=== PATIENT | female | born 1960 | race Hispanic/Latino ===

== ENCOUNTER 2017-05-06 14:12 | Emergency (ER) | payer MEDICARE ==
[2017-05-06 14:13] VITALS: BMI 27.4
[2017-05-06 14:39] VITALS: TEMP 98.1
--- NOTE | 2017-05-06 14:42 | ED PDOC ---
Arrival/HPI - General Historian: Patient, EMS - General Chief Complaint: Alcohol Ingestion Time Seen by Provider: 05/06/17 14:13 - History of Present Illness Narrative History of Present Illness (Text): 05/06/17 14:38 Patient is a 56 yo female presents to the Emergency Department found "wandering on the [address] Patient states that she is not sure why she was brought to the Emergency Department. She states she was "sitting at home", however EMS states that someone called stating that she was outside and appeared confused. Patient denies headache. She denies chest pain or shortness of breath. She denies depression or suicidal ideation. She denies drinking alcohol. She denies overdosing on any medication. (Lico Samaniego) Past Medical History - Infectious Disease Hx of Infectious Diseases: None - Cardiac Hx Hypertension: Yes - Pulmonary Hx Respiratory Disorders: No - Neurological Hx Neurological Disorder: No - HEENT Hx HEENT Disorder: No - Renal Hx Renal Disorder: No - Endocrine/Metabolic Hx Endocrine Disorders: No - Hematological/Oncological Hx Blood Transfusions: No Hx Blood Transfusion Reaction: No - Integumentary Hx Dermatological Disorder: Yes Other/Comment: ITCHING AND SCABBING BLE, BUE, FACE - Musculoskeletal/Rheumatological Hx Musculoskeletal Disorders: No Hx Falls: No Other/Comment: COMPLAINTS THIS ADMISSION OF LEFT RIB PAIN SINCE 09/28/15 - Gastrointestinal Hx Gastrointestinal Disorders: No - Genitourinary/Gynecological Hx Genitourinary Disorders: No - Psychiatric Hx Psychophysiologic Disorder: No Hx Anxiety: Yes Hx Substance Use: No (TAKES PERCOCET FOR PAIN REGULARLY PRESCRIBED) - Surgical History Hx Musculoskeletal Surgery: Yes (DISCECTOMY, BACK SURGERY 2010) - Anesthesia Hx Anesthesia Reactions: No Hx Malignant Hyperthermia: No - Suicidal Assessment Feels Threatened In Home Enviroment: No Family/Social History Smoking Status: Former Smoker Hx Alcohol Use: No Hx Substance Use: No (TAKES PERCOCET FOR PAIN REGULARLY PRESCRIBED) Substance used: percocet Hx Substance Use Treatment: No Allergies/Home Meds Allergies/Adverse Reactions: Allergies No Known Allergies Allergy (Verified 09/29/15 11:18) Home Medications: Home Meds Medication Instructions Recorded Confirmed Fluoxetine HCl [Prozac] 40 mg PO DAILY 02/02/15 05/06/17 Losartan/Hydrochlorothiazide 1 tab PO DAILY 02/02/15 05/06/17 [Hyzaar 100-25 Tablet] Review of Systems - Review of Systems Systems not reviewed;Unavailable: Altered Mental Status Constitutional: absent: Fevers Eyes: absent: Vision Changes Respiratory: absent: SOB Cardiovascular: absent: Chest Pain, Palpitations, CEJA, Syncope Gastrointestinal: absent: Abdominal Pain, Nausea, Vomiting Genitourinary Female: absent: Dysuria, Frequency Musculoskeletal: absent: Back Pain Skin: absent: Rash Neurological: absent: Headache, Dizziness, Focal Weakness Hemo/Lymphatic: absent: Easy Bleeding Psychiatric: absent: Depression Physical Exam - Physical Exam Physical Exam Limitations: Altered Mental Status Vital Signs Reviewed: Yes Temperature: Afebrile Appearance: Positive for: Unkept Mental Status: Positive for: Confused. No: Agitated - Systems Exam Head: Present: Atraumatic, Normocephalic Pupils: Present: PERRL Extroacular Muscles: Present: EOMI Mouth: Present: Moist Mucous Membranes Pharnyx: No: ERYTHEMA Neck: Present: Normal Range of Motion. No: Meningeal Signs Respiratory/Chest: Present: Clear to Auscultation. No: Respiratory Distress Cardiovascular: Present: Regular Rate and Rhythm, Murmurs Abdomen: Present: Normal Bowel Sounds. No: Tenderness, Distention, Peritoneal Signs Back: No: CVA Tenderness, Midline Tenderness Upper Extremity: No: Cyanosis, Edema Lower Extremity: Present: Neurovascularly Intact. No: Edema, CALF TENDERNESS Neurological: Present: Motor Func Grossly Intact, Normal Sensory Function, Normal Cerebellar Funct, Normal 2Pt Descrimination. No: Speech Normal (slurred speech), Memory Normal Skin: Present: Warm Psychiatric: Present: Alert. No: Oriented x 3, Normal Insight, Normal Concentration, Depressed Mood Vital Signs Temp Pulse Resp BP Pulse Ox 05/06/17 18:00 78 18 120/79 98 05/06/17 16:12 90 136/70 99 05/06/17 14:39 98.1 F 83 16 118/83 98 Medical Decision Making - EKG Interpretation Interpreted by ED Physician: Yes Type: 12 lead EKG ED Course and Treatment: 05/06/17 14:48 Patient on initial evaluation appears confused, although no fever, no obvious trauma. There is no focal weakness noted. Past available visits reviewed. She denies drinking alcohol or drug abuse. Given confusion, head ct ordered and drug screen and labs ordered for evaluation of AMS. Currently cardiovascularly stable with no respiratory distress. 05/06/17 15:51 ETOH level extremely elevated despite patient stating that she has not been drinking. I feel this is most likely etiology of AMS. As no signs of trauma noted or reported, head ct cancelled and will continue serial exams in the ED. 05/06/17 19:57 Patient with no headache, no slurred speech. CV stable. Ambulatory. Drinking water and no distress noted. 05/06/17 21:45 Patient reassessed at 21:45. She states she does not recollect coming to the emergency room by ambulance but does admit to drinking alcohol earlier in the day. Patient currently denies any pain or discomfort. Patient is not tremulous ot tachycardic. She denies suicidal ideation, although states she lives by herself and asked to "talk to someone". On exam, steady gait, no slurred speech. Will request mental health evaluation. 05/06/17 22:15 Thrombocytopenia noted, but no bruising or gum bleeding or active bleeding noted. LFTs elevated, although no abodminal pain. I suspect lab abnormalities secondary to ETOH abuse. Abnormal labs reviewed with patient. She is medically cleared for PES evaluation. (Lico Samaniego) 05/06/17 22:13: Patient endorsed to me by Dr. Samaniego. Pending PES Evaluation. 05/07/17 01:32: Patient evaluated by PES worker. Patient is clear for discharge. (Eitan Mccray) - Lab Interpretations Lab Results: 05/06/17 14:49 05/06/17 14:49 Lab Results 05/06/17 15:31: Urine Opiates Screen Negative, Urine Methadone Screen Negative, Ur Barbiturates Screen Negative, Ur Phencyclidine Scrn Negative, Ur Amphetamines Screen Negative, U Benzodiazepines Scrn Negative, U Oth Cocaine Metabols Negative, U Cannabinoids Screen Negative 05/06/17 15:31: Urine Color Yellow, Urine Appearance Clear, Urine pH 6.0, Ur Specific [place] <= 1.005, Urine Protein Negative, Urine Glucose (UA) Negative, Urine Ketones Negative, Urine Blood Small H, Urine Nitrate Negative, Urine Bilirubin Negative, Urine Urobilinogen 0.2, Ur Leukocyte Esterase Negative, Urine RBC 1 - 3, Urine WBC 2 - 5, Ur Epithelial Cells 3 - 4, Urine Bacteria Mod 05/06/17 14:49: Alcohol, Quantitative 410 H* 05/06/17 14:49: Salicylates < 1 L, Acetaminophen < 10.0 L 05/06/17 14:49: Sodium 140, Potassium 4.1, Chloride 93 L, Carbon Dioxide 30, Anion Gap 22 H, BUN 3 L, Creatinine 0.5 L, Est GFR ( Amer) > 60, Est GFR (Non-Af Amer) > 60, Random Glucose 115 H, Calcium 9.4, Magnesium 1.9, Total Bilirubin 1.3, AST 512 H, ALT 187 H, Alkaline Phosphatase 123, Lactate Dehydrogenase 1148 H, Total Creatine Kinase 65, Troponin I < 0.01, Total Protein 7.9, Albumin 4.4, Globulin 3.5, Albumin/Globulin Ratio 1.3 05/06/17 14:49: PT 12.0, INR 1.10 H, APTT 32.0 05/06/17 14:49: WBC 5.1 D, RBC 3.56, Hgb 12.7, Hct 36.8, MCV 103.4, MCH 35.7 H , MCHC 34.5, RDW 15.4 H, Plt Count 75 L, MPV 10.1, Gran % 59.9, Lymph % (Auto) 30.8, [place] % (Auto) 7.9 H, Eos % (Auto) 0.8 L, Baso % (Auto) 0.6, Gran # 3.05, Lymph # 1.6, [place] # 0.4, Eos # 0.0, Baso # 0.03 05/06/17 14:48: POC Glucose (mg/dL) 119 H - EKG Interpretation EKG Interpretation (Text): 05/06/17 14:49 EKG at 14:45 normal sinus rhythm rate of 98 (Lico Samaniego) - Medication Orders Current Medication Orders: Discontinued Medications Lorazepam (Ativan) 0.5 mg PO ONCE ONE PRN Reason: Protocol Stop: 05/06/17 22:52 Last Admin: 05/06/17 23:19 Dose: 0.5 mg Disposition/Present on Arrival - Present on Arrival Any Indicators Present on Arrival: No History of DVT/PE: No History of Uncontrolled Diabetes: No Urinary Catheter: No History of Decub. Ulcer: No History Surgical Site Infection Following: None - Disposition Have Diagnosis and Disposition been Completed?: Yes - Disposition Diagnosis: Alcohol intoxication Disposition: HOME/ ROUTINE Patient Problems: Current Active Problems Problem Status Onset Alcohol intoxication Acute Condition: STABLE Discharge Instructions (ExitCare): Alcohol Intoxication (ED), Suicide Prevention for Adults (ED) Additional Instructions: follow instructions as directed by pull worker. return to er with worsening symptoms or concerns. Referrals: [facility] [Outside] - Follow up with primary [facility] [Outside] - Follow up with [facility] [Outside] - Follow up with primary [facility] [place]] - Follow up with primary Latoya Cruz MD [Primary Care Provider] - Follow up with primary Forms: [employer] (German)
[2017-05-06 15:16] LABS: ALB/GLOB RATIO 1.3 (1.1-1.8); ALKALINE PHOSPHATASE 123 U/L (38-126); ALT/SGPT 187 U/L (7-56); AST/SGOT 512 U/L (14-36); BILIRUBIN,TOTAL 1.3 mg/dL (0.2-1.3); BLOOD UREA NITROGEN 3 mg/dL (7-21); CALCIUM 9.4 mg/dL (8.4-10.5); CARBON DIOXIDE 30 mmol/L (21-33); CHLORIDE 93 mmol/L (98-107); GFR AFRICAN-AMERICAN > 60; GLUCOSE,RANDOM 115 mg/dL (70-110); MAGNESIUM 1.9 mg/dL (1.7-2.2); POTASSIUM 4.1 mmol/L (3.6-5.0); SODIUM 140 mmol/L (132-148); TOTAL PROTEIN 7.9 g/dL (5.8-8.3)
[2017-05-06 15:20] LABS: BASO # 0.03 K/mm3 (0.0-2.0); BASO % 0.6 % (0.0-3.0); EOS % 0.8 % (1.5-5.0); GRAN # 3.05 (1.4-6.5); GRAN % 59.9 % (50.0-68.0); HEMATOCRIT 36.8 % (36.0-48.0); LYMPH # 1.6 (1.2-3.4); LYMPH % 30.8 % (22.0-35.0); MEAN CELL VOLUME 103.4 fl (80.0-105.0); MEAN CORPUSCULAR HEMOGLOBIN 35.7 pg (25.0-35.0); MEAN CORPUSCULAR HGB CONC 34.5 g/dl (31.0-37.0); MEAN PLATELET VOLUME 10.1 fl (7.0-11.0); MONO # 0.4 (0.1-0.6); MONO % 7.9 % (1.0-6.0); RED CELL DISTRIBUTION WIDTH 15.4 % (11.5-14.5); WHITE BLOOD COUNT 5.1 10^3/ul (4.5-11.0)
[2017-05-06 15:25] LABS: TROPONIN I < 0.01 ng/mL
[2017-05-06 15:32] LABS: INR 1.1 (0.93-1.08)
[2017-05-06 15:36] LABS: URINE BILIRUBIN NEGATIVE (NEGATIVE); URINE BLOOD SMALL (NEGATIVE); URINE GLUCOSE (UA) NEGATIVE (NEGATIVE); URINE KETONE NEGATIVE (NEGATIVE); URINE LEUKOCYTE ESTERASE NEGATIVE Leu/uL (NEGATIVE); URINE PROTEIN NEGATIVE mg/dL (<30 mg/dL); URINE UROBILINOGEN 0.2 E.U./dL (<1 E.U./dL)
[2017-05-06 15:40] LABS: URINE APPEARANCE CLEAR (CLEAR); URINE COLOR YELLOW (YELLOW)
[2017-05-06 15:52] LABS: URINE BACTERIA MOD (NEG)
[2017-05-06 18:46] VITALS: RESP 18; O2SAT 98
[2017-05-07 06:18] VITALS: BP 121/82; PULSE 80
--- NOTE | 2017-05-07 09:51 | CARD ---
APPROVED REPORT EKG Measurement Heart [id number] TX [id number] <Conclusion> Normal sinus rhythm Possible Left atrial enlargement RVCD Mildly prolonged QTc
== END 2017-05-07 07:00 | disposition home or self-care (01) ==
LOC: ED 14:12
DX: F10.129 Alcohol abuse with intoxication, unspecified (principal); I10 Essential (primary) hypertension; Z87.891 Personal history of nicotine dependence; Y90.8 Blood alcohol level of 240 mg/100 ml or more
CPT/HCPCS: 80053; 81001; 82550; 82948; 83615; 83735; 84484; 85025; 85610; 85730; 93005; 99284; G0480

== ENCOUNTER 2017-07-07 13:51 | Emergency (ER) | payer MEDICARE ==
[2017-07-07 13:59] VITALS: BP 112/70; PULSE 91; RESP 18; TEMP 98; O2SAT 100; BMI 29.2
[2017-07-07] MEDS ORDERED: Bacitracin Ointment 30 GM TUBE TOP STA (14:29)
[2017-07-07] MEDS ORDERED: TDAP Vaccine 0.5 mL Syr IM ONE (14:30)
--- NOTE | 2017-07-07 14:53 | ED PDOC ---
Arrival/HPI - General Chief Complaint: Trauma Time Seen by Provider: 07/07/17 14:25 Historian: Patient - History of Present Illness Narrative History of Present Illness (Text): 07/07/17 14:49 56 year old female, with past medical history of hypertension, presents to the Emergency department via EMS for alcohol intoxication prior to arrival. Patient complains of mild abrasion to her chin s/p fall but denies hitting her head or loss of consciousness. Patient admits to drinking today. Patient denies any fever, chills, nausea, vomiting, diarrhea, abdominal pain, chest pain, shortness of breath, trauma or any other complaints. PMD: Dr. Cruz Time/Duration: Prior to Arrival Symptom Onset: Gradual Symptom Course: Improving Activities at Onset: Light Context: Street Past Medical History - Provider Review Nursing Documentation Reviewed: Yes - Infectious Disease Hx of Infectious Diseases: None - Cardiac Hx Hypertension: Yes - Pulmonary Hx Respiratory Disorders: No - Neurological Hx Neurological Disorder: No - HEENT Hx HEENT Disorder: No - Renal Hx Renal Disorder: No - Endocrine/Metabolic Hx Endocrine Disorders: No - Hematological/Oncological Hx Blood Transfusions: No Hx Blood Transfusion Reaction: No - Integumentary Hx Dermatological Disorder: Yes Other/Comment: ITCHING AND SCABBING BLE, BUE, FACE - Musculoskeletal/Rheumatological Hx Musculoskeletal Disorders: No Hx Falls: No Other/Comment: COMPLAINTS THIS ADMISSION OF LEFT RIB PAIN SINCE 09/28/15 - Gastrointestinal Hx Gastrointestinal Disorders: No - Genitourinary/Gynecological Hx Genitourinary Disorders: No - Psychiatric Hx Psychophysiologic Disorder: No Hx Anxiety: Yes Hx Substance Use: No (TAKES PERCOCET FOR PAIN REGULARLY PRESCRIBED) - Surgical History Hx Musculoskeletal Surgery: Yes (DISCECTOMY, BACK SURGERY 2010) - Anesthesia Hx Anesthesia Reactions: No Hx Malignant Hyperthermia: No - Suicidal Assessment Feels Threatened In Home Enviroment: No Family/Social History - Physician Review Nursing Documentation Reviewed: Yes Family/Social History: No Known Family HX Smoking Status: Former Smoker Hx Alcohol Use: No Hx Substance Use: No (TAKES PERCOCET FOR PAIN REGULARLY PRESCRIBED) Substance used: percocet Hx Substance Use Treatment: No Allergies/Home Meds Allergies/Adverse Reactions: Allergies No Known Allergies Allergy (Verified 09/29/15 11:18) Home Medications: Home Meds Medication Instructions Recorded Confirmed Fluoxetine HCl [Prozac] 40 mg PO DAILY 02/02/15 05/06/17 Losartan/Hydrochlorothiazide 1 tab PO DAILY 02/02/15 05/06/17 [Hyzaar 100-25 Tablet] Review of Systems - Physician Review All systems were reviewed & negative as marked: Yes - Review of Systems Constitutional: Normal. absent: Fevers Eyes: Normal ENT: Normal Respiratory: Normal. absent: SOB Cardiovascular: Normal. absent: Chest Pain Gastrointestinal: Normal. absent: Abdominal Pain, Diarrhea, Nausea, Vomiting Genitourinary Female: Normal Musculoskeletal: Normal Skin: Normal Neurological: Normal Endocrine: Normal Hemo/Lymphatic: Normal Psychiatric: Other (alcohol intoxication) Physical Exam Vital Signs Reviewed: Yes Vital Signs Temp Pulse Resp BP Pulse Ox 07/07/17 13:59 98.0 F 91 H 18 112/70 100 Temperature: Afebrile Blood Pressure: Normal Pulse: Regular Respiratory Rate: Normal Appearance: Positive for: Well-Appearing, Comfortable Pain Distress: None Mental Status: Positive for: Alert and Oriented X 3 - Systems Exam Head: Present: Atraumatic, Normocephalic Pupils: Present: PERRL Extroacular Muscles: Present: EOMI Conjunctiva: Present: Normal Mouth: Present: Moist Mucous Membranes, Other (no tenderness or intraoral injury ) Neck: Present: Normal Range of Motion Respiratory/Chest: Present: Clear to Auscultation, Good Air Exchange. No: Respiratory Distress, Accessory Muscle Use Cardiovascular: Present: Regular Rate and Rhythm, Normal S1, S2. No: Murmurs Abdomen: Present: Normal Bowel Sounds. No: Tenderness, Distention, Peritoneal Signs Back: Present: Normal Inspection Upper Extremity: Present: Normal Inspection. No: Cyanosis, Edema Lower Extremity: Present: Normal Inspection. No: Edema Neurological: Present: GCS=15, CN II-XII Intact, Speech Normal Skin: Present: Warm, Dry, Normal Color, Abrasion (mild abrasion to chin). No: Rashes Psychiatric: Present: Alert, Oriented x 3, Intoxicated Medical Decision Making ED Course and Treatment: 07/07/17 14:56 Impression: 56 year old female presents to the Emergency department s/p alcohol intoxication. Plan: -- Bacitrin -- TDAP vaccine -- Reassess and disposition Progress Notes: - Medication Orders Current Medication Orders: Discontinued Medications Bacitracin (Bacitracin) 0 gm TOP ONCE STA Stop: 07/07/17 14:30 Last Admin: 07/07/17 14:57 Dose: 1 unit Tetanus/Reduced Diphtheria/Acell Pertussis (Boostrix Vaccine Inj) 0.5 ml IM .ONCE ONE Stop: 07/07/17 14:31 Last Admin: 07/07/17 14:58 Dose: 0.5 ml MAR Immunization Data Document 07/07/17 14:58 HP (Rec: 07/07/17 14:58 HP [id number] Immunization Data Vaccine Information Sheet Given No Immunization Registry Document 07/07/17 14:58 HP (Rec: 07/07/17 14:58 HP [id number] Immunization Registry Consent Date 05/06/17 - Scribe Statement The provider has reviewed the documentation as recorded by the Scribe Lulú Yun. All medical record entries made by the Scribe were at my direction and personally dictated by me. I have reviewed the chart and agree that the record accurately reflects my personal performance of the history, physical exam, medical decision making, and the department course for this patient. I have also personally directed, reviewed, and agree with the discharge instructions and disposition. Disposition/Present on Arrival - Present on Arrival Any Indicators Present on Arrival: No History of DVT/PE: No History of Uncontrolled Diabetes: No Urinary Catheter: No History of Decub. Ulcer: No History Surgical Site Infection Following: None - Disposition Have Diagnosis and Disposition been Completed?: Yes Diagnosis: Facial abrasion, Alcohol abuse Disposition: HOME/ ROUTINE Disposition Time: 16:10 Patient Problems: Current Active Problems Problem Status Onset Alcohol abuse Acute Facial abrasion Acute Condition: STABLE Discharge Instructions (ExitCare): Alcohol Intoxication (ED), Abuse of Alcohol (ED), Alcohol Dependence (ED), Skin Abrasions, Alcohol Abuse and Alcoholism (DC) Referrals: Latoya Cruz MD [Primary Care Provider] - Follow up with primary Forms: [employer] (Spanish)
== END 2017-07-07 16:41 | disposition home or self-care (01) ==
LOC: ED 13:51
DX: S00.81XA Abrasion of other part of head, initial encounter (principal); W01.0XXA Fall on same level from slipping, tripping and stumbling without subsequent striking against object, initial encounter; Y92.9 Unspecified place or not applicable; F10.10 Alcohol abuse, uncomplicated; Y90.9 Presence of alcohol in blood, level not specified; Z23 Encounter for immunization

== ENCOUNTER 2017-07-14 13:05 | Inpatient (IN) | payer MEDICARE, OTHER ==
--- NOTE | 2017-07-14 13:13 | ED PDOC ---
Arrival/HPI - General Chief Complaint: Alcohol Ingestion Time Seen by Provider: 07/14/17 13:08 Historian: Patient - History of Present Illness Narrative History of Present Illness (Text): 07/14/17 13:12 This 56 yo female with pmh htn, alcohol abuse, presents to this ED c/o dizziness and jaundice for few days. Ex-librado who is at bedside stated she saw patient today with yellow skin. He stated patient did not have this last week. Patient feels dizzy to the point she feels she is going to faint. Patient denies sob, cp, n/v, or urinary symptoms. Time/Duration: Other (see hpi) Context: Home Past Medical History - Provider Review Nursing Documentation Reviewed: Yes - Infectious Disease Hx of Infectious Diseases: None - Reproductive Menopause: Yes - Cardiac Hx Hypertension: Yes - Pulmonary Hx Respiratory Disorders: No - Neurological Hx Neurological Disorder: No - HEENT Hx HEENT Disorder: No - Renal Hx Renal Disorder: No - Endocrine/Metabolic Hx Endocrine Disorders: No - Hematological/Oncological Hx Blood Transfusions: No Hx Blood Transfusion Reaction: No - Integumentary Hx Dermatological Disorder: Yes Other/Comment: ITCHING AND SCABBING BLE, BUE, FACE - Musculoskeletal/Rheumatological Hx Musculoskeletal Disorders: No Hx Falls: No Other/Comment: COMPLAINTS THIS ADMISSION OF LEFT RIB PAIN SINCE 09/28/15 - Gastrointestinal Hx Gastrointestinal Disorders: No - Genitourinary/Gynecological Hx Genitourinary Disorders: No - Psychiatric Hx Psychophysiologic Disorder: No Hx Anxiety: Yes Hx Substance Use: No (TAKES PERCOCET FOR PAIN REGULARLY PRESCRIBED) - Surgical History Hx Musculoskeletal Surgery: Yes (DISCECTOMY, BACK SURGERY 2010) - Anesthesia Hx Anesthesia Reactions: No Hx Malignant Hyperthermia: No - Suicidal Assessment Feels Threatened In Home Enviroment: No Family/Social History - Physician Review Nursing Documentation Reviewed: Yes Family/Social History: Other (noncontributory) Smoking Status: Former Smoker Hx Alcohol Use: Yes (chronic alcoholic) Hx Substance Use: No (TAKES PERCOCET FOR PAIN REGULARLY PRESCRIBED) Substance used: percocet Hx Substance Use Treatment: No Allergies/Home Meds Allergies/Adverse Reactions: Allergies No Known Allergies Allergy (Verified 09/29/15 11:18) Home Medications: Home Meds Medication Instructions Recorded Confirmed Fluoxetine HCl [Prozac] 40 mg PO DAILY 02/02/15 05/06/17 Losartan/Hydrochlorothiazide 1 tab PO DAILY 02/02/15 05/06/17 [Hyzaar 100-25 Tablet] Review of Systems - Review of Systems Constitutional: Normal. absent: Fatigue, Weight Change, Fevers, Night Sweats Eyes: Normal ENT: Normal Respiratory: Normal. absent: SOB Cardiovascular: Normal. absent: Chest Pain, Palpitations Gastrointestinal: Normal. absent: Abdominal Pain, Nausea, Vomiting Genitourinary Female: Normal. absent: Dysuria, Frequency Musculoskeletal: Normal Skin: Normal Neurological: Dizziness. absent: Headache, Focal Weakness, Speech Changes, Facial Droop, Disequilibrium Endocrine: Normal Hemo/Lymphatic: Normal Psychiatric: Normal Physical Exam Vital Signs Temp Pulse Resp BP Pulse Ox 07/14/17 19:28 105 H 17 111/63 100 07/14/17 18:09 95 H 20 113/58 L 100 07/14/17 16:56 98 H 18 120/75 100 07/14/17 13:23 97.9 F 113 H 16 108/38 L 100 Temperature: Afebrile Blood Pressure: Normal Pulse: Regular Respiratory Rate: Normal Appearance: Positive for: Well-Appearing, Non-Toxic, Comfortable Pain Distress: None Mental Status: Positive for: Alert and Oriented X 3 - Systems Exam Head: Present: Atraumatic, Normocephalic Pupils: Present: PERRL Extroacular Muscles: Present: EOMI Conjunctiva: Present: Normal Mouth: Present: Moist Mucous Membranes Neck: Present: Normal Range of Motion Respiratory/Chest: Present: Clear to Auscultation, Good Air Exchange. No: Respiratory Distress, Accessory Muscle Use Cardiovascular: Present: Regular Rate and Rhythm, Normal S1, S2. No: Murmurs Abdomen: Present: Normal Bowel Sounds. No: Tenderness, Distention, Peritoneal Signs Back: Present: Normal Inspection Upper Extremity: Present: Normal Inspection. No: Cyanosis, Edema Lower Extremity: Present: Normal Inspection. No: Edema Neurological: Present: GCS=15, CN II-XII Intact, Speech Normal Skin: Present: Warm, Dry, Normal Color. No: Rashes Psychiatric: Present: Alert, Oriented x 3, Normal Insight, Normal Concentration Medical Decision Making ED Course and Treatment: 07/14/17 17:[address] Comer came to examine patient. He stated patient does not need to be on ICU. 07/14/17 17:[address] Anthony AVILA. He agrees with plan for admission. He recommended Dr. Thomas Pipe Bending Machine Operator for consult. Re-evaluation Time: 17:55 Reassessment Condition: Re-examined, Improving,but remains with symptoms - Lab Interpretations Lab Results: 07/14/17 14:00 07/14/17 14:00 Lab Results 07/14/17 15:35: Urine Color [place], Urine Appearance Cloudy, Urine pH 7.0, Ur Specific [place] 1.010, Urine Protein 30 H, Urine Glucose (UA) 100 H, Urine Ketones 40 H, Urine Blood Trace-intact H, Urine Nitrate Positive H, Urine Bilirubin Large H, Urine Urobilinogen 2.0 H, Ur Leukocyte Esterase Trace H, Urine RBC Negative, Urine WBC 0 - 2, Ur Epithelial Cells 3 - 4, Urine Bacteria Few 07/14/17 14:25: Lactate Dehydrogenase 999 H, Total Creatine Kinase 46, Troponin I < 0.01 07/14/17 14:00: Ammonia 23 07/14/17 14:00: Sodium 121 L, Potassium 3.0 L, Chloride 75 L, Carbon Dioxide 25 , Anion Gap 23 H, BUN 10, Creatinine 0.5 L, Est GFR ( Amer) > 60, Est GFR (Non-Af Amer) > 60, Random Glucose 98, Calcium 9.6, Total Bilirubin 19.4 H* , AST 221 H D, ALT 78 H, Alkaline Phosphatase 202 H D, Total Protein 7.1, Albumin 3.8, Globulin 3.4, Albumin/Globulin Ratio 1.1, Lipase 145 07/14/17 14:00: PT 19.7 H, INR 1.71 H, APTT 29.2 07/14/17 14:00: WBC 10.6 D, RBC 2.82 L, Hgb 11.0 L, Hct 29.9 L, MCV 106.0 H, MCH 39.0 H, MCHC 36.8, RDW 16.2 H, Plt Count 184, MPV 12.7 H, Gran % 85.3 H, Lymph % (Auto) 5.9 L, Shannon % (Auto) 8.6 H, Eos % (Auto) 0.1 L, Baso % (Auto) 0.1 , Gran # 9.06 H, Lymph # (Auto) 0.6 L, [place] # (Auto) 0.9 H, Eos # (Auto) 0.0, Baso # (Auto) 0.01 I have reviewed the lab results: Yes Interpretation: Abnormal lab values - RAD Interpretation Narrative RAD Interpretations (Text): 07/14/17 14:17 HISTORY: Dizziness COMPARISON: 10/01/2015. FINDINGS: LUNGS: The lungs are well inflated and clear. PLEURA: No significant pleural effusion identified, no pneumothorax apparent. CARDIOVASCULAR: Normal. OSSEOUS STRUCTURES: No significant abnormalities. VISUALIZED UPPER ABDOMEN: Normal. OTHER FINDINGS: None. IMPRESSION: No active pulmonary disease. 07/14/17 16:53 PROCEDURE: CT HEAD WITHOUT CONTRAST. HISTORY: dizziness COMPARISON: None available. TECHNIQUE: Axial computed tomography images were obtained through the head/brain without intravenous contrast. Radiation dose: Total exam DLP = 722 mGy-cm. This CT exam was performed using one or more of the following dose reduction techniques: Automated exposure control, adjustment of the mA and/or kV according to patient size, and/or use of iterative reconstruction technique. FINDINGS: HEMORRHAGE: No intracranial hemorrhage. BRAIN: No mass effect or edema. No atrophy or chronic microvascular ischemic changes. VENTRICLES: Unremarkable. No hydrocephalus. CALVARIUM: Unremarkable. PARANASAL SINUSES: Unremarkable as visualized. No significant inflammatory changes. MASTOID AIR CELLS: Unremarkable as visualized. No inflammatory changes. OTHER FINDINGS: None. IMPRESSION: No acute findings 07/14/17 16:54 Patient Name / ID : MARLA HER / [id number] Exam Date : 07/14/2017 16:27:52 ( Approved ) Study Comment : Sex / Age : F / 56Y Creator : Moshe Pappas MD Dictator : Moshe Pappas MD Clerk : Stretch Box Tender : Moshe Pappas MD Approver2 : Report Date : 07/14/2017 16:48:40 My Comment : PROCEDURE: CT Abdomen and Pelvis with contrast HISTORY: adminal distention COMPARISON: None. TECHNIQUE: Contrast dose: 100 cc of Omni 350 Radiation dose: Total exam DLP = 801 mGy-cm. This CT exam was performed using one or more of the following dose reduction techniques: Automated exposure control, adjustment of the mA and/or kV according to patient size, and/or use of iterative reconstruction technique. FINDINGS: LOWER THORAX: Unremarkable. LIVER: There is severe fatty infiltration of the liver. There is hepatomegaly. GALLBLADDER AND BILE DUCTS: Unremarkable. PANCREAS: Unremarkable. No gross lesion or ductal dilatation. SPLEEN: Unremarkable. ADRENALS: Unremarkable. No mass. KIDNEYS AND URETERS: Unremarkable. No hydronephrosis. No solid mass. VASCULATURE: Unremarkable. No aortic aneurysm. BOWEL: Unremarkable. No obstruction. No gross mural thickening. APPENDIX: Normal appendix. PERITONEUM: Unremarkable. No free fluid. No free air. LYMPH NODES: Unremarkable. No enlarged lymph nodes. BLADDER: Unremarkable. REPRODUCTIVE: Unremarkable. BONES: No acute fracture. OTHER FINDINGS: None. IMPRESSION: Hepatomegaly and severe fatty infiltration of the liver. No acute intra-abdominal findings Radiology Orders: 07/14/17 13:37 CHEST PORTABLE [RAD] Stat 07/14/17 13:39 ABD & PELVIS IV CONTRAST ONLY [CT] Stat 07/14/17 14:21 HEAD W/O CONTRAST [CT] Stat - EKG Interpretation Interpreted by ED Physician: Yes (NSR @ [address] changes) Type: 12 lead EKG Comparison: No previous EKG avail. - Medication Orders Current Medication Orders: Fluoxetine HCl (Prozac) 20 mg PO DAILY NORMA Sodium Chloride (Sodium Chloride 0.9%) 1,000 mls @ 60 mls/hr IV .[id number] NORAM Last Admin: 07/14/17 19:13 Dose: 60 mls/hr eMAR Start Stop Document 07/14/17 19:13 SRE (Rec: 07/14/17 19:13 [id number] [id number]) Intravenous Solution Start Date 07/14/17 Start Time 19:13 Losartan Potassium (Cozaar) 25 mg PO DAILY NORMA Meclizine HCl (Antivert) 12.5 mg PO TID PRN PRN Reason: Dizziness Discontinued Medications Sodium Chloride (Sodium Chloride 0.9%) 1,000 mls @ 999 mls/hr IV .[id number] STA Stop: 07/14/17 16:22 Last Admin: 07/14/17 15:51 Dose: 999 mls/hr eMAR Start Stop Document 07/14/17 15:51 SRE (Rec: 07/14/17 15:52 [id number]) Intravenous Solution Start Date 07/14/17 Start Time 15:52 End Date 07/14/17 End time 16:50 Total Infusion Time 58 Potassium Chloride (K-Dur 20 Meq Er Tab) 40 meq PO STAT STA Stop: 07/14/17 15:23 Last Admin: 07/14/17 15:48 Dose: 40 meq Disposition/Present on Arrival - Present on Arrival Any Indicators Present on Arrival: No History of DVT/PE: No History of Uncontrolled Diabetes: No Urinary Catheter: No History of Decub. Ulcer: No History Surgical Site Infection Following: None - Disposition Have Diagnosis and Disposition been Completed?: Yes Diagnosis: Dizziness, Alcoholic hepatitis without ascites, Hyponatremia, Hypochloremia, Hypokalemia, Hyperbilirubinemia Disposition: HOSPITALIZED Disposition Time: 17:52 Patient Plan: Admission Condition: STABLE
--- NOTE | 2017-07-14 14:14 | RAD ---
HISTORY: Dizziness COMPARISON: 10/01/2015. FINDINGS: LUNGS: The lungs are well inflated and clear. PLEURA: No significant pleural effusion identified, no pneumothorax apparent. CARDIOVASCULAR: Normal. OSSEOUS STRUCTURES: No significant abnormalities. VISUALIZED UPPER ABDOMEN: Normal. OTHER FINDINGS: None. IMPRESSION: No active pulmonary disease.
[2017-07-14 14:30] LABS: BASO # 0.01 K/mm3 (0.0-2.0); BASO % 0.1 % (0.0-3.0); EOS % 0.1 % (1.5-5.0); GRAN # 9.06 (1.4-6.5); GRAN % 85.3 % (50.0-68.0); LYMPH # 0.6 (1.2-3.4); LYMPH % 5.9 % (22.0-35.0); MEAN CORPUSCULAR HGB CONC 36.8 g/dl (31.0-37.0); MEAN PLATELET VOLUME 12.7 fl (7.0-11.0); MONO # 0.9 (0.1-0.6); MONO % 8.6 % (1.0-6.0); RBC 2.82 10^6/uL (3.5-6.1); RED CELL DISTRIBUTION WIDTH 16.2 % (11.5-14.5); WHITE BLOOD COUNT 10.6 10^3/ul (4.5-11.0)
[2017-07-14 14:40] LABS: INR 1.71 (0.93-1.08); PARTIAL THROMBOPLASTIN TIME 29.2 Seconds (25.1-36.5); PROTHROMBIN TIME 19.7 SECONDS (9.4-12.5)
[2017-07-14 14:44] LABS: CALCIUM 9.6 mg/dL (8.4-10.5); GFR AFRICAN-AMERICAN > 60; GFR NON-AFRICAN AMERICAN > 60; LIPASE 145 U/L (23-300)
[2017-07-14 14:46] LABS: ALB/GLOB RATIO 1.1 (1.1-1.8); ALBUMIN 3.8 g/dL (3.0-4.8); ALT/SGPT 78 U/L (7-56); AST/SGOT 221 U/L (14-36); BLOOD UREA NITROGEN 10 mg/dL (7-21)
[2017-07-14] MEDS ORDERED: Iohexol 350 MG/100 ML VIAL ONE (14:54)
[2017-07-14] MEDS ORDERED: Sodium Chloride 0.9% 1,000 ML IV STA (15:22)
[2017-07-14] MEDS ORDERED: Potassium Chloride 20 mEq ER Tab PO STA (15:22)
[2017-07-14 16:01] LABS: URINE BILIRUBIN LARGE (NEGATIVE); URINE BLOOD TRACE-INTACT (NEGATIVE); URINE GLUCOSE (UA) 100 mg/dL (NEGATIVE); URINE LEUKOCYTE ESTERASE TRACE Leu/uL (NEGATIVE); URINE PROTEIN 30 mg/dL (<30 mg/dL)
[2017-07-14 16:05] LABS: URINE APPEARANCE CLOUDY (CLEAR); URINE COLOR ORANGE (YELLOW)
[2017-07-14 16:12] LABS: URINE RBC NEGATIVE /hpf (0-2); URINE WBC 0 - 2 /hpf (0-6)
[2017-07-14 16:13] LABS: URINE BACTERIA FEW (NEG)
--- NOTE | 2017-07-14 16:45 | CT ---
PROCEDURE: CT HEAD WITHOUT CONTRAST. HISTORY: dizziness COMPARISON: None available. TECHNIQUE: Axial computed tomography images were obtained through the head/brain without intravenous contrast. Radiation dose: Total exam DLP = 722 mGy-cm. This CT exam was performed using one or more of the following dose reduction techniques: Automated exposure control, adjustment of the mA and/or kV according to patient size, and/or use of iterative reconstruction technique. FINDINGS: HEMORRHAGE: No intracranial hemorrhage. BRAIN: No mass effect or edema. No atrophy or chronic microvascular ischemic changes. VENTRICLES: Unremarkable. No hydrocephalus. CALVARIUM: Unremarkable. PARANASAL SINUSES: Unremarkable as visualized. No significant inflammatory changes. MASTOID AIR CELLS: Unremarkable as visualized. No inflammatory changes. OTHER FINDINGS: None. IMPRESSION: No acute findings
--- NOTE | 2017-07-14 16:50 | CT ---
PROCEDURE: CT Abdomen and Pelvis with contrast HISTORY: adminal distention COMPARISON: None. TECHNIQUE: Contrast dose: 100 cc of Omni 350 Radiation dose: Total exam DLP = 801 mGy-cm. This CT exam was performed using one or more of the following dose reduction techniques: Automated exposure control, adjustment of the mA and/or kV according to patient size, and/or use of iterative reconstruction technique. FINDINGS: LOWER THORAX: Unremarkable. LIVER: There is severe fatty infiltration of the liver. There is hepatomegaly. GALLBLADDER AND BILE DUCTS: Unremarkable. PANCREAS: Unremarkable. No gross lesion or ductal dilatation. SPLEEN: Unremarkable. ADRENALS: Unremarkable. No mass. KIDNEYS AND URETERS: Unremarkable. No hydronephrosis. No solid mass. VASCULATURE: Unremarkable. No aortic aneurysm. BOWEL: Unremarkable. No obstruction. No gross mural thickening. APPENDIX: Normal appendix. PERITONEUM: Unremarkable. No free fluid. No free air. LYMPH NODES: Unremarkable. No enlarged lymph nodes. BLADDER: Unremarkable. REPRODUCTIVE: Unremarkable. BONES: No acute fracture. OTHER FINDINGS: None. IMPRESSION: Hepatomegaly and severe fatty infiltration of the liver. No acute intra-abdominal findings
[2017-07-14 17:28] LABS: TROPONIN I < 0.01 ng/mL
--- NOTE | 2017-07-14 17:42 | CP.PCM.CON ---
<HarmonyJulián stevens - Last Filed: 07/14/17 17:44> History of Present Illness - History of Present Illness History of Present Illness: Julián Antunez PGY1 ICU Consult Note for Dr. Vinson Ms. Naylor is a 56 yr old female with a pmh of ETOH abuse, past opioid dependence, htn, depression, cervical spondylosis s/p surgery, wrist fracture, lumbar neuritis and insomnia who presents to ED due to dizziness and "looking more yellow" to family members. The patient is seen in the ED with family members. The patient states that she has been feeling dizzy and falling more; she was seen in ED 2 weeks ago for fall associated w/ ETOH. The family states that the patient is a chronic alcoholic and has been drinking more lately ; they also state that she been vomiting but cannot recall the color of the vomitus. The daughter states that the patient has also not been eating whole meals. The patient denied any n/v/d, abdominal pain, chest pain, shortness of breath or any recent illness. The patient states that she drinks more than 1L of wine/beer a day for around 7 years. Patient denies other issues. She is awake , alert and oriented and hemodynamically stable when evaluated by us. She is speaking in full sentences with no difficulty or any altered mental status. 12- pt ROS was reviewed and is otherwise unremarkable. PMH as above PSH: none SHx: former smoker, former oxycontin user (for msk pain) and later opiate abuser , lives alone FHx: non-contributory NKDA Review of Systems - Review of Systems All systems: reviewed and no additional remarkable complaints except (as per HPI ) Past Patient History - Infectious Disease Hx of Infectious Diseases: None - Past Medical History & Family History Past Medical History?: Yes - Past Social History Smoking Status: Former Smoker Alcohol: > 2 Drinks/Day Drugs: Opiates Home Situation {Lives}: Alone - CARDIAC Hx Hypertension: Yes - PULMONARY Hx Respiratory Disorders: No - NEUROLOGICAL Hx Neurological Disorder: No - HEENT Hx HEENT Problems: No - RENAL Hx Chronic Kidney Disease: No - ENDOCRINE/METABOLIC Hx Endocrine Disorders: No - HEMATOLOGICAL/ONCOLOGICAL Hx Blood Transfusions: No Hx Blood Transfusion Reaction: No - INTEGUMENTARY Hx Dermatological Problems: Yes - MUSCULOSKELETAL/RHEUMATOLOGICAL Hx Musculoskeletal Disorders: No Hx Arthritis: Yes (cervical) Hx Falls: Yes (ETOH related) - GASTROINTESTINAL Hx Gastrointestinal Disorders: No - GENITOURINARY/GYNECOLOGICAL Hx Genitourinary Disorders: No - PSYCHIATRIC Hx Psychophysiologic Disorder: No Hx Anxiety: Yes Hx Substance Use: Yes (TAKES PERCOCET FOR PAIN REGULARLY PRESCRIBED) - SURGICAL HISTORY Hx Surgeries: No Hx Musculoskeletal Surgery: Yes (DISCECTOMY, BACK SURGERY 2010) - ANESTHESIA Hx Anesthesia Reactions: No Hx Malignant Hyperthermia: No Meds Allergies/Adverse Reactions: Allergies Allergy/AdvReac Type Severity Reaction Status Date / Time No Known Allergies Allergy Verified 09/29/15 11:18 Physical Exam - Constitutional Appears: Well, Non-toxic, No Acute Distress - Head Exam Head Exam: NORMOCEPHALIC. absent: ATRAUMATIC (multiple bruises on chin s/p falls) - Eye Exam Eye Exam: Scleral icterus Pupil Exam: PERRL - ENT Exam ENT Exam: Mucous Membranes Dry - Neck Exam Additional comments: no JVD noted - Respiratory Exam Respiratory Exam: Clear to Auscultation Bilateral, NORMAL BREATHING PATTERN. absent: Rales, Rhonchi, Wheezes - Cardiovascular Exam Cardiovascular Exam: RRR, +S1, +S2 - GI/Abdominal Exam GI & Abdominal Exam: Distended, Soft. absent: Guarding, Tenderness - Extremities Exam Extremities exam: Positive for: normal inspection. Negative for: pedal edema - Back Exam Back exam: NORMAL INSPECTION - Neurological Exam Neurological exam: Alert, Oriented x3 - Psychiatric Exam Psychiatric exam: Normal Mood - Skin Additional comments: + jaundice no caput medusa noted Results - Vital Signs Recent Vital Signs: Last Vital Signs Temp 97.9 F 07/14/17 13:23 Pulse 98 H 07/14/17 16:56 Resp 18 07/14/17 16:56 BP 120/75 07/14/17 16:56 Pulse Ox 100 07/14/17 16:56 - Labs Result Diagrams: 07/14/17 14:00 07/14/17 14:00 Labs: Laboratory Results - last 24 hr 07/14/17 07/14/17 07/14/17 14:00 14:00 14:00 WBC 10.6 D RBC 2.82 L Hgb 11.0 L Hct 29.9 L MCV 106.0 H MCH 39.0 H MCHC 36.8 RDW 16.2 H Plt Count 184 MPV 12.7 H Gran % 85.3 H Lymph % (Auto) 5.9 L Love % (Auto) 8.6 H Eos % (Auto) 0.1 L Baso % (Auto) 0.1 Gran # 9.06 H Lymph # (Auto) 0.6 L Love # (Auto) 0.9 H Eos # (Auto) 0.0 Baso # (Auto) 0.01 PT 19.7 H INR 1.71 H APTT 29.2 Sodium 121 L Potassium 3.0 L Chloride 75 L Carbon Dioxide 25 Anion Gap 23 H BUN 10 Creatinine 0.5 L Est GFR ( Amer) > 60 Est GFR (Non-Af Amer) > 60 Random Glucose 98 Calcium 9.6 Total Bilirubin 19.4 H* AST 221 H D ALT 78 H Alkaline Phosphatase 202 H D Ammonia Lactate Dehydrogenase Total Creatine Kinase Troponin I Total Protein 7.1 Albumin 3.8 Globulin 3.4 Albumin/Globulin Ratio 1.1 Lipase 145 Urine Color Urine Appearance Urine pH Ur Specific [place] Urine Protein Urine Glucose (UA) Urine Ketones Urine Blood Urine Nitrate Urine Bilirubin Urine Urobilinogen Ur Leukocyte Esterase Urine RBC Urine WBC Ur Epithelial Cells Urine Bacteria 07/14/17 07/14/17 07/14/17 14:00 14:25 15:35 WBC RBC Hgb Hct MCV MCH MCHC RDW Plt Count MPV Gran % Lymph % (Auto) Love % (Auto) Eos % (Auto) Baso % (Auto) Gran # Lymph # (Auto) Love # (Auto) Eos # (Auto) Baso # (Auto) PT INR APTT Sodium Potassium Chloride Carbon Dioxide Anion Gap BUN Creatinine Est GFR ( Amer) Est GFR (Non-Af Amer) Random Glucose Calcium Total Bilirubin AST ALT Alkaline Phosphatase Ammonia 23 Lactate Dehydrogenase 999 H Total Creatine Kinase 46 Troponin I < 0.01 Total Protein Albumin Globulin Albumin/Globulin Ratio Lipase Urine Color [place] Urine Appearance Cloudy Urine pH 7.0 Ur Specific [place] 1.010 Urine Protein 30 H Urine Glucose (UA) 100 H Urine Ketones 40 H Urine Blood Trace-intact H Urine Nitrate Positive H Urine Bilirubin Large H Urine Urobilinogen 2.0 H Ur Leukocyte Esterase Trace H Urine RBC Negative Urine WBC 0 - 2 Ur Epithelial Cells 3 - 4 Urine Bacteria Few Assessment & Plan - Assessment and Plan (Free Text) Assessment: 56 yr old female with a pmh of ETOH abuse, past opioid dependence, htn , depression, cervical spondylosis s/p surgery, wrist fracture, lumbar neuritis and insomnia who presents to ED due to dizziness and "looking more yellow" to family members. ICU was consulted due to elevated bilirubin and LFTs. The patient was seen and examined in ED and is noted to be awake and alert with no signs of hepatic encephalitis or acute abdominal pain. She has no signs of withdrawal and no tremors resting or with outstreteched hands, negative asterixis and tongue fasciculations. The patient is hemodynamically and mentally stable and does not require ICU monitoring at this time. Plan: Neuro: patient is alert and oriented and mentally stable CT head was negative for any acute changes ammonia level is low, and patient does not display signs of encephalitis recommend neurochecks recommend seizure precautions recommend CIWA protocol give hx of heavy ETOH abuse fall precautions recommend Ativan PRN for ETOH withdrawals Cardio: hemodynamically stable monitor VS given hx of htn, recommend restart home meds once patient's VS are monitored dvt ppx Pulm: lungs are clear monitor for signs of hypoxia O2 PRN via NC GI: GI ppx recommend GI consult recommend abdominal US w/ duplex CT a/p showed hepatomegaly and severe fatty infiltration of liver Bili elevated, recommend direct bili LFT's elevated in ratio of almost 3/1 AST/ALT so likely 2/2 ETOH use Renal: monitor urine output hyponatremia noted likely due to beer potomania hypokalemia noted hypochloridemia noted, likely due to malnutrition and chronic ETOH use Renal consulted, recs appreciated ID: UA shows + nitrates and trace LE recommend empiric treatment for UTI Urine cultures placed Heme: H/H stable monitor for signs of bleeding given hx of ETOH use and elevated INR Endo: maintain euglycemia recommend TSH given hx of depression Psych: hx depression recommend psych consult for d/c planning and possible rehab Patient does require ICU monitoring at this time. Please reconsult if needed. Patient was seen, examined and discussed with Dr. Karel Antunez PGY1 Pager # [phone] <Earl Vinson - Last Filed: 07/14/17 18:40> Meds - Medications Medications: Current Medications Sodium Chloride (Sodium Chloride 0.9%) 1,000 mls @ 60 mls/hr IV .[id number] NORMA Results - Vital Signs Recent Vital Signs: Last Vital Signs Temp 97.9 F 07/14/17 13:23 Pulse 95 H 07/14/17 18:09 Resp 20 07/14/17 18:09 BP 113/58 L 07/14/17 18:09 Pulse Ox 100 07/14/17 18:09 - Labs Result Diagrams: 07/14/17 14:00 07/14/17 14:00 Assessment & Plan - Assessment and Plan (Free Text) Assessment: Patient seen and examined, with resident agree with note with following additions/exceptions: Patient is 56yo female with PMhx of HTN, EtOH abuse, drinks 1L of wine per day x 3 years, opiate abuse, presents with syncope. Labs demonstrated midl hyponatremia, and elevated Tbili. Currently afebrile, HD stable, comfortable, in NAD, AAOx3, no evidence of alcohol withdrawal. Would recommend: check TSH, Uric Acid, Cortisol level, Q12hr BMP, renal evaluation, GI evaluation, RUQ sono with dopppler, Hepatitis panel. CIWA protocol. IVF hydration. GI/DVT ppx, stable admit to telemetry.
[2017-07-14] MEDS: Sodium Chloride 0.9% 1,000 ML IV SCH (19:13)
[2017-07-14 20:05] LABS: TOTAL IRON BINDING CAPACITY 166 ug/dL (265-497)
[2017-07-14 20:12] LABS: % IRON SATURATION 91 % (20-55); IRON 151 ug/dL (45-180)
[2017-07-15 02:18] VITALS: BMI 26.6
--- NOTE | 2017-07-15 03:07 | HP ---
HISTORY OF PRESENT ILLNESS: Patient is seen in the emergency room. She was brought in by her step-. Patient was complaining of severe dizziness and fatigue. Patient's urine was found to be yellow. Patient was seen in the emergency room, able to answer all questions. Patient had no history of headache, no history of nausea or vomiting. PAST MEDICAL HISTORY: Patient's past history is significant; she has a history of fracture in the past; she has a history of lumbar neuritis; patient has a history of hypertension; patient has a history of being treated for multiple pain disorders and pain management. PHYSICAL EXAMINATION: GENERAL: The patient is seen lying down in bed. She is comfortable when she is lying down. She has evidence of jaundice. The skin color is yellow on the face especially. The eyes are also jaundiced. HEENT: Patient's head is normocephalic. Eyes: As mentioned, there is evidence of jaundice in the conjunctivae. NECK: The thyroid is not enlarged. JVP is flat. Carotid pulses are present. LUNGS: Trachea is central. Breath sounds are vesicular. No adventitious sounds. HEART: Normal sinus rhythm. S1 and S2 present. No murmurs. She has sinus tachycardia. ABDOMEN: Soft. Patient has some distention. There is no clinical evidence of ascites. There is no evidence of masses clinically. NEUROLOGIC: Patient is seen and examined. She is conscious. She is able to answer all questions. On neurological examination, the patient's cranial nerves are intact from II through XII. Patient's motor and sensory functions seemed to be within normal limits. Patient does not have any flapping tremors on examination. Patient's cerebellar functions are clinically normal, but patient is dizzy and she does not have nystagmus clinically. LABORATORY DATA: The patient's blood work done in the emergency room: The patient's white count is 10,600, patient's MCV is 106, patient's hemoglobin is 11. She has anemia and she has macrocytosis. This is probably consistent with alcoholism; macrocytosis is associated with history of alcohol intake. Patient's chemistry: The bilirubin is 19.4. Patient's AST is 231 and ALT is 78. Patient's alkaline phosphatase is 202. Patient has elevated lactic dehydrogenase of . Patient's sodium is 121, she has severe hyponatremia. Has potassium of 3.0. Patient's CAT scan of the abdomen shows evidence of enlargement of the liver with fatty infiltration. Patient had no evidence of any gallstones in the gallbladder according to the CAT scan. Patient does not have any ascites reported on the basis of evaluation of the CAT scan. DIAGNOSES: Alcoholic liver disease, hyperbilirubinemia, hyponatremia. Patient is admitted; we will put her on saline; have Gastroenterological evaluation. Patient will have Psych evaluation also. MEDICATIONS: We will give her the medication she was taking for blood pressure, which is losartan; blood pressure is pretty well controlled at this time. She is also on Prozac 40 mg daily. We will stop this medication also. In the meantime, patient is going to be evaluated by airport operations specialist, Dr. Thomas, to evaluate and treat the hyponatremia. Overall, prognosis is guarded. Condition is unstable clinically at this time and we will follow up. Tay Cruz MD
[2017-07-15 08:18] LABS: BASO # 0.01 K/mm3 (0.0-2.0); BASO % 0.1 % (0.0-3.0); EOS % 0.1 % (1.5-5.0); GRAN # 6.51 (1.4-6.5); GRAN % 81.3 % (50.0-68.0); HEMOGLOBIN 9.2 g/dL (12.0-16.0); LYMPH # 0.8 (1.2-3.4); LYMPH % 9.5 % (22.0-35.0); MEAN CELL VOLUME 105.4 fl (80.0-105.0); MEAN CORPUSCULAR HEMOGLOBIN 38.2 pg (25.0-35.0); MEAN CORPUSCULAR HGB CONC 36.2 g/dl (31.0-37.0); MEAN PLATELET VOLUME 10.8 fl (7.0-11.0); MONO # 0.7 (0.1-0.6); RBC 2.41 10^6/uL (3.5-6.1); RED CELL DISTRIBUTION WIDTH 16.1 % (11.5-14.5)
[2017-07-15 08:27] LABS: ALB/GLOB RATIO 0.9 (1.1-1.8); ALBUMIN 2.7 g/dL (3.0-4.8); ALT/SGPT 68 U/L (7-56); AST/SGOT 159 U/L (14-36); BLOOD UREA NITROGEN 7 mg/dL (7-21); CALCIUM 8.8 mg/dL (8.4-10.5); GFR AFRICAN-AMERICAN > 60; GFR NON-AFRICAN AMERICAN > 60
--- NOTE | 2017-07-15 09:35 | CARD ---
APPROVED REPORT EKG Measurement Heart [id number] <Conclusion> Normal sinus rhythm Low voltage QRS Cannot rule out Anterior infarct, age undetermined Prolonged QT Abnormal ECG
[2017-07-15] MEDS: Potassium Chloride 20 mEq ER Tab PO SCH ×3 (09:54→18:59)
[2017-07-15] MEDS: Sodium Chloride 0.9% 1,000 ML IV SCH (09:55)
[2017-07-15] MEDS: Potassium Phosphate 15 MMOLE in Sodium Chloride 0.9% 1,000 ML IV SCH (11:06)
--- NOTE | 2017-07-15 11:12 | PN ---
DATE: LOCATION: The patient is in [facility] in [place]. SUBJECTIVE: She was admitted last evening through the emergency room. The patient is in room 375, bed 2. The patient has presented with dizziness, ataxia. The patient has weakness and discoloration of the urine and skin, yellow. PHYSICAL EXAMINATION: GENERAL: The patient is conscious. She is able to answer all questions. VITAL SIGNS: The patient's pulse is 100 per minute, blood pressure 112/63, respirations are 20, O2 sat is 98%, temperature 99.2. SKIN: The patient's examination shows skin color of jaundice. HEENT: The patient's head is normocephalic. NECK: The thyroid is not enlarged. HEART: Normal sinus rhythm. S1 and S2 present. Sinus tachycardia. LUNGS: Trachea central. Breath sounds are vesicular. No adventitious sounds . ABDOMEN: Soft. Liver and spleen not palpable. The patient has questionable clinical distention. The patient is going to have an ultrasound this morning. The CAT scan done yesterday does not reveal any significant pathology such as ascites. The patient has enlarged liver. CENTRAL NERVOUS SYSTEM: Conscious, oriented. Cranial nerves are intact. Motor, sensory functions are okay except the patient has cerebellar dysfunction with dizziness. MEDICATIONS: She is on Antivert 12.5 mg 3 times a day, losartan 25 mg daily, potassium 20 mEq a day for hypokalemia. The patient is on saline IV drip for hyponatremia, sodium of 120. The patient is on Prozac 20 mg daily. ASSESSMENT AND PLAN: The patient's blood work was noted yesterday. Her hemoglobin is 9.2. The patient will have a Gastroenterology evaluation and Nephrology evaluation for hyponatremia. Gastroenterology evaluation for cirrhosis of the liver or alcoholic hepatitis. Her prognosis is guarded. Condition is clinically stable at this time. Tay Cruz MD
[2017-07-15 12:47] LABS: FOLATE 2.6 ng/mL
--- NOTE | 2017-07-15 15:38 | CON ---
DATE: 07/15/2017 REASON FOR CONSULTATION: Severe hyponatremia, hypokalemia. HISTORY OF PRESENTING ILLNESS: A 56-year-old lady, previously unknown to me, was brought to the emergency room with complaints of dizziness and worsening yellowish discoloration of the eyes and the skin for the few days. The patient currently denies any nausea, vomiting or diarrhea. She denies any chest pain or difficulty breathing. She denies any alcohol intake for 2 weeks. But as per the history in the chart and family members, the patient has been drinking excessively for the last few days. The patient reportedly told doctors in the ER that she has been feeling dizzy and falling more frequently at home. As per the daughter, the patient has not been eating at home very well. She has a history of chronic alcohol use. She drinks about a liter of wine/beer everyday. In the emergency room, she was found to have sodium of 121 and a potassium of 3.0. The patient has received normal saline, potassium orally in the emergency room. Consultation is requested for hyponatremia and hypokalemia. PAST MEDICAL AND SURGICAL HISTORY: Hypertension, lumbar neuritis, multiple pain syndromes. FAMILY HISTORY: Noncontributory. SOCIAL HISTORY: Chronic alcohol use, ex-smoker, narcotic use. ALLERGIES: NO KNOWN DRUG ALLERGIES. MEDICATIONS AT HOME: Percocet, Hyzaar 100/25?, Prozac. REVIEW OF SYSTEMS: As mentioned above, rest unremarkable. PHYSICAL EXAMINATION: GENERAL: Older than stated age appearing lady, lying in bed, in no acute distress. VITAL SIGNS: Blood pressure 112/63, heart rate 99, respiratory rate 20, temperature 99.2. HEENT: Normocephalic, atraumatic, positive pallor. NECK: Supple. No JVD. LUNGS: Bilateral equal air entry, no rales. CARDIAC: S1 and S2, regular rate and rhythm, no murmur, no rub. ABDOMEN: Soft, nondistended, nontender, bowel sounds present. EXTREMITIES: No lower extremity edema. INTAKE AND OUTPUT: 960/300. LABORATORY DATA: WBC 8.0, hemoglobin 9.2, hematocrit 25, platelets 109. Sodium 126, potassium 2.1, chloride 87, CO2 of 25, BUN 7, creatinine 0.4, glucose 77, calcium 8.8, phosphorus 2.2, magnesium 1.8, albumin 2.7, corrected calcium is 9.7, total bili 16.7, AST 559, ALT 68. Urinalysis: Loving, cloudy, pH 7.0, specific 1.010, protein 30, glucose 100, ketones 40, blood trace intact, nitrite positive, leukocyte esterase large, bilirubin large. ASSESSMENT: 1. Chronic alcohol abuse, alcoholic hepatitis. 2. Severe hyponatremia, suspect dilutional. 3. Severe hypokalemia. 4. Severe hypophosphatemia. 5. History of hypertension. 6. Macrocytic anemia. PLAN: 1. Aggressive potassium and phosphorus replacement. 2. Continue normal saline. 3. Check urine sodium and urine osmolality. 4. Check serum uric acid. 5. Check B12 and folic acid. Start thiamine. Thank you for the courtesy of this consultation. We will follow this patient closely with you. Leticia Thomas MD
[2017-07-15] MEDS: Sucralfate 1 gm/10 ml Oral Susp UD PO SCH (15:55)
--- NOTE | 2017-07-15 16:05 | US ---
HISTORY: jaundice, alcoholic liver disease COMPARISON: CT scan of the abdomen and pelvis dated 07/14/2017. TECHNIQUE: Sonographic evaluation of the abdomen. FINDINGS: LIVER: Measures 15.6 cm. Increased echogenicity of the liver parenchyma. No mass. No intrahepatic bile duct dilatation. No Doppler flow seen in portal venous system. GALLBLADDER: Unremarkable. No gallstones. COMMON BILE DUCT: Measures 6 mm. No stones. No dilatation. PANCREAS: Unremarkable as visualized. No mass. No ductal dilatation. RIGHT KIDNEY: Measures 10.4 x 5.3 x 4.8cm. Normal echogenicity. No calculus, mass, or hydronephrosis. LEFT KIDNEY: Measures 11.3 x 4.5 x 5.6cm. Normal echogenicity. No calculus, mass, or hydronephrosis. SPLEEN: Normal in size and contour. No mass. AORTA: No aneurysmal dilatation. IVC: Unremarkable. OTHER FINDINGS: None. IMPRESSION: Hepatic steatosis. Absence of Doppler flow in the portal venous system may be related to stagnant flow or may be artifactual, as the portal venous system was widely patent on CT scan of the abdomen and pelvis performed 1 day prior. If there is clinical concern for acute portal venous thrombosis, contrast-enhanced CT scan or MRI can be obtained for further evaluation.
[2017-07-15] MEDS: PrednisoLONE 15 mg/5 ml Oral Syrup (240 ml) PO SCH ×2 (16:06→21:54)
[2017-07-16] MEDS: Sucralfate 1 gm/10 ml Oral Susp UD PO SCH ×2 (06:16→16:37)
[2017-07-16] MEDS: Potassium Phosphate 15 MMOLE in Sodium Chloride 0.9% 1,000 ML IV SCH ×2 (06:58→23:45)
--- NOTE | 2017-07-16 07:10 | CON ---
DATE: 07/15/2017 This patient was seen and evaluated earlier today. REASON FOR CONSULTATION: Abnormal LFTs. HISTORY OF PRESENT ILLNESS: This is a 56-year-old patient with a long history of alcohol abuse. The patient was drinking nearly quarter gallon of wine every day, was admitted with weakness and was also found to be jaundiced. The patient denies vomiting blood or bleeding per rectum. Reports dark urine. PAST MEDICAL HISTORY: Other past medical history, significant as above, history of radiculopathy, history of hypertension. The patient mentioned that she was on pain medication before, Percocet, but she states she has not taken it for the last 3 months. SOCIAL HISTORY: She was an ex-smoker. Alcohol history as per above, drinks about a quarter gallon of whiskey everyday. FAMILY HISTORY: Noncontributory. ALLERGIES: NO KNOWN DRUG ALLERGIES. REVIEW OF SYSTEMS: Positive as above. Other systems reviewed are negative. PHYSICAL EXAMINATION GENERAL: On examination, the patient is lying in the bed, not in acute distress. VITAL SIGNS: Temperature is 98, blood pressure is 105/57, respirations 20, O2 saturation 98%. HEENT: Atraumatic. The patient is jaundiced. NECK: Supple. HEART: S1 and S2 heard. LUNGS: Bilateral air entry present. ABDOMEN: Soft. A large liver is palpable. EXTREMITIES: No cyanosis, no clubbing. NEUROLOGIC: Alert and oriented. Moves all extremities. No asterixis found. LABORATORY DATA: Hemoglobin 9.2, hematocrit 25.3, WBC is 8, platelet count 109. The patient's hemoglobin when she came in, was 11 and platelets 184. Chemistry showed that the patient's albumin was, when she came in at 3.8, now is 2.7. Part of this pancytopenia could be due to hemodilution. LFTs show significant elevation of the total bilirubin of 16.7, when the patient came in, it was 19.7. AST 159, ALT 69, alkaline phosphatase mildly elevated to 160. Albumin is 2.7, globulin is 3. The patient did have a CAT scan of the abdomen and pelvis done with p.o. contrast, which showed hepatomegaly and fatty liver. She had a CAT scan. Ultrasound reported as having a possible portal vein, but a review of the CT did not reveal any portal vein thrombosis. IMPRESSION: This is a 56-year-old patient with a long history of significant alcohol intake, admitted with significantly elevated bilirubin of 19, it has come down to 16. The patient has no gallstone, common bile duct is normal. The likely cause for her abnormal liver function tests should include alcoholic hepatitis. The patient did have a hepatitis profile done in 2016, which was negative. Her discriminant factor calculated was 50; The patient's other comorbidities include a history of chronic back pain, presently not on any medication. The patient denies taking any Percocet in the last 3 months. RECOMMENDATIONS: I would recommend: 1. Repeat hepatitis profile. 2. Since DF is over 32 ,the patient will be started on prednisolone 20 mg twice daily. Also started on Carafate 1 g twice daily to be taken. 3. Followup of the LFTs. We will also request for autoimmune markers as a baseline workup. 4. The patient has a higher risk of going back on alcohol, especially in the setting of the significant alcoholic hepatitis with a discriminant factor of 50, the patient could have significant poor outcome. It is reasonable to have a psychiatric evaluation. Thank you very much for allowing us to participate in the care of the patient. Charlene Gupta MD [facility]
[2017-07-16 08:18] LABS: GRAN # 8.16 (1.4-6.5); GRAN % 86.3 % (50.0-68.0); HEMOGLOBIN 9.5 g/dL (12.0-16.0); LYMPH # 0.6 (1.2-3.4); LYMPH % 5.8 % (22.0-35.0); MEAN CELL VOLUME 106.5 fl (80.0-105.0); MEAN CORPUSCULAR HEMOGLOBIN 38.6 pg (25.0-35.0); MEAN CORPUSCULAR HGB CONC 36.3 g/dl (31.0-37.0); MEAN PLATELET VOLUME 10.7 fl (7.0-11.0); MONO # 0.8 (0.1-0.6); MONO % 7.9 % (1.0-6.0); RBC 2.46 10^6/uL (3.5-6.1); RED CELL DISTRIBUTION WIDTH 16.3 % (11.5-14.5); WHITE BLOOD COUNT 9.5 10^3/ul (4.5-11.0)
[2017-07-16 08:31] LABS: HEPATITIS B SURFACE AG Negative (NEGATIVE)
[2017-07-16 08:38] LABS: HEPATITIS A IGM NEGATIVE (NEGATIVE); HEPATITIS B CORE AB NEGATIVE (NEGATIVE)
[2017-07-16 08:48] LABS: HEPATITIS C ANTIBODY NEGATIVE (NEGATIVE)
[2017-07-16 09:23] LABS: ALB/GLOB RATIO 0.9 (1.1-1.8); ALBUMIN 2.8 g/dL (3.0-4.8); ALT/SGPT 68 U/L (7-56); AST/SGOT 134 U/L (14-36); BLOOD UREA NITROGEN 4 mg/dL (7-21); GFR AFRICAN-AMERICAN > 60; GFR NON-AFRICAN AMERICAN > 60
[2017-07-16] MEDS: Potassium Chloride 20 mEq ER Tab PO SCH ×3 (10:57→17:14)
[2017-07-16] MEDS: PrednisoLONE 15 mg/5 ml Oral Syrup (240 ml) PO SCH ×2 (12:59→21:49)
--- NOTE | 2017-07-16 13:48 | PN ---
DATE: SUBJECTIVE: The patient is in [facility], room 375, bed 2. She was admitted with jaundice, near syncope and dizziness. The patient was evaluated and admitted with liver disorder. The patient has history of hypertension and depression. The patient was seen by Dr. Gupta, the category manager. PHYSICAL EXAMINATION: VITAL SIGNS: At this time; the pulse is 95, blood pressure is 134/83, respirations are 20, O2 sat is 100% on room air. HEENT: The patient's head is normocephalic. SKIN: Shows evidence of jaundice color. HEART: Normal sinus rhythm. Sinus tachycardia. LUNGS: Breath sounds equal bilaterally. ABDOMEN: Soft. Liver, spleen not palpable clinically. WAGE HAND: She is conscious, able to understand all of the questions and she is participating a program at this time. The patient is advised that she needs some extend the days treatment with prednisolone for alcoholic hepatitis and the patient also has addiction problem. She has had addiction to narcotics in the past and now, she has addiction to alcohol. We will consult physician to consult on her in order to keep her condition and treat her in the hospital for a few days until the patient's clinical condition stabilizes she cannot take anymore alcohol at all. MEDICATIONS: Her medication list consists of meclizine which is 12.5 mg 3 times a day. The patient takes Carafate 1 g twice a day. The patient also takes losartan 25 mg daily, folic acid 2 mg daily. The patient is on potassium for hypokalemia. The patient is on prednisolone 20 mg p.o. q. 12 hours and Prozac 20 mg daily. We will give the patient thiamine 100 mg p.o. daily also. The patient's condition is stable at this time. The patient needs close clinical management regarding the alcoholic hepatitis. The blood work done in the hospital. The hemoglobin is 9.5, had dropped from 11.0. The patient's MCV is 106, macrocytosis secondary to alcoholism. The patient's chemistry, the urine calcium is 3.2. The patient's potassium is 2.1, but we will follow up potassium level. The sodium is 126 and we will followup the sodium levels. The patient is on a heart healthy diet, 2 g sodium. Tay Cruz MD
[2017-07-16] MEDS: Potassium & Sodium Phosphate PO SCH (17:14)
--- NOTE | 2017-07-16 18:36 | PN ---
DATE: 07/16/2017 SUBJECTIVE: Patient is seen sitting in bed where she is awake, she is alert, she is comfortable. She denies any pain. She denies any shortness of breath. She denies any nausea or vomiting. PHYSICAL EXAMINATION: GENERAL: Obese elderly lady sitting in bed. VITAL SIGNS: Blood pressure 104/63, heart rate 94, respiratory rate 20, temperature 97.7. HEENT: Normocephalic, atraumatic. NECK: Supple, no JVD. LUNGS: Bilateral equal entry, no rales. CARDIAC: S1, S2. Regular rate and rhythm. No murmur, no rub. ABDOMEN: Obese, distended, soft, nontender, bowel sounds present. EXTREMITIES: No lower extremity edema. INTAKE AND OUTPUT: 1740/1600. LABORATORY DATA: WBC 9.5, hemoglobin 9.5, hematocrit 26, platelets 140. Sodium 132, potassium 3.0, chloride 96, CO2 of 25, BUN 4, creatinine 0.4, glucose 164, calcium 9.0. Total bili 16, AST is 134, ALT of 68, albumin 2.8. CURRENT MEDICATIONS: Antivert, Carafate, Cozaar, folic acid, K-Dur 20 mEq t.i.d., normal saline with 50 millimoles of potassium phosphate at 60. ASSESSMENT: 1. Chronic alcohol abuse. 2. Alcoholic hepatitis. 3. Severe hyponatremia. 4. Severe hypokalemia. 5. Severe hypophosphatemia. 6. Hypertension. PLAN: 1. Continue IV fluids with potassium phosphate. 2. Continue potassium supplementation. 3. Add oral Neutra-Phos. 4. Continue low-dose Cozaar. Leticia Thomas MD
--- NOTE | 2017-07-16 21:09 | PN ---
DATE: 07/16/2017 SUBJECTIVE: This patient was seen and evaluated earlier today. The patient is comfortable, tolerating the diet. PHYSICAL EXAMINATION: VITAL SIGNS: Temperature is 97.7, pulse 98, blood pressure 104/63. HEENT: Atraumatic, jaundiced. NECK: Supple. HEART: S1 and S2 heard. LUNGS: Bilateral air entry present. ABDOMEN: Soft. There was no tenderness. Large hepatomegaly present. EXTREMITIES: No edema. No cyanosis. No clubbing. LABORATORY DATA: Hemoglobin 9.5, hematocrit 26.2, WBC 9.5, platelets 140. Chemistry: Total bilirubin has come down to 16.1, alkaline phosphatase 163, potassium 3, magnesium done yesterday 1.8. IMPRESSION: This is a 56-year-old patient with a long history of alcohol abuse, admitted with jaundice, more of cholestatic pattern. The ultrasound showed no gallstone, CBD normal. The likelihood is to be considered is alcoholic hepatitis, cholestatic pattern. The patient is presently on prednisolone 40 mg daily as the patient's DF was over 50. Other comorbidities include back pain, the patient was on Percocet, has not taken it for the last 3 months; hypokalemia, being supplemented. RECOMMENDATIONS: 1. Followup of the LFTs. 2. Followup of the hepatitis profile. 3. Continue the prednisolone. Thank you very much for allowing us to participate in the care of the patient. Charlene Gupta MD
[2017-07-17] MEDS: Sucralfate 1 gm/10 ml Oral Susp UD PO SCH ×2 (05:44→18:11)
[2017-07-17 07:28] LABS: BASO # 0.01 K/mm3 (0.0-2.0); BASO % 0.1 % (0.0-3.0); GRAN # 9.08 (1.4-6.5); GRAN % 81.5 % (50.0-68.0); HEMOGLOBIN 8.7 g/dL (12.0-16.0); LYMPH # 0.9 (1.2-3.4); LYMPH % 7.9 % (22.0-35.0); MEAN CELL VOLUME 107.3 fl (80.0-105.0); MEAN CORPUSCULAR HEMOGLOBIN 37.3 pg (25.0-35.0); MEAN CORPUSCULAR HGB CONC 34.8 g/dl (31.0-37.0); MEAN PLATELET VOLUME 10.6 fl (7.0-11.0); MONO # 1.2 (0.1-0.6); MONO % 10.5 % (1.0-6.0); RBC 2.33 10^6/uL (3.5-6.1); RED CELL DISTRIBUTION WIDTH 16.7 % (11.5-14.5); WHITE BLOOD COUNT 11.1 10^3/ul (4.5-11.0)
[2017-07-17 07:39] LABS: ALT/SGPT 72 U/L (7-56); AST/SGOT 157 U/L (14-36); BLOOD UREA NITROGEN 4 mg/dL (7-21); CALCIUM 8.6 mg/dL (8.4-10.5); GFR AFRICAN-AMERICAN > 60; GFR NON-AFRICAN AMERICAN > 60
[2017-07-17 07:46] LABS: ALB/GLOB RATIO 0.8 (1.1-1.8); ALBUMIN 2.7 g/dL (3.0-4.8)
[2017-07-17] MEDS: Potassium Chloride 20 mEq ER Tab PO SCH ×2 (11:00→11:30)
[2017-07-17] MEDS: Potassium & Sodium Phosphate PO SCH ×2 (11:00→18:11)
[2017-07-17] MEDS: PrednisoLONE 15 mg/5 ml Oral Syrup (240 ml) PO SCH ×2 (11:31→21:18)
[2017-07-17] MEDS ORDERED: Magnesium Sulfate 1 gm in D5W 1 GM/100 ML BAG IVPB ONE (11:58)
--- NOTE | 2017-07-17 12:54 | PN ---
DATE: LOCATION: The patient is in [facility] in [place], room 375, bed 2. SUBJECTIVE: The patient was admitted with liver dysfunction, alcoholic hepatitis, jaundice, dizziness, weakness and unstable gait. The patient is seen this morning. She is lying down. says she feels better. PHYSICAL EXAMINATION: VITAL SIGNS: Pulse is 91, blood pressure 115/70. The patient's respirations are 20. GENERAL APPEARANCE: The patient's skin shows jaundice. HEART: Within normal limits. LUNGS: Within normal limits. ABDOMEN: Soft. Liver and spleen not palpable. CENTRAL NERVOUS SYSTEM: The patient is conscious, rational, oriented. No focal neurological deficit. LABORATORY DATA: The patient's laboratory findings, hemoglobin is 8.7. The patient is dropping her hemoglobin. We will have to follow up on that. WBC is 11,100. The patient's chemistry, the potassium is 3.0, sodium is 131 today. The patient's liver enzymes are abnormal. Alkaline phosphatase is 165. ASSESSMENT: The patient has alcoholic hepatitis, acute with history of hypertension. The patient is acutely ill with anemia. Now, the patient needs to have GI evaluation. Dr. Gupta has seen the patient. The patient is put on prednisolone 20 mg b.i.d. The patient's medications consists of Antivert 25 mg 3 times a day, Carafate 1 g q.6. The patient gets losartan 25 mg daily, folic acid, thiamine and potassium. Prednisolone as mentioned 20 mg twice a day. We will continue . We will have the patient seen by the psychiatrist. The patient needs an evaluation and treatment by the psychiatrist. Tay Cruz MD
[2017-07-17] MEDS: SODIUM CHLORIDE IV SCH (13:18)
[2017-07-17] MEDS: POTASSIUM PHOSPHATE IV SCH (13:18)
--- NOTE | 2017-07-17 15:38 | CP.PCM.PN ---
<Lucas Balderrama - Last Filed: 07/17/17 15:29> Subjective - Date & Time of Evaluation Date of Evaluation: 07/17/17 Time of Evaluation: 09:30 - Subjective Subjective: Dr. Gupta GI Progress Note Pt was seen and examined at bedside. No acute complaints at this time. No acute or adverse events overnight as per nursing staff. Pt tolerating diet. Pt denied fever, chills ,sob, chest pains, abdominal pains, nausea, vomiting, diarrhea, or constipation. Objective - Vital Signs/Intake and Output Vital Signs (last 24 hours): Temp Pulse Resp BP Pulse Ox 98.3 F 89 20 99/62 L 98 07/17/17 12:00 07/17/17 12:00 07/17/17 12:00 07/17/17 12:00 07/17/17 06:00 Intake and Output: 07/17/17 07/17/17 06:59 18:59 Intake Total 0 Output Total 400 Balance -400 - Medications Medications: Current Medications Fluoxetine HCl (Prozac) 20 mg PO DAILY [facility] Last Admin: 07/17/17 10:59 Dose: 20 mg Folic Acid (Folic Acid) 2 mg PO DAILY [facility] Last Admin: 07/17/17 10:59 Dose: 2 mg Potassium Phosphate 30 mmole/ (Sodium Chloride) 1,010 mls @ 60 mls/hr IV .[id number] [facility] Last Admin: 07/17/17 13:18 Dose: 60 mls/hr Losartan Potassium (Cozaar) 25 mg PO DAILY [facility] Last Admin: 07/17/17 10:59 Dose: 25 mg Meclizine HCl (Antivert) 12.5 mg PO TID PRN PRN Reason: Dizziness Last Admin: 07/17/17 11:00 Dose: 12.5 mg Potassium Chloride (K-Dur 20 Meq Er Tab) 40 meq PO BRK [facility] Last Admin: 07/17/17 11:30 Dose: 40 meq Potassium Phos/Sodium Phos (Neutra-Phos) 1 pkt PO BID [facility] Last Admin: 07/17/17 11:00 Dose: 1 pkt Prednisolone (Prednisolone Oral Soln) 20 mg PO Q12 [facility] Last Admin: 07/17/17 11:31 Dose: 20 mg Sucralfate (Carafate Oral Susp) 1 gm PO 0600,1600 [facility] Last Admin: 07/17/17 05:44 Dose: 1 gm Thiamine HCl (Vitamin B1 Tab) 100 mg PO DAILY [facility] Last Admin: 07/17/17 10:59 Dose: 100 mg Tramadol HCl (Ultram) 50 mg PO TID PRN PRN Reason: Pain, severe (8-10) Last Admin: 07/16/17 21:48 Dose: 50 mg - Labs Labs: 07/17/17 06:45 07/17/17 06:45 PT 19.7 SECONDS (9.4-12.5) H 07/14/17 14:00 INR 1.71 (0.93-1.08) H 07/14/17 14:00 APTT 29.2 Seconds (25.1-36.5) 07/14/17 14:00 - Constitutional Appears: No Acute Distress (Jaundice) - Head Exam Head Exam: ATRAUMATIC, NORMAL INSPECTION, NORMOCEPHALIC - Eye Exam Eye Exam: EOMI, Normal appearance, PERRL Pupil Exam: NORMAL ACCOMODATION, PERRL - ENT Exam ENT Exam: Mucous Membranes Moist, Normal Exam - Cardiovascular Exam Cardiovascular Exam: REGULAR RHYTHM, +S1, +S2. absent: Murmur - GI/Abdominal Exam GI & Abdominal Exam: Soft, Normal Bowel Sounds, Organomegaly (hepatomegaly). absent: Tenderness - Neurological Exam Neurological Exam: Alert, Awake, CN II-XII Intact, Normal Gait, Oriented x3 - Psychiatric Exam Psychiatric exam: Normal Affect, Normal Mood - Skin Skin Exam: Dry, Intact, Normal Color, Warm Assessment and Plan - Assessment and Plan (Free Text) Assessment: 56 F with a pmh of ETOH abuse, past opioid dependence, htn, depression, cervical spondylosis s/p surgery, wrist fracture, lumbar neuritis and insomnia admitted with jaundice with cholestatic pattern with elevated bilirubin and LFTs. no signs of hepatic encephalitis or acute abdominal pain. Abd US demonstrated normal CBD and no gallstones. Alcoholic hepatitits with a DF >50. Prednisone 40mg BID Hypokalemia supplemented trend LFTs fu hep profile Discussed with Dr. Gupta <Charlene Gupta V - Last Filed: 07/17/17 23:05> Objective - Vital Signs/Intake and Output Vital Signs (last 24 hours): Temp Pulse Resp BP Pulse Ox 97.7 F 85 19 111/66 97 07/17/17 17:27 07/17/17 18:00 07/17/17 17:27 07/17/17 17:27 07/17/17 17:27 - Medications Medications: Current Medications Fluoxetine HCl (Prozac) 20 mg PO DAILY [facility] Last Admin: 07/17/17 10:59 Dose: 20 mg Folic Acid (Folic Acid) 2 mg PO DAILY [facility] Last Admin: 07/17/17 10:59 Dose: 2 mg Potassium Phosphate 30 mmole/ (Sodium Chloride) 1,010 mls @ 60 mls/hr IV .[id number] [facility] Last Admin: 07/17/17 13:18 Dose: 60 mls/hr Losartan Potassium (Cozaar) 25 mg PO DAILY [facility] Last Admin: 07/17/17 10:59 Dose: 25 mg Meclizine HCl (Antivert) 12.5 mg PO TID PRN PRN Reason: Dizziness Last Admin: 07/17/17 11:00 Dose: 12.5 mg Potassium Chloride (K-Dur 20 Meq Er Tab) 40 meq PO BRK [facility] Last Admin: 07/17/17 11:30 Dose: 40 meq Potassium Phos/Sodium Phos (Neutra-Phos) 1 pkt PO BID [facility] Last Admin: 07/17/17 18:11 Dose: 1 pkt Prednisolone (Prednisolone Oral Soln) 20 mg PO Q12 [facility] Last Admin: 07/17/17 21:18 Dose: 20 mg Sucralfate (Carafate Oral Susp) 1 gm PO 0600,1600 [facility] Last Admin: 07/17/17 18:11 Dose: 1 gm Thiamine HCl (Vitamin B1 Tab) 100 mg PO DAILY [facility] Last Admin: 07/17/17 10:59 Dose: 100 mg Tramadol HCl (Ultram) 50 mg PO TID PRN PRN Reason: Pain, severe (8-10) Last Admin: 07/17/17 23:00 Dose: 50 mg - Labs Labs: 07/17/17 06:45 07/17/17 06:45 PT 19.7 SECONDS (9.4-12.5) H 07/14/17 14:00 INR 1.71 (0.93-1.08) H 07/14/17 14:00 APTT 29.2 Seconds (25.1-36.5) 07/14/17 14:00 Attending/Attestation - Attestation I have personally seen and examined this patient.: Yes I have fully participated in the care of the patient.: Yes I have reviewed all pertinent clinical information, including history, physical exam and plan: Yes Notes (Text): This is an addendum to GI consult report dictated by the Director Of Media.The patient was seen and examined earlier. Medical records, lab studies, imagings were reviewed. Last 24 hours events reviewed. Agreed with the above treatment plan as outlined in Director Of Media 's notes the with the addition of the following 07/17/17 23:05
[2017-07-17 17:25] LABS: PH,URINE 7.5 (4.7-8.0); URINE BILIRUBIN LARGE (NEGATIVE); URINE BLOOD NEGATIVE (NEGATIVE); URINE GLUCOSE (UA) 100 mg/dL (NEGATIVE); URINE LEUKOCYTE ESTERASE NEGATIVE Leu/uL (NEGATIVE); URINE PROTEIN NEGATIVE mg/dL (<30 mg/dL); URINE UROBILINOGEN 0.2 E.U./dL (<1 E.U./dL)
[2017-07-17 17:32] LABS: URINE APPEARANCE CLEAR (CLEAR); URINE COLOR YELLOW (YELLOW)
--- NOTE | 2017-07-17 17:43 | PN ---
DATE OF SERVICE: 07/17/2017 SUBJECTIVE: The patient is seen lying in bed. She is awake, she is alert, she is comfortable. She denies any pain. She denies any shortness of breath. She denies any nausea, vomiting, or diarrhea. OBJECTIVE: GENERAL: Middle-aged lady, lying in bed. VITAL SIGNS: Blood pressure 101/65, heart rate 91, respiratory rate 20, temperature 97.9. HEENT: Normocephalic, atraumatic, positive pallor, positive icterus. NECK: Supple, no JVD. LUNGS: Bilateral equal entry, no rales. CARDIAC: S1 and S2, regular rate and rhythm, no murmur, no rub. ABDOMEN: Obese, distended, soft, nontender, bowel sounds present. EXTREMITIES: No lower extremity edema. INTAKE AND OUTPUT: 1080/1200. LABORATORY DATA: WBC 11, hemoglobin 8.7, hematocrit 25, platelets 180, sodium 131, potassium 3.0, chloride 98, CO2 23, BUN 4, creatinine 0.4, glucose 140, calcium 8.6, phosphorus 2.4, magnesium 1.6, total bilirubin 15.6, albumin 2.7. ASSESSMENT: 1. Severe hyponatremia, slowly resolving. 2. Severe hypokalemia, potassium still low. 3. Hypophosphatemia. 4. Hypomagnesemia. 5. Alcoholic hepatitis. 6. Jaundice. PLAN: 1. Increase potassium phosphate in the IV to 30 millimoles. 2. Magnesium sulfate. 3. Continue IV fluids. 4. Psych followup ? Leticia Thomas MD
[2017-07-18] MEDS: Sucralfate 1 gm/10 ml Oral Susp UD PO SCH ×2 (05:47→17:16)
[2017-07-18] MEDS: SODIUM CHLORIDE IV SCH ×2 (07:49→21:40)
[2017-07-18] MEDS: POTASSIUM PHOSPHATE IV SCH ×2 (07:49→21:40)
--- NOTE | 2017-07-18 08:41 | CON ---
DATE: 07/17/2017 She is being seen today for a consultation. PRESENTATION: The patient is a 56-year-old female seen at bedside. The patient was originally admitted to the hospital on 07/14/2017 due to feeling dizziness and jaundice for a few days. The patient has a long history of alcohol abuse. Psychiatric consultation was called due to concerns about depression and alcohol abuse. The patient is cooperative, when seen at bedside, answered questions. She does seem to have lot of denial in terms of her alcoholism and really thinks the only reason she is in the hospital now is for dizziness. No other concerns. She indicated that she had stopped drinking on Monday prior to coming into the hospital on Monday and that may have had something to do with her symptoms as well because she drinks on a daily basis and has according to what she told me was for the better part of 20 years. So, it would be concern for her to stop drinking. Currently, the patient indicates she lives alone in apartment. She has been living in the apartment building for 6 years and she does have some friends there. She is close with her ex-. He in fact brought her to the hospital. She lives on the first floor. She does not have a car, but she takes a bus where she needs to go, is on SSD for the last 5 years due to neck and back issues. She indicates financially she is okay, but she has a history of chronic pain. The patient indicates that she has never seen a psychiatrist. She has never had suicidal thoughts or suicide attempts and she has never been on psychiatric medications. When I pointed out to her that she is on Prozac, she indicated that her primary medical doctor had added that a few years ago due to concerns about depression, but she has never been formally treated for depression. Medically, she has history of alcohol abuse, past opioid dependence, hypertension, cervical spondylosis, history of wrist fracture, lumbar neuritis, and insomnia. Legally, the patient denies ever being arrested, had a DWI, spending night in [facility] or any legal charges ever against her. She denies any family history of mental illness. She indicates at least one of her brothers has drug and alcohol problems. She has no access to guns and she in terms of past history of drug use, there is none. Her drug of choice has always been alcohol. She started drinking at 16 years old, but when she got at age 36 is one the alcohol abuse became much more heavy and chronic. She indicates that she has been sober a couple of times in the last 20 years. One time, she was sober for 3 years at a clip, but it has been a while and she cannot remember when the last time she had a stretch of sobriety. The patient grew up in [place]. She is number 4 of 6 siblings. All of them brothers except for herself. The last 2 siblings are from her mother and a stepfather. She never met her biological father. Her stepfather raised her and they had a good relationship. He is now . Her mother is alive; however, she has dementia and the siblings all take turns taking care of her including the patient. The patient indicates that her childhood was good. She did well in school, got high honors, had a lot of friends, did sports in high school volleyball and baseball and graduated from high school in a regular education program. 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 She at age 28 and had 1 girl who is 25 years old. Her daughter is and lives in [place] and has one daughter herself who is 1-year-old, so the patient has one granddaughter. Her daughter is a teacher. She does not see her much, but they keep in contact on the phone and she sees and talks to her siblings and goes back and forth and takes care of her mother. She does have family support, but not a lot of social support. VITAL SIGNS: Include temperature of 98.3, pulse of 89, blood pressure of 99/62, respirations of , O2 sat of 98%. Of note today, her white cells are slightly up at 11.1. Clean catch urine as of 07/14/2017 showed positive for Gram-negative isaías. MENTAL STATUS EXAM: The patient is alert and oriented x3. Her eye contact is good. Her behavior is cooperative. Her speech rate and volume are within normal limits. Mood is blunted. Affect is constricted. Her thoughts are goal directed, but somewhat concrete and simplistic. She denies being suicidal or homicidal. Denies the presence of hallucinations, delusions or paranoia. Her concentration and focus she indicates are good. Memory both short and long-term appears to be adequate. Her appetite has been off and she does not sleep well at night routinely. DIAGNOSTIC IMPRESSION: Alcohol dependence with mood disorder. PLAN: The patient denies being suicidal or homicidal and appears in no imminent danger of hurting herself or others. I offered her referrals for psychiatrist for therapy and for alcohol treatment, all of which the patient denied. She does have some brochures for Alcoholics Anonymous by her bed indicates that something that she would like to do. Evidently, her one brother is sober and has had problems with both alcohol and drugs and he is planning to help her get to meetings. I pointed out to the patient that she has been living with this situation a therapy administrative assistant and has not had great success in managing it, but certainly referrals would be helpful, but the patient is adamant that she really does not want to make those kinds of changes. She is willing to go to AA as that is the treatment that she wants and she has that information. As the patient is declining further services, she is on Prozac 20 mg daily, which is her home medication. I encouraged her to continue that and attend AA. Psychiatry will sign off on this patient. Thank you for the consult. Deanna Underwood APN Eliza Pantoja MD [facility]
[2017-07-18 09:16] LABS: BASO # 0.01 K/mm3 (0.0-2.0); BASO % 0.1 % (0.0-3.0); EOS % 0.1 % (1.5-5.0); GRAN # 10.11 (1.4-6.5); HEMOGLOBIN 9.6 g/dL (12.0-16.0); LYMPH # 0.9 (1.2-3.4); LYMPH % 7.6 % (22.0-35.0); MEAN CELL VOLUME 109.4 fl (80.0-105.0); MEAN CORPUSCULAR HEMOGLOBIN 37.5 pg (25.0-35.0); MEAN CORPUSCULAR HGB CONC 34.3 g/dl (31.0-37.0); MEAN PLATELET VOLUME 10.3 fl (7.0-11.0); MONO % 8.2 % (1.0-6.0); RBC 2.56 10^6/uL (3.5-6.1)
[2017-07-18 09:39] LABS: ALB/GLOB RATIO 0.9 (1.1-1.8); ALBUMIN 3.1 g/dL (3.0-4.8); ALT/SGPT 89 U/L (7-56); AST/SGOT 206 U/L (14-36); BLOOD UREA NITROGEN 5 mg/dL (7-21); CALCIUM 9.1 mg/dL (8.4-10.5); GFR AFRICAN-AMERICAN > 60; GFR NON-AFRICAN AMERICAN > 60
[2017-07-18] MEDS: Potassium Chloride 20 mEq ER Tab PO SCH (09:40)
[2017-07-18] MEDS: Potassium & Sodium Phosphate PO SCH ×2 (09:41→17:16)
[2017-07-18] MEDS: PrednisoLONE 15 mg/5 ml Oral Syrup (240 ml) PO SCH ×2 (09:47→21:34)
--- NOTE | 2017-07-18 12:22 | CP.PCM.PN ---
<Svitlana Bhatt - Last Filed: 07/18/17 12:23> Subjective - Date & Time of Evaluation Date of Evaluation: 07/18/17 Time of Evaluation: 11:30 - Subjective Subjective: Seen and examined at the bedside and chart reviewed. Patient denies nausea, vomiting, or abdominal pain. Patient does complain of some mid epigastric discomfort she's had for about a year, denies any dyspepsia. Tolerating oral intake. No bowel movement since Monday, no reports of overt GI bleed. No reports of acute overnight events. Objective - Vital Signs/Intake and Output Vital Signs (last 24 hours): Temp Pulse Resp BP Pulse Ox 98.5 F 80 17 164/88 H 99 07/18/17 11:59 07/18/17 11:59 07/18/17 11:59 07/18/17 11:59 07/18/17 11:59 Intake and Output: 07/18/17 07/18/17 06:59 18:59 Intake Total 1560 Output Total 900 Balance 660 - Medications Medications: Current Medications Fluoxetine HCl (Prozac) 20 mg PO DAILY [facility] Last Admin: 07/18/17 09:41 Dose: 20 mg Folic Acid (Folic Acid) 2 mg PO DAILY [facility] Last Admin: 07/18/17 09:40 Dose: 2 mg Potassium Phosphate 30 mmole/ (Sodium Chloride) 1,010 mls @ 60 mls/hr IV .[id number] [facility] Last Admin: 07/18/17 07:49 Dose: 60 mls/hr Losartan Potassium (Cozaar) 25 mg PO DAILY [facility] Last Admin: 07/18/17 09:41 Dose: 25 mg Meclizine HCl (Antivert) 12.5 mg PO TID PRN PRN Reason: Dizziness Last Admin: 07/17/17 11:00 Dose: 12.5 mg Potassium Chloride (K-Dur 20 Meq Er Tab) 40 meq PO BRK [facility] Last Admin: 07/18/17 09:40 Dose: 40 meq Potassium Phos/Sodium Phos (Neutra-Phos) 1 pkt PO BID [facility] Last Admin: 07/18/17 09:41 Dose: 1 pkt Prednisolone (Prednisolone Oral Soln) 20 mg PO Q12 [facility] Last Admin: 07/18/17 09:47 Dose: 20 mg Sucralfate (Carafate Oral Susp) 1 gm PO 0600,1600 [facility] Last Admin: 07/18/17 05:47 Dose: 1 gm Thiamine HCl (Vitamin B1 Tab) 100 mg PO DAILY [facility] Last Admin: 07/18/17 09:40 Dose: 100 mg Tramadol HCl (Ultram) 50 mg PO TID PRN PRN Reason: Pain, severe (8-10) Last Admin: 07/17/17 23:00 Dose: 50 mg - Labs Labs: 07/18/17 09:00 07/18/17 09:00 PT 19.7 SECONDS (9.4-12.5) H 07/14/17 14:00 INR 1.71 (0.93-1.08) H 07/14/17 14:00 APTT 29.2 Seconds (25.1-36.5) 07/14/17 14:00 - Constitutional Appears: No Acute Distress - Head Exam Head Exam: NORMOCEPHALIC - Eye Exam Eye Exam: Scleral icterus - ENT Exam ENT Exam: Mucous Membranes Moist - Respiratory Exam Respiratory Exam: NORMAL BREATHING PATTERN. absent: Respiratory Distress - Cardiovascular Exam Cardiovascular Exam: +S1, +S2 - GI/Abdominal Exam GI & Abdominal Exam: Distended, Soft, Normal Bowel Sounds. absent: Guarding, Tenderness, Rebound Additional comments: epigastric tenderness, patient complains of "lumpy" feeling near epigastric area , area palpated, bony prominence? by xyphoid - Extremities Exam Extremities Exam: Normal Capillary Refill. absent: Calf Tenderness, Pedal Edema - Neurological Exam Neurological Exam: Alert, Awake, Oriented x3 Additional comments: no asterxsis - Skin Skin Exam: Dry, Warm Additional comments: jaundice Assessment and Plan - Assessment and Plan (Free Text) Assessment: ASSESSMENT: ETOH abuse, Alcoholic hepatitis, Discriminate Factor >50 Jaundice w/ choletatic pattern: elevated bilirubin/LFT, s/p abdominal US, normal CBD, no GB stones Hypokalemia Depression HTN Lumbar neuritis PLAN: trend LFT on Prednisone 20 mg BID heart healthy bland diet on Carafate on Tramadol give a dose of lactulose for BM Seen and discussed with Dr. Gupta <Charlene Gupta V - Last Filed: 07/19/17 00:01> Objective - Vital Signs/Intake and Output Vital Signs (last 24 hours): Temp Pulse Resp BP Pulse Ox 98.5 F 74 19 113/74 99 07/18/17 18:00 07/18/17 18:00 07/18/17 18:00 07/18/17 18:00 07/18/17 18:00 Intake and Output: 07/18/17 07/19/17 18:59 06:59 Intake Total 300 Balance 300 - Medications Medications: Current Medications Fluoxetine HCl (Prozac) 20 mg PO DAILY [facility] Last Admin: 07/18/17 09:41 Dose: 20 mg Folic Acid (Folic Acid) 2 mg PO DAILY [facility] Last Admin: 07/18/17 09:40 Dose: 2 mg Potassium Phosphate 30 mmole/ (Sodium Chloride) 1,010 mls @ 60 mls/hr IV .[id number] [facility] Last Admin: 07/18/17 21:40 Dose: 60 mls/hr Losartan Potassium (Cozaar) 25 mg PO DAILY [facility] Last Admin: 07/18/17 09:41 Dose: 25 mg Meclizine HCl (Antivert) 12.5 mg PO TID PRN PRN Reason: Dizziness Last Admin: 07/17/17 11:00 Dose: 12.5 mg Potassium Chloride (K-Dur 20 Meq Er Tab) 40 meq PO BRK [facility] Last Admin: 07/18/17 09:40 Dose: 40 meq Potassium Phos/Sodium Phos (Neutra-Phos) 1 pkt PO BID [facility] Last Admin: 07/18/17 17:16 Dose: 1 pkt Prednisolone (Prednisolone Oral Soln) 20 mg PO Q12 [facility] Last Admin: 07/18/17 21:34 Dose: 20 mg Sucralfate (Carafate Oral Susp) 1 gm PO 0600,1600 [facility] Last Admin: 07/18/17 17:16 Dose: 1 gm Thiamine HCl (Vitamin B1 Tab) 100 mg PO DAILY [facility] Last Admin: 07/18/17 09:40 Dose: 100 mg Tramadol HCl (Ultram) 50 mg PO TID PRN PRN Reason: Pain, severe (8-10) Last Admin: 07/18/17 21:39 Dose: 50 mg Ursodiol (Actigall) 300 mg PO BID [facility] Last Admin: 07/18/17 17:16 Dose: 300 mg - Labs Labs: 07/18/17 09:00 07/18/17 09:00 PT 19.7 SECONDS (9.4-12.5) H 03/02/18 14:00 INR 1.71 (0.93-1.08) H 07/14/17 14:00 APTT 31.9 Seconds (25.1-36.5) 07/18/17 12:40 Attending/Attestation - Attestation I have personally seen and examined this patient.: Yes I have fully participated in the care of the patient.: Yes I have reviewed all pertinent clinical information, including history, physical exam and plan: Yes Notes (Text): This is an addendum to GI progress report dictated by Svitlana Bhatt APN.The patient was seen and examined earlier. Medical records, lab studies, imagings were reviewed. Last 24 hours events reviewed. Agreed with the above treatment plan as outlined in Svitlana Bhatt APN's notes the with the addition of the following 07/19/17 00:00
--- NOTE | 2017-07-18 23:05 | PN ---
DATE: SUBJECTIVE: The patient is currently seen lying comfortable supine in bed. Her brother is in the room. The patient and I again had a long discussion about the need for her to completely abstain from alcohol as she continues to inflame and destroy her liver. MEDICATIONS: Medication list reviewed. The patient is currently on Actigall, Antivert, Carafate, losartan, folic acid, K-Tabs, Neutra-Phos, IV fluid normal saline with potassium phosphate, prednisolone oral solution, Prozac, Ultram, vitamin B1. OBJECTIVE: INTAKE/OUTPUT: Intake 1560, output 900. VITAL SIGNS: Blood pressure ranging from 124-164 systolic, diastolics ranging from 78-88. Heart rate is 91, temperature is 98.5 with a respiratory rate of 17, pulse ox is 99%. HEENT: Shows her be normocephalic, atraumatic. Conjunctivae are pale. Sclerae are icteric. NECK: Supple. No neck vein distention. CHEST: Clear to auscultation and percussion. No rales, rhonchi or wheezing. CARDIOVASCULAR: Shows a regular rate and rhythm without murmurs, rubs or gallops. ABDOMEN: Mildly obese, distended, protuberant, nontender. Bowel sounds normal. No masses appreciated. EXTREMITIES: Show no lower extremity cyanosis, clubbing or edema. LABORATORY DATA AND IMAGING: CBC: White blood cell count today 12.0, hemoglobin 9.6, platelet count of 232,000. Chemistries: Normal electrolytes. Sodium is now 133, potassium 3.9, chloride 99 with a CO2 of 24, BUN is 5 with a creatinine of 0.4. Glucose is 127. Calcium is 9.1. Last phosphorus available was 2.4 with a magnesium of 1.9. Bilirubin is 15.9. Elevated liver enzymes. Hepatitis serologies remained negative. Urine sodium was 35 with urine osmolality of 347. Large bilirubin. ASSESSMENT: 1. Status post severe hyponatremia. Her sodium level has risen from 121-133 with IV normal saline hydration. 2. Status post severe hypokalemia. Potassium is up from 2.1 to 3.9. The patient was initially hypomagnesemic. Her magnesium deficit was corrected. Currently she is 1.9. 3. Hypophosphatemia. The patient continues both on phosphorus in her IV fluid along with Neutra-Phos orally. 4. History of severe alcoholic hepatitis secondary to drinking large amounts of alcohol on a daily basis. I have cautioned the patient that she will likely go on to develop end-stage liver disease with cirrhosis, which will likely lead to if she continues to drink alcohol. PLAN: 1. I all likelihood, we will be able to discontinue IV fluid hydration tomorrow. 2. Continue to monitor labs on a daily basis over the next several days. 3. Continue to monitor accurate I's and O's while on IV fluid hydration. Patel Simon MD cc:
[2017-07-19] MEDS: Sucralfate 1 gm/10 ml Oral Susp UD PO SCH ×2 (05:28→16:12)
[2017-07-19 06:18] VITALS: O2SAT 98
[2017-07-19 07:15] LABS: PROTHROMBIN TIME 17.9 SECONDS (9.4-12.5)
[2017-07-19 07:16] LABS: INR 1.54 (0.93-1.08)
[2017-07-19 07:17] LABS: BASO # 0.01 K/mm3 (0.0-2.0); BASO % 0.1 % (0.0-3.0); GRAN # 11.26 (1.4-6.5); GRAN % 87.3 % (50.0-68.0); LYMPH # 0.7 (1.2-3.4); LYMPH % 5.3 % (22.0-35.0); MEAN CELL VOLUME 110.1 fl (80.0-105.0); MEAN CORPUSCULAR HGB CONC 34.5 g/dl (31.0-37.0); MEAN PLATELET VOLUME 10.1 fl (7.0-11.0); MONO # 0.9 (0.1-0.6); MONO % 7.3 % (1.0-6.0); RBC 2.37 10^6/uL (3.5-6.1); RED CELL DISTRIBUTION WIDTH 17.6 % (11.5-14.5); WHITE BLOOD COUNT 12.9 10^3/ul (4.5-11.0)
[2017-07-19 07:45] LABS: ALB/GLOB RATIO 0.9 (1.1-1.8); ALBUMIN 2.7 g/dL (3.0-4.8); ALT/SGPT 98 U/L (7-56); AST/SGOT 215 U/L (14-36); BLOOD UREA NITROGEN 4 mg/dL (7-21); CALCIUM 8.6 mg/dL (8.4-10.5); GFR AFRICAN-AMERICAN > 60; GFR NON-AFRICAN AMERICAN > 60
[2017-07-19] MEDS: Potassium Chloride 20 mEq ER Tab PO SCH (08:13)
[2017-07-19] MEDS: Potassium & Sodium Phosphate PO SCH ×2 (09:21→17:35)
[2017-07-19] MEDS ORDERED: cefTRIAXone 1 gm 1 GM/100 ML BAG IVPB STA (10:28)
[2017-07-19] MEDS: PrednisoLONE 15 mg/5 ml Oral Syrup (240 ml) PO SCH ×2 (10:43→22:44)
--- NOTE | 2017-07-19 11:34 | PN ---
DATE: 07/19/2017 SUBJECTIVE: The patient is seen sitting in bed. She is eating breakfast. She is awake. She is alert. She is comfortable. She denies any pain. She denies any shortness of breath. She denies any nausea or vomiting or diarrhea. PHYSICAL EXAMINATION: GENERAL: Obese, middle-aged lady, sitting in bed. VITAL SIGNS: Blood pressure 128/78, heart rate 91, respiratory rate 20, temperature 97.6. HEENT: Normocephalic, atraumatic. NECK: Supple, no JVD. LUNGS: Bilateral equal air entry, no rales. CARDIAC: S1 and S2, regular rate and rhythm, no murmur, no rub. ABDOMEN: Obese, distended, soft, nontender, bowel sounds present. EXTREMITIES: No lower extremity edema. INTAKE AND OUTPUT: Not charted. LABORATORY DATA: WBC 12.9, hemoglobin 9, hematocrit 26, platelets 225. Sodium 134, potassium 4.0, chloride 100, CO2 of 24, BUN 4, creatinine is 0.4, glucose 129, calcium 8.6, phosphorus 3.7, magnesium 1.7, total bili 13.4, AST 215, ALT 98. ASSESSMENT: 1. Hyponatremia, resolving, much improved. 2. Hypokalemia, resolved. 3. Hypophosphatemia, resolved. 4. Hypomagnesemia, resolved. 5. Alcoholic hepatitis. 6. Hypoalbuminemia. PLAN: 1. Discontinue IV fluids. 2. Continue potassium oral supplementation. 3. The patient is stable from the renal standpoint. 4. Counseled regarding discontinuation of alcohol use. Leticia Thomas MD
--- NOTE | 2017-07-19 13:05 | PN ---
DATE: LOCATION: The patient is in [facility], room 375, bed 2. SUBJECTIVE: The patient was admitted with dizziness, jaundice. The patient has history of alcoholism and the patient has past history of hypertension, depression. Seen this morning. She is awake, participates in conversation very well. Advised the patient that she needs to go to a rehab, will need to continue current management and follow up her liver enzymes until the patient stabilizes. PHYSICAL EXAMINATION VITAL SIGNS: On examination, the pulse is 91, blood pressure 128/78, respirations are 20, temperature is 97.6, O2 saturation 98% on room air. GENERAL APPEARANCE: The patient's head is normocephalic. SKIN: Shows evidence of jaundice. HEART: Normal sinus rhythm. S1, S2 present. ABDOMEN: Soft. Liver and spleen not palpable. LUNGS: Trachea central, breath sounds . No adventitious sounds. MEDICATIONS: Consist of prednisolone 20 mg b.i.d. The patient is on folic acid, vitamin B1, losartan 25 mg daily, Carafate 1 g b.i.d. The patient is on Antivert 12.5 mg t.i.d. and Actigall 300 mg b.i.d. The patient is also on potassium phosphate for hypokalemia. The patient's hyponatremia has been corrected. The patient is to continue current management. We will request for transfer to subacute rehab and we will follow up with chemistries. The lab work, the liver enzymes are elevated. AST is 215, ALT is 98. The patient's bilirubin has dropped from 16 to 13.4. The patient's albumin level is 2.7. The patient is able to ambulate. We will continue current management. Tay Cruz MD
--- NOTE | 2017-07-19 21:58 | CP.PCM.PN ---
<Lucas Balderrama - Last Filed: 07/19/17 21:55> Subjective - Date & Time of Evaluation Date of Evaluation: 07/19/17 Time of Evaluation: 09:10 - Subjective Subjective: GI Prgoress Note - Dr. Gupta Pt was seen and examined at the bedside. No acute complaints at this time. No acute or adverse events overnight. Patient denies nausea, vomiting, or abdominal pain. Tolerating oral intake. No bowel movement since Monday, no reports of overt GI bleed. Objective - Vital Signs/Intake and Output Vital Signs (last 24 hours): Temp Pulse Resp BP Pulse Ox 98.6 F 89 20 112/69 98 07/19/17 18:00 07/19/17 18:00 07/19/17 18:00 07/19/17 18:00 07/19/17 18:00 Intake and Output: 07/19/17 07/20/17 18:59 06:59 Intake Total 600 Balance 600 - Medications Medications: Current Medications Fluoxetine HCl (Prozac) 20 mg PO DAILY [facility] Last Admin: 07/19/17 09:21 Dose: 20 mg Folic Acid (Folic Acid) 2 mg PO DAILY [facility] Last Admin: 07/19/17 09:21 Dose: 2 mg Losartan Potassium (Cozaar) 25 mg PO DAILY [facility] Last Admin: 07/19/17 09:21 Dose: 25 mg Meclizine HCl (Antivert) 12.5 mg PO TID PRN PRN Reason: Dizziness Last Admin: 07/17/17 11:00 Dose: 12.5 mg Potassium Chloride (K-Dur 20 Meq Er Tab) 40 meq PO BRK [facility] Last Admin: 07/19/17 08:13 Dose: 40 meq Potassium Phos/Sodium Phos (Neutra-Phos) 1 pkt PO BID [facility] Last Admin: 07/19/17 17:35 Dose: 1 pkt Prednisolone (Prednisolone Oral Soln) 20 mg PO Q12 [facility] Last Admin: 07/19/17 10:43 Dose: 20 mg Sucralfate (Carafate Oral Susp) 1 gm PO 0600,1600 [facility] Last Admin: 07/19/17 16:12 Dose: 1 gm Thiamine HCl (Vitamin B1 Tab) 100 mg PO DAILY [facility] Last Admin: 07/19/17 09:21 Dose: 100 mg Tramadol HCl (Ultram) 50 mg PO TID PRN PRN Reason: Pain, severe (8-10) Last Admin: 07/18/17 21:39 Dose: 50 mg Ursodiol (Actigall) 300 mg PO BID [facility] Last Admin: 07/19/17 17:34 Dose: 300 mg - Labs Labs: 07/19/17 07:00 07/19/17 07:00 PT 17.9 SECONDS (9.4-12.5) H 07/19/17 07:00 INR 1.54 (0.93-1.08) H 07/19/17 07:00 APTT 31.9 Seconds (25.1-36.5) 07/18/17 12:40 - Constitutional Appears: No Acute Distress - Head Exam Head Exam: ATRAUMATIC, NORMAL INSPECTION, NORMOCEPHALIC - Eye Exam Eye Exam: EOMI, Normal appearance, PERRL Pupil Exam: NORMAL ACCOMODATION, PERRL - ENT Exam ENT Exam: Mucous Membranes Moist, Normal Exam - Respiratory Exam Respiratory Exam: Clear to Ausculation Bilateral, NORMAL BREATHING PATTERN - Cardiovascular Exam Cardiovascular Exam: REGULAR RHYTHM, +S1, +S2. absent: Murmur - GI/Abdominal Exam GI & Abdominal Exam: Soft, Normal Bowel Sounds. absent: Tenderness - Exam Additional comments: nephrostomy tube noted, blood - Neurological Exam Neurological Exam: Alert, Awake, CN II-XII Intact, Normal Gait, Oriented x3 - Psychiatric Exam Psychiatric exam: Normal Affect, Normal Mood - Skin Skin Exam: Dry, Intact, Normal Color, Warm Assessment and Plan - Assessment and Plan (Free Text) Assessment: ETOH abuse, Alcoholic hepatitis, Discriminate Factor >50 Jaundice w/ choletatic pattern: elevated bilirubin/LFT, s/p abdominal US, normal CBD, no GB stones Hypokalemia Depression HTN Lumbar neuritis PLAN: trend LFT on Prednisone 20 mg BID heart healthy bland diet on Carafate on Tramadol lactulose for BM Seen and discussed with Dr. Gupta <Charlene Gupta V - Last Filed: 07/19/17 23:58> Objective - Vital Signs/Intake and Output Vital Signs (last 24 hours): Temp Pulse Resp BP Pulse Ox 98.6 F 89 20 112/69 98 07/19/17 18:00 07/19/17 18:00 07/19/17 18:00 07/19/17 18:00 07/19/17 18:00 Intake and Output: 07/19/17 07/20/17 18:59 06:59 Intake Total 600 540 Balance 600 540 - Medications Medications: Current Medications Fluoxetine HCl (Prozac) 20 mg PO DAILY [facility] Last Admin: 07/19/17 09:21 Dose: 20 mg Folic Acid (Folic Acid) 2 mg PO DAILY [facility] Last Admin: 07/19/17 09:21 Dose: 2 mg Losartan Potassium (Cozaar) 25 mg PO DAILY [facility] Last Admin: 07/19/17 09:21 Dose: 25 mg Meclizine HCl (Antivert) 12.5 mg PO TID PRN PRN Reason: Dizziness Last Admin: 07/17/17 11:00 Dose: 12.5 mg Potassium Chloride (K-Dur 20 Meq Er Tab) 40 meq PO BRK [facility] Last Admin: 07/19/17 08:13 Dose: 40 meq Potassium Phos/Sodium Phos (Neutra-Phos) 1 pkt PO BID [facility] Last Admin: 07/19/17 17:35 Dose: 1 pkt Prednisolone (Prednisolone Oral Soln) 20 mg PO Q12 [facility] Last Admin: 07/19/17 22:44 Dose: 20 mg Sucralfate (Carafate Oral Susp) 1 gm PO 0600,1600 [facility] Last Admin: 07/19/17 16:12 Dose: 1 gm Thiamine HCl (Vitamin B1 Tab) 100 mg PO DAILY [facility] Last Admin: 07/19/17 09:21 Dose: 100 mg Tramadol HCl (Ultram) 50 mg PO TID PRN PRN Reason: Pain, severe (8-10) Last Admin: 07/19/17 22:45 Dose: 50 mg Ursodiol (Actigall) 300 mg PO BID [facility] Last Admin: 07/19/17 17:34 Dose: 300 mg - Labs Labs: 07/19/17 07:00 07/19/17 07:00 PT 17.9 SECONDS (9.4-12.5) H 07/19/17 07:00 INR 1.54 (0.93-1.08) H 07/19/17 07:00 APTT 31.9 Seconds (25.1-36.5) 07/18/17 12:40 Attending/Attestation - Attestation I have personally seen and examined this patient.: Yes I have fully participated in the care of the patient.: Yes I have reviewed all pertinent clinical information, including history, physical exam and plan: Yes Notes (Text): This is an addendum to GI consult report dictated by the Associate Professor Of Library [employer].The patient was seen and examined earlier. Medical records, lab studies, imagings were reviewed. Last 24 hours events reviewed. Agreed with the above treatment plan as outlined in Associate Professor Of Library [employer] 's notes the with the addition of the following 07/19/17 23:57
[2017-07-20] MEDS: Sucralfate 1 gm/10 ml Oral Susp UD PO SCH (05:42)
[2017-07-20 06:22] VITALS: PULSE 92; RESP 19
[2017-07-20 06:24] LABS: BASO # 0.01 K/mm3 (0.0-2.0); BASO % 0.1 % (0.0-3.0); EOS % 0.1 % (1.5-5.0); GRAN # 13.87 (1.4-6.5); GRAN % 88.1 % (50.0-68.0); LYMPH # 0.7 (1.2-3.4); LYMPH % 4.5 % (22.0-35.0); MEAN CELL VOLUME 110.5 fl (80.0-105.0); MEAN CORPUSCULAR HEMOGLOBIN 38.8 pg (25.0-35.0); MEAN CORPUSCULAR HGB CONC 35.1 g/dl (31.0-37.0); MEAN PLATELET VOLUME 10.6 fl (7.0-11.0); MONO # 1.1 (0.1-0.6); MONO % 7.2 % (1.0-6.0); PLATELET COUNT 253 10^3/uL (120.0-450.0); RBC 2.58 10^6/uL (3.5-6.1); RED CELL DISTRIBUTION WIDTH 17.6 % (11.5-14.5); WHITE BLOOD COUNT 15.7 10^3/ul (4.5-11.0)
[2017-07-20 06:27] VITALS: BP 122/73; TEMP 98.5
[2017-07-20 07:06] LABS: ALB/GLOB RATIO 0.9 (1.1-1.8); ALT/SGPT 116 U/L (7-56); AST/SGOT 242 U/L (14-36); BLOOD UREA NITROGEN 5 mg/dL (7-21); CALCIUM 9.4 mg/dL (8.4-10.5); GFR AFRICAN-AMERICAN > 60; GFR NON-AFRICAN AMERICAN > 60
--- NOTE | 2017-07-20 08:46 | CP.PCM.PCO ---
Physician Communication Note - Physician Communication Note Physician Communication Note: psychiatry team signed off
[2017-07-20 08:57] LABS: ANISOCYTOSIS 1+; BAND 3 % (0-2); HYPOCHROMIA 1+; LYMPHOCYTE 6 % (22.0-35.0); MONOCYTE 6 % (1.0-6.0); NEUTROPHIL 85 % (50.0-70.0); PLATELET ESTIMATE NORMAL (NORMAL); POLYCHROMASIA SLIGHT
[2017-07-20 08:58] LABS: TOXIC GRANULATION 1+
[2017-07-20] MEDS ORDERED: cefTRIAXone 1 gm 1 GM/100 ML BAG IVPB SCH (10:00)
--- NOTE | 2017-07-20 14:36 | PN ---
DATE: LOCATION: The patient is seen in [facility], room 371, bed 2. The patient is a 56-year-old female. She was brought into the hospital emergency room with dizziness, jaundice and the patient was found to have alcoholic hepatitis, acute. The patient has past history of hypertension, depression. The patient has history of pain. The patient has been on pain management before. The patient also has abuse of drugs in the past. This morning, the patient is saying she is pretty comfortable. She has had a jaundice-colored skin. The patient appears normal and talks normal. She states she slept well last night. PHYSICAL EXAMINATION VITAL SIGNS: The patient's pulse is 92, blood pressure 122/73, respirations are 19. The patient's O2 sat is 98% on room air. Temperature is 98.5. HEENT: Head is normocephalic. jaundiced conjunctiva and skin. NECK: The thyroid not enlarged. No lymphadenopathy in the neck. The patient's JVP is flat. LUNGS: Trachea is central. Breath sounds are vesicular. No adventitious sounds are heard. HEART: S1 and S2 present. No murmurs. ABDOMEN: Soft. Liver and spleen are not palpable. No tenderness. CENTRAL NERVOUS SYSTEM: Conscious, alert and oriented. Cranial nerves are intact. The patient's motor sensory functions are within normal limits. The patient has no dizziness now. MEDICATIONS: The patient's medications consist of Actigall, meclizine, Carafate, losartan. The patient is on folic acid, thiamine, Prozac. She is placed on tramadol for pain p.r.n. at home. The patient is advised not to take Tylenol. The patient has been advised strongly not to take any alcohol or cough medications. The patient is given a prescription for blood work to be done for CMP and CBC on coming Monday. The patient is likely going home today. We will follow up. The patient's medications on discharge, the patient gets Librium 25 mg at bedtime. The patient gets Prozac 40 mg daily. The patient will be on folic acid, thiamine. The patient will be on prednisolone 20 mg b.i.d. at this time. We will follow up the blood work and adjust the dose of prednisone considered the patient needs any gastric support. We can consider giving the patient Carafate, Mylanta, Gaviscon, Nexium as an outpatient. Her diet will be heart-healthy diet, 2 g sodium. Tay Cruz MD
== END 2017-07-20 12:02 | disposition home or self-care (01) | DRG 433 ==
LOC: ED 13:05 → ERH 17:59 → 3RSO 20:12
PROVIDERS: ADMIT Internal Medicine; ATTEND Internal Medicine
DX: K70.10 Alcoholic hepatitis without ascites (principal); E87.1 Hypo-osmolality and hyponatremia; E83.39 Other disorders of phosphorus metabolism; D53.9 Nutritional anemia, unspecified; F10.20 Alcohol dependence, uncomplicated; F32.89 Other specified depressive episodes; I10 Essential (primary) hypertension; K76.0 Fatty (change of) liver, not elsewhere classified; E83.42 Hypomagnesemia; E87.6 Hypokalemia; E88.09 Other disorders of plasma-protein metabolism, not elsewhere classified; G47.00 Insomnia, unspecified; M54.16 Radiculopathy, lumbar region; R29.6 Repeated falls; Z79.899 Other long term (current) drug therapy; Z87.891 Personal history of nicotine dependence; R40.2412 Glasgow coma scale score 13-15, at arrival to emergency department; M46.92 Unspecified inflammatory spondylopathy, cervical region

== ENCOUNTER 2017-07-27 20:13 | Inpatient (IN) | payer MEDICARE, OTHER ==
[2017-07-27 20:15] VITALS: BMI 26.6
--- NOTE | 2017-07-27 20:46 | ED PDOC ---
Arrival/HPI - General Chief Complaint: Trauma Time Seen by Provider: 07/27/17 20:27 Historian: Patient, Family - History of Present Illness Narrative History of Present Illness (Text): 07/27/17 20:37 A 56 year old female brought into the emergency department by EMS for evaluation. Patient appears confused, history primarily obtained through family. Family reports patient was recently discharged from the hospital a few days ago. Patient lives alone and has family visit daily to help care for her. Today ex went to patients home to bring food. Patient answered her phone and was suppose to walk to the window to pass the house keys. Ex became worried when patient never presented with the keys so he called the [place] [employer]. [place] police cut down the door and found patient lying on the floor. Patient reports she slowly fell to the ground and was unable to get up. She denies any somatic complaints at this time. Patient denies any injuries, trauma, loss of consciousness, fever, chills, nausea, vomiting, abdominal pain, chest pain, shortness of breath, headache, dizziness or any other complaints. Time/Duration: Prior to Arrival Context: Home Past Medical History - Provider Review Nursing Documentation Reviewed: Yes - Infectious Disease Hx of Infectious Diseases: None - Cardiac Hx Cardiac Disorders: Yes Hx Hypertension: Yes - Pulmonary Hx Respiratory Disorders: No - Neurological Hx Neurological Disorder: No - HEENT Hx HEENT Disorder: No - Renal Hx Renal Disorder: No - Endocrine/Metabolic Hx Endocrine Disorders: No - Hematological/Oncological Hx Blood Disorders: No - Integumentary Hx Dermatological Disorder: Yes Other/Comment: ITCHING AND SCABBING BLE, BUE, FACE - Musculoskeletal/Rheumatological Hx Musculoskeletal Disorders: Yes Hx Falls: Yes Other/Comment: LEFT RIB PAIN SINCE 09/28/15, cervical spondylosis, wrist fracture - Gastrointestinal Hx Gastrointestinal Disorders: No - Genitourinary/Gynecological Hx Genitourinary Disorders: No - Psychiatric Hx Psychophysiologic Disorder: Yes Hx Anxiety: Yes Hx Depression: Yes Hx Substance Use: No (TAKES PERCOCET FOR PAIN REGULARLY PRESCRIBED) Other/Comment: opioid dependency, chronic alcoholism - Surgical History Hx Musculoskeletal Surgery: Yes (DISCECTOMY, BACK SURGERY 2010) - Anesthesia Hx Anesthesia Reactions: No Hx Malignant Hyperthermia: No - Suicidal Assessment Feels Threatened In Home Enviroment: No Family/Social History - Physician Review Nursing Documentation Reviewed: Yes Family/Social History: No Known Family HX Smoking Status: Unknown If Ever Smoked Hx Alcohol Use: Yes (last drink 07/07/17) Hx Substance Use: No (TAKES PERCOCET FOR PAIN REGULARLY PRESCRIBED) Substance used: percocet Hx Substance Use Treatment: No Allergies/Home Meds Allergies/Adverse Reactions: Allergies No Known Allergies Allergy (Verified 09/29/15 11:18) Home Medications: Home Meds Medication Instructions Recorded Confirmed Fluoxetine HCl [Prozac] 40 mg PO DAILY 02/02/15 05/06/17 Review of Systems - Physician Review All systems were reviewed & negative as marked: Yes - Review of Systems Constitutional: absent: Fevers, Night Sweats Respiratory: absent: SOB Cardiovascular: absent: Chest Pain Gastrointestinal: absent: Abdominal Pain, Nausea, Vomiting Neurological: absent: Headache, Dizziness Physical Exam Vital Signs Temp Pulse Resp BP Pulse Ox 07/28/17 06:25 98.0 F 82 18 95/64 L 100 07/28/17 05:57 68 17 98/64 L 98 07/28/17 02:55 80 18 95/69 L 100 07/28/17 00:07 77 18 95/61 L 100 07/27/17 21:35 72 17 96/51 L 100 07/27/17 20:43 97.9 F 91 H 18 94/64 L 99 Appearance: Positive for: Well-Appearing, Non-Toxic, Comfortable Pain Distress: None Mental Status: Positive for: Confused - Systems Exam Head: Present: Atraumatic, Normocephalic Pupils: Present: PERRL Extroacular Muscles: Present: EOMI Conjunctiva: Present: Other (Pale/Jaundice) Mouth: Present: Moist Mucous Membranes Neck: Present: Normal Range of Motion Respiratory/Chest: Present: Clear to Auscultation, Good Air Exchange. No: Respiratory Distress, Accessory Muscle Use Cardiovascular: Present: Regular Rate and Rhythm, Normal S1, S2. No: Murmurs Abdomen: Present: Normal Bowel Sounds. No: Tenderness, Distention, Peritoneal Signs Back: Present: Normal Inspection Upper Extremity: Present: Normal Inspection. No: Cyanosis, Edema Lower Extremity: Present: Normal Inspection. No: Edema Skin: Present: Warm, Dry, Pale (Jaundice). No: Rashes Psychiatric: Present: Other (Confused) Medical Decision Making ED Course and Treatment: 07/27/17 20:37 Impression: A 56 year old female brought in for evaluation. Patient found lying on the floor unable to get up. Patient appears confused. Denies any complaints at this time. Plan is evaluate for hepatic encephalopathy, cirrhosis and weakness. Plan: -- Chest xray -- EKG -- Labs -- Blood and Urine culture -- Urinalysis -- Reassess and disposition Progress Notes: EKG: Ordered, reviewed, and independently interpreted the EKG. Rate : 94 BPM Rhythm : NSR Interpretation : Low voltage QRS. Nonspecific T-wave abnormality. 07/28/17 02:55: Case discussed with Dr. Gruber who requested Dr. Charles and Dr. Gupta evaluate patient. 07/28/17 02:58: Case discussed with Dr. Charles who will come evaluate patient. 07/28/17 03:21: Dr. Gupta has been paged multiple times with no reply. Dr. Charles evaluated patient and believes patient can be admitted to telemetry. We believe the white count is elevated because she has been on steroids recently. Will hold off on antibiotics until cultures return. 07/28/17 03:28: Case discussed with Dr. Gupta who states that all that has been done is correct. - Lab Interpretations Microbiology Results: Microbiology Results 07/27/17 19:37 Blood-Venous Blood Culture - Preliminary NO GROWTH AFTER 3 DAYS 07/27/17 20:50 Blood-Venous Blood Culture - Preliminary NO GROWTH AFTER 3 DAYS 07/28/17 02:08 Urine,Clean Catch Urine Culture - Final Lab Results: 07/27/17 20:50 07/27/17 20:50 Lab Results 07/28/17 02:08: Urine Opiates Screen Negative, Urine Methadone Screen Negative, Ur Barbiturates Screen Negative, Ur Phencyclidine Scrn Negative, Ur Amphetamines Screen Negative, U Benzodiazepines Scrn Positive, U Oth Cocaine Metabols Negative, U Cannabinoids Screen Negative 07/28/17 02:08: Urine Color Yellow, Urine Appearance Clear, Urine pH 7.0, Ur Specific [place] 1.010, Urine Protein Trace H, Urine Glucose (UA) Negative, Urine Ketones Negative, Urine Blood Trace-intact H, Urine Nitrate Negative, Urine Bilirubin Large H, Urine Urobilinogen 2.0 H, Ur Leukocyte Esterase Negative, Urine RBC 0 - 2, Urine WBC 0 - 2, Ur Epithelial Cells 4 - 5 07/28/17 00:32: Ammonia 47 H 07/27/17 20:50: pO2 123 H, VBG pH 7.40, VBG pCO2 32.0 L, VBG HCO3 19.8 L, VBG Total CO2 20.8 L, VBG O2 Sat (Calc) 100.8 H, VBG Base Excess -4.0 L, VBG Potassium 3.2 L, Sodium 132.0, Chloride 106.0, Glucose 131 H, Lactate 1.8, FiO2 21.0, Venous Blood Potassium 3.2 L 07/27/17 20:50: Alcohol, Quantitative < 10 07/27/17 20:50: Sodium 131 L, Chloride 105, Potassium 3.3 L, Carbon Dioxide 18 L , Anion Gap 12, BUN 12, Creatinine 0.6 L, Est GFR ( Amer) > 60, Est GFR ( Non-Af Amer) > 60, Random Glucose 126 H, Calcium 8.6, Total Bilirubin 11.8 H, Direct Bilirubin 10.1 H, AST 213 H, ALT 105 H, Alkaline Phosphatase 236 H, Lactate Dehydrogenase 425, Total Creatine Kinase < 20 L, Troponin I < 0.01, Total Protein 5.9, Albumin 2.4 L, Globulin 3.5, Albumin/Globulin Ratio 0.7 L, Lipase 24 07/27/17 20:50: PT 20.6 H, INR 1.79 H 07/27/17 20:50: WBC 24.8 H D, RBC 2.29 L, Hgb 8.5 L, Hct 24.9 L, MCV 108.7 H, MCH 37.1 H, MCHC 34.1, RDW 16.9 H, Plt Count 224, MPV 11.0, Gran % 93.4 H, Lymph % (Auto) 3.2 L, [place] % (Auto) 3.3, Eos % (Auto) 0.0 L, Baso % (Auto) 0.1, Gran # 23.11 H, Lymph # (Auto) 0.8 L, [place] # (Auto) 0.8 H, Eos # (Auto) 0.0, Baso # (Auto) 0.03, Neutrophils % (Manual) 89 H, Band Neutrophils % 3 H, Lymphocytes % (Manual) 4 L, Monocytes % (Manual) 4, Platelet Evaluation Normal, Hypochromasia Slight, Anisocytosis (manual) 1+, Macrocytosis (manual) Slight I have reviewed the lab results: Yes - RAD Interpretation Radiology Orders: 07/27/17 20:27 CHEST PORTABLE [RAD] Stat - Medication Orders Current Medication Orders: Chlordiazepoxide (Librium) 25 mg PO HS [facility] PRN Reason: Protocol Last Admin: 07/30/17 22:25 Dose: 25 mg Behavioural Document 07/30/17 22:25 SGG (Rec: 07/30/17 22:25 [id number] [id number]) Maintenance Maintenance Dose Yes Folic Acid (Folic Acid) 1 mg PO DAILY [facility] Last Admin: 07/31/17 10:57 Dose: 1 mg Dextrose/Sodium Chloride (Dextrose 5%/0.45% Ns 1000 Ml) 1,000 mls @ 100 mls/hr IV .Q10H [facility] Last Admin: 07/31/17 18:15 Dose: 100 mls/hr eMAR Start Stop Document 07/31/17 18:15 MF (Rec: 07/31/17 18:15 [place] [id number] Intravenous Solution Start Date 07/31/17 Start Time 18:15 Lactulose (Enulose) 20 gm PO BID [facility] Last Admin: 07/31/17 18:07 Dose: Not Given Non-Admin Reason: Patient Refused Potassium Chloride (K-Dur 20 Meq Er Tab) 20 meq PO DAILY [facility] Last Admin: 07/31/17 10:57 Dose: 20 meq Prednisolone (Prednisolone Oral Soln) 15 mg PO BID [facility] Last Admin: 07/31/17 18:15 Dose: 15 mg Rifaximin (Xifaxan) 550 mg PO BID [facility] PRN Reason: Protocol Last Admin: 07/31/17 18:07 Dose: 550 mg Thiamine HCl (Vitamin B1 Tab) 100 mg PO DAILY [facility] Last Admin: 07/31/17 10:56 Dose: 100 mg Tramadol HCl (Ultram) 50 mg PO TID PRN PRN Reason: Pain, severe (8-10) Last Admin: 07/28/17 17:48 Dose: 50 mg MAR Pain Assessment Document 07/28/17 17:48 (Rec: 07/28/17 17:48 [id number]) Pain Reassessment Is this a pain reassessment? No Presence of Pain Presence of Pain Yes Pain Scale Used Pain Scale Used Numeric Location Left, Right or Bilateral Bilateral Pain Location Body Site Leg Description Description Constant Intensity of Pain at present 9 Ursodiol (Actigall) 300 mg PO BID [facility] Last Admin: 07/31/17 18:07 Dose: 300 mg Discontinued Medications Sodium Chloride (Sodium Chloride 0.9%) 1,000 mls @ 999 mls/hr IV .Q1H1M STA Stop: 07/28/17 01:19 Last Admin: 07/28/17 00:33 Dose: 999 mls/hr eMAR Start Stop Document 07/28/17 00:33 IT (Rec: 07/28/17 00:33 IT [id number]) Intravenous Solution Start Date 07/28/17 Start Time 00:33 End Date 07/28/17 End time 01:33 Total Infusion Time 60 Piperacillin Sod/Tazobactam Sod (Zosyn 3.375 In Ns 100ml) 100 mls @ 200 mls/hr IVPB STAT STA PRN Reason: Protocol Stop: 07/28/17 04:31 Last Admin: 07/28/17 04:15 Dose: 200 mls/hr eMAR Start Stop Document 07/28/17 04:15 IT (Rec: 07/28/17 04:15 IT [id number]) Intravenous Solution Start Date 07/28/17 Start Time 04:15 Piperacillin Sod/Tazobactam Sod (Zosyn 3.375 In Ns 100ml) 100 mls @ 200 mls/hr IVPB Q6 [facility] PRN Reason: Protocol Stop: 08/04/17 18:01 Last Admin: 07/31/17 13:43 Dose: 200 mls/hr eMAR Start Stop Document 07/31/17 13:43 MF (Rec: 07/31/17 13:43 [place] [facility] [id number] Intravenous Solution Start Date 07/31/17 Start Time 13:43 Lactulose (Enulose) 20 gm PO ONCE STA Stop: 07/28/17 02:54 Last Admin: 07/28/17 03:44 Dose: 20 gm Lactulose (Enulose) 10 gm PO ONCE ONE Stop: 07/28/17 04:02 Last Admin: 07/28/17 04:15 Dose: 10 gm Lactulose (Enulose) 20 gm PO DAILY [facility] Stop: 07/30/17 10:01 Last Admin: 07/29/17 09:59 Dose: 20 gm Metoprolol Tartrate (Lopressor) 5 mg IVP ONCE ONE Stop: 07/29/17 17:42 Last Admin: 07/29/17 17:46 Dose: 5 mg IVP Administration Document 07/29/17 17:46 (Rec: 07/29/17 17:47 [id number] Charges for Administration # of IVP Administrations 1 MAR Pulse and Blood Pressure Document 07/29/17 17:46 SG (Rec: 07/29/17 17:47 [id number] Pulse Pulse Rate (60-90) 131 Blood Pressure Blood Pressure (100/60-150/90) 94/55 Potassium Chloride (K-Dur 20 Meq Er Tab) 20 meq PO STAT STA Stop: 07/28/17 02:54 Last Admin: 07/28/17 03:44 Dose: 20 meq Potassium Chloride (K-Dur 20 Meq Er Tab) 40 meq PO ONCE ONE Stop: 07/28/17 15:20 Last Admin: 07/28/17 18:46 Dose: 40 meq Potassium Chloride (K-Dur 20 Meq Er Tab) 20 meq PO ONCE ONE Stop: 07/29/17 12:53 Last Admin: 07/29/17 14:14 Dose: 20 meq Prednisolone (Prednisolone Oral Soln) 20 mg PO Q12 [facility] Last Admin: 07/29/17 22:25 Dose: 20 mg - PA / [employer] / Resident Statement MD/DO has reviewed & agrees with the documentation as recorded. Disposition/Present on Arrival - Present on Arrival Any Indicators Present on Arrival: No History of DVT/PE: No History of Uncontrolled Diabetes: No Urinary Catheter: No History of Decub. Ulcer: No History Surgical Site Infection Following: None - Disposition Have Diagnosis and Disposition been Completed?: Yes Diagnosis: Liver failure, Hepatic encephalopathy Disposition: HOSPITALIZED Disposition Time: 03:00 Patient Plan: Admission Patient Problems: Current Active Problems Problem Status Onset Hepatic encephalopathy Acute Liver failure Acute Condition: [facility]
[2017-07-27 21:11] LABS: VENOUS BLOOD GAS PO2 123 mm/Hg (30-55)
[2017-07-27 21:13] LABS: BASO # 0.03 K/mm3 (0.0-2.0); BASO % 0.1 % (0.0-3.0); GRAN # 23.11 (1.4-6.5); GRAN % 93.4 % (50.0-68.0); HEMOGLOBIN 8.5 g/dL (12.0-16.0); LYMPH # 0.8 (1.2-3.4); LYMPH % 3.2 % (22.0-35.0); MEAN CELL VOLUME 108.7 fl (80.0-105.0); MEAN CORPUSCULAR HEMOGLOBIN 37.1 pg (25.0-35.0); MEAN CORPUSCULAR HGB CONC 34.1 g/dl (31.0-37.0); MONO # 0.8 (0.1-0.6); MONO % 3.3 % (1.0-6.0); PLATELET COUNT 224 10^3/uL (120.0-450.0); RBC 2.29 10^6/uL (3.5-6.1); RED CELL DISTRIBUTION WIDTH 16.9 % (11.5-14.5); WHITE BLOOD COUNT 24.8 10^3/ul (4.5-11.0)
[2017-07-27 21:27] LABS: ALB/GLOB RATIO 0.7 (1.1-1.8); ALBUMIN 2.4 g/dL (3.0-4.8); ALT/SGPT 105 U/L (7-56); AST/SGOT 213 U/L (14-36); BILIRUBIN,DIRECT 10.1 mg/dL (0.0-0.4); BLOOD UREA NITROGEN 12 mg/dL (7-21); CALCIUM 8.6 mg/dL (8.4-10.5); GFR AFRICAN-AMERICAN > 60; GFR NON-AFRICAN AMERICAN > 60; LIPASE 24 U/L (23-300)
[2017-07-27 21:31] LABS: INR 1.79 (0.93-1.08); PROTHROMBIN TIME 20.6 SECONDS (9.4-12.5)
[2017-07-27 21:34] LABS: TROPONIN I < 0.01 ng/mL
[2017-07-27 21:39] LABS: BAND 3 % (0-2); LYMPHOCYTE 4 % (22.0-35.0); MONOCYTE 4 % (1.0-6.0); NEUTROPHIL 89 % (50.0-70.0)
[2017-07-27 21:40] LABS: ANISOCYTOSIS 1+; HYPOCHROMIA SLIGHT
[2017-07-27 21:41] LABS: PLATELET ESTIMATE NORMAL (NORMAL)
[2017-07-28] MEDS ORDERED: Sodium Chloride 0.9% 1,000 ML IV STA (00:19)
[2017-07-28 02:29] LABS: URINE BILIRUBIN LARGE (NEGATIVE); URINE BLOOD TRACE-INTACT (NEGATIVE); URINE GLUCOSE (UA) NEGATIVE (NEGATIVE); URINE LEUKOCYTE ESTERASE NEGATIVE Leu/uL (NEGATIVE); URINE PROTEIN TRACE mg/dL (<30 mg/dL)
[2017-07-28 02:31] LABS: URINE APPEARANCE CLEAR (CLEAR); URINE COLOR YELLOW (YELLOW)
[2017-07-28 02:44] LABS: URINE RBC 0 - 2 /hpf (0-2); URINE WBC 0 - 2 /hpf (0-6)
[2017-07-28] MEDS ORDERED: Potassium Chloride 20 mEq ER Tab PO STA (02:53)
[2017-07-28 03:27] LABS: BARBITURATES, UR NEGATIVE (NEGATIVE); BENZODIAZEPINES, UR POSITIVE (NEGATIVE); OPIATES, UR NEGATIVE (NEGATIVE); PHENCYCLIDINE, UR NEGATIVE (NEGATIVE)
[2017-07-28] MEDS ORDERED: Piperacillin/Tazobact 3.375 gm 100 ML IVPB STA (04:02)
--- NOTE | 2017-07-28 04:11 | CP.PCM.CON ---
<Mary Ramires - Last Filed: 07/28/17 04:21> History of Present Illness - History of Present Illness History of Present Illness: ICU consult note for Dr Charles Patient is a 56 y/o with pmhx of ETOH abuse, Alcoholic hepatitis, Discriminate Factor >50 recently discharged with prednisone presenting due to generalized weakness. Patient states yesterday when she tried to get up from seating position, she wasn't able to pull herself up. Patient otherwise denies fever, chills, no nausea, vomiting or diarrhea. No cough, no sick contact. Denies abdominal pain and dysurea. Patient states she's complaint with her home meds, lives by herself. Patient states prior to yesterday she was feeling well. Patient is a poor historian, and has waxing and waning mentation. ICU is consulted to evaluate the patient. PMHx: ETOH abuse, past opioid dependence, htn, depression, cervical spondylosis s/p surgery, wrist fracture, lumbar neuritis and insomnia, alcoholic hepatitis. PSHx: none SHx: former smoker, former oxycontin user (for msk pain) and later opiate abuser , lives alone, denies tobacco, last alcohol was a month ago. FHx: denies [place]: NKDA Review of Systems - Review of Systems All systems: reviewed and no additional remarkable complaints except Review of Systems: 12 point ROS reviewed, all negative except as per HPI. Past Patient History - Infectious Disease Hx of Infectious Diseases: None - Past Medical History & Family History Past Medical History?: Yes - Past Social History Smoking Status: Unknown If Ever Smoked Alcohol: Other (last was a month ago.) Drugs: Denies Home Situation {Lives}: Alone - CARDIAC Hx Cardiac Disorders: Yes Hx Hypertension: Yes - PULMONARY Hx Respiratory Disorders: No - NEUROLOGICAL Hx Neurological Disorder: No - HEENT Hx HEENT Problems: No - RENAL Hx Chronic Kidney Disease: No - ENDOCRINE/METABOLIC Hx Endocrine Disorders: No - HEMATOLOGICAL/ONCOLOGICAL Hx Blood Disorders: No - INTEGUMENTARY Hx Dermatological Problems: Yes Other/Comment: ITCHING AND SCABBING BLE, BUE, FACE - MUSCULOSKELETAL/RHEUMATOLOGICAL Hx Musculoskeletal Disorders: Yes Hx Falls: Yes Other/Comment: LEFT RIB PAIN SINCE 09/28/15, cervical spondylosis, wrist fracture - GASTROINTESTINAL Hx Gastrointestinal Disorders: No - GENITOURINARY/GYNECOLOGICAL Hx Genitourinary Disorders: No - PSYCHIATRIC Hx Psychophysiologic Disorder: Yes Hx Anxiety: Yes Hx Depression: Yes Hx Substance Use: No (TAKES PERCOCET FOR PAIN REGULARLY PRESCRIBED) Other/Comment: opioid dependency, chronic alcoholism - SURGICAL HISTORY Hx Musculoskeletal Surgery: Yes (DISCECTOMY, BACK SURGERY 2010) - ANESTHESIA Hx Anesthesia Reactions: No Hx Malignant Hyperthermia: No Meds Allergies/Adverse Reactions: Allergies Allergy/AdvReac Type Severity Reaction Status Date / Time No Known Allergies Allergy Verified 09/29/15 11:18 - Medications Medications: Current Medications Piperacillin Sod/Tazobactam Sod (Zosyn 3.375 In Ns 100ml) 100 mls @ 200 mls/hr IVPB STAT STA PRN Reason: Protocol Stop: 07/28/17 04:31 Physical Exam - Constitutional Appears: No Acute Distress, Older Than Stated Age, Confused, Chronically Ill - Head Exam Head Exam: ATRAUMATIC, NORMAL INSPECTION, NORMOCEPHALIC - Eye Exam Eye Exam: Scleral icterus - ENT Exam ENT Exam: Mucous Membranes Dry - Neck Exam Neck exam: Positive for: Normal Inspection - Respiratory Exam Respiratory Exam: Clear to Auscultation Bilateral, NORMAL BREATHING PATTERN. absent: Rales, Rhonchi, Wheezes, Respiratory Distress, Stridor - Cardiovascular Exam Cardiovascular Exam: REGULAR RHYTHM, RRR, +S1, +S2. absent: JVD, Rubs, Systolic Murmur - GI/Abdominal Exam GI & Abdominal Exam: Distended, Normal Bowel Sounds, Soft. absent: Guarding, Rebound, Rigid, Tenderness - Extremities Exam Extremities exam: Positive for: pedal edema (trace) - Back Exam Back exam: NORMAL INSPECTION - Neurological Exam Additional comments: Awake, no focal defect, waxing and waning mental status. - Psychiatric Exam Psychiatric exam: Flat Affect - Skin Skin Exam: Dry, Warm Additional comments: + jaundice. Results - Vital Signs Recent Vital Signs: Last Vital Signs Temp 97.9 F 07/27/17 20:43 Pulse 80 07/28/17 02:55 Resp 18 07/28/17 02:55 BP 95/69 L 07/28/17 02:55 Pulse Ox 100 07/28/17 02:55 - Labs Result Diagrams: 07/27/17 20:50 07/27/17 20:50 Assessment & Plan - Assessment and Plan (Free Text) Assessment: Patient is a 56 y/o with pmhx of ETOH abuse, Alcoholic hepatitis, Discriminate Factor >50 recently discharged with prednisone presenting due to generalized weakness. Patient was found to have elevated WBC, and appeared encephalopathic with elevated lactulose. ICU was consulted to evaluate patient. Patient is hemodynamically stable, able to protect her airway, and doesn't need ICU level of care. Plan: Neuro: encephalopathic with waxing and waning mental status in the setting of elevated ammonia likely due to hepatic encephalopathy. will start patient on lactulose 30 mg tid and titrate to 2-3 bowel movement. No focal weakness, consider CT head if mental status worsens. Pulm: Patient is stable, nasal cannula prn to maintain O2 sat above 90%. Cardio: hemodynamically stable at this time. GI: Alcoholic induced hepatitis with discrimant factor still above 50, however compared to last admission, t bili has trended down, and LFT remains stable. Recommend abdominal u/s to rule out ascites Continue prednisone Gi consult protonix for gi prophylaxis. Will start lactulose as above. Renal: Mild hyponatremia and hypokalemia- potassium is being repleted, continue to monitor. ID: Leukocytosis likely due to chronic prednisone versus infectious etiology. Patient is afebrile, and is hemodynamically stable, with lactic acid of 1.8 will give one dose zosyn, follow up with cultures, ID consult prn Heme: chronic anemia with stable h/h. Endo: maintain euglycemia Dispo: patient is currently hemodynamically stable, with stable BP, MAP above 65 , able to protect her airway. Patient doesn't need ICU level of care at this time and to be admitted to tele. Please re-consult again as needed. Patient was seen, examined and discussed with Dr. Charles. - Date & Time Date: 07/28/17 Time: 04:15 <Araceli GANNON,Star - Last Filed: 07/28/17 08:24> Meds - Medications Medications: Current Medications Folic Acid (Folic Acid) 1 mg PO DAILY [facility]MA Dextrose/Sodium Chloride (Dextrose 5%/0.45% Ns 1000 Ml) 1,000 mls @ 100 mls/hr IV .Q10H [facility]MA Thiamine HCl (Vitamin B1 Tab) 100 mg PO DAILY NORMA Results - Vital Signs Recent Vital Signs: Last Vital Signs Temp 97.5 F L 07/28/17 06:30 Pulse 64 07/28/17 06:30 Resp 18 07/28/17 06:30 BP 92/46 L 07/28/17 06:30 Pulse Ox 100 07/28/17 06:25 - Labs Result Diagrams: 07/27/17 20:50 07/27/17 20:50 Labs: Laboratory Results - last 24 hr 07/28/17 04:55 Influenza Typ A,B (EIA) Negative for flu a/b Attending/Attestation - Attestation I have personally seen and examined this patient.: Yes I have fully participated in the care of the patient.: Yes I have reviewed all pertinent clinical information: Yes Notes (Text): -I agree with the above ICU evaluation completed by the resident physician with the following additions and/or changes: -The patient is a 56 year old woman with a history of chronic alcohol abuse, who was recently [place] [facility] [place] after being treated for acute alcoholic hepatitis (DF>50). She was discharged home on oral Prednisone. The patient now presents with leukocytosis (ddx: infection vs steroid side effect), presumed hepatic encephalopathy and likely recurrence of acute hepatitis. Source of infection should be investigated thoroughly, including rule out of SBP. However, because the patient is hemodynamically stable and in no acute distress, she doesnt require ICU level of care at this time. Please feel free to re-consult if her condition deteriorates. Thank you.
[2017-07-28 09:07] LABS: ALB/GLOB RATIO 0.7 (1.1-1.8); ALBUMIN 2.4 g/dL (3.0-4.8); ALT/SGPT 101 U/L (7-56); AST/SGOT 210 U/L (14-36); BLOOD UREA NITROGEN 11 mg/dL (7-21); CALCIUM 8.5 mg/dL (8.4-10.5); GFR AFRICAN-AMERICAN > 60; GFR NON-AFRICAN AMERICAN > 60
[2017-07-28] MEDS: Dextrose 5%/0.45% NS 1,000 ML IV SCH ×2 (09:18→17:42)
--- NOTE | 2017-07-28 09:26 | RAD ---
HISTORY: generalized weakness COMPARISON: 07/14/2017 FINDINGS: LUNGS: No active pulmonary disease. PLEURA: No significant pleural effusion identified, no pneumothorax apparent. CARDIOVASCULAR: Normal. OSSEOUS STRUCTURES: No significant abnormalities. VISUALIZED UPPER ABDOMEN: Normal. OTHER FINDINGS: None. IMPRESSION: No active disease.
--- NOTE | 2017-07-28 10:27 | CP.PCM.CON ---
History of Present Illness - History of Present Illness History of Present Illness: GI Consult Note - Dr. Gupta CC: Weakness s/p fall HPI: 56 F with a PMHx of polysubstance abuse (ETOH, opioid dependence), HTN, Hep C known and untreated, fatty liver disease, cervical spondylosis s/p surgery , wrist fracture, lumbar neuritis and insomnia that presented to [facility] by ambulance after complaints of mechanical fall from her couch to the floor without loss of consciousness, urinary incontinence, or tongue biting. Pt states she felt weak and subsequently fell without hitting her head. She was able to crawl. Pt states that she was in [facility] for a similar episode approx 2 weeks ago. Pt states she has stopped drinking approx 1 mo ago, however during her last admission, family states she has been drinking more lately.Pt was seen and examined at bedside. Pt is AAOx3, jaundiced, conversational and pleasant. Pt states she has mild epigastric discomfort, and pain and swelling in both legs. Pt tolerated her breakfast, and had loose BM this morning. Pt denied fever , chills, sob, chest pain, nausea, vomiting, constipation, melena, hematochezia or urinary symptoms. PMHx: ETOH abuse, past opioid dependence, htn, depression, cervical spondylosis s/p surgery, wrist fracture, lumbar neuritis and insomnia, alcoholic hepatitis, Hep C known (16yo) and untreated PSHx: Denied SHx: former smoker, former oxycontin user (for msk pain) and later opiate abuser , lives alone FHx: non-contributory Meds: MAR reviewed Allergies: NKDA Review of Systems - Review of Systems Review of Systems: as per HPI otherwise negative. Past Patient History - Infectious Disease Hx of Infectious Diseases: None - Past Medical History & Family History Past Medical History?: Yes - Past Social History Smoking Status: Unknown If Ever Smoked - CARDIAC Hx Cardiac Disorders: Yes Hx Hypertension: Yes - PULMONARY Hx Respiratory Disorders: No - NEUROLOGICAL Hx Neurological Disorder: No - HEENT Hx HEENT Problems: No - RENAL Hx Chronic Kidney Disease: No - ENDOCRINE/METABOLIC Hx Endocrine Disorders: No - HEMATOLOGICAL/ONCOLOGICAL Hx Blood Disorders: Yes Hx Cirrhosis: Yes - INTEGUMENTARY Hx Dermatological Problems: Yes Other/Comment: ITCHING AND SCABBING BLE, BUE, FACE - MUSCULOSKELETAL/RHEUMATOLOGICAL Hx Musculoskeletal Disorders: Yes Hx Arthritis: Yes Hx Back Pain: Yes Hx Falls: Yes Other/Comment: LEFT RIB PAIN SINCE 09/28/15, cervical spondylosis, wrist fracture - GASTROINTESTINAL Hx Gastrointestinal Disorders: No - GENITOURINARY/GYNECOLOGICAL Hx Genitourinary Disorders: No - PSYCHIATRIC Hx Psychophysiologic Disorder: Yes Hx Anxiety: Yes Hx Depression: Yes Hx Substance Use: No Other/Comment: opioid dependency, chronic alcoholism - SURGICAL HISTORY Hx Surgeries: Yes Hx Musculoskeletal Surgery: Yes (DISCECTOMY, BACK SURGERY 2010) - ANESTHESIA Hx Anesthesia Reactions: No Hx Malignant Hyperthermia: No Meds Allergies/Adverse Reactions: Allergies Allergy/AdvReac Type Severity Reaction Status Date / Time No Known Allergies Allergy Verified 09/29/15 11:18 - Medications Medications: Current Medications Folic Acid (Folic Acid) 1 mg PO DAILY [facility] Last Admin: 07/28/17 09:17 Dose: 1 mg Dextrose/Sodium Chloride (Dextrose 5%/0.45% Ns 1000 Ml) 1,000 mls @ 100 mls/hr IV .Q10H [facility] Last Admin: 07/28/17 09:18 Dose: 100 mls/hr Lactulose (Enulose) 20 gm PO DAILY [facility] Stop: 07/30/17 10:01 Last Admin: 07/28/17 09:18 Dose: 20 gm Thiamine HCl (Vitamin B1 Tab) 100 mg PO DAILY [facility] Last Admin: 07/28/17 09:17 Dose: 100 mg Physical Exam - Constitutional Appears: No Acute Distress, Chronically Ill Additional comments: Jaundice - Head Exam Head Exam: ATRAUMATIC, NORMAL INSPECTION, NORMOCEPHALIC - Eye Exam Eye Exam: EOMI, PERRL, Scleral icterus Pupil Exam: NORMAL ACCOMODATION, PERRL - ENT Exam ENT Exam: Mucous Membranes Dry - Respiratory Exam Respiratory Exam: Clear to Auscultation Bilateral, NORMAL BREATHING PATTERN - Cardiovascular Exam Cardiovascular Exam: REGULAR RHYTHM, +S1, +S2 - GI/Abdominal Exam GI & Abdominal Exam: Normal Bowel Sounds, Soft, Tenderness Additional comments: Epigastric - Extremities Exam Extremities exam: Positive for: pedal edema, tenderness Additional comments: +2 - Neurological Exam Neurological exam: Alert, CN II-XII Intact, Oriented x3, Reflexes Normal - Psychiatric Exam Psychiatric exam: Normal Affect, Normal Mood - Skin Skin Exam: Dry, Intact, Normal Color, Warm Results - Vital Signs Recent Vital Signs: Last Vital Signs Temp 97.5 F L 07/28/17 06:30 Pulse 64 07/28/17 06:30 Resp 18 07/28/17 06:30 BP 92/46 L 07/28/17 06:30 Pulse Ox 100 07/28/17 06:25 - Labs Result Diagrams: 07/27/17 20:50 07/28/17 08:50 Labs: Laboratory Results - last 24 hr 07/28/17 07/28/17 04:55 08:50 Sodium 136 Potassium 3.4 L Chloride 109 H Carbon Dioxide 19 L Anion Gap 11 BUN 11 Creatinine 0.5 L Est GFR ( Amer) > 60 Est GFR (Non-Af Amer) > 60 Random Glucose 92 Calcium 8.5 Total Bilirubin 11.7 H AST 210 H ALT 101 H Alkaline Phosphatase 214 H Total Protein 5.7 L Albumin 2.4 L Globulin 3.4 Albumin/Globulin Ratio 0.7 L Influenza Typ A,B (EIA) Negative for flu a/b Assessment & Plan - Assessment and Plan (Free Text) Assessment: ETOH abuse Alcoholic hepatitis with Discriminate Factor >50: poor prognosis Jaundice w/ choletatic pattern: elevated bilirubin/LFT s/p abdominal US, normal CBD, no GB stones Hypokalemia Depression HTN Lumbar neuritis leukocytosis PLAN: FU abdominal US, asses CBD and presence of GB stones trend LFTs Prednisone 20 mg BID heart healthy bland diet Carafate lactulose titrated to 3 bm daily Fu ammonia FU septic workup, leukocytosis without fever, on steroids, ID on board
--- NOTE | 2017-07-28 14:08 | CT ---
PROCEDURE: CT HEAD WITHOUT CONTRAST. HISTORY: change mental status COMPARISON: 07/14/2017 TECHNIQUE: Axial computed tomography images were obtained through the head/brain without intravenous contrast. Radiation dose: Total exam DLP = 860 mGy-cm. This CT exam was performed using one or more of the following dose reduction techniques: Automated exposure control, adjustment of the mA and/or kV according to patient size, and/or use of iterative reconstruction technique. FINDINGS: HEMORRHAGE: No intracranial hemorrhage. BRAIN: No mass effect or edema. No atrophy or chronic microvascular ischemic changes. VENTRICLES: Unremarkable. No hydrocephalus. CALVARIUM: Unremarkable. PARANASAL SINUSES: Unremarkable as visualized. No significant inflammatory changes. MASTOID AIR CELLS: Unremarkable as visualized. No inflammatory changes. OTHER FINDINGS: None. IMPRESSION: No acute findings
--- NOTE | 2017-07-28 14:27 | US ---
HISTORY: rule out ascites, R/O hepatomegaly COMPARISON: Abdominal ultrasound performed 07/15/17 TECHNIQUE: Sonographic evaluation of the abdomen. FINDINGS: LIVER: Measures 22.6 cm in sagittal dimension. Echogenic liver may be seen in setting of hepatic parenchymal disease or fatty infiltration. No focal hepatic mass identified. The main portal vein appears patent. No intrahepatic bile duct dilatation. GALLBLADDER: Gallbladder sludge. No gallstones. Gallbladder wall thickening/edema measuring up to approximately 6 mm with evidence of hyperemia. Negative sonographic Martinez's sign as assessed by the pharmaceutical service representative. COMMON BILE DUCT: Measures 5 mm. PANCREAS: Not well visualized. RIGHT KIDNEY: Measures 10.9 x 5.0 x 6.7 cm. No obstructing calculus hydronephrosis identified. LEFT KIDNEY: Measures 10.8 x 5.5 x 6.5 cm. No obstructing calculus or hydronephrosis identified. SPLEEN: Measures approximately 13.6 cm. AORTA: Limited views appear unremarkable. IVC: Limited views appear unremarkable. OTHER FINDINGS: Small ascites within the upper abdomen as well as right lower quadrant. IMPRESSION: Hepatomegaly. Echogenic liver may be seen in setting of hepatic parenchymal disease or fatty infiltration. Splenomegaly. Gallbladder sludge. Gallbladder wall thickening/pericholecystic edema with evidence of hyperemia. Small ascites within the upper abdomen as well as right lower quadrant.
[2017-07-28] MEDS ORDERED: Potassium Chloride 20 mEq ER Tab PO ONE (15:19)
--- NOTE | 2017-07-28 15:38 | HP ---
LOCATION: The patient is in room 262, bed 2, [facility] in [place]. HISTORY OF PRESENT ILLNESS: The patient admitted through the emergency room last night. She was brought in as an emergency. The patient had a fall, weakness and she fell down and she could not get up and there was nobody to help her in the house. They had to break the door open in order to access her. The patient was brought into emergency room. She was feeling very weak. She also had pain in the lower legs, both sides, and she was mentally not appropriate. The patient has past history of alcoholic hepatitis. The patient has history of depression, history of substance abuse in the past. The patient also has history of hypertension and history of lumbar neuritis, cervical pain, etc. PHYSICAL EXAMINATION GENERAL: The patient on examination is conscious, able to answer questions. She states she has complaints of pain in the back and also the legs. VITAL SIGNS: The pulse is 64, blood pressure 92/46 which is low for her. Patient's O2 saturation is 100% on room air. HEENT: The head is normocephalic. No evidence of any injuries noted in the head. The patient's color is jaundiced. Conjunctivae is also icteric. NECK: The thyroid is not enlarged. JVP is flat. Carotid pulses are present. LUNGS: Trachea central, breath sounds are vesicular. No adventitious sounds. HEART: Normal sinus. S1 and S2 present. No murmur. ABDOMEN: Soft. Liver and spleen not palpable. CENTRAL NERVOUS SYSTEM: Patient is conscious, oriented, answers questions. She is appropriate. She knows time, she knows place. She knows her name. The patient's admission is based on the fact that the patient has alcoholic hepatitis and possibly encephalopathy associated with alcoholic hepatitis. The patient's blood work in the hospital emergency room, white count of 24,800, hemoglobin 8.5. The patient's MCV is 108.7 which represent macrocytosis associated with liver disease. The patient's granulocyte count is 93%. The patient does not have any localizing signs of infection. The urinalysis does not show any evidence of infection and the patient's chemistry, the sodium is 131 which is low, potassium is 3.3. She also has abnormal glucose of 126, total bilirubin on 11.8, liver enzymes are abnormal too. AST is 213, ALT is 105, alkaline phosphatase is 236. The patient's ammonia level is 47 which is above normal range. The patient's urinalysis did not reveal any sepsis infection. MEDICATIONS: The patient was on folic acid, thiamine. The patient was on Librium 25 mg at bedtime. The patient was on Prozac 40 mg daily. The patient was on losartan 25 mg daily. The patient is going to be seen by Infectious Disease. The patient will also be seen by logistics manager and neurologist. Her condition is acute treatment and monitoring of her liver enzymes, and mental status. Tay Cruz MD MTDD
--- NOTE | 2017-07-28 17:01 | CP.PCM.CON ---
History of Present Illness - History of Present Illness History of Present Illness: 56 year old female with PMH of ethanol abuse, history of opioid dependence, cervical spondylosis S/P surgery, was recently admitted in [facility] because of alcoholic hepatitis and was sent home on Prednisone. She comes back complaining of generalized weakness. She denies fever or chills, no nausea or vomiting, has occasional abdominal pain, no diarrhea, no dysuria, no cough or colds, no headache or dizziness, no sore throat. In the ED, she is noted to have leukocytosis. Infectious Diseases consult is requested to further evaluate and manage. Review of Systems - Review of Systems All systems: reviewed and no additional remarkable complaints except (as per HIP ) Past Patient History - Infectious Disease Hx of Infectious Diseases: None - Past Medical History & Family History Past Medical History?: Yes - Past Social History Smoking Status: Unknown If Ever Smoked - CARDIAC Hx Cardiac Disorders: Yes Hx Hypertension: Yes - PULMONARY Hx Respiratory Disorders: No - NEUROLOGICAL Hx Neurological Disorder: No - HEENT Hx HEENT Problems: No - RENAL Hx Chronic Kidney Disease: No - ENDOCRINE/METABOLIC Hx Endocrine Disorders: No - HEMATOLOGICAL/ONCOLOGICAL Hx Blood Disorders: Yes Hx Cirrhosis: Yes - INTEGUMENTARY Hx Dermatological Problems: Yes Other/Comment: ITCHING AND SCABBING BLE, BUE, FACE - MUSCULOSKELETAL/RHEUMATOLOGICAL Hx Musculoskeletal Disorders: Yes Hx Arthritis: Yes Hx Back Pain: Yes Hx Falls: Yes Other/Comment: LEFT RIB PAIN SINCE 09/28/15, cervical spondylosis, wrist fracture - GASTROINTESTINAL Hx Gastrointestinal Disorders: No - GENITOURINARY/GYNECOLOGICAL Hx Genitourinary Disorders: No - PSYCHIATRIC Hx Psychophysiologic Disorder: Yes Hx Anxiety: Yes Hx Depression: Yes Hx Substance Use: No Other/Comment: opioid dependency, chronic alcoholism - SURGICAL HISTORY Hx Surgeries: Yes Hx Musculoskeletal Surgery: Yes (DISCECTOMY, BACK SURGERY 2010) - ANESTHESIA Hx Anesthesia Reactions: No Hx Malignant Hyperthermia: No Meds Allergies/Adverse Reactions: Allergies Allergy/AdvReac Type Severity Reaction Status Date / Time No Known Allergies Allergy Verified 09/29/15 11:18 - Medications Medications: Current Medications Folic Acid (Folic Acid) 1 mg PO DAILY [facility] Last Admin: 07/28/17 09:17 Dose: 1 mg Dextrose/Sodium Chloride (Dextrose 5%/0.45% Ns 1000 Ml) 1,000 mls @ 100 mls/hr IV .Q10H [facility] Last Admin: 07/28/17 09:18 Dose: 100 mls/hr Lactulose (Enulose) 20 gm PO DAILY [facility] Stop: 07/30/17 10:01 Last Admin: 07/28/17 09:18 Dose: 20 gm Thiamine HCl (Vitamin B1 Tab) 100 mg PO DAILY [facility] Last Admin: 07/28/17 09:17 Dose: 100 mg Physical Exam - Constitutional Appears: Chronically Ill - Head Exam Head Exam: NORMAL INSPECTION - Eye Exam Eye Exam: Scleral icterus - ENT Exam ENT Exam: Mucous Membranes Moist - Neck Exam Neck exam: Negative for: Meningismus - Respiratory Exam Respiratory Exam: Decreased Breath Sounds - Cardiovascular Exam Cardiovascular Exam: +S1, +S2 - GI/Abdominal Exam GI & Abdominal Exam: Distended, Soft, Tenderness (right upper and right lower quadrant) Results - Vital Signs Recent Vital Signs: Last Vital Signs Temp 97.5 F L 07/28/17 06:30 Pulse 64 07/28/17 06:30 Resp 18 07/28/17 06:30 BP 92/46 L 07/28/17 06:30 Pulse Ox 100 07/28/17 06:25 - Labs Result Diagrams: 07/27/17 20:50 07/28/17 08:50 Labs: Laboratory Results - last 24 hr 07/28/17 07/28/17 04:55 08:50 Sodium 136 Potassium 3.4 L Chloride 109 H Carbon Dioxide 19 L Anion Gap 11 BUN 11 Creatinine 0.5 L Est GFR ( Amer) > 60 Est GFR (Non-Af Amer) > 60 Random Glucose 92 Calcium 8.5 Total Bilirubin 11.7 H AST 210 H ALT 101 H Alkaline Phosphatase 214 H Total Protein 5.7 L Albumin 2.4 L Globulin 3.4 Albumin/Globulin Ratio 0.7 L Influenza Typ A,B (EIA) Negative for flu a/b Assessment & Plan - Assessment and Plan (Free Text) Plan: Assessment Systemic Inflammatory response syndrome, R/O sepsis from cholecystitis R/O SBP in this patient with alcoholic hepatitis ethanol abuse history of opioid dependence cervical spondylosis S/P surgery Plan Follow up blood cx; follow up abdominal ultrasound; patient may need HIDA Scan started patient on Zosyn follow up further recommendations of GI - patient should continue on Prednisone will monitor clinically and trend WBC count
[2017-07-28] MEDS: Piperacillin/Tazobact 3.375 gm 100 ML IVPB SCH ×2 (17:42→23:24)
--- NOTE | 2017-07-28 19:46 | CON ---
DATE: 07/28/2017 CHIEF COMPLAINT: Status post mechanical fall, lower extremity weakness. HISTORY OF PRESENT ILLNESS: This is a 56-year-old woman with past medical history of EtOH abuse, opioid dependence, history of hypertension, hepatitis C, fatty liver disease, cervical spondylosis, status post surgery, wrist fracture, lumbosacral neuritis and insomnia, who presented to the ER after complains of mechanical fall from her couch to the floor without loss of consciousness or bowel or bladder incontinence. No syncopal events. The patient stated that she felt weak, generalized weakness and subsequently fell without hitting her head and was able to crawl. States she has had falls in the past as well. She said she stopped drinking by a month ago; however, last admission, her family states she has been drinking lot more lately. Patient was seen and examined. Patient A and O x3 and pleasant. She is jaundiced. Patient has had some mild epigastric discomfort and swelling to both legs, but is mostly deconditioned according to me. CAT scan of the head showed no acute intracranial abnormalities. PAST MEDICAL HISTORY: EtOH abuse, past opioid dependence, hypertension, depression, cervical spondylosis, status post surgery, wrist fracture, lumbosacral neuritis, insomnia, alcoholic hepatitis, hepatitis C and since age of 16. SOCIAL HISTORY: Former smoker, former oxycodone user, later opioid abuse and lives alone. PAST SURGICAL HISTORY: None. FAMILY HISTORY: None. MEDICATIONS: Reviewed by nurse reconciliation sheet. ALLERGIES: NO KNOWN DRUG ALLERGIES. REVIEW OF SYSTEMS: A 14-point review of systems negative except as per the HPI. PHYSICAL EXAMINATION: VITAL SIGNS: Temperature 98, pulse rate 94, blood pressure 91/47, respiratory rate of 18, oxygen saturation 100% on room air. GENERAL: Patient is sitting up in bed, in no acute distress. HEENT: Head is atraumatic, normocephalic. PERRLA. Extraocular muscles intact.. NECK: Supple. No JVD, no adenopathy noted. LUNGS: Clear to auscultation. No adventitious sounds. HEART: S1, S2, normal rate and rhythm. No murmurs, rubs or gallops. ABDOMEN: Soft, nontender, nondistended. Bowel sounds present. There is right upper and lower quadrant tenderness. EXTREMITIES: No clubbing, no cyanosis. Peripheral pulses 2+ felt bilaterally. NEUROLOGIC: Patient is alert and oriented to person, place and year. Recall after 5 minutes is 0/3. Poor attention span. Slow thought process. Cranial nerves II to XII intact. Motor: Slight increased tone throughout. Moves all extremities equally. She has atrophy of all the muscles of the extremities. Sensory: Decreased light touch and pinprick up to the calves bilaterally. Decreased vibration of the toes. DTRs are 2+ throughout. Coordination: [id number] intact. No dysmetria noted. Gait is deferred for now. LABORATORY DATA: Sodium is 136, potassium 3.4, chloride 109, carbon dioxide 19, BUN of 11, creatinine of 0.5, random glucose of 92, total bilirubin is 11.7, AST is 210, ALT is 101, alkaline phosphatase 214, ammonia level is 47. ASSESSMENT AND PLAN: This is a 56-year-old woman with history of ethyl alcohol abuse, alcoholic hepatitis, depression, hypertension, cervical spondylosis, status post surgery, lumbosacral neuritis who has had multiple falls and had mechanical fall off her couch and generalized weakness. No seizure like episodes. On my examination, she had low systolic and diastolic blood pressures, which was also seen throughout her serial vital signs today. In addition, she has elevated ammonia level of 47 and electrolyte abnormalities and is deconditioned. Her lower extremity pain and inability to ambulate and stand properly is likely secondary to diffuse deconditioned state from underlying also neuropathy, which was seen on examination from chronic alcoholism and underlying cervical spondylosis and chronic lumbosacral neuritis. RECOMMENDATIONS: At this time, recommend: 1. Follow up with ID in regards to her systemic inflammatory response syndrome and given her elevated leukocytosis, rule out any forms of sepsis given that she has low blood pressures and elevated leukocytosis. 2. GI evaluation for alcoholic hepatitis and elevated AST, ALT, bilirubin. 3. CAT scan of the head showed no acute intracranial abnormalities. We will recommend a CT of the lumbosacral spine and thoracic spine to see if there is any acute abnormalities causing her lower extremity generalized weakness. 4. She will need PT/OT and slightly subacute rehab. 5. Continue to monitor electrolytes and correct accordingly and continue her current present medical management. Thank you for this consult. Avoid overuse of any opioids or sedative meds and patient requires adequate hydration throughout the day. Emery Francisco MD [facility] # [id number]
[2017-07-29] MEDS: Dextrose 5%/0.45% NS 1,000 ML IV SCH ×3 (03:45→23:54)
[2017-07-29] MEDS: Piperacillin/Tazobact 3.375 gm 100 ML IVPB SCH ×3 (05:11→17:51)
[2017-07-29 07:16] LABS: BASO # 0.02 K/mm3 (0.0-2.0); BASO % 0.1 % (0.0-3.0); EOS # 0.1 (0.0-0.7); EOS % 0.4 % (1.5-5.0); GRAN # 16.52 (1.4-6.5); GRAN % 87.6 % (50.0-68.0); LYMPH # 1.5 (1.2-3.4); LYMPH % 7.7 % (22.0-35.0); MEAN CELL VOLUME 110.3 fl (80.0-105.0); MEAN CORPUSCULAR HEMOGLOBIN 37.4 pg (25.0-35.0); MEAN CORPUSCULAR HGB CONC 33.9 g/dl (31.0-37.0); MEAN PLATELET VOLUME 10.4 fl (7.0-11.0); MONO # 0.8 (0.1-0.6); MONO % 4.2 % (1.0-6.0); RBC 2.14 10^6/uL (3.5-6.1); RED CELL DISTRIBUTION WIDTH 17.2 % (11.5-14.5); WHITE BLOOD COUNT 18.9 10^3/ul (4.5-11.0)
[2017-07-29 07:33] LABS: ALB/GLOB RATIO 0.7 (1.1-1.8); ALBUMIN 2.1 g/dL (3.0-4.8); ALT/SGPT 96 U/L (7-56); AST/SGOT 196 U/L (14-36); BLOOD UREA NITROGEN 9 mg/dL (7-21); CALCIUM 8.1 mg/dL (8.4-10.5); GFR AFRICAN-AMERICAN > 60; GFR NON-AFRICAN AMERICAN > 60
--- NOTE | 2017-07-29 09:58 | CARD ---
APPROVED REPORT EKG Measurement Heart [id number] [id number] <Conclusion> Normal sinus rhythm Possible Left atrial enlargement Nonspecific T wave abnormality Q in 3 No change except the QTc is normal now.
[2017-07-29] MEDS ORDERED: Potassium Chloride 20 mEq ER Tab PO ONE (12:52)
--- NOTE | 2017-07-29 13:37 | CT ---
PROCEDURE: CT Lumbar Spine without contrast HISTORY: low back pain COMPARISON: None. TECHNIQUE: Axial computed tomography images were obtained of the lumbar spine without the use of intravenous contrast. Coronal and sagittal reformatted images were created and reviewed. Radiation dose: Total exam DLP = 1249.75 mGy-cm. This CT exam was performed using one or more of the following dose reduction techniques: Automated exposure control, adjustment of the mA and/or kV according to patient size, and/or use of iterative reconstruction technique. FINDINGS: VERTEBRAE: Unremarkable. No fracture. Normal alignment. DISCS/SPINAL CANAL/NEURAL FORAMINA: L1-2: Unremarkable. L2-3: There is a small broad-based disc bulge seen without evidence of significant spinal or neural foraminal narrowing. L3-4: Unremarkable. L4-5: Unremarkable. L5-S1: Small left paracentral disc protrusion which resulting in mild spinal and left lateral recess narrowing. PARASPINAL SOFT TISSUES: Unremarkable. OTHER FINDINGS: None. IMPRESSION: No evidence of acute fracture or subluxation. Small disc bulge at L2-L3 and small left paracentral disc protrusion at L5-S1 as described above.
--- NOTE | 2017-07-29 14:39 | CT ---
PROCEDURE: CT Thoracic Spine without contrast HISTORY: poor gait COMPARISON: None. TECHNIQUE: Axial computed tomography images were obtained of the thoracic spine without intravenous contrast. Coronal and sagittal reformatted images were created and reviewed. Radiation dose: Total exam DLP = 734.27 mGy-cm. This CT exam was performed using one or more of the following dose reduction techniques: Automated exposure control, adjustment of the mA and/or kV according to patient size, and/or use of iterative reconstruction technique. FINDINGS: VERTEBRAE: Inferior endplate of T7 and superior endplate of T8 demonstrate moderate degenerative changes and diffuse irregularity. . No fracture. Normal alignment. DISCS/SPINAL CANAL/NEURAL FORAMINA: Within the limits of the CT technique, no disc herniation seen. No central canal or neural foraminal stenosis.. PARASPINAL SOFT TISSUES: Unremarkable. OTHER FINDINGS: Unremarkable. IMPRESSION: No evidence of acute fracture or dislocation. Moderate to mildly severe degenerative changes at T7-T8. No CT evidence of significant spinal or neural foraminal narrowing.
[2017-07-29 14:47] LABS: HEMOGLOBIN 8.4 g/dL (12.0-16.0); MEAN CELL VOLUME 109.8 fl (80.0-105.0); MEAN CORPUSCULAR HEMOGLOBIN 37.5 pg (25.0-35.0); MEAN CORPUSCULAR HGB CONC 34.1 g/dl (31.0-37.0); MEAN PLATELET VOLUME 10.3 fl (7.0-11.0); RBC 2.24 10^6/uL (3.5-6.1); RED CELL DISTRIBUTION WIDTH 16.9 % (11.5-14.5)
--- NOTE | 2017-07-29 15:58 | PN ---
DATE: 07/29/2017 SUBJECTIVE: The patient seen earlier today in room 262, bed 2. The patient is in no acute distress. Answering questions. No fevers. PHYSICAL EXAMINATION: VITAL SIGNS: Temperature is 98, blood pressure is 100/60, respiratory rate of 18, heart rate of 96. HEENT: Unremarkable. NECK: Supple. LUNGS: Decreased breath sounds. HEART: Normal S1, S2. ABDOMEN: Soft, nontender. LABORATORY DATA: Laboratory examination reveals the white count is 18,900, hemoglobin of 8, and platelets of 205. BUN of 9 and creatinine of 0.5. Procalcitonin is 0.52. Ammonia level is up to 85 today. Urinalysis is noted 0 to 2 wbc's. Influenza is negative. Microbiology reveals the urine cultures noted, the blood culture has no growth. Patient had a thoracic spine CAT scan, which is not being read. ASSESSMENT AND PLAN: A 56-year-old female with NO KNOWN ALLERGIES, admitted with history of alcohol abuse, history of opioid dependent, and recently was in the [facility] for alcoholic hepatitis and was sent home on prednisone, complained of generalized aches and patient found to have leukocytosis and systemic inflammatory response syndrome, must rule out cholecystitis versus spontaneous bacterial peritonitis in this patient with hepatitis and currently on Zosyn, and patient was on prednisone at home with negative blood cultures at 24 hours. Patient did have a CAT scan of the abdomen and pelvis earlier this month on the 07/14, unremarkable gallbladder and unremarkable CAT scan. We will follow with you. Oli Ken MD
[2017-07-29] MEDS ORDERED: Metoprolol 1 mg/ml Inj IVP ONE (17:41)
[2017-07-29] MEDS ORDERED: PrednisoLONE 15 mg/5 ml Oral Syrup (240 ml) PO SCH (22:00)
--- NOTE | 2017-07-29 22:03 | US ---
HISTORY: Leg pain and swelling. Evaluate for DVT PHYSICIAN(S): Oscar Zafar MD. TECHNIQUE: Duplex sonography and color-flow Doppler with graded compression were used to evaluate the deep venous systems of both lower extremities. FINDINGS: The visualized deep venous systems of both lower extremities are sonographically normal and compressible. Normal wave forms and augmentation are seen. There is no sonographic evidence for deep venous thrombosis in the visualized segments of both lower extremities. IMPRESSION: No sonographic evidence for deep venous thrombosis in the visualized segments of both lower extremities.
[2017-07-30] MEDS: Piperacillin/Tazobact 3.375 gm 100 ML IVPB SCH ×4 (00:49→17:29)
[2017-07-30] MEDS: Dextrose 5%/0.45% NS 1,000 ML IV SCH ×3 (03:00→22:22)
--- NOTE | 2017-07-30 03:28 | PN ---
DATE: 07/29/2017 SUBJECTIVE: This patient was seen and evaluated earlier today. The patient is alert. PHYSICAL EXAMINATION: VITAL SIGNS: Temperature is 99.1, pulse 118, blood pressure 110/68. HEENT: Atraumatic, jaundiced. NECK: Supple. HEART: S1, S2 heard. LUNGS: Bilateral air entry present. ABDOMEN: Soft. No masses and nontender. Liver edge was palpable. EXTREMITIES: No edema. No cyanosis. LABORATORY DATA: Hemoglobin 8.4, hematocrit 24.6, WBC is 20.0, platelets 181,000. BUN 9, creatinine 0.5. LFTs shows direct bilirubin has come down to 9.5, AST 196, ALT 96, alkaline phosphatase is 225. Ammonia level has gone up to 85. IMPRESSION: This is a 56-year-old patient with history of alcoholic hepatitis, is admitted fallowing a fall. RECOMMENDATIONS: I would recommend, 1. We will cut down the prednisolone from 40 mg to 30 mg, it can be given in divided doses of 15 mg b.i.d. 2. The patient is on Xifaxan, we will continue that and also increase the dose of the lactulose to twice daily. 3. Follow up of electrolytes. Other problems include the patient has questionable history of hepatitis C. Last blood work done in 07/2017, did not show any hepatitis C. We will continue the Actigall. The patient is on Zosyn for his systemic inflammatory response syndrome and on antibiotic Zosyn. The patient was found to have some with sludge and CBD was normal. We would continue the Actigall. The patient does not have any ascites. The patient's albumin was only 2.1. The gallbladder wall thickening could be due to hypoalbuminemia. This is a 56-year-old patient with history of alcoholic hepatitis, on prednisolone, now admitted following fall, suspected rule out cholecystitis, on IV antibiotics. The patient is on steroids. If it is an acute infective process, we will discuss with Infectious Disease regarding this. We will request for the HIDA scan. We will monitor the continuation of the steroid doses closely based on the clinical response of the patient. We will discontinue the steroid if clinical course is more suggestive of acute infective process. We will discuss with ID and PCP Thank you very much for allowing us to participate in the care of the patient. Charlene Gupta MD [facility] # [id number] [place]
[2017-07-30] MEDS: Potassium Chloride 20 mEq ER Tab PO SCH (09:11)
[2017-07-30] MEDS: PrednisoLONE 15 mg/5 ml Oral Syrup (240 ml) PO SCH ×2 (09:12→17:29)
--- NOTE | 2017-07-30 10:50 | CARD ---
APPROVED REPORT EKG Measurement Heart [id number] MI 124P39 [id number] <Conclusion> Sinus tachycardia, new PRWP Low voltage QRS NSSTW changes
--- NOTE | 2017-07-30 11:45 | PN ---
DATE: LOCATION: The patient is seen in [facility] in [place], room 262, bed 2. SUBJECTIVE: The patient was admitted with encephalopathy, liver disease, alcoholic hepatitis. The patient has history of hypertension and depression. The patient has history of substance abuse in the past. PHYSICAL EXAMINATION: VITAL SIGNS: This morning, the patient's pulse is 79, blood pressure 100/52, respirations are 18, and O2 sat is 99% on room air, temperature 97.5. LUNGS: Clear. HEART: Normal sinus rhythm. ABDOMEN: Soft. Liver and spleen not palpable. CENTRAL NERVOUS SYSTEM: No focal deficits are noted. EXTREMITIES: The patient has pain in legs. She says she have to go to the bathroom, which she is able to do. LABORATORY DATA: Lab work evaluated, the hemoglobin is 8.4, white count is 20,000, it was 18,000 yesterday and the patient's MCV is 109.8, it is macrocytosis related to alcoholic liver disease. The patient's chemistry, the ammonia level is 86, it was 47 at the time of admission. The patient's total protein is 5.1, albumin is 2.1. The procalcitonin level is 0.52, which is elevated. The patient has the infection, localizing signs are not noted. MEDICATIONS: The patient is covered by antibiotics at this time. The patient is getting thiamine, tramadol for pain, prednisolone, the patient gets 20 mg q.12 hours, we will reduce it to 15 mg. The patient is on Librium 25 mg at bedtime, potassium chloride 20 mEq daily. The patient will be on folic acid 1 mg daily, lactulose 20 g p.o. b.i.d., and dextrose drip she gets 2 mL an hour IV. The patient is also placed on rifaximin 550 mg p.o. b.i.d. She is on antibiotics in addition to piperacillin, which is actually Zosyn 3.375 g q.6 hours. CONDITION: The patient's condition is still unstable. The patient needs further acute management. Her diet is liver type diet. Tay Cruz MD [facility] # [id number]
--- NOTE | 2017-07-30 14:30 | PN ---
DATE: 07/30/2017 SUBJECTIVE: The patient is in bed, in no acute distress. The patient seen earlier today in 262, bed 2. PHYSICAL EXAMINATION: VITAL SIGNS: Temperature is 97, T-max earlier this morning was 100.1; blood pressure is 100/50; respiratory rate of 18. HEENT: Unremarkable. NECK: Supple. LUNGS: Have decreased breath sounds. HEART: Normal S1, S2. ABDOMEN: Soft, nontender. LABORATORY DATA: Reveals a white count of 20,000, hemoglobin of 8, platelets of 181. Chemistries reveal a BUN of 9, creatinine of 0.5. Procalcitonin is 0.52. Urinalysis is noted. Toxicology is noted. Influenza is negative. Microbiology reveals the blood cultures are no growth. Urine cultures, low count number of organisms. Review of orders reveals the patient to be on Zosyn. The patient had a CAT scan of the thoracic spine, which is unremarkable for fractures or dislocation, moderate to mildly severe degenerative changes at T7 and T8. The patient also had a lumbar spine CT, which is also unremarkable and extremity ultrasound read by Dr. Oscar Zafar. ASSESSMENT AND PLAN: This is a 56-year-old with history of alcohol abuse, history of opiate dependent, and recently was sent home on prednisone, with systemic inflammatory response syndrome, cholecystitis versus spontaneous bacterial peritonitis. We will check on the final culture results. The patient white count of 20,000, also she is on prednisolone and the LFT elevations are noted. Dr. Charlene Gupta's progress note is reviewed. He feels the patient has a history of alcoholic hepatitis and hepatitis profile earlier this month is reported to be negative including hepatitis C. We will also order an HIV. HIDA scan is pending. We will order a CMV PCR, toxoplasma, leptospiral workup. We will follow closely with you. Oli Ken MD
[2017-07-31] MEDS: Piperacillin/Tazobact 3.375 gm 100 ML IVPB SCH ×5 (01:07→23:59)
[2017-07-31] MEDS: Dextrose 5%/0.45% NS 1,000 ML IV SCH ×3 (04:15→18:15)
--- NOTE | 2017-07-31 04:27 | PN ---
DATE: 07/30/2017 SUBJECTIVE: This patient was seen and evaluated earlier today. The patient has been alert, oriented, tolerating the diet. PHYSICAL EXAMINATION: VITAL SIGNS: On examination, temperature is 97.5, pulse 80, respirations 20, blood pressure 95/57. HEENT: Jaundiced. NECK: Supple. HEART: S1, S2 heard. LUNGS: Bilateral air entry present. ABDOMEN: Soft. There is no mass palpable, no tenderness. EXTREMITIES: No edema, no cyanosis. LABORATORY DATA: Hemoglobin 8.4, hematocrit 24.6, WBC is 20,000, platelets 181. AST has come down to 196, ALT 96, alkaline phosphatase remains elevated at 225. Patient's ammonia level is elevated at 85. IMPRESSION: This is a 56-year-old patient with; 1. Alcoholic hepatitis with high ratio, on steroids, recently admitted into the hospital, discharged from the hospital, was admitted with elevated liver function tests. 2. Elevated liver function tests, etiology is unclear. Patient has sludge in the gallbladder. Common bile duct was normal. I did discuss with Dr. Ken. PLAN: 1. Patient has been on intravenous antibiotics, Zosyn. Patient's ultrasound done, did not show any ascites. There is a mild thickening of the gallbladder wall with low albumin level that could also be contributory. Patient's white cell count is elevated and she is empirically on antibiotic, Zosyn, as per Infectious Disease. 2. Continue IV antibiotics and we will cut down the prednisolone to 30 mg. 3. Follow up of the LFTs. 4. Request for HIDA scan. I did discuss with Dr. Ken, Infectious Disease doctor, earlier today. Charlene Gupta MD
[2017-07-31 06:28] LABS: BASO # 0.01 K/mm3 (0.0-2.0); GRAN # 23.05 (1.4-6.5); GRAN % 93.1 % (50.0-68.0); HEMOGLOBIN 8.5 g/dL (12.0-16.0); LYMPH # 0.8 (1.2-3.4); LYMPH % 3.3 % (22.0-35.0); MEAN CORPUSCULAR HEMOGLOBIN 37.3 pg (25.0-35.0); MEAN CORPUSCULAR HGB CONC 33.6 g/dl (31.0-37.0); MEAN PLATELET VOLUME 10.5 fl (7.0-11.0); MONO # 0.9 (0.1-0.6); MONO % 3.6 % (1.0-6.0); PLATELET COUNT 195 10^3/uL (120.0-450.0); RBC 2.28 10^6/uL (3.5-6.1); RED CELL DISTRIBUTION WIDTH 16.7 % (11.5-14.5); WHITE BLOOD COUNT 24.8 10^3/ul (4.5-11.0)
[2017-07-31 06:55] LABS: ALB/GLOB RATIO 0.7 (1.1-1.8); ALBUMIN 2.1 g/dL (3.0-4.8); ALT/SGPT 94 U/L (7-56); AST/SGOT 174 U/L (14-36); BLOOD UREA NITROGEN 9 mg/dL (7-21); CALCIUM 8.2 mg/dL (8.4-10.5); GFR AFRICAN-AMERICAN > 60; GFR NON-AFRICAN AMERICAN > 60
--- NOTE | 2017-07-31 07:33 | PN ---
DATE: LOCATION: The patient is in [facility], room 262, bed 2. SUBJECTIVE: The patient was admitted with weakness, history of fall and the patient had alcoholic hepatitis and hypertension and depression. The patient is seen this morning. She is awake, she is talking and understands conversation. PHYSICAL EXAMINATION VITAL SIGNS: The pulse is 92, blood pressure 100/60 and respirations are 19 per minute. HEENT: Head is normocephalic. NECK: The thyroid is not enlarged. JVP is flat. HEART: Normal sinus rhythm. S1 and S2 present. Sinus tachycardia. ABDOMEN: Soft. Liver and spleen not palpable. CENTRAL NERVOUS SYSTEM: Patient has no focal deficit. Patient is conscious and rational, oriented to 3 times, place, person and time. Patient has alcoholic hepatitis. She presented with encephalopathic findings. The ammonia level was high, the patient is clearing up. LABORATORY [place]: [place] [address] [address] on admission. Chemistry: The patient's sodium is 136 now, potassium is 3.4. The patient has abnormal liver enzymes, ALT is 96, AST is 196. Patient's bilirubin is 9.5, it is gradually decreasing. Patient's condition is improving. Patient is seen by Dr. Gupta, the childbirth and infant care teacher and Infectious Disease. MEDICATIONS: Her medications consist of dextrose drip. Patient is on lactulose 20 g p.o. daily. Patient is on folic acid 1 mg daily, Librium 25 mg at bedtime, tramadol 50 mg p.o. t.i.d. p.r.n. for pain. Patient is on rifaximin 550 mg p.o. b.i.d., thiamine 100 mg p.o. daily. Patient is also getting Zosyn IV antibiotic. Patient is also on liver diet. Her condition is improving. Patient's overall prognosis is guarded. We will continue current management. We will request physical therapy for the patient because she has pain in the left neck. She had a fall, this pain might be related to the of any obvious injury. Tay Cruz MD [facility] # [id number]
[2017-07-31 08:07] LABS: BAND 1 % (0-2); LYMPHOCYTE 1 % (22.0-35.0); MONOCYTE 4 % (1.0-6.0); NEUTROPHIL 94 % (50.0-70.0); PLATELET ESTIMATE NORMAL (NORMAL)
[2017-07-31] MEDS: Potassium Chloride 20 mEq ER Tab PO SCH (10:57)
[2017-07-31] MEDS: PrednisoLONE 15 mg/5 ml Oral Syrup (240 ml) PO SCH ×2 (11:46→18:15)
--- NOTE | 2017-07-31 12:35 | PN ---
DATE: SUBJECTIVE: The patient is in [facility] in [place], the room 262, bed 2. The patient was admitted with hepatic encephalopathy and sepsis. The patient has past history of hypertension, depression, drug abuse. The patient has a history of alcoholism also. The patient was seen this morning. She is conscious, very lethargic, lying in bed and complains of some pain in her legs. PHYSICAL EXAMINATION GENERAL: The patient is conscious, rational, oriented three times. VITAL SIGNS: The pulse is 79, blood pressure 107/67, respirations are 19, and O2 sat is 99% on room air. HEENT: The patient's head is normocephalic. NECK: Thyroid is not enlarged. No lymphadenopathy. LUNGS: Trachea is central. Breath sounds are vesicular. No adventitious sounds. HEART: Normal sinus rhythm. S1 and S2 present. No murmurs. ABDOMEN: Soft. Liver and spleen not palpable. There is no clinical evidence of ascites. CENTRAL NERVOUS SYSTEM: She is conscious as mentioned, rational, oriented. No focal neurological deficits are noted. The patient does not have flapping tremors. She does not have evidence of any parotid enlargement. SKIN: Shows evidence of jaundice. The patient's condition is improving. MEDICATIONS: List of medications the patient is on at this time, the patient is on prednisolone 15 mg b.i.d. at this time, the patient is on tramadol for pain, the patient is on Librium at bedtime for sedation. The patient is on potassium chloride 20 mEq daily, folic acid 1 mg daily, lactulose 20 mg twice a day and Actigall 300 mg b.i.d. ASSESSMENT AND PLAN: The patient is also being treated with thiamine and Xifaxan, which is an antibiotic that is used in liver disease. Overall condition is improving. The patient's prognosis is guarded. We will continue current management and follow up. Tay Cruz MD
--- NOTE | 2017-07-31 13:56 | CP.PCM.PN ---
Subjective - Date & Time of Evaluation Date of Evaluation: 07/31/17 Time of Evaluation: 10:55 - Subjective Subjective: No fevers, no diarrhea, occasional abdominal pain. Objective - Vital Signs/Intake and Output Vital Signs (last 24 hours): Temp Pulse Resp BP Pulse Ox 97.7 F 79 19 107/67 99 07/31/17 06:00 07/31/17 06:00 07/31/17 06:00 07/31/17 06:00 07/31/17 06:00 Intake and Output: 07/31/17 07/31/17 06:59 18:59 Intake Total 1380 Balance 1380 - Medications Medications: Current Medications Chlordiazepoxide (Librium) 25 mg PO HS [facility] PRN Reason: Protocol Last Admin: 07/30/17 22:25 Dose: 25 mg Folic Acid (Folic Acid) 1 mg PO DAILY [facility] Last Admin: 07/30/17 09:10 Dose: 1 mg Dextrose/Sodium Chloride (Dextrose 5%/0.45% Ns 1000 Ml) 1,000 mls @ 100 mls/hr IV .Q10H [facility] Last Admin: 07/31/17 04:15 Dose: 100 mls/hr Piperacillin Sod/Tazobactam Sod (Zosyn 3.375 In Ns 100ml) 100 mls @ 200 mls/hr IVPB Q6 [facility] PRN Reason: Protocol Stop: 08/04/17 18:01 Last Admin: 07/31/17 05:59 Dose: 200 mls/hr Lactulose (Enulose) 20 gm PO BID [facility] Last Admin: 07/30/17 17:32 Dose: Not Given Potassium Chloride (K-Dur 20 Meq Er Tab) 20 meq PO DAILY [facility] Last Admin: 07/30/17 09:11 Dose: 20 meq Prednisolone (Prednisolone Oral Soln) 15 mg PO BID [facility] Last Admin: 07/30/17 17:29 Dose: 15 mg Rifaximin (Xifaxan) 550 mg PO BID [facility] PRN Reason: Protocol Last Admin: 07/30/17 17:29 Dose: 550 mg Thiamine HCl (Vitamin B1 Tab) 100 mg PO DAILY [facility] Last Admin: 07/30/17 09:11 Dose: 100 mg Tramadol HCl (Ultram) 50 mg PO TID PRN PRN Reason: Pain, severe (8-10) Last Admin: 07/28/17 17:48 Dose: 50 mg Ursodiol (Actigall) 300 mg PO BID [facility] Last Admin: 07/30/17 17:29 Dose: 300 mg - Labs Labs: 07/31/17 05:30 07/31/17 05:30 PT 20.6 SECONDS (9.4-12.5) H 07/27/17 20:50 INR 1.79 (0.93-1.08) H 07/27/17 20:50 - Constitutional Appears: Chronically Ill - Head Exam Head Exam: NORMAL INSPECTION - Neck Exam Neck Exam: absent: Meningismus - Respiratory Exam Respiratory Exam: Decreased Breath Sounds - Cardiovascular Exam Cardiovascular Exam: +S1, +S2 - GI/Abdominal Exam GI & Abdominal Exam: Distended, Soft. absent: Tenderness Assessment and Plan - Assessment and Plan (Free Text) Plan: Assessment Systemic Inflammatory response syndrome, R/O sepsis from cholecystitis R/O SBP in this patient with alcoholic hepatitis ethanol abuse history of opioid dependence cervical spondylosis S/P surgery Plan blood cx have been negative; follow up HIDA Scan continue Zosyn for now (day 4) will continue to monitor clinically and trend WBC count
--- NOTE | 2017-07-31 14:32 | NM ---
PROCEDURE: Nuclear Medicine Hepatobiliary Scan HISTORY: rule out cholecystitis COMPARISON: 07/28/2017 TECHNIQUE: 5.2 mCi of technetium 99m Mebrofenin was administered intravenously. Planar images of the abdomen were obtained at 5 min intervals to 60 mins. Delayed images were also obtained. FINDINGS: LIVER: Timely and homogenous uptake. COMMON BILE DUCT: identified at 5 mins. GALLBLADDER: identified at 5 mins. SMALL BOWEL: Identified at 5 mins. IMPRESSION: Normal Hepatobiliary Scan. The cystic duct is patent.
--- NOTE | 2017-07-31 20:22 | CP.PCM.PN ---
Subjective - Date & Time of Evaluation Date of Evaluation: 07/31/17 Time of Evaluation: 20:15 - Subjective Subjective: S:Nurse calls and tells that patient has an order for Zosyn 3.375 gm IV Q6H which is good until 08/04/2017.But it has been discontinued.And needs an order for renewal. We , together, could not determined why it was discontinued. Patient has no complaints and VSS. Medical record was reviewed. O: Last Vital Signs 3 Temp 97.9 F 07/31/17 18:00 Pulse 99 H 07/31/17 18:00 Resp 19 07/31/17 18:00 BP 127/83 07/31/17 18:00 Pulse Ox 99 07/31/17 06:00 Not in acute distress. LUNGS: Normal breathing pattern. A:SIRS. P:Continue Zosyn as ordered until assessed by Infectious disease. Objective - Vital Signs/Intake and Output Vital Signs (last 24 hours): Temp Pulse Resp BP Pulse Ox 97.9 F 99 H 19 127/83 99 07/31/17 18:00 07/31/17 18:00 07/31/17 18:00 07/31/17 18:00 07/31/17 06:00 - Medications Medications: Current Medications Chlordiazepoxide (Librium) 25 mg PO HS [facility] PRN Reason: Protocol Last Admin: 07/30/17 22:25 Dose: 25 mg Folic Acid (Folic Acid) 1 mg PO DAILY [facility] Last Admin: 07/31/17 10:57 Dose: 1 mg Dextrose/Sodium Chloride (Dextrose 5%/0.45% Ns 1000 Ml) 1,000 mls @ 100 mls/hr IV .Q10H [facility] Last Admin: 07/31/17 18:15 Dose: 100 mls/hr Lactulose (Enulose) 20 gm PO BID [facility] Last Admin: 07/31/17 18:07 Dose: Not Given Potassium Chloride (K-Dur 20 Meq Er Tab) 20 meq PO DAILY [facility] Last Admin: 07/31/17 10:57 Dose: 20 meq Prednisolone (Prednisolone Oral Soln) 15 mg PO BID [facility] Last Admin: 07/31/17 18:15 Dose: 15 mg Rifaximin (Xifaxan) 550 mg PO BID [facility] PRN Reason: Protocol Last Admin: 07/31/17 18:07 Dose: 550 mg Thiamine HCl (Vitamin B1 Tab) 100 mg PO DAILY [facility] Last Admin: 07/31/17 10:56 Dose: 100 mg Tramadol HCl (Ultram) 50 mg PO TID PRN PRN Reason: Pain, severe (8-10) Last Admin: 07/28/17 17:48 Dose: 50 mg Ursodiol (Actigall) 300 mg PO BID [facility] Last Admin: 07/31/17 18:07 Dose: 300 mg - Labs Labs: 07/31/17 05:30 07/31/17 05:30 PT 20.6 SECONDS (9.4-12.5) H 07/27/17 20:50 INR 1.79 (0.93-1.08) H 07/27/17 20:50
[2017-08-01 00:14] VITALS: O2SAT 98
[2017-08-01] MEDS: Dextrose 5%/0.45% NS 1,000 ML IV SCH ×2 (02:55→03:24)
[2017-08-01] MEDS: Piperacillin/Tazobact 3.375 gm 100 ML IVPB SCH (05:04)
--- NOTE | 2017-08-01 05:34 | PN ---
DATE: 07/31/2017 NEUROLOGY FOLLOWUP CHIEF COMPLAINT: Status post mechanical fall, lower extremity weakness. SUBJECTIVE: The patient seen and examined at bedside. She is sitting in the chair, in no acute distress. I reviewed her lumbar spine CAT scan, which pretty much showed no acute abnormalities, just some L2-L3 left foraminal paracentral disk herniation, but otherwise degenerative changes, no cord compression and CT thoracic spine was pretty much unremarkable, just some mild degenerative changes at T7-T8. Currently she is doing much better. Her ammonia level is 36 from much better today. PAST MEDICAL HISTORY: EtOH abuse, past opioid dependence, hypertension, depression, cervical spondylosis, status post surgery, wrist fracture, lumbosacral neuritis, insomnia, alcoholic hepatitis, hepatitis C. SOCIAL HISTORY: Former smoker, former oxycodone user, later opioid abuse and lives alone. FAMILY HISTORY: Noncontributory. PAST SURGICAL HISTORY: None. MEDICATIONS: Reviewed by nurse reconciliation sheet. ALLERGIES: NO KNOWN DRUG ALLERGIES. REVIEW OF SYSTEMS: A 14-point review of systems negative except as per the HPI. LABORATORY DATA: Sodium is 137, potassium 4.1, chloride 111, carbon dioxide of 18, BUN of 9, creatinine 0.5, random glucose 156, ammonia level is 36 today. PHYSICAL EXAMINATION: VITAL SIGNS: Temperature 98, pulse rate of 89, blood pressure 107/70, respiratory rate of 20, oxygen saturation 99% on room air. GENERAL: Patient is sitting up in bed, in no acute distress. HEENT: Head is atraumatic, normocephalic. PERRLA. Extraocular muscles intact. NECK: Supple. No JVD, no adenopathy noted. LUNGS: Clear to auscultation. No adventitious sounds. HEART: S1, S2, normal rate and rhythm. No murmurs, rubs or gallops. ABDOMEN: Soft, nontender, nondistended. Bowel sounds present. EXTREMITIES: No clubbing, no cyanosis. Peripheral pulses 2+ felt bilaterally. NEUROLOGIC: Patient is alert and oriented to person, place and year. Recall after 5 minutes is 0/3. Poor attention span and slow thought process. Cranial nerves II through XII intact. Motor: Slight increased tone throughout. Moves all extremities equally. She has atrophy of all the muscles of the extremities. Sensory: Decreased light touch and pinprick up to the calves bilaterally. Decreased vibration of the toes. DTRs are 2+ throughout. Coordination: [id number] intact. No dysmetria noted. Gait is deferred for now. ASSESSMENT AND PLAN: This is a 56-year-old woman with history of alcohol abuse, alcoholic hepatitis, depression, hypertension, cervical spondylosis, status post surgery, lumbosacral neuritis, hepatitis C, came in for a mechanical fall where she had fallen off her couch and generalized weakness. There are no seizure episodes. She had low systolic and diastolic blood pressures throughout her serial vitals as well as elevated ammonia level which is now down to 36. Likely, her lower extremity pain and inability to ambulate and stand properly is secondary to diffuse deconditioned state superimposed underlying neuropathy. CT lumbar spine and thoracic spine reviewed. No acute abnormalities. She also has some mild component of hepatic encephalopathy. Now her ammonia level is much better, it has gone down from to 36. RECOMMENDATIONS: At this time, recommend: 1. PT/OT and most likely need some subacute rehab. 2. Monitor electrolytes and correct accordingly. 3. Delirium precautions. 4. Continue with current present medical management. Thank you for this followup. Emery Francisco MD
[2017-08-01 06:32] LABS: BASO # 0.01 K/mm3 (0.0-2.0); GRAN # 20.23 (1.4-6.5); GRAN % 92.4 % (50.0-68.0); HEMOGLOBIN 8.3 g/dL (12.0-16.0); LYMPH # 0.8 (1.2-3.4); LYMPH % 3.8 % (22.0-35.0); MEAN CELL VOLUME 111.4 fl (80.0-105.0); MEAN CORPUSCULAR HEMOGLOBIN 36.4 pg (25.0-35.0); MEAN CORPUSCULAR HGB CONC 32.7 g/dl (31.0-37.0); MEAN PLATELET VOLUME 10.1 fl (7.0-11.0); MONO # 0.8 (0.1-0.6); MONO % 3.8 % (1.0-6.0); RBC 2.28 10^6/uL (3.5-6.1); RED CELL DISTRIBUTION WIDTH 16.1 % (11.5-14.5); WHITE BLOOD COUNT 21.9 10^3/ul (4.5-11.0)
[2017-08-01 07:12] LABS: ALB/GLOB RATIO 0.7 (1.1-1.8); ALBUMIN 2.2 g/dL (3.0-4.8); ALT/SGPT 82 U/L (7-56); AST/SGOT 129 U/L (14-36); BLOOD UREA NITROGEN 10 mg/dL (7-21); CALCIUM 8.1 mg/dL (8.4-10.5); GFR AFRICAN-AMERICAN > 60; GFR NON-AFRICAN AMERICAN > 60
--- NOTE | 2017-08-01 07:58 | CP.PCM.PN ---
Subjective - Date & Time of Evaluation Date of Evaluation: 08/01/17 Time of Evaluation: 08:30 - Subjective Subjective: Patient is seen this morning. She is feeling okay. She has pain in her left leg from falling at home. She denies abdominal pain. Objective - Vital Signs/Intake and Output Vital Signs (last 24 hours): Temp Pulse Resp BP Pulse Ox 97.5 F L 79 20 130/78 98 08/01/17 06:00 08/01/17 06:00 08/01/17 06:00 08/01/17 06:00 08/01/17 06:00 Intake and Output: 08/01/17 08/01/17 06:59 18:59 Intake Total 1500 Balance 1500 - Medications Medications: Current Medications Chlordiazepoxide (Librium) 25 mg PO HS [facility] PRN Reason: Protocol Last Admin: 07/31/17 21:06 Dose: 25 mg Folic Acid (Folic Acid) 1 mg PO DAILY [facility] Last Admin: 07/31/17 10:57 Dose: 1 mg Dextrose/Sodium Chloride (Dextrose 5%/0.45% Ns 1000 Ml) 1,000 mls @ 100 mls/hr IV .Q10H [facility] Last Admin: 08/01/17 03:24 Dose: 100 mls/hr Piperacillin Sod/Tazobactam Sod (Zosyn 3.375 In Ns 100ml) 100 mls @ 200 mls/hr IVPB Q6 [facility] PRN Reason: Protocol Stop: 08/02/17 18:29 Last Admin: 08/01/17 05:04 Dose: 200 mls/hr Lactulose (Enulose) 20 gm PO BID [facility] Last Admin: 07/31/17 18:07 Dose: Not Given Potassium Chloride (K-Dur 20 Meq Er Tab) 20 meq PO DAILY [facility] Last Admin: 07/31/17 10:57 Dose: 20 meq Prednisolone (Prednisolone Oral Soln) 15 mg PO BID [facility] Last Admin: 07/31/17 18:15 Dose: 15 mg Rifaximin (Xifaxan) 550 mg PO BID [facility] PRN Reason: Protocol Last Admin: 07/31/17 18:07 Dose: 550 mg Thiamine HCl (Vitamin B1 Tab) 100 mg PO DAILY [facility] Last Admin: 07/31/17 10:56 Dose: 100 mg Tramadol HCl (Ultram) 50 mg PO TID PRN PRN Reason: Pain, severe (8-10) Last Admin: 07/28/17 17:48 Dose: 50 mg Ursodiol (Actigall) 300 mg PO BID [facility] Last Admin: 07/31/17 18:07 Dose: 300 mg - Labs Labs: 08/01/17 05:30 08/01/17 05:30 PT 20.6 SECONDS (9.4-12.5) H 07/27/17 20:50 INR 1.79 (0.93-1.08) H 07/27/17 20:50 - Constitutional Appears: No Acute Distress - Head Exam Head Exam: ATRAUMATIC, NORMOCEPHALIC - Respiratory Exam Respiratory Exam: Clear to Ausculation Bilateral, NORMAL BREATHING PATTERN - Cardiovascular Exam Cardiovascular Exam: +S1, +S2 - GI/Abdominal Exam GI & Abdominal Exam: Soft, Normal Bowel Sounds. absent: Tenderness - Neurological Exam Neurological Exam: Alert, Awake, Oriented x3 Assessment and Plan - Assessment and Plan (Free Text) Assessment: Alcoholic hepatitis HTN Chronic back pain Plan: Patient is seen this morning. She has pain in her left leg from falling at home. She says she was able to get out of bed yesterday and sat in the chair. Patient is on prednisolone for alcoholic hepatitis. Total bilirubin, and liver enzymes are trending downward. WBC count is still elevated at 21. HIDA scan is normal. continue Zosyn as per infectious disease.
[2017-08-01] MEDS: Potassium Chloride 20 mEq ER Tab PO SCH (09:06)
[2017-08-01] MEDS: PrednisoLONE 15 mg/5 ml Oral Syrup (240 ml) PO SCH (09:44)
--- NOTE | 2017-08-01 11:28 | CP.PCM.PN ---
Subjective - Date & Time of Evaluation Date of Evaluation: 08/01/17 Time of Evaluation: 10:00 - Subjective Subjective: S&E at bedsdie, had 3 loose BM yesterday,refused 2 doses of Lactulose yesterday. Ammonia today up at 53. No N/V, or abdominal pain. Patient no acute overnight events. HIDA scan negative, ID DC antibiotics. Objective - Vital Signs/Intake and Output Vital Signs (last 24 hours): Temp Pulse Resp BP Pulse Ox 97.5 F L 79 20 130/78 98 08/01/17 06:00 08/01/17 06:00 08/01/17 06:00 08/01/17 06:00 08/01/17 06:00 Intake and Output: 08/01/17 08/01/17 06:59 18:59 Intake Total 1500 Balance 1500 - Medications Medications: Current Medications Chlordiazepoxide (Librium) 25 mg PO HS [facility] PRN Reason: Protocol Last Admin: 07/31/17 21:06 Dose: 25 mg Folic Acid (Folic Acid) 1 mg PO DAILY [facility] Last Admin: 08/01/17 09:07 Dose: 1 mg Lactulose (Enulose) 20 gm PO BID [facility] Last Admin: 08/01/17 10:27 Dose: 20 gm Potassium Chloride (K-Dur 20 Meq Er Tab) 20 meq PO DAILY [facility] Last Admin: 08/01/17 09:06 Dose: 20 meq Prednisolone (Prednisolone Oral Soln) 15 mg PO BID [facility] Last Admin: 08/01/17 09:44 Dose: 15 mg Rifaximin (Xifaxan) 550 mg PO BID [facility] PRN Reason: Protocol Last Admin: 08/01/17 09:07 Dose: 550 mg Thiamine HCl (Vitamin B1 Tab) 100 mg PO DAILY [facility] Last Admin: 08/01/17 09:07 Dose: 100 mg Tramadol HCl (Ultram) 50 mg PO TID PRN PRN Reason: Pain, severe (8-10) Last Admin: 07/28/17 17:48 Dose: 50 mg Ursodiol (Actigall) 300 mg PO BID [facility] Last Admin: 08/01/17 09:06 Dose: 300 mg - Labs Labs: 08/01/17 05:30 08/01/17 05:30 PT 20.6 SECONDS (9.4-12.5) H 07/27/17 20:50 INR 1.79 (0.93-1.08) H 07/27/17 20:50 - Constitutional Appears: No Acute Distress - Head Exam Head Exam: NORMOCEPHALIC - Eye Exam Eye Exam: Scleral icterus - ENT Exam ENT Exam: Mucous Membranes Moist - Neck Exam Neck Exam: Normal Inspection - Respiratory Exam Respiratory Exam: NORMAL BREATHING PATTERN. absent: Respiratory Distress - Cardiovascular Exam Cardiovascular Exam: +S1, +S2 - GI/Abdominal Exam GI & Abdominal Exam: Distended, Soft, Normal Bowel Sounds. absent: Guarding, Tenderness, Rebound - Extremities Exam Extremities Exam: Pedal Edema. absent: Calf Tenderness - Neurological Exam Neurological Exam: Alert, Awake, Oriented x3 - Skin Skin Exam: Dry, Warm Assessment and Plan - Assessment and Plan (Free Text) Assessment: ASSESSMENT: ETOH abuse Alcoholic hepatitis with Discriminate Factor >50: poor prognosis Jaundice w/ choletatic pattern: elevated bilirubin/LFT s/p abdominal US, normal CBD, no GB stones,GB sludge, HIDA, negative cystic duct obstruction Depression HTN Lumbar neuritis leukocytosis PLAN: trend LFTs Prednisone 15 mg BID heart healthy bland diet On Actigall continue Xifaxin continue lactulose , 20gm , BID, discuss compliance with patient regarding lactulose Fu ammonia OFF antibiotics Patient to be DC to [facility] rehab, recommend to continue LActulose, Xifaxin and close FU ammonia level. Seen and discussed w/ Dr. Gupta
[2017-08-01 12:57] VITALS: BP 135/84; PULSE 83; RESP 18; TEMP 97.7
--- NOTE | 2017-08-01 14:21 | CP.PCM.PN ---
Subjective - Date & Time of Evaluation Date of Evaluation: 08/01/17 Time of Evaluation: 10:25 - Subjective Subjective: No abdominal pain, has some loose but not watery stools, no fevers, not in distress. Objective - Vital Signs/Intake and Output Vital Signs (last 24 hours): Temp Pulse Resp BP Pulse Ox 97.5 F L 79 20 130/78 98 08/01/17 06:00 08/01/17 06:00 08/01/17 06:00 08/01/17 06:00 08/01/17 06:00 Intake and Output: 08/01/17 08/01/17 06:59 18:59 Intake Total 1500 Balance 1500 - Medications Medications: Current Medications Chlordiazepoxide (Librium) 25 mg PO HS [facility] PRN Reason: Protocol Last Admin: 07/31/17 21:06 Dose: 25 mg Folic Acid (Folic Acid) 1 mg PO DAILY [facility] Last Admin: 07/31/17 10:57 Dose: 1 mg Dextrose/Sodium Chloride (Dextrose 5%/0.45% Ns 1000 Ml) 1,000 mls @ 100 mls/hr IV .Q10H [facility] Last Admin: 08/01/17 03:24 Dose: 100 mls/hr Piperacillin Sod/Tazobactam Sod (Zosyn 3.375 In Ns 100ml) 100 mls @ 200 mls/hr IVPB Q6 [facility] PRN Reason: Protocol Stop: 08/02/17 18:29 Last Admin: 08/01/17 05:04 Dose: 200 mls/hr Lactulose (Enulose) 20 gm PO BID [facility] Last Admin: 07/31/17 18:07 Dose: Not Given Potassium Chloride (K-Dur 20 Meq Er Tab) 20 meq PO DAILY [facility] Last Admin: 07/31/17 10:57 Dose: 20 meq Prednisolone (Prednisolone Oral Soln) 15 mg PO BID [facility] Last Admin: 07/31/17 18:15 Dose: 15 mg Rifaximin (Xifaxan) 550 mg PO BID [facility] PRN Reason: Protocol Last Admin: 07/31/17 18:07 Dose: 550 mg Thiamine HCl (Vitamin B1 Tab) 100 mg PO DAILY [facility] Last Admin: 07/31/17 10:56 Dose: 100 mg Tramadol HCl (Ultram) 50 mg PO TID PRN PRN Reason: Pain, severe (8-10) Last Admin: 07/28/17 17:48 Dose: 50 mg Ursodiol (Actigall) 300 mg PO BID [facility] Last Admin: 07/31/17 18:07 Dose: 300 mg - Labs Labs: 08/01/17 05:30 08/01/17 05:30 PT 20.6 SECONDS (9.4-12.5) H 07/27/17 20:50 INR 1.79 (0.93-1.08) H 07/27/17 20:50 - Constitutional Appears: Non-toxic, Chronically Ill - Head Exam Head Exam: NORMAL INSPECTION - ENT Exam ENT Exam: Mucous Membranes Moist - Neck Exam Neck Exam: absent: Meningismus - Respiratory Exam Respiratory Exam: Decreased Breath Sounds - Cardiovascular Exam Cardiovascular Exam: +S1, +S2 - GI/Abdominal Exam GI & Abdominal Exam: Soft. absent: Tenderness Assessment and Plan - Assessment and Plan (Free Text) Assessment: Assessment Systemic Inflammatory response syndrome, consider due to alcoholic hepatitis, abdominal ultrasound does not show ascites and HIDA scan is negative for osteomyelitis ethanol abuse history of opioid dependence cervical spondylosis S/P surgery Plan blood cx have been negative; HIDA scan is negative - will d/c antibiotics and observe will continue to monitor clinically and trend WBC count
[2017-08-02 09:26] LABS: SOURCE: PLASMA
== END 2017-08-01 14:53 | DRG 872 ==
LOC: ED 20:13 → ERH 07-28 03:21 → 2RNO 07-28 06:20
PROVIDERS: ADMIT Internal Medicine; ATTEND Internal Medicine
DX: A41.9 Sepsis, unspecified organism (principal); K72.90 Hepatic failure, unspecified without coma; K70.10 Alcoholic hepatitis without ascites; G62.9 Polyneuropathy, unspecified; B19.20 Unspecified viral hepatitis C without hepatic coma; D75.89 Other specified diseases of blood and blood-forming organs; I10 Essential (primary) hypertension; F32.9 Major depressive disorder, single episode, unspecified; M47.812 Spondylosis without myelopathy or radiculopathy, cervical region; M54.17 Radiculopathy, lumbosacral region; F10.20 Alcohol dependence, uncomplicated; K76.0 Fatty (change of) liver, not elsewhere classified; G47.00 Insomnia, unspecified; E87.6 Hypokalemia; R32 Unspecified urinary incontinence; Z79.891 Long term (current) use of opiate analgesic; Z87.891 Personal history of nicotine dependence

== ENCOUNTER 2017-08-29 11:44 | Inpatient (IN) | payer MEDICARE, OTHER ==
[2017-08-29 12:08] VITALS: BMI 23.8
[2017-08-29] MEDS ORDERED: Sodium Chloride 0.9% 500 ML IV STA ×2 (12:19→14:29)
--- NOTE | 2017-08-29 12:30 | ED PDOC ---
Arrival/HPI - General Chief Complaint: Palpitations Time Seen by Provider: 08/29/17 12:17 Historian: Patient, EMS - History of Present Illness Narrative History of Present Illness (Text): 08/29/17 1215 pt arrived to ED with concern for persistent tachycardia, while recovering at [facility] rehab facility; pt patient/EMS note/alf note, pt was noted to have persistent tachycardia since this morning; pt states she did felt some palpitations, but otherwise remained comfortable; pt denied fever, + occasional chills, no sweats, no cp/sob, no abd pain, no n/v, no numbness/tingling, + good appetite; pt denied urinary/bowel changes, no rashes, no gross bleeding, no fall /trauma/sick contact, no traveling sales representative is here for further eval pt's without other complaints pt is recovering at [facility] for the past 3 weeks pt is due for release to home tomorrow PCP: Dr Cruz Time/Duration: 24 hours Symptom Onset: Sudden Symptom Course: Unchanged Severity Level: Mild Activities at Onset: Rest Context: Other (rehab facility - [facility]) Past Medical History - Provider Review Nursing Documentation Reviewed: Yes - Travel History Have you recently traveled outside [place] w/in the past 3 mons?: No - Past History Past History: No Previous - Infectious Disease Hx of Infectious Diseases: None - Reproductive Menopause: Yes Currently : No - Cardiac Hx Cardiac Disorders: Yes Hx Hypertension: Yes - Pulmonary Hx Respiratory Disorders: No - Neurological Hx Neurological Disorder: No - HEENT Hx HEENT Disorder: No - Renal Hx Renal Disorder: No - Endocrine/Metabolic Hx Endocrine Disorders: No - Hematological/Oncological Hx Blood Disorders: No - Integumentary Hx Dermatological Disorder: Yes Other/Comment: ITCHING AND SCABBING BLE, BUE, FACE - Musculoskeletal/Rheumatological Hx Musculoskeletal Disorders: Yes Hx Falls: Yes Other/Comment: LEFT RIB PAIN SINCE 09/28/15, cervical spondylosis, wrist fracture - Gastrointestinal Hx Gastrointestinal Disorders: No - Genitourinary/Gynecological Hx Genitourinary Disorders: No - Psychiatric Hx Psychophysiologic Disorder: Yes Hx Anxiety: Yes Hx Depression: Yes Hx Substance Use: No (TAKES PERCOCET FOR PAIN REGULARLY PRESCRIBED) Other/Comment: opioid dependency, chronic alcoholism - Surgical History Hx Musculoskeletal Surgery: Yes (DISCECTOMY, BACK SURGERY 2010) - Anesthesia Hx Anesthesia Reactions: No Hx Malignant Hyperthermia: No - Suicidal Assessment Feels Threatened In Home Enviroment: No Family/Social History - Physician Review Nursing Documentation Reviewed: Yes Family/Social History: No Known Family HX Smoking Status: Unknown If Ever Smoked Hx Alcohol Use: Yes (last drink 07/07/17) Hx Substance Use: No (TAKES PERCOCET FOR PAIN REGULARLY PRESCRIBED) Substance used: percocet Hx Substance Use Treatment: No Allergies/Home Meds Allergies/Adverse Reactions: Allergies No Known Allergies Allergy (Verified 09/29/15 11:18) Review of Systems - Review of Systems Constitutional: Fatigue. absent: Weight Change Eyes: Normal ENT: Normal Respiratory: Normal Cardiovascular: Palpitations Gastrointestinal: Normal Genitourinary Female: Normal Musculoskeletal: Normal Skin: Normal Neurological: Normal Endocrine: Normal Hemo/Lymphatic: Normal Psychiatric: Normal Physical Exam Vital Signs Reviewed: Yes Vital Signs Temp Pulse Resp BP Pulse Ox 08/29/17 20:30 92 H 18 129/74 95 08/29/17 17:06 99 H 18 123/64 95 08/29/17 15:33 94 H 18 125/67 95 08/29/17 14:44 119 H 125/67 08/29/17 13:50 122 H 18 140/56 L 98 08/29/17 12:07 98.7 F 119 H 19 124/61 95 Temperature: Afebrile Blood Pressure: Normal Pulse: Tachycardic Respiratory Rate: Normal Appearance: Positive for: Well-Appearing, Non-Toxic, Uncomfortable, Other ( resting in bed, alert/awake, uncomfortable, NAD, cooperative, GCS = 15, oriented x 3) Pain Distress: None Mental Status: Positive for: Alert and Oriented X 3 - Systems Exam Head: Present: Atraumatic, Normocephalic Pupils: Present: PERRL, Other (no nystagmus, no photophobia, sclera anicteric) Extroacular Muscles: Present: EOMI Conjunctiva: Present: Normal Ears: Present: Normal Mouth: Present: Dry, Normal Teeth, Other (uvula/tongue are midline, no exudate/ lesions, no drooling/stridor) Pharnyx: Present: Normal Nose (External): Present: Atraumatic Nose (Internal): Present: Normal Inspection Neck: Present: Normal Range of Motion, Trachea Midline, Other (no step off, no nuchal rigidity, no meningeal signs). No: Meningeal Signs, MIDLINE TENDERNESS Respiratory/Chest: Present: Other (asymmetric breath sounds, right slightly decr compare with left; + coarse breath sounds, no wheezing/rales, faint rales noted b/l, no accessory muscle use noted, no tachypenia). No: Respiratory Distress, Accessory Muscle Use Cardiovascular: Present: Normal S1, S2, Tachycardic. No: Murmurs Abdomen: Present: Normal Bowel Sounds, Other (well nourished female, no focal tenderness, no masses/rebound/guarding/rigidity, no matos's sign, no mcburney' s point tenderness). No: Tenderness, Feeding Tubes Back: Present: Normal Inspection. No: CVA Tenderness, Midline Tenderness, Paraspinal Tenderness Upper Extremity: Present: Normal Inspection, Normal ROM, NORMAL PULSES, Neurovascularly Intact Lower Extremity: Present: Normal Inspection, NORMAL PULSES, Neurovascularly Intact. No: Latonia's Sign Neurological: Present: GCS=15, CN II-XII Intact, Speech Normal Skin: Present: Warm, Dry, Other (cap refill ~ 1sec, no ulcerations, no petechiae , no gross pallor). No: Rashes Psychiatric: Present: Alert, Oriented x 3, Normal Insight, Normal Concentration Medical Decision Making ED Course and Treatment: 08/29/17 12:17 Impression: palpitations i have consider all the differential diagnosis regarding pt's chief medical complaints/clinical findings, including but are not limited to: palpitations, chest pain, hx of alcoholic hepatitis A/P: palpitations - labs - acs eval - sepsis eval - xray - supportive care - observe/reevaluation 08/29/17 14:30 Code sepsis activated. 08/29/17 14:[address] Cruz, who is aware of and in agreement with admission to telemetry. Request Dr. Ken for consult. Agrees with ED management, states will add Lopressor to treat heart rate. 08/29/17 16:31 pt's vitals are much improved pt remains comfortable pt did not have any chest pain pt/family are made aware of pt's medical results agrees with admission Re-evaluation Time: 14:40 Reassessment Condition: Unchanged - Critical Care Critical Care Minutes: 45 minutes Critical Care Time: Excluding Proc Time Narrative Critical Care (Text): 08/29/17 23:32 critical care time: 45min, excluding procedure time, excluding time teaching residents/students/mid-level providers; including initial eval/diagnosis, diagnostic interpretation, re-eval, consultations, final disposition - Lab Interpretations Lab Results: 08/29/17 13:00 08/29/17 13:00 Lab Results 08/29/17 13:10: Urine Color Yellow, Urine Appearance Clear, Urine pH 6.5, Ur Specific [place] 1.010, Urine Protein Trace H, Urine Glucose (UA) Negative, Urine Ketones Trace H, Urine Blood Trace-intact H, Urine Nitrate Negative, Urine Bilirubin Small H, Urine Urobilinogen 1.0 H, Ur Leukocyte Esterase Small H , Urine RBC 0 - 2, Urine WBC 1 - 3, Ur Epithelial Cells 3 - 4, Urine Bacteria Small 08/29/17 13:00: Sodium 132, Chloride 105, Potassium 3.4 L, Carbon Dioxide 18 L, Anion Gap 13, BUN 7, Creatinine 0.5 L, Est GFR ( Amer) > 60, Est GFR (Non -Af Amer) > 60, Random Glucose 111 H, Calcium 8.5, Total Bilirubin 1.9 H, AST 71 H D, ALT 42, Alkaline Phosphatase 122, Lactate Dehydrogenase 479, Total Creatine Kinase < 20 L, Troponin I < 0.01, NT-Pro-B Natriuret Pep 378, Total Protein 5.6 L, Albumin 2.7 L, Globulin 2.8, Albumin/Globulin Ratio 1.0 L 08/29/17 13:00: pO2 240 H, VBG pH 7.47 H, VBG pCO2 25.0 L, VBG HCO3 18.2 L, VBG Total CO2 19.0 L, VBG O2 Sat (Calc) 100.1 H, VBG Base Excess -3.8 L, VBG Potassium 3.4 L, Sodium 131.0 L, Chloride 105.0, Glucose 115 H, Lactate 2.0, FiO2 21.0, Venous Blood Potassium 3.4 L 08/29/17 13:00: PT 21.0 H, INR 1.80 H, APTT 34.6 08/29/17 13:00: WBC 19.3 H, RBC 3.12 L, Hgb 10.4 L D, Hct 31.1 L, MCV 99.7 D, MCH 33.3, MCHC 33.4, RDW 13.4, Plt Count 321, MPV 10.0, Gran % 89.6 H, Lymph % ( Auto) 3.9 L, Early % (Auto) 6.2 H, Eos % (Auto) 0.2 L, Baso % (Auto) 0.1, Gran # 17.33 H, Lymph # (Auto) 0.8 L, Early # (Auto) 1.2 H, Eos # (Auto) 0.0, Baso # ( Auto) 0.01, Neutrophils % (Manual) 91 H, Band Neutrophils % 1, Lymphocytes % ( Manual) 3 L, Monocytes % (Manual) 4, Eosinophils % (Manual) 1, Platelet Evaluation Normal I have reviewed the lab results: Yes Interpretation: Abnormal lab values (elevated WBCs; borderline Lactate acid level) - RAD Interpretation Narrative RAD Interpretations (Text): Report Date : 08/29/2017 13:30 Procedure: Chest xray Dictator : Hailee Prince MD IMPRESSION: Multifocal pneumonia, worse in the right lower lobe. Follow-up to resolution is advised. Radiology Orders: 08/29/17 12:18 CHEST TWO VIEWS (PA/LAT) [RAD] Stat Manager Trust: Radiologist - EKG Interpretation EKG Interpretation (Text): 08/29/17 23:33 Sinus tach at 120 bpm, normal axis, no ectopy, diffuse low voltage, non- specific st-t changes, ABNL EKG; unchanged compare with old ekg 07/2017 Interpreted by ED Physician: Yes Type: 12 lead EKG Comparison: Similar to previous EKG - Medication Orders Current Medication Orders: Albuterol/Ipratropium (Duoneb 3 Mg/0.5 Mg (3 Ml) Ud) 3 ml IH [id number] NORMA PRN Reason: Protocol Last Admin: 08/29/17 20:33 Dose: 3 ml Fluoxetine HCl (Prozac) 40 mg PO DAILY NORMA Sodium Chloride (Sodium Chloride 0.9%) 1,000 mls @ 100 mls/hr IV .Q10H NORMA Last Admin: 08/29/17 15:33 Dose: 100 mls/hr eMAR Start Stop Document 08/29/17 15:33 HI (Rec: 08/29/17 15:33 HI [id number]) Intravenous Solution Start Date 08/29/17 Start Time 15:33 Metoprolol Succinate (Toprol Xl) 12.5 mg PO BRK NORMA Discontinued Medications Sodium Chloride (Sodium Chloride 0.9%) 500 mls @ 999 mls/hr IV .Q31M STA Stop: 08/29/17 12:49 Last Admin: 08/29/17 13:51 Dose: 999 mls/hr eMAR Start Stop Document 08/29/17 13:51 HI (Rec: 08/29/17 13:51 HI [id number]) Intravenous Solution Start Date 08/29/17 Start Time 13:51 Vancomycin HCl (Vancomycin 1gm) 1 gm in 250 mls @ 167 mls/hr IVPB STAT STA PRN Reason: Protocol Stop: 08/29/17 15:56 Last Admin: 08/29/17 15:32 Dose: 167 mls/hr eMAR Start Stop Document 08/29/17 15:32 HI (Rec: 08/29/17 15:32 HI [id number]) Intravenous Solution Start Date 08/29/17 Start Time 15:32 Piperacillin Sod/Tazobactam Sod (Zosyn 4.5 Gm In Ns 100ml) 4.5 gm in 100 mls @ 200 mls/hr IVPB STAT STA PRN Reason: Protocol Stop: 08/29/17 14:55 Last Admin: 08/29/17 14:42 Dose: 200 mls/hr eMAR Start Stop Document 08/29/17 14:42 HI (Rec: 08/29/17 14:42 HI [id number]) Intravenous Solution Start Date 08/29/17 Start Time 14:42 Sodium Chloride (Sodium Chloride 0.9%) 500 mls @ 999 mls/hr IV .Q31M STA Stop: 08/29/17 14:59 Last Admin: 08/29/17 14:42 Dose: 999 mls/hr eMAR Start Stop Document 08/29/17 14:42 HI (Rec: 08/29/17 14:42 HI [id number]) Intravenous Solution Start Date 08/29/17 Start Time 14:42 Metoprolol Tartrate (Lopressor) 5 mg IVP STAT STA Stop: 08/29/17 14:30 Last Admin: 08/29/17 14:44 Dose: 5 mg IVP Administration Document 08/29/17 14:44 HI (Rec: 08/29/17 14:45 HI [id number]) Charges for Administration # of IVP Administrations 1 MAR Pulse and Blood Pressure Document 08/29/17 14:44 HI (Rec: 08/29/17 14:45 HI [id number]) Pulse Pulse Rate (60-90) 119 Blood Pressure Blood Pressure (100/60-150/90) 125/67 Potassium Chloride (K-Dur 20 Meq Er Tab) 40 meq PO STAT STA Stop: 08/29/17 17:01 Last Admin: 08/29/17 20:32 Dose: 40 meq Disposition/Present on Arrival - Present on Arrival Any Indicators Present on Arrival: No History of DVT/PE: No History of Uncontrolled Diabetes: No Urinary Catheter: No History of Decub. Ulcer: No History Surgical Site Infection Following: None - Disposition Have Diagnosis and Disposition been Completed?: Yes Diagnosis: Bilateral pneumonia, At risk for sepsis, Sinus tachycardia, Dehydration Disposition: HOSPITALIZED Disposition Time: 14:30 Patient Plan: Admission, Telemetry Patient Problems: Current Active Problems Problem Status Onset Bilateral pneumonia Acute At risk for sepsis Acute Sinus tachycardia Acute Dehydration Acute Condition: FAIR
[2017-08-29 13:13] LABS: BASO # 0.01 K/mm3 (0.0-2.0); BASO % 0.1 % (0.0-3.0); EOS % 0.2 % (1.5-5.0); GRAN # 17.33 (1.4-6.5); GRAN % 89.6 % (50.0-68.0); HEMOGLOBIN 10.4 g/dL (12.0-16.0); LYMPH # 0.8 (1.2-3.4); LYMPH % 3.9 % (22.0-35.0); MEAN CELL VOLUME 99.7 fl (80.0-105.0); MEAN CORPUSCULAR HEMOGLOBIN 33.3 pg (25.0-35.0); MEAN CORPUSCULAR HGB CONC 33.4 g/dl (31.0-37.0); MONO # 1.2 (0.1-0.6); MONO % 6.2 % (1.0-6.0); PLATELET COUNT 321 10^3/uL (120.0-450.0); RBC 3.12 10^6/uL (3.5-6.1); RED CELL DISTRIBUTION WIDTH 13.4 % (11.5-14.5); VENOUS BLOOD GAS BASE EXCESS -3.8 mmol/L (0.0-2.0); VENOUS BLOOD GAS PO2 240 mm/Hg (30-55); VENOUS BLOOD PH 7.47 (7.32-7.43); WHITE BLOOD COUNT 19.3 10^3/ul (4.5-11.0)
[2017-08-29 13:26] LABS: INR 1.8 (0.93-1.08); PARTIAL THROMBOPLASTIN TIME 34.6 Seconds (25.1-36.5)
[2017-08-29 13:27] LABS: PH,URINE 6.5 (4.7-8.0); URINE BILIRUBIN SMALL (NEGATIVE); URINE BLOOD TRACE-INTACT (NEGATIVE); URINE GLUCOSE (UA) NEGATIVE (NEGATIVE); URINE LEUKOCYTE ESTERASE SMALL Leu/uL (NEGATIVE); URINE PROTEIN TRACE mg/dL (<30 mg/dL)
--- NOTE | 2017-08-29 13:32 | RAD ---
HISTORY: COMPARISON: 07/27/2017. TECHNIQUE: Chest PA and lateral FINDINGS: LINES AND TUBES: None. LUNG AND PLEURA: The lungs are well inflated. There is multifocal patchy and nodular airspace disease in the lungs, worse in the right upper lobe. HEART AND MEDIASTINUM: The heart is not enlarged. The hilar and mediastinal contours are within normal limits. SKELETAL STRUCTURES: The bony structures are within normal limits for the patient's age. VISUALIZED UPPER ABDOMEN: Normal. OTHER FINDINGS: None. IMPRESSION: Multifocal pneumonia, worse in the right upper lobe. Follow-up to resolution is advised.
[2017-08-29 13:33] LABS: ALBUMIN 2.7 g/dL (3.0-4.8); ALT/SGPT 42 U/L (7-56); AST/SGOT 71 U/L (14-36); BLOOD UREA NITROGEN 7 mg/dL (7-21); CALCIUM 8.5 mg/dL (8.4-10.5); GFR AFRICAN-AMERICAN > 60; GFR NON-AFRICAN AMERICAN > 60
[2017-08-29 13:33] LABS: URINE APPEARANCE CLEAR (CLEAR); URINE COLOR YELLOW (YELLOW)
[2017-08-29 13:35] LABS: B-TYPE NATRIURETIC PEPTIDE 378 pg/mL (0-450); BAND 1 % (0-2); EOSINOPHIL 1 % (0.0-3.0); LYMPHOCYTE 3 % (22.0-35.0); MONOCYTE 4 % (1.0-6.0); NEUTROPHIL 91 % (50.0-70.0); PLATELET ESTIMATE NORMAL (NORMAL); TROPONIN I < 0.01 ng/mL
[2017-08-29 13:44] LABS: URINE RBC 0 - 2 /hpf (0-2)
[2017-08-29 13:45] LABS: URINE BACTERIA SMALL (NEG)
[2017-08-29] MEDS ORDERED: Piperacill/Tazo 4.5gm in NS 4.5 GM/100 ML BAG IVPB STA (14:26)
[2017-08-29] MEDS ORDERED: Vancomycin 1gm in NS 250ml 1 GM/250 ML BAG IVPB STA (14:27)
[2017-08-29] MEDS ORDERED: Metoprolol 1 mg/ml Inj IVP STA (14:29)
[2017-08-29] MEDS: Sodium Chloride 0.9% 1,000 ML IV SCH (15:33)
[2017-08-29] MEDS ORDERED: Potassium Chloride 20 mEq ER Tab PO STA (17:00)
[2017-08-29 18:31] LABS: VENOUS BLOOD GAS PO2 207 mm/Hg (30-55)
--- NOTE | 2017-08-29 20:30 | PCM.SEPTIC ---
Sepsis Progress Note - Reassessment Type Date of Evaluation: 08/29/17 Time of Evaluation: 20:30 Reassessment Type: Non-invasive reassessment - Non Invasive Reassessment Were the most recent vital sign reviewed: Yes Vital Sign (Latest): Temp Pulse Resp BP Pulse Ox 98.7 F 99 H 18 123/64 95 08/29/17 12:07 08/29/17 17:06 08/29/17 17:06 08/29/17 17:06 08/29/17 17:06 Cardiovascular: Yes: Regular Rate, Rhythm Respiratory: Yes: Normal Breath Sounds Capillary Refill: Normal (Less than 2 sec) Pulses: Normal Radial, Normal Dorsalis Pedis, Normal Posterior Tibialis Skin: Normal Color, Warm, Dry
[2017-08-29] MEDS: Albuterol-Ipratrop 3 mg / 0.5 (3 ml) UD IH SCH (20:33)
--- NOTE | 2017-08-29 21:25 | CARD ---
APPROVED REPORT EKG Measurement Heart [id number] <Conclusion> Sinus tachycardia Possible Left atrial enlargement Low voltage QRS Borderline ECG
--- NOTE | 2017-08-29 22:18 | HP ---
HISTORY OF PRESENT ILLNESS: The patient is seen in the emergency room. She was transferred from [facility] where she was getting medical treatment and management for alcoholic hepatitis. The patient was found to have tachycardia this morning and she was feeling weak and she got some sporadic cough and shortness of breath. The patient was transferred to the emergency room at [facility] in [place]. PAST MEDICAL HISTORY: . The patient has history of substance abuse, alcohol and also narcotics (Percocet). The patient has history of back surgery for thoracolumbar neuritis. The patient has history of hypertension, depression. She does not have a DNR. The patient has had treatment for cervical radiculopathy also. ALLERGIES: THE PATIENT IS NOT ALLERGIC TO ANY MEDICATIONS. PHYSICAL EXAMINATION: GENERAL: The patient is seen in the emergency room. She is afebrile. The patient is lying down flat. Color seemed to be okay. VITAL SIGNS: The patient's pulse is 119, blood pressure 125/67, respirations are 18-20 per minute. The patient's O2 sat is 95% on room air, 98% on 2 liters of oxygen. The patient's temperature is 98.7. HEENT: The head is normocephalic. NECK: The thyroid is not enlarged. There is no elevation of JVP. Carotid pulses are present. LUNGS: Trachea is central, bilateral crepitations present, right greater than left. HEART: NSR. S1 and S2 present. Tachycardia, sinus. ABDOMEN: Soft. Liver and spleen not palpable. There is evidence of distention. There is no characteristic signs of ascites. CENTRAL NERVOUS SYSTEM: Conscious, rational, oriented at this time. The patient has had recent past history of encephalopathy secondary to alcoholic hepatitis. The patient is being treated for severe alcoholic hepatitis with bilirubin being in the 16 point range. The patient has severe abnormal liver enzymes and jaundice. Now the patient is cleared from the jaundice as bilirubin is close to 2 and liver enzymes are much improved. The patient's chest x-ray shows bilateral infiltrate, right greater than left. The patient's EKG shows sinus tachycardia. DIAGNOSES: Bilateral pneumonia. The patient has history of underlying alcoholic hepatitis. The patient has history of depression and the patient has history of hypertension, mild. The patient will be placed on antibiotics. She is on vancomycin and Zosyn. We will continue that at this time. The patient is going to be getting IV fluids at this moment and we will keep the patient on mild sedation, the patient needs maybe Ambien 5 mg at nighttime to sleep. The patient's diet will be 2 g sodium diet at this time, heart healthy. The patient will be seen by Infectious Disease universal branch consultant that is Dr. Ken. The patient will be seen by Dr. Gupta, lease attendant. The patient will be followed with antibiotics and we will see the patient and manage her. Tay Cruz MD
[2017-08-30] MEDS: Albuterol-Ipratrop 3 mg / 0.5 (3 ml) UD IH SCH ×4 (03:19→19:35)
[2017-08-30] MEDS: Sodium Chloride 0.9% 1,000 ML IV SCH ×2 (04:30→05:47)
[2017-08-30] MEDS: Vancomycin 1gm in NS 250ml 1 GM/250 ML BAG IVPB SCH ×2 (07:13→20:00)
[2017-08-30 07:32] LABS: BASO # 0.01 K/mm3 (0.0-2.0); BASO % 0.1 % (0.0-3.0); EOS % 0.2 % (1.5-5.0); GRAN # 17.31 (1.4-6.5); GRAN % 87.4 % (50.0-68.0); HEMOGLOBIN 10.3 g/dL (12.0-16.0); LYMPH # 1.2 (1.2-3.4); LYMPH % 5.9 % (22.0-35.0); MEAN CELL VOLUME 100.3 fl (80.0-105.0); MEAN CORPUSCULAR HEMOGLOBIN 33.8 pg (25.0-35.0); MEAN CORPUSCULAR HGB CONC 33.7 g/dl (31.0-37.0); MEAN PLATELET VOLUME 9.9 fl (7.0-11.0); MONO # 1.3 (0.1-0.6); MONO % 6.4 % (1.0-6.0); RBC 3.05 10^6/uL (3.5-6.1); RED CELL DISTRIBUTION WIDTH 13.5 % (11.5-14.5); WHITE BLOOD COUNT 19.8 10^3/ul (4.5-11.0)
[2017-08-30] MEDS: Metoprolol Succinate 25 mg XL Tab PO SCH (07:57)
[2017-08-30 09:13] LABS: ALB/GLOB RATIO 0.8 (1.1-1.8); ALBUMIN 2.4 g/dL (3.0-4.8); ALT/SGPT 31 U/L (7-56); AST/SGOT 58 U/L (14-36); BLOOD UREA NITROGEN 5 mg/dL (7-21); GFR AFRICAN-AMERICAN > 60; GFR NON-AFRICAN AMERICAN > 60
[2017-08-30] MEDS: levoFLOXacin 750 mg in D5W 150 ML BAG IVPB SCH (09:15)
--- NOTE | 2017-08-30 13:27 | CON ---
DATE: 08/30/2017 PULMONARY CONSULTATION REFERRING PHYSICIAN: Tay Cruz MD REASON FOR CONSULTATION: Pneumonia. HISTORY OF PRESENT ILLNESS: The patient is a chronically ill 56-year-old female, with past medical history significant for alcohol abuse, recent bout of alcoholic hepatitis, narcotic abuse, hypertension, depression, who presents to [facility] - transferred from [facility] - with increasing shortness of breath at rest, dyspnea on exertion, and cough for the past 1 day. The patient denies sputum production. There is no history of chest pain, coughing up of blood, or chest pain - made worse with deep respirations. The patient did present to [facility] with fevers. No history of chills or infectious exposure. No history of night sweats, weight loss or appetite change prior to the above events. No history of calf pains. No history of syncope or diaphoresis. No history of recent travel or trauma. REVIEW OF SYSTEMS: No history of nausea, vomiting or diarrhea. No acute urinary symptoms. No new neurologic complaints. Rest of the review of systems is negative. ALLERGIES: NO KNOWN ALLERGIES. SOCIAL HISTORY: Positive for extensive alcohol abuse, extensive narcotic abuse, extensive smoking usage - stopped 4 years ago. FAMILY HISTORY: No inheritable diseases. HOME MEDICATIONS: Include chlordiazepoxide, thiamine, Cozaar, folate, Prozac. PHYSICAL EXAMINATION GENERAL: The patient is not short of breath at the present time. She is not using accessory muscles for breathing. VITAL SIGNS: Temperature is 101.4, pulse on the monitor is 102, respiratory rate 18/20, blood pressure 118/60. Oxygen saturation on nasal cannula is 95%-97%. HEENT: Normocephalic, atraumatic. No JVD. CARDIOVASCULAR: Positive S1, S2. No S3 gallop. LUNGS: Crackles at both bases. Minimal bilateral rhonchi. No wheezing. EXTREMITIES: No clubbing, cyanosis or edema. Calves are nontender to palpation. GI: Abdomen is soft, nontender, nondistended. Bowel sounds are positive. SKIN: No acute rash. NEUROLOGIC: Limited at the present time. PERTINENT LABORATORY DATA: Chest x-ray was done yesterday and reviewed. There are patchy bilateral pulmonary infiltrates noted. CBC: White count 19.8, hemoglobin 10.3, hematocrit 30.6, platelets of 363,000. INR of 1.80. Complete metabolic profile: Potassium 3.4, carbon dioxide 18, glucose 111, bilirubin 1.9, AST 71, total protein 5.6, albumin 2.7. Rest of the metabolic profile is within normal limits. IMPRESSION: 1. Bilateral pneumonia. 2. Acute bronchitis. 3. Sepsis syndrome. 4. Alcoholic hepatitis. 5. Anemia. PLAN: Again, the patient is a 56-year-old female (looking much older than stated age), with past medical history significant for alcoholic hepatitis, opiate abuse, positive smoker for many years, who presents to [facility] - transferred from [facility] - with a 1-day history of increasing pulmonary symptoms. In addition, the patient also presents with fevers. In the emergency room, the patient was noted to have bilateral pneumonia. She was thus admitted for additional evaluation. I did review the chest x-ray as above. The chest x-ray shows new bilateral pulmonary infiltrates. I would continue with the antibiotic coverage - as per Infectious Disease. Input by Dr. Ken is noted. Legionella antigen (urine) - pending. Procalcitonin - pending. Clemons cultures are ordered and will be analyzed when feasible. On physical exam, there is no significant bronchospasm noted. In addition, there is no significant alveolar-arterial gradient. I will continue with the current nebulizer treatments for now. At the present time, the patient does appear comfortable. She is not short of breath at rest. She does state to feeling better this morning, and is slightly clinically improved. We will certainly repeat the chest x-ray - in a few days - for comparison. Additional pulmonary intervention will be based on the clinical status of the patient. I did discuss the above with Dr. Cruz at length. Thank you very much for this pulmonary consultation. Kit Powell MD MTDD
--- NOTE | 2017-08-30 13:30 | PN ---
DATE: LOCATION: Patient is admitted to room 275, bed 1. SUBJECTIVE: Patient presented yesterday from the [facility] where the patient was getting the rehabilitation. She suddenly having tachycardia and shortness of breath. Patient was evaluated in the emergency room, admitted with bilateral pneumonia and tachycardia. Patient's past history is significant that she has history of depression, has history of hypertension, drug abuse. Patient has also been treated for alcoholic hepatitis recently. Patient is seen this morning. She is lying down comfortable in bed. She does not have any complaint. She denies any cough but she does have cough and productive sputum. PHYSICAL EXAMINATION: VITAL SIGNS: Patient's pulse is 110, blood pressure 118/60, respirations 20 per minute, patient's O2 saturation is 95% on room air, but the patient is on 2 liters of oxygen. She is getting respiratory treatment, antibiotics. MEDICATIONS: Consists of meropenem, vancomycin, metoprolol, levofloxacin, albuterol inhalation therapy. Patient will be placed on 12.5 mg metoprolol twice a day. Patient will continue antibiotic and will follow up regarding the pneumonia. Patient is clinically stable but overall prognosis is guarded, in view of the fact that patient has comorbidities with liver disease. Tay Cruz MD
[2017-08-30] MEDS: Meropenem IV 1 gm in NS 50 ML IVPB SCH ×2 (14:35→21:53)
[2017-08-30] MEDS ORDERED: Ipratropium 0.02% Inhal Soln (0.5 mg/2.5 ml) UD IH STA (16:07)
[2017-08-30] MEDS ORDERED: Levalbuterol 0.63 MG/3 ML Inhal Soln UD IH STA (16:07)
--- NOTE | 2017-08-30 16:28 | CP.PCM.PN ---
Subjective - Date & Time of Evaluation Date of Evaluation: 08/30/17 Time of Evaluation: 16:15 - Subjective Subjective: PGY-[address] Anthony Gutierrez CC: tachycardia, short of breath, and tachypnic S: Ms Naylor, 56F, former smoker 1.5 ppd x 40 years, with PMHx ETOH, alcoholic hepatitis, narcotic abuse, HTN, Hep C untreated, and depression, was at [facility] for rehab for ETOH hepatitis. She was transferred from [facility] for increase SOB at rest and dry cough x 1 day. SHe was diagnosed with sepsis due to bilateral pneumonia and acute bronchitis. She is on triple antibiotics (levaquin, merrem, vanco), NS@100, duoneb q6, toprol xl 12.5, prozac. She took the toprol 8am today. RN also reported that she had 5 episodes of watery diarrhea today. C diff toxin and antigen pending I was paged by RN because pt was SOB and tachypnic. Pt's ex- and brother are by bed side, Pt endorsed that she had an emotional argument with her brother , then she had a panic attack. She felt nervous, palpitation, difficulty catching a breath. Denies lightheadedness, chest pain, difficulty breathing in/ out, abdominal pain, leg pain. She said that was similar to her past episodes of panic attack. VS: T 97.4, HR 110s, 133/66, RR 38, POx 96 on 2L T 99.8, HR 130 ABG: pH 7.41, pCO2 23, pO2 50, Lactate 2.6, HCO3 14.6 on FiO2 32 Objective - Vital Signs/Intake and Output Vital Signs (last 24 hours): Temp Pulse Resp BP Pulse Ox 97.4 F L 110 H 19 105/70 95 08/30/17 12:00 08/30/17 14:00 08/30/17 12:00 08/30/17 12:00 08/30/17 06:00 Intake and Output: 08/30/17 08/30/17 06:59 18:59 Intake Total 360 660 Output Total 450 Balance 360 210 - Medications Medications: Current Medications Albuterol/Ipratropium (Duoneb 3 Mg/0.5 Mg (3 Ml) Ud) 3 ml IH [id number] [facility]MA PRN Reason: Protocol Last Admin: 08/30/17 13:45 Dose: 3 ml Fluoxetine HCl (Prozac) 40 mg PO DAILY [facility] Last Admin: 08/30/17 15:44 Dose: 40 mg Sodium Chloride (Sodium Chloride 0.9%) 1,000 mls @ 100 mls/hr IV .Q10H [facility] Last Admin: 08/30/17 05:47 Dose: Not Given Meropenem (Merrem Iv 1 Gm Premix) 50 mls @ 100 mls/hr IVPB Q8 [facility] PRN Reason: Protocol Stop: 09/08/17 14:01 Last Admin: 08/30/17 14:35 Dose: 100 mls/hr Vancomycin HCl (Vancomycin 1gm) 1 gm in 250 mls @ 167 mls/hr IVPB Q12H [facility] PRN Reason: Protocol Stop: 09/08/17 07:16 Last Admin: 08/30/17 07:13 Dose: 167 mls/hr Levofloxacin/Dextrose (Levaquin 750mg) 750 mg IVPB DAILY [facility] PRN Reason: Protocol Stop: 09/08/17 10:01 Last Admin: 08/30/17 09:15 Dose: 750 mg Metoprolol Succinate (Toprol Xl) 12.5 mg PO BRK [facility] Last Admin: 08/30/17 07:57 Dose: 12.5 mg - Labs Labs: 08/30/17 07:00 08/30/17 07:00 PT 21.0 SECONDS (9.4-12.5) H 08/29/17 13:00 INR 1.80 (0.93-1.08) H 08/29/17 13:00 APTT 34.6 Seconds (25.1-36.5) 08/29/17 13:00 - Constitutional Appears: Other (rapid shallow breathing @38) - Head Exam Head Exam: ATRAUMATIC, NORMAL INSPECTION, NORMOCEPHALIC - Eye Exam Eye Exam: EOMI, Normal appearance, PERRL. absent: Scleral icterus Pupil Exam: NORMAL ACCOMODATION - ENT Exam ENT Exam: Mucous Membranes Moist - Neck Exam Additional comments: supple - Respiratory Exam Respiratory Exam: Decreased Breath Sounds, Clear to Ausculation Bilateral, Rhonchi, Respiratory Distress. absent: Rales, Wheezes - Cardiovascular Exam Cardiovascular Exam: Tachycardia, REGULAR RHYTHM, +S1, +S2 - GI/Abdominal Exam GI & Abdominal Exam: Distended, Soft, Normal Bowel Sounds. absent: Tenderness - Extremities Exam Extremities Exam: absent: Calf Tenderness, Pedal Edema - Neurological Exam Neurological Exam: Alert, Awake, Oriented x3 - Psychiatric Exam Psychiatric exam: Anxious - Skin Skin Exam: Dry, Warm Assessment and Plan - Assessment and Plan (Free Text) Plan: Ms Naylor, 56F, former smoker 1.5 ppd x 40 years, with PMHx ETOH/narcotic abuse , alcoholic hepatitis, HTN, Hep C untreated, and depression, was at [facility] for rehab for ETOH hepatitis and admitted for sepsis due to bilateral pneumonia and acute bronchitis. She is on triple antibiotics (levaquin, merrem, vanco) and NS@ 100. RN also reported that she had 5 episodes of watery diarrhea today. C diff toxin and antigen pending. Pt developed tachycardia, SOB and tachypnic @ 30s after an emotional argument with her brother. Pt c/o nervous, palpitation, difficulty catching a breath. Denies lightheadedness, chest pain, difficulty breathing in/out, abdominal pain, leg pain. She said that was similar to her past episodes of panic attack. Hypoxemic Respiratory distress Tachypnea and sinus tacycardic @110-130 Unlikely panic attack s/p ativan superimposed on HAP on triple antibiotics Hx former smoker 1.5 ppd x 40 years, quit 5 years ago, likely COPD Likely cannot tolerate BIPAP; Pt need encouragement to wear face mask for neb treatment Last Echo normal EF (2 yrs ago) with no cardiac event reported in the past 2 years - ABG with lactate - CBC, CMP, Mg, Phos, cardiac iso, BNP - EKG, CXR - Ativan 1mg x 1 - Xopenex + Ipratropium x 1 - Lopressor 5 IV x 1 for HR at 130 6pm: VS: HR 124, T 99.8. ABG: pH 7.41, pCO2 23, pO2 50, Lactate 2.6, HCO3 14.6 on 2-3 L NC - ICU consult - Increase to 5L O2 - Communicated with Dr. Powell - Talked to Dr. Destiny Green 6:30pm: Transfer pt to ICU
[2017-08-30] MEDS ORDERED: Metoprolol 1 mg/ml Inj IVP STA (17:26)
[2017-08-30] MEDS ORDERED: Metoprolol 1 mg/ml Inj IVP ONE (17:28)
[2017-08-30 17:30] LABS: ARTERIAL BLOOD GAS HCO3 14.6 mmol/L (21-28); ARTERIAL BLOOD GAS O2 SAT 90.3 % (95-98); ARTERIAL BLOOD GAS PCO2 23 mm/Hg (35-45); ARTERIAL BLOOD GAS PH 7.41 (7.35-7.45); ARTERIAL BLOOD GAS TCO2 15.3 mmol.L (22-28)
[2017-08-30] MEDS ORDERED: Sodium Chloride 0.9% 1,000 ML IV STA (17:54)
--- NOTE | 2017-08-30 18:29 | RAD ---
HISTORY: short of breath COMPARISON: 08/29/2017 FINDINGS: LUNGS: There is interval development of extensive confluent airspace disease in both lungs, worse in the right upper lobe and left lung. PLEURA: No significant pleural effusion identified, no pneumothorax apparent. CARDIOVASCULAR: Normal. OSSEOUS STRUCTURES: No significant abnormalities. VISUALIZED UPPER ABDOMEN: Normal. OTHER FINDINGS: None. IMPRESSION: Interval worsening presumable pulmonary edema or multifocal pneumonia, worse in the right upper lobe and left lung. Follow-up is advised.
[2017-08-30 18:40] LABS: BASO # 0.02 K/mm3 (0.0-2.0); BASO % 0.1 % (0.0-3.0); EOS % 0.2 % (1.5-5.0); GRAN # 19.6 (1.4-6.5); GRAN % 91.6 % (50.0-68.0); HEMOGLOBIN 10.8 g/dL (12.0-16.0); LYMPH # 0.6 (1.2-3.4); LYMPH % 2.9 % (22.0-35.0); MEAN CELL VOLUME 101.9 fl (80.0-105.0); MEAN CORPUSCULAR HEMOGLOBIN 34.2 pg (25.0-35.0); MEAN CORPUSCULAR HGB CONC 33.5 g/dl (31.0-37.0); MEAN PLATELET VOLUME 9.8 fl (7.0-11.0); MONO # 1.1 (0.1-0.6); MONO % 5.2 % (1.0-6.0); RBC 3.16 10^6/uL (3.5-6.1); RED CELL DISTRIBUTION WIDTH 13.6 % (11.5-14.5); WHITE BLOOD COUNT 21.4 10^3/ul (4.5-11.0)
[2017-08-30 19:02] LABS: TROPONIN I < 0.01 ng/mL
--- NOTE | 2017-08-30 19:13 | CP.PCM.PN ---
<Rd Interiano - Last Filed: 08/30/17 19:07> Subjective - Date & Time of Evaluation Date of Evaluation: 08/30/17 Time of Evaluation: 10:45 - Subjective Subjective: GI Progress note. Dr. Gupta Pt seen and examined at bedside. No acute events overnight. Patient reports that she was initially here for evaluation of shortness of breath which has mildly improved. She denies any abdominal complaints. No N/V/D. Tolerating diet. No F/C. No CP. No other complaints. Objective - Vital Signs/Intake and Output Vital Signs (last 24 hours): Temp Pulse Resp BP Pulse Ox 97.4 F L 129 H 19 116/60 95 08/30/17 12:00 08/30/17 17:32 08/30/17 12:00 08/30/17 17:32 08/30/17 06:00 Intake and Output: 08/30/17 08/31/17 18:59 06:59 Intake Total 660 Output Total 450 Balance 210 - Medications Medications: Current Medications Albuterol/Ipratropium (Duoneb 3 Mg/0.5 Mg (3 Ml) Ud) 3 ml IH [id number] [facility] PRN Reason: Protocol Last Admin: 08/30/17 13:45 Dose: 3 ml Fluoxetine HCl (Prozac) 40 mg PO DAILY [facility] Last Admin: 08/30/17 15:44 Dose: 40 mg Heparin Sodium (Porcine) (Heparin) 5,000 units SC Q8 [facility] PRN Reason: Protocol Meropenem (Merrem Iv 1 Gm Premix) 50 mls @ 100 mls/hr IVPB Q8 [facility] PRN Reason: Protocol Stop: 09/08/17 14:01 Last Admin: 08/30/17 14:35 Dose: 100 mls/hr Vancomycin HCl (Vancomycin 1gm) 1 gm in 250 mls @ 167 mls/hr IVPB Q12H [facility] PRN Reason: Protocol Stop: 09/08/17 07:16 Last Admin: 08/30/17 07:13 Dose: 167 mls/hr Potassium Chloride (Potassium Chloride 20 Meq/100 Ml) 20 meq in 100 mls @ 50 mls/hr IVPB Q2H [facility] Stop: 08/30/17 22:59 Levofloxacin/Dextrose (Levaquin 750mg) 750 mg IVPB DAILY [facility] PRN Reason: Protocol Stop: 09/08/17 10:01 Last Admin: 08/30/17 09:15 Dose: 750 mg Lorazepam (Ativan) 1 mg IVP ONCE PRN; Protocol PRN Reason: Anxiety Last Admin: 08/30/17 16:29 Dose: 1 mg Metoprolol Succinate (Toprol Xl) 12.5 mg PO BRK [facility] Last Admin: 08/30/17 07:57 Dose: 12.5 mg Oseltamivir Phosphate (Tamiflu) 75 mg PO BID [facility] PRN Reason: Protocol - Labs Labs: 08/30/17 18:30 PT 21.0 SECONDS (9.4-12.5) H 08/29/17 13:00 INR 1.80 (0.93-1.08) H 08/29/17 13:00 APTT 34.6 Seconds (25.1-36.5) 08/29/17 13:00 Assessment and Plan - Assessment and Plan (Free Text) Assessment: 56yo F with ETOH hepatitis, here for evaluation of SOB. Probable pulm infiltrates - Maddrey's DF: 41 (poor prognosis) Plan: - Continue Abx - F/u Stool C Diff - Continue current medical management Further recs as per Dr. Alonso Interiano PGY1 <Charlene Gupta V - Last Filed: 08/30/17 23:40> Objective - Vital Signs/Intake and Output Vital Signs (last 24 hours): Temp Pulse Resp BP Pulse Ox 97.4 F L 132 H 19 116/60 95 08/30/17 12:00 08/30/17 18:00 08/30/17 12:00 08/30/17 17:32 08/30/17 06:00 Intake and Output: 08/30/17 08/31/17 18:59 06:59 Intake Total 660 40 Output Total 450 Balance 210 40 - Medications Medications: Current Medications Albuterol/Ipratropium (Duoneb 3 Mg/0.5 Mg (3 Ml) Ud) 3 ml IH [id number] [facility] PRN Reason: Protocol Last Admin: 08/30/17 22:31 Dose: Not Given Fluoxetine HCl (Prozac) 40 mg PO DAILY [facility] Last Admin: 08/30/17 15:44 Dose: 40 mg Heparin Sodium (Porcine) (Heparin) 5,000 units SC Q8 [facility] PRN Reason: Protocol Last Admin: 08/30/17 22:21 Dose: 5,000 units Meropenem (Merrem Iv 1 Gm Premix) 50 mls @ 100 mls/hr IVPB Q8 [facility] PRN Reason: Protocol Stop: 09/08/17 14:01 Last Admin: 08/30/17 21:53 Dose: 100 mls/hr Vancomycin HCl (Vancomycin 1gm) 1 gm in 250 mls @ 167 mls/hr IVPB Q12H [facility] PRN Reason: Protocol Stop: 09/08/17 07:16 Last Admin: 08/30/17 20:00 Dose: 167 mls/hr Propofol (Diprivan) 1,000 mg in 100 mls @ 1.987 mls/hr IV .Q24H PRN; Protocol; 5 MCG/KG/MIN PRN Reason: TITRATE PER MD ORDER Last Titration: 08/30/17 20:30 Dose: 30 mcg/kg/min, 11.92 mls/hr Acetaminophen (Ofirmev) 1,000 mg in 100 mls @ 400 mls/hr IVPB Q6H PRN PRN Reason: Temperature Stop: 09/01/17 20:20 Last Admin: 08/30/17 22:21 Dose: 400 mls/hr Levofloxacin/Dextrose (Levaquin 750mg) 750 mg IVPB DAILY [facility] PRN Reason: Protocol Stop: 09/08/17 10:01 Last Admin: 08/30/17 09:15 Dose: 750 mg Lorazepam (Ativan) 1 mg IVP ONCE PRN; Protocol PRN Reason: Anxiety Last Admin: 08/30/17 21:13 Dose: 1 mg Metoprolol Succinate (Toprol Xl) 12.5 mg PO BRK [facility] Last Admin: 08/30/17 07:57 Dose: 12.5 mg Midazolam HCl (Versed Inj) 2 mg IVP Q2H PRN PRN Reason: Agitation Oseltamivir Phosphate (Tamiflu Susp) 75 mg PO BID [facility] PRN Reason: Protocol - Labs Labs: 08/30/17 18:30 08/30/17 18:30 PT 21.0 SECONDS (9.4-12.5) H 08/29/17 13:00 INR 1.80 (0.93-1.08) H 08/29/17 13:00 APTT 34.6 Seconds (25.1-36.5) 08/29/17 13:00 Attending/Attestation - Attestation I have personally seen and examined this patient.: Yes I have fully participated in the care of the patient.: Yes I have reviewed all pertinent clinical information, including history, physical exam and plan: Yes Notes (Text): This is an addendum to consult report dictated by the Cage Unloader.The patient was seen and examined earlier. Medical records, lab studies, imagings were reviewed. Last 24 hours events reviewed. Agreed with the above treatment plan as outlined in Cage Unloader 's notes consult dictated
[2017-08-30 19:22] LABS: ALB/GLOB RATIO 0.9 (1.1-1.8); ALBUMIN 2.7 g/dL (3.0-4.8); ALT/SGPT 39 U/L (7-56); AST/SGOT 59 U/L (14-36); B-TYPE NATRIURETIC PEPTIDE 910 pg/mL (0-450); BLOOD UREA NITROGEN 5 mg/dL (7-21); CALCIUM 8.1 mg/dL (8.4-10.5); GFR AFRICAN-AMERICAN > 60; GFR NON-AFRICAN AMERICAN > 60
[2017-08-30] MEDS ORDERED: Propofol 10 mg/ml Inj (20 ML) ONE (19:24)
[2017-08-30] MEDS ORDERED: Etomidate 20 mg/10ml Inj IV ONE (19:24)
[2017-08-30] MEDS ORDERED: Propofol 10 mg/ml 1,000 MG/100 ML VIAL ONE (19:28)
[2017-08-30] MEDS: Propofol 10 mg/ml 1,000 MG/100 ML VIAL IV PRN (20:00)
[2017-08-30 21:02] LABS: ARTERIAL BLOOD GAS HCO3 14.6 mmol/L (21-28); ARTERIAL BLOOD GAS HEMOGLOBIN 10.3 g/dL (11.7-17.4); ARTERIAL BLOOD GAS O2 CAPACITY 14.2 mL/dl (16-24); ARTERIAL BLOOD GAS O2 CONTENT 14.3 ML/dl (15-23); ARTERIAL BLOOD GAS O2 SAT 100.4 % (95-98); ARTERIAL BLOOD GAS PCO2 29 mm/Hg (35-45); ARTERIAL BLOOD GAS PH 7.31 (7.35-7.45); ARTERIAL BLOOD GAS TCO2 15.5 mmol.L (22-28)
[2017-08-30] MEDS ORDERED: Midazolam 2 MG/2 ML VIAL IVP PRN (21:03)
[2017-08-30 21:28] LABS: VENOUS BLOOD GAS BASE EXCESS -8.8 mmol/L (0.0-2.0); VENOUS BLOOD GAS PO2 77 mm/Hg (30-55); VENOUS BLOOD PH 7.34 (7.32-7.43)
--- NOTE | 2017-08-30 22:04 | CARD ---
APPROVED REPORT EKG Measurement Heart [id number] <Conclusion> Sinus tachycardia Low voltage QRS Septal infarct, age undetermined Abnormal ECG
[2017-08-30] MEDS ORDERED: Oseltamivir 6 MG/ML PO SCH (23:00)
[2017-08-30] MEDS: Oseltamivir 6 MG/ML PO SCH (23:44)
[2017-08-31] MEDS: Propofol 10 mg/ml 1,000 MG/100 ML VIAL IV PRN (00:13)
[2017-08-31] MEDS ORDERED: Sodium Chloride 0.9% 500 ML IV STA (02:38)
--- NOTE | 2017-08-31 05:31 | CON ---
DATE: HISTORY OF PRESENT ILLNESS: This is a 56-year-old lady with history of alcohol abuse, alcoholic hepatitis, opiate abuse, hypertension, depression, who presented to [facility] yesterday from her [facility] ([facility]) with increasing shortness of breath, dyspnea on exertion and cough coupled with fever and tachycardia. As per patient, the cough was rather dry without any streaks of blood. Patient denies chest pain, nausea, vomiting. Patient had a few episodes of diarrhea. Patient denies night sweats, weight loss or appetite change. PAST MEDICAL HISTORY: Alcohol abuse, alcoholic hepatitis, opioid abuse, hypertension and depression. ALLERGIES: NKDA. SOCIAL HISTORY: Patient is ex-smoker, also has a history of alcohol abuse and illicit drug abuse. FAMILY HISTORY: Noncontributory. HOME MEDICATIONS: Chlordiazepoxide, thiamine, Cozaar, folate, Prozac. REVIEW OF SYSTEMS: Review of 12-organ system other than mentioned in history of present illness is negative. PHYSICAL EXAMINATION: VITAL SIGNS: Temperature 97.4; however early in the morning, temperature was 101.4, currently 97.4. Heart rate 129, blood pressure 116/60. Patient's pO2 is 50 on 2 liters nasal cannula. ENT: Head and neck atraumatic. LUNGS: Few crackles bilaterally. HEART: Regular rate and rhythm. S1 and S2 normal. ABDOMEN: Soft, nontender, nondistended. MUSCULOSKELETAL: No C/C/E. NEUROLOGIC: Patient moves all extremities spontaneously. SKIN: Moist. PSYCHIATRIC: Patient is tachypneic, in mild respiratory distress, able to protect airways. LABORATORY DATA: Sodium 137; potassium 3.3, on ABG 2.9; chloride 110, carbon dioxide 17, BUN 5, creatinine 0.4, glucose 81, AST 58, ALT 31, total bilirubin 1.9. Procalcitonin 0.21. ABG showed 7.41/23/50 on 32% FiO2, O2 sat 90%. Chest x-ray showed bilateral fluffy infiltrates consistent with bilateral pulmonary edema or bilateral pneumonia. EKG showed sinus tachycardia without specific signs of ischemia. MEDICATIONS: DuoNeb every 6, Prozac, levofloxacin, Ativan p.r.n., meropenem, metoprolol, Tamiflu, potassium supplementation, normal saline was stopped, vancomycin. ASSESSMENT AND PLAN: This is a 56-old-lady with hypoxemic respiratory failure in the setting of progression of bilateral fluffy infiltrates. At present time, differential diagnoses include infectious and noninfectious etiology. Blood culture from yesterday is negative. We will send urine for Legionella and Streptococcal antigen. Procalcitonin was negative. We will send serology for rapid influenza test as well as confirmatory test. Tamiflu started empirically If patient gets intubated, we will also send endotracheal aspirate for microanalysis. Patient is on meropenem and vancomycin. I would avoid linezolid out of concern for [id number] interaction with Prozac. I would give patient Lasix when potassium is sufficiently supplemented. I would maintain negative fluid balance and conservative oxygen management. I will order echocardiogram and we will trend troponin. The echocardiogram 2 years ago revealed normal left ventricular systolic function. I will proceed with high-flow oxygen to titrate for O2 sat more than 93. Infectious Disease service is following the patient as well. At present time, patient will be n.p.o. and on gastrointestinal as well as deep venous thrombosis prophylaxis. Significant chest imaging findings are most likely the reason for the patient's clinical and respiratory deterioration. I have low suspicion for venous thromboembolism and we will continue with heparin subcutaneous for deep venous thrombosis prophylaxis. Addendum: patient quickly deteriorated and had to be intubated: protective lung ventilation started, HOB>35, oral hygiene, sputum culture, conservative 02 and fluid management, higher PEEP, ABG in 1 hour, permissive hypercapnia, daily sedation vacation starting tomorrow, echo pending, ccm time 40 min Cezar Ambrosio MD MTDWes
[2017-08-31] MEDS: Meropenem IV 1 gm in NS 50 ML IVPB SCH ×3 (06:02→21:21)
[2017-08-31 06:13] LABS: ARTERIAL BLOOD GAS HCO3 14.1 mmol/L (21-28); ARTERIAL BLOOD GAS O2 SAT 100.6 % (95-98); ARTERIAL BLOOD GAS PCO2 25 mm/Hg (35-45); ARTERIAL BLOOD GAS PH 7.36 (7.35-7.45); ARTERIAL BLOOD GAS TCO2 14.9 mmol.L (22-28)
[2017-08-31] MEDS ORDERED: Lactated Ringer's 1,000 ML IV SCH (07:45)
[2017-08-31] MEDS: Albuterol-Ipratrop 3 mg / 0.5 (3 ml) UD IH SCH ×2 (07:48→13:27)
--- NOTE | 2017-08-31 07:52 | CON ---
DATE: 08/30/2017 LOCATION: The patient was seen earlier this morning in room 275, bed 1. CHIEF COMPLAINT Fevers, shortness of breath times several days. HISTORY OF PRESENT ILLNESS: This is a 56-year-old female, assisted patient who is an alcohol abuser, opioid dependent, history of cervical spondylosis surgery, alcoholic hepatitis, smoker, hepatitis C, depression, anxiety and arthritis, who is admitted with bilateral pneumonia and Infectious Disease consultation requested for antibiotics. Patient has fevers. She is short of breath. She appears relieved. She states she did have diarrhea earlier and no abdominal pain. Patient has no dysuria or frequency. No headaches or blurred vision. REVIEW OF SYSTEMS: Reveals no rash, no joint pain. There is shortness of breath. There is cough. There is diarrhea, but no abdominal pain. No bright red blood per rectum. No melena. No headaches. No new neck pain. No new joint pain. PAST MEDICAL HISTORY: Significant for hepatitis C and alcoholic hepatitis, opioid dependence, alcohol dependence, depression, anxiety and arthritis. PAST SURGICAL HISTORY: Significant for discectomy and back surgery. ALLERGIES: PATIENT HAS NO KNOWN ALLERGIES. MEDICATIONS: Medications at the assisted included prednisone, fluoxetine or antidepressants and peroxide. PHYSICAL EXAMINATION: GENERAL: Patient appeared to have mild shortness of breath. VITAL SIGNS: Temperature of 101.4, respiratory rate of 20, heart rate of 129, blood pressure is 105/70. HEENT: Unremarkable. NECK: Supple. LUNGS: With bronchial sounds bilaterally. HEART: Normal S1, S2. ABDOMEN: Soft, nontender. No organomegaly. No rebound or guarding. No masses. LABORATORY EXAMINATION: Reveals a white count of 19,000, hemoglobin of 10, platelets of 321. Patient has 89% granulocytosis. Coagulation is noted. Chemistries reveal a BUN of 5, creatinine of 0.5, procalcitonin 0.21. Urinalysis is unremarkable. Microbiology reveals the blood cultures are reported to be negative at 24 hours. Chest x-ray shows infiltrates. ASSESSMENT AND PLAN: This is a 56-year-old female, assisted patient, with alcohol abuse and opioid dependence, cervical spondylosis surgery in the past, alcoholic hepatitis, smoker, hepatitis C, depression, anxiety and arthritis, presenting with sepsis with healthcare-associated and with a normal procalcitonin, negative blood cultures. We will treat the patient with vancomycin, meropenem and Levaquin. We will check on the final culture, urine culture, blood cultures, sputum culture, stool for Clostridium difficile and urine for Legionella antigen. Influenza serology is pending and also patient is being treated with Tamiflu and we will make further recommendations upon availability of initial results. We will follow closely with you. Oli Ken MD
[2017-08-31] MEDS: Metoprolol Succinate 25 mg XL Tab PO SCH (07:54)
[2017-08-31] MEDS: Vancomycin 1gm in NS 250ml 1 GM/250 ML BAG IVPB SCH ×2 (08:03→20:09)
--- NOTE | 2017-08-31 08:22 | CP.PCM.PN ---
Subjective - Date & Time of Evaluation Date of Evaluation: 08/31/17 Time of Evaluation: 07:45 - Subjective Subjective: Patient is seen this morning in CCU bed 4. Last night, she had an argument with her ex- and then developed shortness of breath. She was given one dose of Ativan, but did not calm down. ABG showed PO2 of 50 and CXR shows worsening pneumonia. Patient was transferred to CCU and intubated. This morning, she is on the ventilator. She is awake with eyes open. Objective - Vital Signs/Intake and Output Vital Signs (last 24 hours): Temp Pulse Resp BP Pulse Ox 97.5 F L 97 H 41 H 94/53 L 100 08/31/17 00:01 08/31/17 07:54 08/31/17 04:40 08/31/17 07:54 08/31/17 05:10 Intake and Output: 08/31/17 08/31/17 06:59 18:59 Intake Total 2412 Output Total 0 Balance 2412 - Medications Medications: Current Medications Albuterol/Ipratropium (Duoneb 3 Mg/0.5 Mg (3 Ml) Ud) 3 ml IH [id number] [facility] PRN Reason: Protocol Last Admin: 08/31/17 07:48 Dose: 3 ml Fluoxetine HCl (Prozac) 40 mg PO DAILY [facility] Last Admin: 08/30/17 15:44 Dose: 40 mg Heparin Sodium (Porcine) (Heparin) 5,000 units SC Q8 [facility] PRN Reason: Protocol Last Admin: 08/31/17 06:02 Dose: 5,000 units Meropenem (Merrem Iv 1 Gm Premix) 50 mls @ 100 mls/hr IVPB Q8 [facility] PRN Reason: Protocol Stop: 09/08/17 14:01 Last Admin: 08/31/17 06:02 Dose: 100 mls/hr Vancomycin HCl (Vancomycin 1gm) 1 gm in 250 mls @ 167 mls/hr IVPB Q12H [facility] PRN Reason: Protocol Stop: 09/08/17 07:16 Last Admin: 08/30/17 20:00 Dose: 167 mls/hr Propofol (Diprivan) 1,000 mg in 100 mls @ 1.987 mls/hr IV .Q24H PRN; Protocol; 5 MCG/KG/MIN PRN Reason: TITRATE PER MD ORDER Last Titration: 08/31/17 02:35 Dose: 20 mcg/kg/min, 7.947 mls/hr Acetaminophen (Ofirmev) 1,000 mg in 100 mls @ 400 mls/hr IVPB Q6H PRN PRN Reason: Temperature Stop: 09/01/17 20:20 Last Admin: 08/30/17 22:21 Dose: 400 mls/hr Lactated Ringer's (Lactated Ringer's) 1,000 mls @ 100 mls/hr IV .Q10H [facility] Levofloxacin/Dextrose (Levaquin 750mg) 750 mg IVPB DAILY [facility] PRN Reason: Protocol Stop: 09/08/17 10:01 Last Admin: 08/30/17 09:15 Dose: 750 mg Lorazepam (Ativan) 1 mg IVP ONCE PRN; Protocol PRN Reason: Anxiety Last Admin: 08/30/17 21:13 Dose: 1 mg Metoprolol Succinate (Toprol Xl) 12.5 mg PO BRK [facility] Last Admin: 08/31/17 07:54 Dose: Not Given Midazolam HCl (Versed Inj) 2 mg IVP Q2H PRN PRN Reason: Agitation Last Admin: 08/31/17 04:38 Dose: 2 mg Oseltamivir Phosphate (Tamiflu Susp) 75 mg PO BID [facility] PRN Reason: Protocol Last Admin: 08/30/17 23:44 Dose: 75 mg - Labs Labs: 08/30/17 18:30 08/30/17 18:30 PT 21.0 SECONDS (9.4-12.5) H 08/29/17 13:00 INR 1.80 (0.93-1.08) H 08/29/17 13:00 APTT 34.6 Seconds (25.1-36.5) 08/29/17 13:00 - Constitutional Appears: No Acute Distress - Head Exam Head Exam: ATRAUMATIC, NORMOCEPHALIC - Respiratory Exam Additional comments: on ventilator - Cardiovascular Exam Cardiovascular Exam: +S1, +S2 - GI/Abdominal Exam GI & Abdominal Exam: Soft, Normal Bowel Sounds - Neurological Exam Neurological Exam: Awake Assessment and Plan - Assessment and Plan (Free Text) Assessment: Ventilator dependent respiratory failure Multifocal pneumonia Influenza A HTN Tachycardia Alcoholic hepatitis Plan: Patient is seen this morning on ventilator, awake. CXR shows worsening pneumonia. She is currently on IV Vancomycin, Levaquin and Meropenem. She is also on Tamiflu for positive influenza A test. Patient with watery diarrhea according to the nurse. Awaiting for stool for C. diff. Patient's heart rate tachycardic in the 130s last night, now in the 90s. We will consult cardiology, Dr. Jennings to evaluated the patient.
[2017-08-31 08:23] LABS: BASO # 0.02 K/mm3 (0.0-2.0); BASO % 0.1 % (0.0-3.0); EOS # 0.1 (0.0-0.7); EOS % 0.4 % (1.5-5.0); GRAN # 17.83 (1.4-6.5); GRAN % 88.5 % (50.0-68.0); HEMOGLOBIN 11.6 g/dL (12.0-16.0); LYMPH # 1.3 (1.2-3.4); LYMPH % 6.4 % (22.0-35.0); MEAN CELL VOLUME 101.8 fl (80.0-105.0); MEAN CORPUSCULAR HEMOGLOBIN 33.9 pg (25.0-35.0); MEAN CORPUSCULAR HGB CONC 33.3 g/dl (31.0-37.0); MEAN PLATELET VOLUME 10.2 fl (7.0-11.0); MONO # 0.9 (0.1-0.6); MONO % 4.6 % (1.0-6.0); RBC 3.42 10^6/uL (3.5-6.1); RED CELL DISTRIBUTION WIDTH 13.8 % (11.5-14.5); WHITE BLOOD COUNT 20.2 10^3/ul (4.5-11.0)
--- NOTE | 2017-08-31 08:27 | PN ---
DATE: 08/31/2017(700am-750am) PULMONARY NOTE SUBJECTIVE: The patient is currently in the ICU and on the ventilator. She is currently sedated. PHYSICAL EXAMINATION: VITAL SIGNS: Temperature is 97.5, pulse 92, respirations 20/20, last blood pressure recorded 87/44. Oxygen saturation on the ventilator is 100%. HEENT: Normocephalic, atraumatic. No JVD. CARDIOVASCULAR: Positive S1, S2. No S3 gallop. LUNGS: Crackles at both bases. Less rhonchi. No wheezing. EXTREMITIES: No clubbing, cyanosis or edema. GI: Abdomen is soft, nondistended. Bowel sounds are positive. SKIN: No acute rash. NEUROLOGIC: Limited at the present time. PERTINENT LABORATORY DATA: Chest x-ray was done this morning and reviewed. There are increasing/extensive infiltrates bilaterally. Arterial blood gas was done on PRVC 20, tidal volume 350, FIO2 of 60%, PEEP of 10. Results are: PH 7.31, pCO2 of 29, pO2 of 127. This arterial blood gas was done last night. The repeat arterial blood gas is pending this morning. Serologies are positive for influenza A. IMPRESSION: 1. Respiratory failure. 2. Bilateral pneumonia. 3. Haemophilus influenza A positivity. Rule out influenza pneumonia. 4. Sepsis syndrome. 5. Alcoholic hepatitis. 6. Anemia. PLAN: The patient is currently in the ICU and intubated. She is currently sedated. I did discuss the case with the night nurse at length. Apparently, late yesterday afternoon, the patient started to experience worsening shortness of breath. Arterial blood gas was then done, which revealed severe hypoxemia. The patient was then transferred to the medical ICU. I did review the note by Dr. Ambrosio (genetic coordinator). Unfortunately, the patient's respiratory status continued to worsen, and she was intubated for airway protection and ventilation. I did review the chest x-ray as above. There are increasing/significant infiltrates bilaterally. I have also reviewed the laboratory data. Serologies are positive for influenza A. Given the negative procalcitonin, I do question whether this patient has influenza pneumonia. Antibiotic coverage will be as per Dr. Ken (Infectious Disease). The patient is currently on multiple antibiotics. I have also reviewed the arterial blood gas. A metabolic acidosis, with an increase in the alveolar-arterial gradient is noted. The patient is critically ill at this point in time. I did discuss the case with the respiratory therapist at length. A deep tracheal aspirate will be obtained this morning and send for multiple studies. I will discuss the above with the entire ICU team in the next few moments. I will also discuss the above with Dr. Cruz later this morning. Kit Powell MD MTDD
--- NOTE | 2017-08-31 08:29 | RAD ---
HISTORY: S/P intubation COMPARISON: 08/30/2017 FINDINGS: The endotracheal tube terminates in the right mainstem bronchus. LUNGS: There is redemonstration of extensive confluent airspace disease both lungs worse on the left. PLEURA: No significant pleural effusion identified, no pneumothorax apparent. CARDIOVASCULAR: Normal. OSSEOUS STRUCTURES: No significant abnormalities. VISUALIZED UPPER ABDOMEN: Normal. OTHER FINDINGS: None. IMPRESSION: The endotracheal tube terminates in the right mainstem bronchus. Repositioning is recommended. No significant interval change in extensive confluent airspace disease presumable multifocal pneumonia in both lungs, worse on the left.
[2017-08-31] MEDS: Fentanyl 1000mcg/100ml NS 1,000 MCG/100 ML BAG IV PRN ×2 (08:39→16:09)
[2017-08-31 09:01] LABS: ALB/GLOB RATIO 0.9 (1.1-1.8); ALBUMIN 2.4 g/dL (3.0-4.8); ALT/SGPT 36 U/L (7-56); AST/SGOT 59 U/L (14-36); BLOOD UREA NITROGEN 6 mg/dL (7-21); CALCIUM 7.8 mg/dL (8.4-10.5); GFR AFRICAN-AMERICAN > 60; GFR NON-AFRICAN AMERICAN > 60
--- NOTE | 2017-08-31 09:08 | RAD ---
HISTORY: ETT reevaluate COMPARISON: 08/30/2017. FINDINGS: The endotracheal tube terminates in the mid trachea. LUNGS: There is worsening extensive confluent airspace disease in both lungs, worse on the left. PLEURA: No significant pleural effusion identified, no pneumothorax apparent. CARDIOVASCULAR: Normal. OSSEOUS STRUCTURES: No significant abnormalities. VISUALIZED UPPER ABDOMEN: Normal. OTHER FINDINGS: None. IMPRESSION: Endotracheal tube terminates in the mid trachea. Worsening presumable extensive multifocal pneumonia, worse on the left.
[2017-08-31] MEDS: levoFLOXacin 750 mg in D5W 150 ML BAG IVPB SCH (09:12)
--- NOTE | 2017-08-31 09:14 | RAD ---
HISTORY: pneumonia COMPARISON: 08/30/2017 FINDINGS: Endotracheal tube is high in position and terminates 7 cm proximal to the rakesh. The nasogastric tube no significant and terminates in the stomach. No significant interval change in extensive confluent airspace disease in both lungs, worse on the left PLEURA: No significant pleural effusion identified, no pneumothorax apparent. CARDIOVASCULAR: Normal. OSSEOUS STRUCTURES: No significant abnormalities. VISUALIZED UPPER ABDOMEN: Normal. OTHER FINDINGS: None. IMPRESSION: Endotracheal tube is high in position and terminates 7 cm proximal to the rakesh. The nasogastric tube terminates in the stomach. No change in presumable extensive multifocal pneumonia, worse on the left.
[2017-08-31] MEDS: Midazolam 2 MG/2 ML VIAL IVP PRN ×3 (09:20→20:36)
--- NOTE | 2017-08-31 09:29 | CP.CCUPN ---
<Sushant Molina - Last Filed: 08/31/17 12:53> CCU Subjective - Physician Review Subjective (Free Text): 08/31/17 12:53 Patient seen and examined at bedside with brother and ex . Patient is currently intubated and on sedation. Is however able responsive. CCU Objective - Vital Signs / Intake & Output Vital Signs (Last 4 hours): Vital Signs Pulse BP 08/31/17 07:54 97 H 94/53 L Intake and Output (Last 8hrs): Intake & Output 08/30/17 08/31/17 08/31/17 22:59 06:59 14:59 Intake Total 700 2372 52 Output Total 450 0 Balance 250 2372 52 Intake: IV 40 2372 52 Right Forearm 2272 Oral 660 Output: Urine 450 0 Urine, Voided 450 0 Other: # Bowel Movements 2 1 - Physical Exam Head: Positive for: Atraumatic, Normocephalic Pupils: Positive for: PERRL, Other (no nystagmus, no photophobia, sclera anicteric) Extroacular Muscles: Positive for: EOMI Conjunctiva: Positive for: Normal Ears: Positive for: Normal Mouth: Positive for: Dry, Normal Teeth, Other (uvula/tongue are midline, no exudate/lesions, no drooling/stridor) Pharnyx: Positive for: Normal Nose (External): Positive for: Atraumatic Nose (Internal): Positive for: Normal Inspection Neck: Positive for: Normal Range of Motion, Trachea Midline, Other (no step off , no nuchal rigidity, no meningeal signs). Negative for: Meningeal Signs, MIDLINE TENDERNESS Respiratory/Chest: Positive for: Rhonchi (upper and lower lobes bilaterally, significantly in upper right lobe), Other (asymmetric breath sounds, right slightly decr compare with left; + coarse breath sounds, no wheezing/rales, faint rales noted b/l, no accessory muscle use noted, no tachypenia). Negative for: Clear to Auscultation, Respiratory Distress, Accessory Muscle Use, Wheezes , Rales Cardiovascular: Positive for: Normal S1, S2, Tachycardic. Negative for: Murmurs Abdomen: Positive for: Normal Bowel Sounds, Other (well nourished female, no focal tenderness, no masses/rebound/guarding/rigidity, no matos's sign, no mcburney's point tenderness). Negative for: Tenderness, Feeding Tubes Back: Positive for: Normal Inspection. Negative for: CVA Tenderness, Midline Tenderness, Paraspinal Tenderness Upper Extremity: Positive for: Normal Inspection, Normal ROM, NORMAL PULSES, Neurovascularly Intact Lower Extremity: Positive for: Normal Inspection, NORMAL PULSES, Neurovascularly Intact. Negative for: Latonia's Sign Neurological: Positive for: GCS=15, CN II-XII Intact, Speech Normal Skin: Positive for: Warm, Dry, Other (cap refill ~ 1sec, no ulcerations, no petechiae, no gross pallor). Negative for: Rashes Psychiatric: Positive for: Alert - Medications Active Medications: Active Medications Generic Name Dose Route Start Last Admin Trade Name Freq PRN Reason Stop Dose Admin Albumin Human 12.5 gm 08/31/17 09:00 Albumin Human 25% (12.5 Gm/50 Ml) IV Q2H NORMA Albuterol/Ipratropium 3 ml 08/29/17 20:00 08/31/17 07:48 Duoneb 3 Mg/0.5 Mg (3 Ml) Ud IH 3 ml [id number] NORMA Administration Protocol Fluoxetine HCl 40 mg 08/30/17 10:00 08/30/17 15:44 Prozac PO 40 mg DAILY NORMA Administration Heparin Sodium (Porcine) 5,000 units 08/30/17 22:00 08/31/17 06:02 Heparin SC 5,000 units Q8 NORMA Administration Protocol Meropenem 50 mls @ 100 mls/hr 08/30/17 14:00 08/31/17 06:02 Merrem Iv 1 Gm Premix IVPB 09/08/17 14:01 100 mls/hr Q8 NORMA Administration Protocol Vancomycin HCl 1 gm in 250 mls @ 167 mls/hr 08/30/17 07:15 08/31/17 08:03 Vancomycin 1gm IVPB 09/08/17 07:16 167 mls/hr Q12H NORMA Administration Protocol Propofol 1,000 mg in 100 mls @ 1.987 mls/hr 08/30/17 19:47 08/31/17 08:47 Diprivan IV 0 mcg/kg/min .Q24H PRN 0 mls/hr TITRATE PER MD ORDER Titration Protocol 5 MCG/KG/MIN Acetaminophen 1,000 mg in 100 mls @ 400 mls/hr 08/30/17 20:19 08/30/17 22:21 Ofirmev IVPB 09/01/17 20:20 400 mls/hr Q6H PRN Administration Temperature Lactated Ringer's 1,000 mls @ 100 mls/hr 08/31/17 07:45 08/31/17 09:02 Lactated Ringer's IV Not Given .Q10H NORMA Fentanyl Citrate 1,000 mcg in 100 mls @ 7.5 mls/hr 08/31/17 08:32 08/31/17 08 :39 Fentanyl Citrate/Sodium Chloride 1 Mg/100 Ml IV 75 mcg/hr .[id number] PRN 7.5 mls/hr TITRATE PER MD ORDER Administration Protocol 75 MCG/HR Potassium Chloride 20 meq in 100 mls @ 50 mls/hr 08/31/17 09:00 Potassium Chloride 20 Meq/100 Ml IVPB 08/31/17 12:59 Q2H NOMRA Levofloxacin/Dextrose 750 mg 08/30/17 10:00 08/31/17 09:12 Levaquin 750mg IVPB 09/08/17 10:01 750 mg DAILY NORMA Administration Protocol Lorazepam 1 mg 08/30/17 20:59 08/30/17 21:13 Ativan IVP 1 mg ONCE PRN Administration Anxiety Protocol Metoprolol Succinate 12.5 mg 08/30/17 08:00 08/31/17 07:54 Toprol Xl PO Not Given BRK NORMA Midazolam HCl 4 mg 08/31/17 08:31 Versed Inj IVP Q2H PRN Agitation Oseltamivir Phosphate 75 mg 08/30/17 23:15 08/30/17 23:44 Tamiflu Susp PO 75 mg BID NORMA Administration Protocol - Patient Studies Lab Studies: Lab Studies 08/31/17 08/31/17 08/31/17 Range/Units 08:00 08:00 06:00 WBC 20.2 H (4.5-11.0) 10^3/ul RBC 3.42 L (3.5-6.1) 10^6/uL Hgb 11.6 L (12.0-16.0) g/dL Hct 34.8 L (36.0-48.0) % MCV 101.8 (80.0-105.0) fl MCH 33.9 (25.0-35.0) pg MCHC 33.3 (31.0-37.0) g/dl RDW 13.8 (11.5-14.5) % Plt Count 270 (120.0-450.0) 10^3/uL MPV 10.2 (7.0-11.0) fl Gran % 88.5 H (50.0-68.0) % Lymph % (Auto) 6.4 L (22.0-35.0) % [place] % (Auto) 4.6 (1.0-6.0) % Eos % (Auto) 0.4 L (1.5-5.0) % Baso % (Auto) 0.1 (0.0-3.0) % Gran # 17.83 H (1.4-6.5) Lymph # (Auto) 1.3 (1.2-3.4) [place] # (Auto) 0.9 H (0.1-0.6) Eos # (Auto) 0.1 (0.0-0.7) Baso # (Auto) 0.02 (0.0-2.0) K/mm3 pCO2 25 L (35-45) mm/Hg pO2 199.0 H (80-100) mm/Hg HCO3 14.1 L (21-28) mmol/L ABG pH 7.36 (7.35-7.45) ABG Total CO2 14.9 L (22-28) mmol.L ABG O2 Saturation 100.6 H (95-98) % ABG O2 Content (15-23) ML/dl ABG Base Excess -9.5 L (-2.0-3.0) mmol/L ABG Hemoglobin (11.7-17.4) g/dL ABG Carboxyhemoglobin (0.5-1.5) % POC ABG HHb (Measured) (0-5) % ABG Methemoglobin (0.0-3.0) % ABG O2 Capacity (16-24) mL/dl ABG Potassium 3.5 L (3.6-5.2) mmol/L VBG pH (7.32-7.43) VBG pCO2 (40-60) VBG HCO3 (21-28) mmol/l VBG Total CO2 (22-28) mmol.L VBG O2 Sat (Calc) (40-65) % VBG Base Excess (0.0-2.0) mmol/L VBG Potassium (3.6-5.2) mmol/L Hgb O2 Saturation (95.0-98.0) % Sodium 136 134.0 (132-148) mmol/L Chloride 114 H 110.0 H (98-107) mmol/L Glucose 86 (65-105) mg/dl Lactate 1.3 (0.7-2.1) mmol/L FiO2 60.0 % Potassium 3.9 (3.6-5.0) mmol/L Carbon Dioxide 15 L (21-33) mmol/L Anion Gap 11 (10-20) BUN 6 L (7-21) mg/dL Creatinine 0.5 L (0.7-1.2) mg/dl Est GFR ( Amer) > 60 Est GFR (Non-Af Amer) > 60 POC Glucose (mg/dL) (65-110) mg/dL Random Glucose 77 (70-110) mg/dL Calcium 7.8 L (8.4-10.5) mg/dL Phosphorus 4.0 (2.5-4.5) mg/dL Magnesium 1.7 (1.7-2.2) mg/dL Total Bilirubin 2.0 H (0.2-1.3) mg/dL AST 59 H (14-36) U/L ALT 36 (7-56) U/L Alkaline Phosphatase 96 (38-126) U/L Lactate Dehydrogenase (333-699) U/L Total Creatine Kinase (35-230) U/L Troponin I ng/mL NT-Pro-B Natriuret Pep (0-450) pg/mL Total Protein 5.3 L (5.8-8.3) g/dL Albumin 2.4 L (3.0-4.8) g/dL Globulin 2.8 gm/dL Albumin/Globulin Ratio 0.9 L (1.1-1.8) Procalcitonin (0.19-0.49) NG/ML Arterial Blood Potassium 3.5 L (3.6-5.2) mmol/L Venous Blood Potassium (3.6-5.2) mmol/L Influenza Typ A,B (EIA) (NEGATIVE) 08/30/17 08/30/17 08/30/17 Range/Units 21:23 21:21 20:55 WBC (4.5-11.0) 10^3/ul RBC (3.5-6.1) 10^6/uL Hgb (12.0-16.0) g/dL Hct (36.0-48.0) % MCV (80.0-105.0) fl MCH (25.0-35.0) pg MCHC (31.0-37.0) g/dl RDW (11.5-14.5) % Plt Count (120.0-450.0) 10^3/uL MPV (7.0-11.0) fl Gran % (50.0-68.0) % Lymph % (Auto) (22.0-35.0) % [place] % (Auto) (1.0-6.0) % Eos % (Auto) (1.5-5.0) % Baso % (Auto) (0.0-3.0) % Gran # (1.4-6.5) Lymph # (Auto) (1.2-3.4) [place] # (Auto) (0.1-0.6) Eos # (Auto) (0.0-0.7) Baso # (Auto) (0.0-2.0) K/mm3 pCO2 29 L (35-45) mm/Hg pO2 77 H 127.0 H (80-100) mm/Hg HCO3 14.6 L (21-28) mmol/L ABG pH 7.31 L (7.35-7.45) ABG Total CO2 15.5 L (22-28) mmol.L ABG O2 Saturation 100.4 H (95-98) % ABG O2 Content 14.3 L (15-23) ML/dl ABG Base Excess -10.5 L (-2.0-3.0) mmol/L ABG Hemoglobin 10.3 L (11.7-17.4) g/dL ABG Carboxyhemoglobin 2.0 H (0.5-1.5) % POC ABG HHb (Measured) -0.4 L (0-5) % ABG Methemoglobin 1.4 (0.0-3.0) % ABG O2 Capacity 14.2 L (16-24) mL/dl ABG Potassium (3.6-5.2) mmol/L VBG pH 7.34 (7.32-7.43) VBG pCO2 29.0 L (40-60) VBG HCO3 15.6 L (21-28) mmol/l VBG Total CO2 16.5 L (22-28) mmol.L VBG O2 Sat (Calc) 97.4 H (40-65) % VBG Base Excess -8.8 L (0.0-2.0) mmol/L VBG Potassium 3.2 L (3.6-5.2) mmol/L Hgb O2 Saturation 96.9 (95.0-98.0) % Sodium 135.0 (132-148) mmol/L Chloride 110.0 H (98-107) mmol/L Glucose 88 (65-105) mg/dl Lactate 1.8 (0.7-2.1) mmol/L FiO2 21.0 60.0 % Potassium (3.6-5.0) mmol/L Carbon Dioxide (21-33) mmol/L Anion Gap (10-20) BUN (7-21) mg/dL Creatinine (0.7-1.2) mg/dl Est GFR ( Amer) Est GFR (Non-Af Amer) POC Glucose (mg/dL) (65-110) mg/dL Random Glucose (70-110) mg/dL Calcium (8.4-10.5) mg/dL Phosphorus (2.5-4.5) mg/dL Magnesium (1.7-2.2) mg/dL Total Bilirubin (0.2-1.3) mg/dL AST (14-36) U/L ALT (7-56) U/L Alkaline Phosphatase (38-126) U/L Lactate Dehydrogenase (333-699) U/L Total Creatine Kinase (35-230) U/L Troponin I ng/mL NT-Pro-B Natriuret Pep (0-450) pg/mL Total Protein (5.8-8.3) g/dL Albumin (3.0-4.8) g/dL Globulin gm/dL Albumin/Globulin Ratio (1.1-1.8) Procalcitonin (0.19-0.49) NG/ML Arterial Blood Potassium (3.6-5.2) mmol/L Venous Blood Potassium 3.2 L (3.6-5.2) mmol/L Influenza Typ A,B (EIA) Pos for influenza a H (NEGATIVE) 08/30/17 08/30/17 08/30/17 Range/Units 18:30 18:30 17:25 WBC 21.4 H (4.5-11.0) 10^3/ul RBC 3.16 L (3.5-6.1) 10^6/uL Hgb 10.8 L (12.0-16.0) g/dL Hct 32.2 L (36.0-48.0) % MCV 101.9 (80.0-105.0) fl MCH 34.2 (25.0-35.0) pg MCHC 33.5 (31.0-37.0) g/dl RDW 13.6 (11.5-14.5) % Plt Count 334 (120.0-450.0) 10^3/uL MPV 9.8 (7.0-11.0) fl Gran % 91.6 H (50.0-68.0) % Lymph % (Auto) 2.9 L (22.0-35.0) % [place] % (Auto) 5.2 (1.0-6.0) % Eos % (Auto) 0.2 L (1.5-5.0) % Baso % (Auto) 0.1 (0.0-3.0) % Gran # 19.60 H (1.4-6.5) Lymph # (Auto) 0.6 L (1.2-3.4) [place] # (Auto) 1.1 H (0.1-0.6) Eos # (Auto) 0.0 (0.0-0.7) Baso # (Auto) 0.02 (0.0-2.0) K/mm3 pCO2 23 L (35-45) mm/Hg pO2 50.0 L (80-100) mm/Hg HCO3 14.6 L (21-28) mmol/L ABG pH 7.41 (7.35-7.45) ABG Total CO2 15.3 L (22-28) mmol.L ABG O2 Saturation 90.3 L (95-98) % ABG O2 Content (15-23) ML/dl ABG Base Excess -8.0 L (-2.0-3.0) mmol/L ABG Hemoglobin (11.7-17.4) g/dL ABG Carboxyhemoglobin (0.5-1.5) % POC ABG HHb (Measured) (0-5) % ABG Methemoglobin (0.0-3.0) % ABG O2 Capacity (16-24) mL/dl ABG Potassium 2.9 L (3.6-5.2) mmol/L VBG pH (7.32-7.43) VBG pCO2 (40-60) VBG HCO3 (21-28) mmol/l VBG Total CO2 (22-28) mmol.L VBG O2 Sat (Calc) (40-65) % VBG Base Excess (0.0-2.0) mmol/L VBG Potassium (3.6-5.2) mmol/L Hgb O2 Saturation (95.0-98.0) % Sodium 135 136.0 (132-148) mmol/L Chloride 108 H 111.0 H (98-107) mmol/L Glucose 90 (65-105) mg/dl Lactate 2.6 H (0.7-2.1) mmol/L FiO2 32.0 % Potassium 3.4 L (3.6-5.0) mmol/L Carbon Dioxide 19 L (21-33) mmol/L Anion Gap 12 (10-20) BUN 5 L (7-21) mg/dL Creatinine 0.5 L (0.7-1.2) mg/dl Est GFR ( Amer) > 60 Est GFR (Non-Af Amer) > 60 POC Glucose (mg/dL) (65-110) mg/dL Random Glucose 87 (70-110) mg/dL Calcium 8.1 L (8.4-10.5) mg/dL Phosphorus 3.5 (2.5-4.5) mg/dL Magnesium 1.6 L (1.7-2.2) mg/dL Total Bilirubin 2.1 H (0.2-1.3) mg/dL AST 59 H (14-36) U/L ALT 39 (7-56) U/L Alkaline Phosphatase 110 (38-126) U/L Lactate Dehydrogenase 557 (333-699) U/L Total Creatine Kinase < 20 L (35-230) U/L Troponin I < 0.01 ng/mL NT-Pro-B Natriuret Pep 910 H (0-450) pg/mL Total Protein 5.7 L (5.8-8.3) g/dL Albumin 2.7 L (3.0-4.8) g/dL Globulin 3.0 gm/dL Albumin/Globulin Ratio 0.9 L (1.1-1.8) Procalcitonin (0.19-0.49) NG/ML Arterial Blood Potassium 2.9 L (3.6-5.2) mmol/L Venous Blood Potassium (3.6-5.2) mmol/L Influenza Typ A,B (EIA) (NEGATIVE) 08/30/17 08/30/17 08/30/17 Range/Units 16:32 11:36 07:35 WBC (4.5-11.0) 10^3/ul RBC (3.5-6.1) 10^6/uL Hgb (12.0-16.0) g/dL Hct (36.0-48.0) % MCV (80.0-105.0) fl MCH (25.0-35.0) pg MCHC (31.0-37.0) g/dl RDW (11.5-14.5) % Plt Count (120.0-450.0) 10^3/uL MPV (7.0-11.0) fl Gran % (50.0-68.0) % Lymph % (Auto) (22.0-35.0) % [place] % (Auto) (1.0-6.0) % Eos % (Auto) (1.5-5.0) % Baso % (Auto) (0.0-3.0) % Gran # (1.4-6.5) Lymph # (Auto) (1.2-3.4) [place] # (Auto) (0.1-0.6) Eos # (Auto) (0.0-0.7) Baso # (Auto) (0.0-2.0) K/mm3 pCO2 (35-45) mm/Hg pO2 (80-100) mm/Hg HCO3 (21-28) mmol/L ABG pH (7.35-7.45) ABG Total CO2 (22-28) mmol.L ABG O2 Saturation (95-98) % ABG O2 Content (15-23) ML/dl ABG Base Excess (-2.0-3.0) mmol/L ABG Hemoglobin (11.7-17.4) g/dL ABG Carboxyhemoglobin (0.5-1.5) % POC ABG HHb (Measured) (0-5) % ABG Methemoglobin (0.0-3.0) % ABG O2 Capacity (16-24) mL/dl ABG Potassium (3.6-5.2) mmol/L VBG pH (7.32-7.43) VBG pCO2 (40-60) VBG HCO3 (21-28) mmol/l VBG Total CO2 (22-28) mmol.L VBG O2 Sat (Calc) (40-65) % VBG Base Excess (0.0-2.0) mmol/L VBG Potassium (3.6-5.2) mmol/L Hgb O2 Saturation (95.0-98.0) % Sodium (132-148) mmol/L Chloride (98-107) mmol/L Glucose (65-105) mg/dl Lactate (0.7-2.1) mmol/L FiO2 % Potassium (3.6-5.0) mmol/L Carbon Dioxide (21-33) mmol/L Anion Gap (10-20) BUN (7-21) mg/dL Creatinine (0.7-1.2) mg/dl Est GFR ( Amer) Est GFR (Non-Af Amer) POC Glucose (mg/dL) 81 87 72 (65-110) mg/dL Random Glucose (70-110) mg/dL Calcium (8.4-10.5) mg/dL Phosphorus (2.5-4.5) mg/dL Magnesium (1.7-2.2) mg/dL Total Bilirubin (0.2-1.3) mg/dL AST (14-36) U/L ALT (7-56) U/L Alkaline Phosphatase (38-126) U/L Lactate Dehydrogenase (333-699) U/L Total Creatine Kinase (35-230) U/L Troponin I ng/mL NT-Pro-B Natriuret Pep (0-450) pg/mL Total Protein (5.8-8.3) g/dL Albumin (3.0-4.8) g/dL Globulin gm/dL Albumin/Globulin Ratio (1.1-1.8) Procalcitonin (0.19-0.49) NG/ML Arterial Blood Potassium (3.6-5.2) mmol/L Venous Blood Potassium (3.6-5.2) mmol/L Influenza Typ A,B (EIA) (NEGATIVE) 08/30/17 Range/Units 07:00 WBC (4.5-11.0) 10^3/ul RBC (3.5-6.1) 10^6/uL Hgb (12.0-16.0) g/dL Hct (36.0-48.0) % MCV (80.0-105.0) fl MCH (25.0-35.0) pg MCHC (31.0-37.0) g/dl RDW (11.5-14.5) % Plt Count (120.0-450.0) 10^3/uL MPV (7.0-11.0) fl Gran % (50.0-68.0) % Lymph % (Auto) (22.0-35.0) % [place] % (Auto) (1.0-6.0) % Eos % (Auto) (1.5-5.0) % Baso % (Auto) (0.0-3.0) % Gran # (1.4-6.5) Lymph # (Auto) (1.2-3.4) [place] # (Auto) (0.1-0.6) Eos # (Auto) (0.0-0.7) Baso # (Auto) (0.0-2.0) K/mm3 pCO2 (35-45) mm/Hg pO2 (80-100) mm/Hg HCO3 (21-28) mmol/L ABG pH (7.35-7.45) ABG Total CO2 (22-28) mmol.L ABG O2 Saturation (95-98) % ABG O2 Content (15-23) ML/dl ABG Base Excess (-2.0-3.0) mmol/L ABG Hemoglobin (11.7-17.4) g/dL ABG Carboxyhemoglobin (0.5-1.5) % POC ABG HHb (Measured) (0-5) % ABG Methemoglobin (0.0-3.0) % ABG O2 Capacity (16-24) mL/dl ABG Potassium (3.6-5.2) mmol/L VBG pH (7.32-7.43) VBG pCO2 (40-60) VBG HCO3 (21-28) mmol/l VBG Total CO2 (22-28) mmol.L VBG O2 Sat (Calc) (40-65) % VBG Base Excess (0.0-2.0) mmol/L VBG Potassium (3.6-5.2) mmol/L Hgb O2 Saturation (95.0-98.0) % Sodium (132-148) mmol/L Chloride (98-107) mmol/L Glucose (65-105) mg/dl Lactate (0.7-2.1) mmol/L FiO2 % Potassium (3.6-5.0) mmol/L Carbon Dioxide (21-33) mmol/L Anion Gap (10-20) BUN (7-21) mg/dL Creatinine (0.7-1.2) mg/dl Est GFR ( Amer) Est GFR (Non-Af Amer) POC Glucose (mg/dL) (65-110) mg/dL Random Glucose (70-110) mg/dL Calcium (8.4-10.5) mg/dL Phosphorus (2.5-4.5) mg/dL Magnesium (1.7-2.2) mg/dL Total Bilirubin (0.2-1.3) mg/dL AST (14-36) U/L ALT (7-56) U/L Alkaline Phosphatase (38-126) U/L Lactate Dehydrogenase (333-699) U/L Total Creatine Kinase (35-230) U/L Troponin I ng/mL NT-Pro-B Natriuret Pep (0-450) pg/mL Total Protein (5.8-8.3) g/dL Albumin (3.0-4.8) g/dL Globulin gm/dL Albumin/Globulin Ratio (1.1-1.8) Procalcitonin 0.21 (0.19-0.49) NG/ML Arterial Blood Potassium (3.6-5.2) mmol/L Venous Blood Potassium (3.6-5.2) mmol/L Influenza Typ A,B (EIA) (NEGATIVE) Laboratory Results - last 24 hr 08/30/17 08/30/17 08/30/17 07:00 07:35 11:36 WBC RBC Hgb Hct MCV MCH MCHC RDW Plt Count MPV Gran % Lymph % (Auto) [place] % (Auto) Eos % (Auto) Baso % (Auto) Gran # Lymph # (Auto) [place] # (Auto) Eos # (Auto) Baso # (Auto) pCO2 pO2 HCO3 ABG pH ABG Total CO2 ABG O2 Saturation ABG O2 Content ABG Base Excess ABG Hemoglobin ABG Carboxyhemoglobin POC ABG HHb (Measured) ABG Methemoglobin ABG O2 Capacity ABG Potassium VBG pH VBG pCO2 VBG HCO3 VBG Total CO2 VBG O2 Sat (Calc) VBG Base Excess VBG Potassium Hgb O2 Saturation Sodium Chloride Glucose Lactate FiO2 Potassium Carbon Dioxide Anion Gap BUN Creatinine Est GFR ( Amer) Est GFR (Non-Af Amer) POC Glucose (mg/dL) 72 87 Random Glucose Calcium Phosphorus Magnesium Total Bilirubin AST ALT Alkaline Phosphatase Lactate Dehydrogenase Total Creatine Kinase Troponin I NT-Pro-B Natriuret Pep Total Protein Albumin Globulin Albumin/Globulin Ratio Procalcitonin 0.21 Arterial Blood Potassium Venous Blood Potassium Influenza Typ A,B (EIA) 08/30/17 08/30/17 08/30/17 16:32 17:25 18:30 WBC 21.4 H RBC 3.16 L Hgb 10.8 L Hct 32.2 L MCV 101.9 MCH 34.2 MCHC 33.5 RDW 13.6 Plt Count 334 MPV 9.8 Gran % 91.6 H Lymph % (Auto) 2.9 L [place] % (Auto) 5.2 Eos % (Auto) 0.2 L Baso % (Auto) 0.1 Gran # 19.60 H Lymph # (Auto) 0.6 L [place] # (Auto) 1.1 H Eos # (Auto) 0.0 Baso # (Auto) 0.02 pCO2 23 L pO2 50.0 L HCO3 14.6 L ABG pH 7.41 ABG Total CO2 15.3 L ABG O2 Saturation 90.3 L ABG O2 Content ABG Base Excess -8.0 L ABG Hemoglobin ABG Carboxyhemoglobin POC ABG HHb (Measured) ABG Methemoglobin ABG O2 Capacity ABG Potassium 2.9 L VBG pH VBG pCO2 VBG HCO3 VBG Total CO2 VBG O2 Sat (Calc) VBG Base Excess VBG Potassium Hgb O2 Saturation Sodium 136.0 Chloride 111.0 H Glucose 90 Lactate 2.6 H FiO2 32.0 Potassium Carbon Dioxide Anion Gap BUN Creatinine Est GFR ( Amer) Est GFR (Non-Af Amer) POC Glucose (mg/dL) 81 Random Glucose Calcium Phosphorus Magnesium Total Bilirubin AST ALT Alkaline Phosphatase Lactate Dehydrogenase Total Creatine Kinase Troponin I NT-Pro-B Natriuret Pep Total Protein Albumin Globulin Albumin/Globulin Ratio Procalcitonin Arterial Blood Potassium 2.9 L Venous Blood Potassium Influenza Typ A,B (EIA) 08/30/17 08/30/17 08/30/17 18:30 20:55 21:21 WBC RBC Hgb Hct MCV MCH MCHC RDW Plt Count MPV Gran % Lymph % (Auto) [place] % (Auto) Eos % (Auto) Baso % (Auto) Gran # Lymph # (Auto) [place] # (Auto) Eos # (Auto) Baso # (Auto) pCO2 29 L pO2 127.0 H 77 H HCO3 14.6 L ABG pH 7.31 L ABG Total CO2 15.5 L ABG O2 Saturation 100.4 H ABG O2 Content 14.3 L ABG Base Excess -10.5 L ABG Hemoglobin 10.3 L ABG Carboxyhemoglobin 2.0 H POC ABG HHb (Measured) -0.4 L ABG Methemoglobin 1.4 ABG O2 Capacity 14.2 L ABG Potassium VBG pH 7.34 VBG pCO2 29.0 L VBG HCO3 15.6 L VBG Total CO2 16.5 L VBG O2 Sat (Calc) 97.4 H VBG Base Excess -8.8 L VBG Potassium 3.2 L Hgb O2 Saturation 96.9 Sodium 135 135.0 Chloride 108 H 110.0 H Glucose 88 Lactate 1.8 FiO2 60.0 21.0 Potassium 3.4 L Carbon Dioxide 19 L Anion Gap 12 BUN 5 L Creatinine 0.5 L Est GFR ( Amer) > 60 Est GFR (Non-Af Amer) > 60 POC Glucose (mg/dL) Random Glucose 87 Calcium 8.1 L Phosphorus 3.5 Magnesium 1.6 L Total Bilirubin 2.1 H AST 59 H ALT 39 Alkaline Phosphatase 110 Lactate Dehydrogenase 557 Total Creatine Kinase < 20 L Troponin I < 0.01 NT-Pro-B Natriuret Pep 910 H Total Protein 5.7 L Albumin 2.7 L Globulin 3.0 Albumin/Globulin Ratio 0.9 L Procalcitonin Arterial Blood Potassium Venous Blood Potassium 3.2 L Influenza Typ A,B (EIA) 08/30/17 08/31/17 08/31/17 21:23 06:00 08:00 WBC 20.2 H RBC 3.42 L Hgb 11.6 L Hct 34.8 L MCV 101.8 MCH 33.9 MCHC 33.3 RDW 13.8 Plt Count 270 MPV 10.2 Gran % 88.5 H Lymph % (Auto) 6.4 L [place] % (Auto) 4.6 Eos % (Auto) 0.4 L Baso % (Auto) 0.1 Gran # 17.83 H Lymph # (Auto) 1.3 [place] # (Auto) 0.9 H Eos # (Auto) 0.1 Baso # (Auto) 0.02 pCO2 25 L pO2 199.0 H HCO3 14.1 L ABG pH 7.36 ABG Total CO2 14.9 L ABG O2 Saturation 100.6 H ABG O2 Content ABG Base Excess -9.5 L ABG Hemoglobin ABG Carboxyhemoglobin POC ABG HHb (Measured) ABG Methemoglobin ABG O2 Capacity ABG Potassium 3.5 L VBG pH VBG pCO2 VBG HCO3 VBG Total CO2 VBG O2 Sat (Calc) VBG Base Excess VBG Potassium Hgb O2 Saturation Sodium 134.0 Chloride 110.0 H Glucose 86 Lactate 1.3 FiO2 60.0 Potassium Carbon Dioxide Anion Gap BUN Creatinine Est GFR ( Amer) Est GFR (Non-Af Amer) POC Glucose (mg/dL) Random Glucose Calcium Phosphorus Magnesium Total Bilirubin AST ALT Alkaline Phosphatase Lactate Dehydrogenase Total Creatine Kinase Troponin I NT-Pro-B Natriuret Pep Total Protein Albumin Globulin Albumin/Globulin Ratio Procalcitonin Arterial Blood Potassium 3.5 L Venous Blood Potassium Influenza Typ A,B (EIA) Pos for influenza a H 08/31/17 08:00 WBC RBC Hgb Hct MCV MCH MCHC RDW Plt Count MPV Gran % Lymph % (Auto) [place] % (Auto) Eos % (Auto) Baso % (Auto) Gran # Lymph # (Auto) [place] # (Auto) Eos # (Auto) Baso # (Auto) pCO2 pO2 HCO3 ABG pH ABG Total CO2 ABG O2 Saturation ABG O2 Content ABG Base Excess ABG Hemoglobin ABG Carboxyhemoglobin POC ABG HHb (Measured) ABG Methemoglobin ABG O2 Capacity ABG Potassium VBG pH VBG pCO2 VBG HCO3 VBG Total CO2 VBG O2 Sat (Calc) VBG Base Excess VBG Potassium Hgb O2 Saturation Sodium 136 Chloride 114 H Glucose Lactate FiO2 Potassium 3.9 Carbon Dioxide 15 L Anion Gap 11 BUN 6 L Creatinine 0.5 L Est GFR ( Amer) > 60 Est GFR (Non-Af Amer) > 60 POC Glucose (mg/dL) Random Glucose 77 Calcium 7.8 L Phosphorus 4.0 Magnesium 1.7 Total Bilirubin 2.0 H AST 59 H ALT 36 Alkaline Phosphatase 96 Lactate Dehydrogenase Total Creatine Kinase Troponin I NT-Pro-B Natriuret Pep Total Protein 5.3 L Albumin 2.4 L Globulin 2.8 Albumin/Globulin Ratio 0.9 L Procalcitonin Arterial Blood Potassium Venous Blood Potassium Influenza Typ A,B (EIA) EKG/Cardiology Studies: Cardiology / EKG Studies 08/30/17 18:15 EKG [ELECTROCARDIOGRAM] Stat Comment: Reason For Exam: tachycardia Fingerstick Blood Sugar Results: 87 Review of Systems - Review of Systems Systems not reviewed;Unavailable: Intubated Critical Care Progress Note - Nutrition Nutrition: Nutrition Category Date Time Status Heart Healthy Diet [DIET] Diets 08/29/17 Lunch Ordered Assessment/Plan - Assessment and Plan (Free Text) Assessment: Patient is a 56 F recently admitted for alcoholic hepatitis with a history of narcotic abuse, hypertension, untreated hepatitis C, ETOH abuse, and tobacco abuse presenting from [facility] rehab with complaints of increased shortness of breath at rest and dry cough x 1 day found to be in hypoxemic respiratory failure with worsening progression of pneumonia. Neuro: -Intubated and sedated on fentanyl, midazolam Cardiovascular: -maintain MAP>65 -Consider pressors pending blood pressures. Will have PICC line placed due to poor access and possible use of pressors. -keep patient normotensive -Echocardiogram ordered; results pending. initial Troponin negative at 0.01 Pulmonary -CXR 08/29: lungs well inflated, multifocal patchy and nodular airspace disease in the lungs worse in the right upper lobe. 08/30 reveals redemonstration of extensive confluent airspace disease in both lungs worse on the left. -Most recent blood gas pCO2 25, pO2 199, HCO3 14.1, pH 7.36 on PRVC 40 10 20 350 -Continue with ABGs and monitor Infectious disease -Influenza superimposed with bilateral pneumonia -Continue with tamiflu for treatment of influenza. Patient will be starting tamiflu therapy day #2 -Continue with levaquin day#2, vancomycin day#2, and meropenem day#2 -Urine/blood/sputum cultures, C diff, urine for legionella antigen, -Microbiology studies, fungal stain, AFB, TB, cytology from trach aspirate -Procal 0.21 Gastrointestinal -GI prophylaxis -C. diff cultures -NPO -OGT Renal -Continue with albumin q2h -maintain euvolemia -maintain electrolytes, replete as needed Endocrine -maintain euglycemia and normothermia Hematologic -Maintain H&H stable -DVT prophylaxis with Heparin <Cezar Ambrosio - Last Filed: 08/31/17 16:54> CCU Objective - Vital Signs / Intake & Output Vital Signs (Last 4 hours): Vital Signs Pulse BP Pulse Ox 08/31/17 14:10 119 H 97 08/31/17 14:00 112 H 126/52 L 94 L 08/31/17 13:50 111 H 95 08/31/17 13:43 110 H 106/54 L 96 08/31/17 13:40 108 H 96 08/31/17 13:30 110 H 97/45 L 96 08/31/17 13:20 112 H 95 08/31/17 13:10 110 H 96 08/31/17 13:00 109 H 102/61 97 08/31/17 12:50 108 H 96 Intake and Output (Last 8hrs): Intake & Output 08/31/17 08/31/17 08/31/17 06:59 14:59 22:59 Intake Total 2372 67 Output Total 0 Balance 2372 67 Intake: IV 2372 67 Right Forearm 2272 Output: Urine 0 Urine, Voided 0 Other: # Bowel Movements 1 - Medications Active Medications: Active Medications Generic Name Dose Route Start Last Admin Trade Name Freq PRN Reason Stop Dose Admin Albuterol/Ipratropium 3 ml 04/17/18 20:00 08/31/17 13:27 Duoneb 3 Mg/0.5 Mg (3 Ml) Ud IH 3 ml [id number] NORMA Administration Protocol Fluoxetine HCl 40 mg 08/30/17 10:00 08/30/17 15:44 Prozac PO 40 mg DAILY NORMA Administration Heparin Sodium (Porcine) 5,000 units 08/30/17 22:00 08/31/17 15:36 Heparin SC 5,000 units Q8 NORMA Administration Protocol Meropenem 50 mls @ 100 mls/hr 08/30/17 14:00 08/31/17 15:35 Merrem Iv 1 Gm Premix IVPB 09/08/17 14:01 100 mls/hr Q8 NORMA Administration Protocol Vancomycin HCl 1 gm in 250 mls @ 167 mls/hr 08/30/17 07:15 08/31/17 08:03 Vancomycin 1gm IVPB 09/08/17 07:16 167 mls/hr Q12H NORMA Administration Protocol Propofol 1,000 mg in 100 mls @ 1.987 mls/hr 08/30/17 19:47 08/31/17 08:47 Diprivan IV 0 mcg/kg/min .Q24H PRN 0 mls/hr TITRATE PER MD ORDER Titration Protocol 5 MCG/KG/MIN Acetaminophen 1,000 mg in 100 mls @ 400 mls/hr 08/30/17 20:19 08/30/17 22:21 Ofirmev IVPB 09/01/17 20:20 400 mls/hr Q6H PRN Administration Temperature Lactated Ringer's 1,000 mls @ 100 mls/hr 08/31/17 07:45 08/31/17 09:02 Lactated Ringer's IV Not Given .Q10H NORMA Fentanyl Citrate 1,000 mcg in 100 mls @ 7.5 mls/hr 08/31/17 08:32 08/31/17 09 :30 Fentanyl Citrate/Sodium Chloride 1 Mg/100 Ml IV 120 mcg/hr .[id number] PRN 12 mls/hr TITRATE PER MD ORDER Titration Protocol 75 MCG/HR Potassium Chloride 10 meq in 100 mls @ 50 mls/hr 08/31/17 12:00 08/31/17 16: 15 Potassium Chloride 10 Meq/100 Ml IVPB 08/31/17 19:59 50 mls/hr Q2H NORMA Administration Midazolam 100 mg/100ml in NS 100 mg in 100 mls @ 1 mls/hr 08/31/17 15:48 16:28 Midazolam 100 Mg/100ml In Ns IV 1 mg/hr .Q24H PRN 1 mls/hr Seizure activity Administration Protocol 1 MG/HR Potassium Chloride 20 meq in 100 mls @ 50 mls/hr 08/31/17 16:44 Potassium Chloride 20 Meq/100 Ml IVPB 08/31/17 18:43 ONCE ONE Levofloxacin/Dextrose 750 mg 08/30/17 10:00 08/31/17 09:12 Levaquin 750mg IVPB 09/08/17 10:01 750 mg DAILY NORMA Administration Protocol Lorazepam 1 mg 08/30/17 20:59 08/30/17 21:13 Ativan IVP 1 mg ONCE PRN Administration Anxiety Protocol Metoprolol Tartrate 25 mg 08/31/17 18:00 Lopressor PO BID NORMA Midazolam HCl 4 mg 08/31/17 08:31 08/31/17 15:40 Versed Inj IVP 4 mg Q2H PRN Administration Agitation Oseltamivir Phosphate 75 mg 08/30/17 23:15 08/31/17 09:59 Tamiflu Susp PO 75 mg BID NORMA Administration Protocol Pantoprazole Sodium 40 mg 08/31/17 10:00 08/31/17 11:06 Protonix Inj IVP 40 mg DAILY NORMA Administration - Patient Studies Lab Studies: Microbiology Studies 08/29/17 18:37 Urine Culture - Final Urine,Clean Catch 50-100,000 CFU/ML. MULTIPLE SPECIES. SUGGEST REPEAT SPECIMEN. Lab Studies 08/31/17 08/31/17 08/31/17 Range/Units 16:17 08:00 08:00 WBC 20.2 H (4.5-11.0) 10^3/ul RBC 3.42 L (3.5-6.1) 10^6/uL Hgb 11.6 L (12.0-16.0) g/dL Hct 34.8 L (36.0-48.0) % MCV 101.8 (80.0-105.0) fl MCH 33.9 (25.0-35.0) pg MCHC 33.3 (31.0-37.0) g/dl RDW 13.8 (11.5-14.5) % Plt Count 270 (120.0-450.0) 10^3/uL MPV 10.2 (7.0-11.0) fl Gran % 88.5 H (50.0-68.0) % Lymph % (Auto) 6.4 L (22.0-35.0) % [place] % (Auto) 4.6 (1.0-6.0) % Eos % (Auto) 0.4 L (1.5-5.0) % Baso % (Auto) 0.1 (0.0-3.0) % Gran # 17.83 H (1.4-6.5) Lymph # (Auto) 1.3 (1.2-3.4) [place] # (Auto) 0.9 H (0.1-0.6) Eos # (Auto) 0.1 (0.0-0.7) Baso # (Auto) 0.02 (0.0-2.0) K/mm3 pCO2 29 L (35-45) mm/Hg pO2 69.0 L (80-100) mm/Hg HCO3 14.3 L (21-28) mmol/L ABG pH 7.30 L (7.35-7.45) ABG Total CO2 15.2 L (22-28) mmol.L ABG O2 Saturation 97.3 (95-98) % ABG O2 Content (15-23) ML/dl ABG Base Excess -10.7 L (-2.0-3.0) mmol/L ABG Hemoglobin (11.7-17.4) g/dL ABG Carboxyhemoglobin (0.5-1.5) % POC ABG HHb (Measured) (0-5) % ABG Methemoglobin (0.0-3.0) % ABG O2 Capacity (16-24) mL/dl ABG Potassium 3.1 L (3.6-5.2) mmol/L VBG pH (7.32-7.43) VBG pCO2 (40-60) VBG HCO3 (21-28) mmol/l VBG Total CO2 (22-28) mmol.L VBG O2 Sat (Calc) (40-65) % VBG Base Excess (0.0-2.0) mmol/L VBG Potassium (3.6-5.2) mmol/L Hgb O2 Saturation (95.0-98.0) % Sodium 139.0 136 (132-148) mmol/L Chloride 114.0 H 114 H (98-107) mmol/L Glucose 80 (65-105) mg/dl Lactate 1.1 (0.7-2.1) mmol/L FiO2 60.0 % Potassium 3.9 (3.6-5.0) mmol/L Carbon Dioxide 15 L (21-33) mmol/L Anion Gap 11 (10-20) BUN 6 L (7-21) mg/dL Creatinine 0.5 L (0.7-1.2) mg/dl Est GFR ( Amer) > 60 Est GFR (Non-Af Amer) > 60 POC Glucose (mg/dL) (65-110) mg/dL Random Glucose 77 (70-110) mg/dL Calcium 7.8 L (8.4-10.5) mg/dL Phosphorus 4.0 (2.5-4.5) mg/dL Magnesium 1.7 (1.7-2.2) mg/dL Total Bilirubin 2.0 H (0.2-1.3) mg/dL AST 59 H (14-36) U/L ALT 36 (7-56) U/L Alkaline Phosphatase 96 (38-126) U/L Lactate Dehydrogenase (333-699) U/L Total Creatine Kinase (35-230) U/L Troponin I ng/mL NT-Pro-B Natriuret Pep (0-450) pg/mL Total Protein 5.3 L (5.8-8.3) g/dL Albumin 2.4 L (3.0-4.8) g/dL Globulin 2.8 gm/dL Albumin/Globulin Ratio 0.9 L (1.1-1.8) Arterial Blood Potassium 3.1 L (3.6-5.2) mmol/L Venous Blood Potassium (3.6-5.2) mmol/L Influenza Typ A,B (EIA) (NEGATIVE) 08/31/17 08/30/17 08/30/17 Range/Units 06:00 21:23 21:21 WBC (4.5-11.0) 10^3/ul RBC (3.5-6.1) 10^6/uL Hgb (12.0-16.0) g/dL Hct (36.0-48.0) % MCV (80.0-105.0) fl MCH (25.0-35.0) pg MCHC (31.0-37.0) g/dl RDW (11.5-14.5) % Plt Count (120.0-450.0) 10^3/uL MPV (7.0-11.0) fl Gran % (50.0-68.0) % Lymph % (Auto) (22.0-35.0) % [place] % (Auto) (1.0-6.0) % Eos % (Auto) (1.5-5.0) % Baso % (Auto) (0.0-3.0) % Gran # (1.4-6.5) Lymph # (Auto) (1.2-3.4) [place] # (Auto) (0.1-0.6) Eos # (Auto) (0.0-0.7) Baso # (Auto) (0.0-2.0) K/mm3 pCO2 25 L (35-45) mm/Hg pO2 199.0 H 77 H (80-100) mm/Hg HCO3 14.1 L (21-28) mmol/L ABG pH 7.36 (7.35-7.45) ABG Total CO2 14.9 L (22-28) mmol.L ABG O2 Saturation 100.6 H (95-98) % ABG O2 Content (15-23) ML/dl ABG Base Excess -9.5 L (-2.0-3.0) mmol/L ABG Hemoglobin (11.7-17.4) g/dL ABG Carboxyhemoglobin (0.5-1.5) % POC ABG HHb (Measured) (0-5) % ABG Methemoglobin (0.0-3.0) % ABG O2 Capacity (16-24) mL/dl ABG Potassium 3.5 L (3.6-5.2) mmol/L VBG pH 7.34 (7.32-7.43) VBG pCO2 29.0 L (40-60) VBG HCO3 15.6 L (21-28) mmol/l VBG Total CO2 16.5 L (22-28) mmol.L VBG O2 Sat (Calc) 97.4 H (40-65) % VBG Base Excess -8.8 L (0.0-2.0) mmol/L VBG Potassium 3.2 L (3.6-5.2) mmol/L Hgb O2 Saturation (95.0-98.0) % Sodium 134.0 135.0 (132-148) mmol/L Chloride 110.0 H 110.0 H (98-107) mmol/L Glucose 86 88 (65-105) mg/dl Lactate 1.3 1.8 (0.7-2.1) mmol/L FiO2 60.0 21.0 % Potassium (3.6-5.0) mmol/L Carbon Dioxide (21-33) mmol/L Anion Gap (10-20) BUN (7-21) mg/dL Creatinine (0.7-1.2) mg/dl Est GFR ( Amer) Est GFR (Non-Af Amer) POC Glucose (mg/dL) (65-110) mg/dL Random Glucose (70-110) mg/dL Calcium (8.4-10.5) mg/dL Phosphorus (2.5-4.5) mg/dL Magnesium (1.7-2.2) mg/dL Total Bilirubin (0.2-1.3) mg/dL AST (14-36) U/L ALT (7-56) U/L Alkaline Phosphatase (38-126) U/L Lactate Dehydrogenase (333-699) U/L Total Creatine Kinase (35-230) U/L Troponin I ng/mL NT-Pro-B Natriuret Pep (0-450) pg/mL Total Protein (5.8-8.3) g/dL Albumin (3.0-4.8) g/dL Globulin gm/dL Albumin/Globulin Ratio (1.1-1.8) Arterial Blood Potassium 3.5 L (3.6-5.2) mmol/L Venous Blood Potassium 3.2 L (3.6-5.2) mmol/L Influenza Typ A,B (EIA) Pos for influenza a H (NEGATIVE) 08/30/17 08/30/17 08/30/17 Range/Units 20:55 18:30 18:30 WBC 21.4 H (4.5-11.0) 10^3/ul RBC 3.16 L (3.5-6.1) 10^6/uL Hgb 10.8 L (12.0-16.0) g/dL Hct 32.2 L (36.0-48.0) % MCV 101.9 (80.0-105.0) fl MCH 34.2 (25.0-35.0) pg MCHC 33.5 (31.0-37.0) g/dl RDW 13.6 (11.5-14.5) % Plt Count 334 (120.0-450.0) 10^3/uL MPV 9.8 (7.0-11.0) fl Gran % 91.6 H (50.0-68.0) % Lymph % (Auto) 2.9 L (22.0-35.0) % [place] % (Auto) 5.2 (1.0-6.0) % Eos % (Auto) 0.2 L (1.5-5.0) % Baso % (Auto) 0.1 (0.0-3.0) % Gran # 19.60 H (1.4-6.5) Lymph # (Auto) 0.6 L (1.2-3.4) [place] # (Auto) 1.1 H (0.1-0.6) Eos # (Auto) 0.0 (0.0-0.7) Baso # (Auto) 0.02 (0.0-2.0) K/mm3 pCO2 29 L (35-45) mm/Hg pO2 127.0 H (80-100) mm/Hg HCO3 14.6 L (21-28) mmol/L ABG pH 7.31 L (7.35-7.45) ABG Total CO2 15.5 L (22-28) mmol.L ABG O2 Saturation 100.4 H (95-98) % ABG O2 Content 14.3 L (15-23) ML/dl ABG Base Excess -10.5 L (-2.0-3.0) mmol/L ABG Hemoglobin 10.3 L (11.7-17.4) g/dL ABG Carboxyhemoglobin 2.0 H (0.5-1.5) % POC ABG HHb (Measured) -0.4 L (0-5) % ABG Methemoglobin 1.4 (0.0-3.0) % ABG O2 Capacity 14.2 L (16-24) mL/dl ABG Potassium (3.6-5.2) mmol/L VBG pH (7.32-7.43) VBG pCO2 (40-60) VBG HCO3 (21-28) mmol/l VBG Total CO2 (22-28) mmol.L VBG O2 Sat (Calc) (40-65) % VBG Base Excess (0.0-2.0) mmol/L VBG Potassium (3.6-5.2) mmol/L Hgb O2 Saturation 96.9 (95.0-98.0) % Sodium 135 (132-148) mmol/L Chloride 108 H (98-107) mmol/L Glucose (65-105) mg/dl Lactate (0.7-2.1) mmol/L FiO2 60.0 % Potassium 3.4 L (3.6-5.0) mmol/L Carbon Dioxide 19 L (21-33) mmol/L Anion Gap 12 (10-20) BUN 5 L (7-21) mg/dL Creatinine 0.5 L (0.7-1.2) mg/dl Est GFR ( Amer) > 60 Est GFR (Non-Af Amer) > 60 POC Glucose (mg/dL) (65-110) mg/dL Random Glucose 87 (70-110) mg/dL Calcium 8.1 L (8.4-10.5) mg/dL Phosphorus 3.5 (2.5-4.5) mg/dL Magnesium 1.6 L (1.7-2.2) mg/dL Total Bilirubin 2.1 H (0.2-1.3) mg/dL AST 59 H (14-36) U/L ALT 39 (7-56) U/L Alkaline Phosphatase 110 (38-126) U/L Lactate Dehydrogenase 557 (333-699) U/L Total Creatine Kinase < 20 L (35-230) U/L Troponin I < 0.01 ng/mL NT-Pro-B Natriuret Pep 910 H (0-450) pg/mL Total Protein 5.7 L (5.8-8.3) g/dL Albumin 2.7 L (3.0-4.8) g/dL Globulin 3.0 gm/dL Albumin/Globulin Ratio 0.9 L (1.1-1.8) Arterial Blood Potassium (3.6-5.2) mmol/L Venous Blood Potassium (3.6-5.2) mmol/L Influenza Typ A,B (EIA) (NEGATIVE) 08/30/17 08/30/17 Range/Units 17:25 16:32 WBC (4.5-11.0) 10^3/ul RBC (3.5-6.1) 10^6/uL Hgb (12.0-16.0) g/dL Hct (36.0-48.0) % MCV (80.0-105.0) fl MCH (25.0-35.0) pg MCHC (31.0-37.0) g/dl RDW (11.5-14.5) % Plt Count (120.0-450.0) 10^3/uL MPV (7.0-11.0) fl Gran % (50.0-68.0) % Lymph % (Auto) (22.0-35.0) % [place] % (Auto) (1.0-6.0) % Eos % (Auto) (1.5-5.0) % Baso % (Auto) (0.0-3.0) % Gran # (1.4-6.5) Lymph # (Auto) (1.2-3.4) [place] # (Auto) (0.1-0.6) Eos # (Auto) (0.0-0.7) Baso # (Auto) (0.0-2.0) K/mm3 pCO2 23 L (35-45) mm/Hg pO2 50.0 L (80-100) mm/Hg HCO3 14.6 L (21-28) mmol/L ABG pH 7.41 (7.35-7.45) ABG Total CO2 15.3 L (22-28) mmol.L ABG O2 Saturation 90.3 L (95-98) % ABG O2 Content (15-23) ML/dl ABG Base Excess -8.0 L (-2.0-3.0) mmol/L ABG Hemoglobin (11.7-17.4) g/dL ABG Carboxyhemoglobin (0.5-1.5) % POC ABG HHb (Measured) (0-5) % ABG Methemoglobin (0.0-3.0) % ABG O2 Capacity (16-24) mL/dl ABG Potassium 2.9 L (3.6-5.2) mmol/L VBG pH (7.32-7.43) VBG pCO2 (40-60) VBG HCO3 (21-28) mmol/l VBG Total CO2 (22-28) mmol.L VBG O2 Sat (Calc) (40-65) % VBG Base Excess (0.0-2.0) mmol/L VBG Potassium (3.6-5.2) mmol/L Hgb O2 Saturation (95.0-98.0) % Sodium 136.0 (132-148) mmol/L Chloride 111.0 H (98-107) mmol/L Glucose 90 (65-105) mg/dl Lactate 2.6 H (0.7-2.1) mmol/L FiO2 32.0 % Potassium (3.6-5.0) mmol/L Carbon Dioxide (21-33) mmol/L Anion Gap (10-20) BUN (7-21) mg/dL Creatinine (0.7-1.2) mg/dl Est GFR ( Amer) Est GFR (Non-Af Amer) POC Glucose (mg/dL) 81 (65-110) mg/dL Random Glucose (70-110) mg/dL Calcium (8.4-10.5) mg/dL Phosphorus (2.5-4.5) mg/dL Magnesium (1.7-2.2) mg/dL Total Bilirubin (0.2-1.3) mg/dL AST (14-36) U/L ALT (7-56) U/L Alkaline Phosphatase (38-126) U/L Lactate Dehydrogenase (333-699) U/L Total Creatine Kinase (35-230) U/L Troponin I ng/mL NT-Pro-B Natriuret Pep (0-450) pg/mL Total Protein (5.8-8.3) g/dL Albumin (3.0-4.8) g/dL Globulin gm/dL Albumin/Globulin Ratio (1.1-1.8) Arterial Blood Potassium 2.9 L (3.6-5.2) mmol/L Venous Blood Potassium (3.6-5.2) mmol/L Influenza Typ A,B (EIA) (NEGATIVE) Laboratory Results - last 24 hr 08/30/17 08/30/17 08/30/17 16:32 17:25 18:30 WBC 21.4 H RBC 3.16 L Hgb 10.8 L Hct 32.2 L MCV 101.9 MCH 34.2 MCHC 33.5 RDW 13.6 Plt Count 334 MPV 9.8 Gran % 91.6 H Lymph % (Auto) 2.9 L [place] % (Auto) 5.2 Eos % (Auto) 0.2 L Baso % (Auto) 0.1 Gran # 19.60 H Lymph # (Auto) 0.6 L [place] # (Auto) 1.1 H Eos # (Auto) 0.0 Baso # (Auto) 0.02 pCO2 23 L pO2 50.0 L HCO3 14.6 L ABG pH 7.41 ABG Total CO2 15.3 L ABG O2 Saturation 90.3 L ABG O2 Content ABG Base Excess -8.0 L ABG Hemoglobin ABG Carboxyhemoglobin POC ABG HHb (Measured) ABG Methemoglobin ABG O2 Capacity ABG Potassium 2.9 L VBG pH VBG pCO2 VBG HCO3 VBG Total CO2 VBG O2 Sat (Calc) VBG Base Excess VBG Potassium Hgb O2 Saturation Sodium 136.0 Chloride 111.0 H Glucose 90 Lactate 2.6 H FiO2 32.0 Potassium Carbon Dioxide Anion Gap BUN Creatinine Est GFR ( Amer) Est GFR (Non-Af Amer) POC Glucose (mg/dL) 81 Random Glucose Calcium Phosphorus Magnesium Total Bilirubin AST ALT Alkaline Phosphatase Lactate Dehydrogenase Total Creatine Kinase Troponin I NT-Pro-B Natriuret Pep Total Protein Albumin Globulin Albumin/Globulin Ratio Arterial Blood Potassium 2.9 L Venous Blood Potassium Influenza Typ A,B (EIA) 08/30/17 08/30/17 08/30/17 18:30 20:55 21:21 WBC RBC Hgb Hct MCV MCH MCHC RDW Plt Count MPV Gran % Lymph % (Auto) [place] % (Auto) Eos % (Auto) Baso % (Auto) Gran # Lymph # (Auto) [place] # (Auto) Eos # (Auto) Baso # (Auto) pCO2 29 L pO2 127.0 H 77 H HCO3 14.6 L ABG pH 7.31 L ABG Total CO2 15.5 L ABG O2 Saturation 100.4 H ABG O2 Content 14.3 L ABG Base Excess -10.5 L ABG Hemoglobin 10.3 L ABG Carboxyhemoglobin 2.0 H POC ABG HHb (Measured) -0.4 L ABG Methemoglobin 1.4 ABG O2 Capacity 14.2 L ABG Potassium VBG pH 7.34 VBG pCO2 29.0 L VBG HCO3 15.6 L VBG Total CO2 16.5 L VBG O2 Sat (Calc) 97.4 H VBG Base Excess -8.8 L VBG Potassium 3.2 L Hgb O2 Saturation 96.9 Sodium 135 135.0 Chloride 108 H 110.0 H Glucose 88 Lactate 1.8 FiO2 60.0 21.0 Potassium 3.4 L Carbon Dioxide 19 L Anion Gap 12 BUN 5 L Creatinine 0.5 L Est GFR ( Amer) > 60 Est GFR (Non-Af Amer) > 60 POC Glucose (mg/dL) Random Glucose 87 Calcium 8.1 L Phosphorus 3.5 Magnesium 1.6 L Total Bilirubin 2.1 H AST 59 H ALT 39 Alkaline Phosphatase 110 Lactate Dehydrogenase 557 Total Creatine Kinase < 20 L Troponin I < 0.01 NT-Pro-B Natriuret Pep 910 H Total Protein 5.7 L Albumin 2.7 L Globulin 3.0 Albumin/Globulin Ratio 0.9 L Arterial Blood Potassium Venous Blood Potassium 3.2 L Influenza Typ A,B (EIA) 08/30/17 08/31/17 08/31/17 21:23 06:00 08:00 WBC 20.2 H RBC 3.42 L Hgb 11.6 L Hct 34.8 L MCV 101.8 MCH 33.9 MCHC 33.3 RDW 13.8 Plt Count 270 MPV 10.2 Gran % 88.5 H Lymph % (Auto) 6.4 L [place] % (Auto) 4.6 Eos % (Auto) 0.4 L Baso % (Auto) 0.1 Gran # 17.83 H Lymph # (Auto) 1.3 [place] # (Auto) 0.9 H Eos # (Auto) 0.1 Baso # (Auto) 0.02 pCO2 25 L pO2 199.0 H HCO3 14.1 L ABG pH 7.36 ABG Total CO2 14.9 L ABG O2 Saturation 100.6 H ABG O2 Content ABG Base Excess -9.5 L ABG Hemoglobin ABG Carboxyhemoglobin POC ABG HHb (Measured) ABG Methemoglobin ABG O2 Capacity ABG Potassium 3.5 L VBG pH VBG pCO2 VBG HCO3 VBG Total CO2 VBG O2 Sat (Calc) VBG Base Excess VBG Potassium Hgb O2 Saturation Sodium 134.0 Chloride 110.0 H Glucose 86 Lactate 1.3 FiO2 60.0 Potassium Carbon Dioxide Anion Gap BUN Creatinine Est GFR ( Amer) Est GFR (Non-Af Amer) POC Glucose (mg/dL) Random Glucose Calcium Phosphorus Magnesium Total Bilirubin AST ALT Alkaline Phosphatase Lactate Dehydrogenase Total Creatine Kinase Troponin I NT-Pro-B Natriuret Pep Total Protein Albumin Globulin Albumin/Globulin Ratio Arterial Blood Potassium 3.5 L Venous Blood Potassium Influenza Typ A,B (EIA) Pos for influenza a H 08/31/17 08/31/17 08:00 16:17 WBC RBC Hgb Hct MCV MCH MCHC RDW Plt Count MPV Gran % Lymph % (Auto) [place] % (Auto) Eos % (Auto) Baso % (Auto) Gran # Lymph # (Auto) [place] # (Auto) Eos # (Auto) Baso # (Auto) pCO2 29 L pO2 69.0 L HCO3 14.3 L ABG pH 7.30 L ABG Total CO2 15.2 L ABG O2 Saturation 97.3 ABG O2 Content ABG Base Excess -10.7 L ABG Hemoglobin ABG Carboxyhemoglobin POC ABG HHb (Measured) ABG Methemoglobin ABG O2 Capacity ABG Potassium 3.1 L VBG pH VBG pCO2 VBG HCO3 VBG Total CO2 VBG O2 Sat (Calc) VBG Base Excess VBG Potassium Hgb O2 Saturation Sodium 136 139.0 Chloride 114 H 114.0 H Glucose 80 Lactate 1.1 FiO2 60.0 Potassium 3.9 Carbon Dioxide 15 L Anion Gap 11 BUN 6 L Creatinine 0.5 L Est GFR ( Amer) > 60 Est GFR (Non-Af Amer) > 60 POC Glucose (mg/dL) Random Glucose 77 Calcium 7.8 L Phosphorus 4.0 Magnesium 1.7 Total Bilirubin 2.0 H AST 59 H ALT 36 Alkaline Phosphatase 96 Lactate Dehydrogenase Total Creatine Kinase Troponin I NT-Pro-B Natriuret Pep Total Protein 5.3 L Albumin 2.4 L Globulin 2.8 Albumin/Globulin Ratio 0.9 L Arterial Blood Potassium 3.1 L Venous Blood Potassium Influenza Typ A,B (EIA) EKG/Cardiology Studies: Cardiology / EKG Studies 08/30/17 18:15 EKG [ELECTROCARDIOGRAM] Stat Comment: Reason For Exam: tachycardia Critical Care Progress Note - Nutrition Nutrition: Nutrition Category Date Time Status Heart Healthy Diet [DIET] Diets 08/29/17 Lunch Ordered Attending/Attestation - Attestation I have personally seen and examined this patient.: Yes I have fully participated in the care of the patient.: Yes I have reviewed all pertinent clinical information: Yes Notes (Text): 08/31/17 16:48 56 yo with influenza pneumonia, complicated by hypoxemic respiratory failure, requiring intubation. 1. protective lung ventilation-->Vt 4-8 cc/pbw, ppl<30; HOB>35;oral hygiene; conservative fluid and 02 management, permissive hypercapnia if needed, higher PEEP/Fi02. Sedation vacation daily 2. Tamiflu, Vanco/Meropenem/Levo 3. Trophic feeds, GI prophylaxis 4. BG 140-180 (NICE-SUGAR) 5. DVT prophylaxis 6. Oliguria: renal consult, renal ultrasound, re-check position of [place]. Creatinine is WNL, will repeat creatinine. Keep MAP>65, avoid nephrotoxins. Patient has advanced liver disease-->will supplement albumin, to avoid HRS ccm time 40 min
[2017-08-31] MEDS: Oseltamivir 6 MG/ML PO SCH ×2 (09:59→18:44)
[2017-08-31] MEDS: Albumin Human 25% (12.5 gm/50 ml) IV SCH ×2 (09:59→11:05)
--- NOTE | 2017-08-31 11:03 | CON ---
DATE:08/30/2017 REASON FOR CONSULTATION: History of alcoholic hepatitis, leukocytosis, followup. HISTORY OF PRESENT ILLNESS: This 56-year-old patient with a long history of alcohol abuse, recently in the hospital with acute alcoholic hepatitis, discharged to custodial with tapering dose of prednisolone, was admitted with complaint of increased shortness of breath, cough and tachycardia. Patient was found to have bilateral pneumonia. Patient has been on antibiotics. Patient has increased shortness of breath in the floor, was subsequently transferred to the ICU. Other past medical history, significant as above. There is no history of any diarrhea. History of hypertension, depression. FAMILY HISTORY: Noncontributory. REVIEW OF SYSTEMS: Positive as above. Other systems reviewed. SOCIAL HISTORY: Positive for long history of alcohol abuse. Positive for history of heavy smoking, stopped about four years ago. ALLERGIES: NO KNOWN DRUG ALLERGIES. PHYSICAL EXAMINATION: GENERAL: Patient is lying on the bed, not in acute distress. VITAL SIGNS: Temperature is afebrile at 97.4, blood pressure is 105/70, tacypneic HEENT: Atraumatic and anicteric. NECK: Supple. HEART: S1, S2 heard. LUNGS: Bilateral air entry present.scattered rochi ABDOMEN: Soft. No mass palpable. No tenderness. EXTREMITIES: No cyanosis. No clubbing. NEUROLOGIC: Alert, oriented at the time of examination earlier today. LABORATORY DATA: LFT shows total bilirubin is only 1.6, significant improvement. Patient's total bilirubin 2.1 . IMPRESSION: This 56-year-old patient is admitted with history of alcohol abuse, recently admitted in the hospital, discharged on prednisolone tapering dose, admitted with bilateral pneumonia. Patient has increased shortness of breath and intubated. Patient's previous imaging studies reviewed, has only small ascites. PLAN: Would recommend now is, 1. Repeat the ultrasound scan of the abdomen. 2. Followup of the LFTs. 3. Continue with antibiotics as per ID. 4. ICU followup . Patient was intubated for respiratory distress Thank you very much for allowing us to participate in the care of the patient. Charlene Gupta MD [facility] # [id number] MTDD
[2017-08-31] MEDS ORDERED: Albumin Human 25% (12.5 gm/50 ml) IV ONE (13:46)
--- NOTE | 2017-08-31 14:36 | PN ---
DATE: 08/31/2017 SUBJECTIVE: The patient is seen sitting at her bedside. She is somnolent; however, arousable despite propofol 20 mcg/kg/minute. Very comfortable. We will switch from propofol to fentanyl drip and benzodiazepines p.r.n. In fact, we will taper down/off her sedation as tolerated. During the sedation vacation, she did not pass pressure support trial and was put back on PRVC setting. She is intubated. Her PRVC setting as follows; FIO2 of 40% (ABG was done on 60% prior to this change), PEEP 10, tidal volume 350 and respiratory 20 (the patient overbreathing the vent with respiratory rate around 30). PHYSICAL EXAMINATION: VITAL SIGNS: Heart rate 90-100, regular, oxygen saturation 95-97%, end-tidal CO2 on the monitor 26, blood pressure 102/69 with MAP 74. ENT: Head and neck atraumatic. LUNGS: Few crackles bilaterally, but less than yesterday. HEART: Regular rate and rhythm. S1, S2 normal. ABDOMEN: Soft, mildly distended, nontender. SKIN: Moist. PSYCHIATRIC: The patient is arousable. Appears to be able to follow commands, but not sure. MUSCULOSKELETAL: No C/C/E. NEURO: The patient moves all extremities spontaneously. LABORATORY DATA: ABG 7.36/25/199 (since then FIO2 went down from 60% to 40%). Lactic acid 1.3, potassium 3.5. WBC 20.2, hemoglobin 11.6, platelet count 217. BNP is pending. Chest x-ray appears to show a little better aeration bilaterally, still some fluffy infiltrate present. MEDICATIONS: Albumin 25% every 2 hours for today, DuoNeb every 6 hours, Prozac on hold, heparin subcu for DVT prophylaxis, levofloxacin, meropenem, metoprolol, midazolam p.r.n., Tamiflu 75 mg p.o. b.i.d., potassium supplementation, vancomycin. ASSESSMENT AND PLAN: This is a 56-year-old lady, who presented with hypoxemic respiratory failure secondary to influenza pneumonia/adult respiratory distress syndrome requiring intubation. We will proceed with protective lung ventilation strategy including tidal volume 4-8 mL per predicted body weight and plateau pressure less than 30. The patient's gas exchange status substantially improved and FIO2 was weaned down from 100% to 40% today. We will maintain slightly high PEEP at 10 cm water. We will continue with conservative fluid and oxygen management. We will continue with oral hygiene, head of bed elevated at 135 degrees. The patient has history of advanced liver disease, thus we will proceed with albumin supplementation, which also will help with potentially redistributing intravascular volume. If hemodynamics allows, we will use Lasix to optimize further respiratory status. Echocardiogram is pending, which also will be helpful when done. Of note, troponin yesterday was less than 0.01 and proBNP just slightly elevated at 910. We will get another troponin. Infectious Disease chung, the patient is on broad-spectrum antibiotics. Serology came back positive for influenza and the patient is on Tamiflu 75 mg p.o. b.i.d. Infectious Disease Service is following the patient as well. Blood culture as of 2 days ago negative. Sputum culture was sent for micro analysis and for cytology. I, however, think that most likely diagnosis is influenza pneumonia. The patient was oliguric overnight, will get renal ultrasound, renal consult. We are waiting for morning labs to follow up on creatinine. While creatinine is not sensitive for NAVJOT (urine output is more sensitive), more then 12 hours since last creatinine was checked would be enough time to see creatinine rising if NAVJOT present. Oliguria is concerning. We will try to maintain euvolemia and mean arterial pressure more than 65. We will try to maintain slightly stricter euglycemic control; however, avoid hypoglycemia. We will get Nephrology consult. The patient was slightly hypotensive yesterday and possibility of acute tubular necrosis cannot be ruled out. Nevertheless, given that the patient has fairly advanced liver disease, possibility of hepatorenal syndrome cannot be ruled out as well. Thus, albumin supplementation will be indicated. We will continue to maintain euvolemia, euglycemia, normothermia and oxygen saturation more than 90%. We will continue with deep venous thrombosis/gastrointestinal prophylaxis. We will start enteral nutrition (trophic) and supplement electrolites. We will maintain blood glucose around 110-180 range, according to night sugar trial. We will avoid steroids at present time as the patient has influenza pneumonia. ccm time 40 min Cezar Ambrosio MD MTDWes
[2017-08-31 16:20] LABS: ARTERIAL BLOOD GAS HCO3 14.3 mmol/L (21-28); ARTERIAL BLOOD GAS O2 SAT 97.3 % (95-98); ARTERIAL BLOOD GAS PCO2 29 mm/Hg (35-45); ARTERIAL BLOOD GAS TCO2 15.2 mmol.L (22-28)
[2017-08-31] MEDS: Midazolam 100 mg/100ml in NS 100 MG/100 ML SOL IV PRN (16:28)
--- NOTE | 2017-08-31 16:39 | PCM.URO ---
Urology Progress Note - Objective Lab Studies: Reviewed (gu plans to be discussed thanks for gu consult) Lab Results Last 24 Hours: Laboratory Results - last 24 hr 08/30/17 08/30/17 08/30/17 16:32 17:25 18:30 WBC 21.4 H RBC 3.16 L Hgb 10.8 L Hct 32.2 L MCV 101.9 MCH 34.2 MCHC 33.5 RDW 13.6 Plt Count 334 MPV 9.8 Gran % 91.6 H Lymph % (Auto) 2.9 L [place] % (Auto) 5.2 Eos % (Auto) 0.2 L Baso % (Auto) 0.1 Gran # 19.60 H Lymph # (Auto) 0.6 L [place] # (Auto) 1.1 H Eos # (Auto) 0.0 Baso # (Auto) 0.02 pCO2 23 L pO2 50.0 L HCO3 14.6 L ABG pH 7.41 ABG Total CO2 15.3 L ABG O2 Saturation 90.3 L ABG O2 Content ABG Base Excess -8.0 L ABG Hemoglobin ABG Carboxyhemoglobin POC ABG HHb (Measured) ABG Methemoglobin ABG O2 Capacity ABG Potassium 2.9 L VBG pH VBG pCO2 VBG HCO3 VBG Total CO2 VBG O2 Sat (Calc) VBG Base Excess VBG Potassium Hgb O2 Saturation Sodium 136.0 Chloride 111.0 H Glucose 90 Lactate 2.6 H FiO2 32.0 Potassium Carbon Dioxide Anion Gap BUN Creatinine Est GFR ( Amer) Est GFR (Non-Af Amer) POC Glucose (mg/dL) 81 Random Glucose Calcium Phosphorus Magnesium Total Bilirubin AST ALT Alkaline Phosphatase Lactate Dehydrogenase Total Creatine Kinase Troponin I NT-Pro-B Natriuret Pep Total Protein Albumin Globulin Albumin/Globulin Ratio Arterial Blood Potassium 2.9 L Venous Blood Potassium Influenza Typ A,B (EIA) 08/30/17 08/30/17 08/30/17 18:30 20:55 21:21 WBC RBC Hgb Hct MCV MCH MCHC RDW Plt Count MPV Gran % Lymph % (Auto) [place] % (Auto) Eos % (Auto) Baso % (Auto) Gran # Lymph # (Auto) [place] # (Auto) Eos # (Auto) Baso # (Auto) pCO2 29 L pO2 127.0 H 77 H HCO3 14.6 L ABG pH 7.31 L ABG Total CO2 15.5 L ABG O2 Saturation 100.4 H ABG O2 Content 14.3 L ABG Base Excess -10.5 L ABG Hemoglobin 10.3 L ABG Carboxyhemoglobin 2.0 H POC ABG HHb (Measured) -0.4 L ABG Methemoglobin 1.4 ABG O2 Capacity 14.2 L ABG Potassium VBG pH 7.34 VBG pCO2 29.0 L VBG HCO3 15.6 L VBG Total CO2 16.5 L VBG O2 Sat (Calc) 97.4 H VBG Base Excess -8.8 L VBG Potassium 3.2 L Hgb O2 Saturation 96.9 Sodium 135 135.0 Chloride 108 H 110.0 H Glucose 88 Lactate 1.8 FiO2 60.0 21.0 Potassium 3.4 L Carbon Dioxide 19 L Anion Gap 12 BUN 5 L Creatinine 0.5 L Est GFR ( Amer) > 60 Est GFR (Non-Af Amer) > 60 POC Glucose (mg/dL) Random Glucose 87 Calcium 8.1 L Phosphorus 3.5 Magnesium 1.6 L Total Bilirubin 2.1 H AST 59 H ALT 39 Alkaline Phosphatase 110 Lactate Dehydrogenase 557 Total Creatine Kinase < 20 L Troponin I < 0.01 NT-Pro-B Natriuret Pep 910 H Total Protein 5.7 L Albumin 2.7 L Globulin 3.0 Albumin/Globulin Ratio 0.9 L Arterial Blood Potassium Venous Blood Potassium 3.2 L Influenza Typ A,B (EIA) 08/30/17 08/31/17 08/31/17 21:23 06:00 08:00 WBC 20.2 H RBC 3.42 L Hgb 11.6 L Hct 34.8 L MCV 101.8 MCH 33.9 MCHC 33.3 RDW 13.8 Plt Count 270 MPV 10.2 Gran % 88.5 H Lymph % (Auto) 6.4 L [place] % (Auto) 4.6 Eos % (Auto) 0.4 L Baso % (Auto) 0.1 Gran # 17.83 H Lymph # (Auto) 1.3 [place] # (Auto) 0.9 H Eos # (Auto) 0.1 Baso # (Auto) 0.02 pCO2 25 L pO2 199.0 H HCO3 14.1 L ABG pH 7.36 ABG Total CO2 14.9 L ABG O2 Saturation 100.6 H ABG O2 Content ABG Base Excess -9.5 L ABG Hemoglobin ABG Carboxyhemoglobin POC ABG HHb (Measured) ABG Methemoglobin ABG O2 Capacity ABG Potassium 3.5 L VBG pH VBG pCO2 VBG HCO3 VBG Total CO2 VBG O2 Sat (Calc) VBG Base Excess VBG Potassium Hgb O2 Saturation Sodium 134.0 Chloride 110.0 H Glucose 86 Lactate 1.3 FiO2 60.0 Potassium Carbon Dioxide Anion Gap BUN Creatinine Est GFR ( Amer) Est GFR (Non-Af Amer) POC Glucose (mg/dL) Random Glucose Calcium Phosphorus Magnesium Total Bilirubin AST ALT Alkaline Phosphatase Lactate Dehydrogenase Total Creatine Kinase Troponin I NT-Pro-B Natriuret Pep Total Protein Albumin Globulin Albumin/Globulin Ratio Arterial Blood Potassium 3.5 L Venous Blood Potassium Influenza Typ A,B (EIA) Pos for influenza a H 08/31/17 08/31/17 08:00 16:17 WBC RBC Hgb Hct MCV MCH MCHC RDW Plt Count MPV Gran % Lymph % (Auto) [place] % (Auto) Eos % (Auto) Baso % (Auto) Gran # Lymph # (Auto) [place] # (Auto) Eos # (Auto) Baso # (Auto) pCO2 29 L pO2 69.0 L HCO3 14.3 L ABG pH 7.30 L ABG Total CO2 15.2 L ABG O2 Saturation 97.3 ABG O2 Content ABG Base Excess -10.7 L ABG Hemoglobin ABG Carboxyhemoglobin POC ABG HHb (Measured) ABG Methemoglobin ABG O2 Capacity ABG Potassium 3.1 L VBG pH VBG pCO2 VBG HCO3 VBG Total CO2 VBG O2 Sat (Calc) VBG Base Excess VBG Potassium Hgb O2 Saturation Sodium 136 139.0 Chloride 114 H 114.0 H Glucose 80 Lactate 1.1 FiO2 60.0 Potassium 3.9 Carbon Dioxide 15 L Anion Gap 11 BUN 6 L Creatinine 0.5 L Est GFR ( Amer) > 60 Est GFR (Non-Af Amer) > 60 POC Glucose (mg/dL) Random Glucose 77 Calcium 7.8 L Phosphorus 4.0 Magnesium 1.7 Total Bilirubin 2.0 H AST 59 H ALT 36 Alkaline Phosphatase 96 Lactate Dehydrogenase Total Creatine Kinase Troponin I NT-Pro-B Natriuret Pep Total Protein 5.3 L Albumin 2.4 L Globulin 2.8 Albumin/Globulin Ratio 0.9 L Arterial Blood Potassium 3.1 L Venous Blood Potassium Influenza Typ A,B (EIA) Intake & Output: Intake & Output 08/30/17 08/31/17 08/31/17 18:59 06:59 18:59 Intake Total 660 2412 67 Output Total 450 0 Balance 210 2412 67 Weight 146 lb Intake: IV 2412 67 Right Forearm 2272 Oral 660 Output: Urine 450 0 Urine, Voided 450 0 Other: # Bowel Movements 2 1 Vital Signs: Vital Signs - 24 hr 08/30/17 08/30/17 08/31/17 17:32 18:00 00:00 Temperature Pulse Rate 129 H 132 H 115 H Respiratory Rate Blood Pressure 116/60 O2 Sat by Pulse 99 Oximetry 08/31/17 08/31/17 08/31/17 00:01 00:10 00:12 Temperature 97.5 F L Pulse Rate 112 H 113 H Respiratory Rate Blood Pressure 92/53 L O2 Sat by Pulse 100 100 Oximetry 08/31/17 08/31/17 08/31/17 00:20 00:30 00:40 Temperature Pulse Rate 112 H 114 H 110 H Respiratory Rate Blood Pressure 103/49 L O2 Sat by Pulse 100 99 100 Oximetry 08/31/17 08/31/17 08/31/17 00:50 01:00 01:03 Temperature Pulse Rate 113 H 112 H 113 H Respiratory Rate Blood Pressure 86/50 L 87/52 L O2 Sat by Pulse 100 99 99 Oximetry 08/31/17 08/31/17 08/31/17 01:10 01:12 01:20 Temperature Pulse Rate 111 H 112 H 112 H Respiratory Rate Blood Pressure 89/47 L O2 Sat by Pulse 99 100 99 Oximetry 08/31/17 08/31/17 08/31/17 01:30 01:39 01:40 Temperature Pulse Rate 112 H 110 H 111 H Respiratory Rate Blood Pressure 87/51 L 89/54 L O2 Sat by Pulse 100 100 100 Oximetry 08/31/17 08/31/17 08/31/17 01:50 02:00 02:10 Temperature Pulse Rate 94 H 94 H 92 H Respiratory Rate Blood Pressure 83/46 L O2 Sat by Pulse 100 100 100 Oximetry 08/31/17 08/31/17 08/31/17 02:20 02:30 02:40 Temperature Pulse Rate 91 H 90 89 Respiratory Rate Blood Pressure 80/47 L O2 Sat by Pulse 100 100 100 Oximetry 08/31/1718 08/31/17 02:50 03:00 03:10 Temperature Pulse Rate 90 98 H 90 Respiratory Rate Blood Pressure 113/67 O2 Sat by Pulse 100 99 100 Oximetry 08/31/17 08/31/17 08/31/17 03:20 03:30 03:40 Temperature Pulse Rate 92 H 91 H 90 Respiratory Rate Blood Pressure 91/55 L O2 Sat by Pulse 100 100 100 Oximetry 08/31/17 08/31/17 08/31/17 03:50 04:00 04:10 Temperature Pulse Rate 90 91 H 93 H Respiratory Rate Blood Pressure 91/52 L O2 Sat by Pulse 100 100 100 Oximetry 08/31/17 08/31/17 08/31/17 04:20 04:30 04:40 Temperature Pulse Rate 92 H 94 H 102 H Respiratory 41 H Rate Blood Pressure 107/67 O2 Sat by Pulse 100 100 100 Oximetry 08/31/17 08/31/17 08/31/17 04:50 05:00 05:10 Temperature Pulse Rate 95 H 93 H 92 H Respiratory Rate Blood Pressure 87/44 L O2 Sat by Pulse 100 100 100 Oximetry 08/31/17 08/31/17 08/31/17 07:00 07:20 07:30 Temperature Pulse Rate 95 H 91 H 93 H Respiratory Rate Blood Pressure 94/53 L O2 Sat by Pulse 100 100 Oximetry 08/31/17 08/31/17 08/31/17 07:40 07:50 07:54 Temperature Pulse Rate 95 H 98 H 97 H Respiratory Rate Blood Pressure 94/53 L O2 Sat by Pulse 100 100 Oximetry 08/31/17 08/31/17 08/31/17 08:00 08:10 08:20 Temperature 98.6 F Pulse Rate 95 H 96 H 95 H Respiratory Rate Blood Pressure 102/59 L O2 Sat by Pulse 100 100 100 Oximetry 08/31/17 08/31/17 08/31/17 08:30 08:40 08:50 Temperature Pulse Rate 97 H 95 H 102 H Respiratory Rate Blood Pressure O2 Sat by Pulse 100 100 99 Oximetry 08/31/17 08/31/17 08/31/17 09:00 09:10 09:13 Temperature Pulse Rate 106 H 103 H 105 H Respiratory Rate Blood Pressure 110/56 L 108/62 O2 Sat by Pulse 97 97 98 Oximetry 08/31/17 08/31/17 08/31/17 09:20 09:30 09:40 Temperature Pulse Rate 106 H 101 H 101 H Respiratory Rate Blood Pressure 92/52 L O2 Sat by Pulse 97 98 97 Oximetry 08/31/17 08/31/17 08/31/17 09:50 10:00 10:10 Temperature Pulse Rate 101 H 103 H 101 H Respiratory 29 H Rate Blood Pressure 95/56 L O2 Sat by Pulse 95 94 L 95 Oximetry 08/31/17 08/31/17 08/31/17 10:20 10:30 10:40 Temperature Pulse Rate 99 H 101 H 101 H Respiratory Rate Blood Pressure 92/50 L O2 Sat by Pulse 96 96 96 Oximetry 08/31/17 08/31/17 08/31/17 10:50 11:00 11:10 Temperature Pulse Rate 102 H 105 H 106 H Respiratory Rate Blood Pressure 105/64 O2 Sat by Pulse 97 96 95 Oximetry 08/31/17 08/31/17 08/31/17 11:20 11:30 11:40 Temperature Pulse Rate 107 H 105 H 105 H Respiratory Rate Blood Pressure 92/56 L O2 Sat by Pulse 95 95 95 Oximetry 08/31/17 08/31/17 08/31/17 11:50 11:59 12:00 Temperature 97.3 F L Pulse Rate 106 H 110 H 118 H Respiratory Rate Blood Pressure 112/80 O2 Sat by Pulse 94 L 91 L 93 L Oximetry 08/31/17 08/31/17 08/31/17 12:10 12:20 12:30 Temperature Pulse Rate 109 H 109 H 109 H Respiratory Rate Blood Pressure 115/65 O2 Sat by Pulse 97 98 98 Oximetry 08/31/17 08/31/17 08/31/17 12:40 12:50 13:00 Temperature Pulse Rate 109 H 108 H 109 H Respiratory Rate Blood Pressure 102/61 O2 Sat by Pulse 97 96 97 Oximetry 08/31/17 08/31/17 08/31/17 13:10 13:20 13:30 Temperature Pulse Rate 110 H 112 H 110 H Respiratory Rate Blood Pressure 97/45 L O2 Sat by Pulse 96 95 96 Oximetry 08/31/17 08/31/17 08/31/17 13:40 13:43 13:50 Temperature Pulse Rate 108 H 110 H 111 H Respiratory Rate Blood Pressure 106/54 L O2 Sat by Pulse 96 96 95 Oximetry 08/31/17 08/31/17 14:00 14:10 Temperature Pulse Rate 112 H 119 H Respiratory Rate Blood Pressure 126/52 L O2 Sat by Pulse 94 L 97 Oximetry
--- NOTE | 2017-08-31 17:25 | RAD ---
HISTORY: Shortness of breath. COMPARISON: Multiple serial examinations preceding the most recent study: August 31, 2017. Time of the most recent examination: 08:49. FINDINGS: LUNGS: Stable pulmonary edema/ARDS PLEURA: No significant pleural effusion identified, no pneumothorax apparent. CARDIOVASCULAR: No significant interval change compared to the prior examination(s). OSSEOUS STRUCTURES: No significant abnormalities. VISUALIZED UPPER ABDOMEN: Normal. OTHER FINDINGS: Stable, satisfactory position ventilatory, vascular and nasogastric apparatus. IMPRESSION: Stable pulmonary edema/ ARDS. Stable position of support apparatus. Communication of results: I discussed findings directly with Dr. Ambrosio at the time of this interpretation. Study completed at 04:53 p.m. Results available in the electronic medical record at 17:17
[2017-08-31 17:27] LABS: BASO # 0.02 K/mm3 (0.0-2.0); BASO % 0.1 % (0.0-3.0); EOS # 0.1 (0.0-0.7); EOS % 0.5 % (1.5-5.0); GRAN # 17.56 (1.4-6.5); GRAN % 91.3 % (50.0-68.0); LYMPH # 0.8 (1.2-3.4); LYMPH % 3.9 % (22.0-35.0); MEAN CELL VOLUME 102.1 fl (80.0-105.0); MEAN CORPUSCULAR HEMOGLOBIN 33.6 pg (25.0-35.0); MEAN CORPUSCULAR HGB CONC 32.9 g/dl (31.0-37.0); MEAN PLATELET VOLUME 9.9 fl (7.0-11.0); MONO # 0.8 (0.1-0.6); MONO % 4.2 % (1.0-6.0); RBC 2.86 10^6/uL (3.5-6.1); RED CELL DISTRIBUTION WIDTH 13.8 % (11.5-14.5); WHITE BLOOD COUNT 19.2 10^3/ul (4.5-11.0)
[2017-08-31 17:29] LABS: HEMOGLOBIN 9.6 g/dL (12.0-16.0)
[2017-08-31 17:38] LABS: ALBUMIN 2.7 g/dL (3.0-4.8); ALT/SGPT 32 U/L (7-56); AST/SGOT 50 U/L (14-36); BLOOD UREA NITROGEN 7 mg/dL (7-21); CALCIUM 8.3 mg/dL (8.4-10.5); GFR AFRICAN-AMERICAN > 60; GFR NON-AFRICAN AMERICAN > 60
--- NOTE | 2017-08-31 17:55 | CARD ---
APPROVED REPORT EXAM: Two-dimensional and M-mode echocardiogram with Doppler and color Doppler. INDICATION RESPIRATORY FAILURE 2D DIMENSIONS Left Atrium (2D)3.6 (1.6-4.0cm)IVSd1.2 (0.7-1.1cm) LVDd3.4 (3.9-5.9cm)PWd1.2 (0.7-1.1cm) LVDs2.4 (2.5-4.0cm)FS (%) 31.4 % LVEF (%)60.5 (>50%) M-Mode DIMENSIONS Aortic Root3.20 (2.2-3.7cm)Aortic Cusp Exc.1.80 (1.5-2.0cm) Aortic Valve AoV Peak Yugkxkir455.0cm/Daryl Peak GR.17mmHg Mitral Valve MV E Rewyeixw226.0cm/sMV A Evafzyzv861.0cm/sE/A ratio0.7 TDI Lateral E' Peak V15.40cm/sMedial E' Peak V15.70cm/sE/Lateral E'6.9 E/Medial E'6.8 Pulmonary Valve PV Peak Srjhrutq516.0cm/sPV Peak Grad.6mmHg Tricuspid Valve TR Peak [id number]/sRAP [id number] Peak Gr.36mmHg [id number] LEFT VENTRICLE The left ventricle is normal size. There is mild concentric left ventricular hypertrophy. The left ventricular function is normal.EF-60-65% There is normal LV segmental wall motion. Transmitral Doppler flow pattern is Grade III-reversible restrictive diastolic dysfunction. No left ventricle thrombus noted on this study. There is no ventricular septal defect visualized. There is no left ventricular aneurysm. There is no mass noted in the left ventricle. RIGHT VENTRICLE The right ventricle is normal size. There is normal right ventricular wall thickness. The right ventricular systolic function is normal. ATRIA The left atrium size is normal. The right atrium size is normal. The interatrial septum is intact with no evidence for an atrial septal defect. AORTIC VALVE The aortic valve is thickened but opens well. The aortic valve is mildly sclerotic. There is trace aortic regurgitation. There is no aortic valvular stenosis. There is no aortic valvular vegetation. MITRAL VALVE The mitral valve is thickened but opens well. Mitral annular calcification is mild. Mitral regurgitation is mild. There is no mitral valve stenosis. There is no evidence of mitral valve prolapse. TRICUSPID VALVE The tricuspid valve leaflets are thickened , but open well. There is mild tricuspid regurgitation.RVSP-46 mmof hg. There is no tricuspid valve stenosis. There is no tricuspid valve prolapse or vegetation. PULMONIC VALVE The pulmonary valve is normal in structure. There is trace pulmonic valvular regurgitation. There is no pulmonic valvular stenosis. GREAT VESSELS The aortic root is normal in size. The ascending aorta is normal in size. The pulmonary artery is normal. The IVC is normal in size and collapses >50% with inspiration. PERICARDIAL EFFUSION There is no pleural effusion. There is no pericardial effusion. <Conclusion> Normal chamber Size. EF-60-65% There is trace aortic regurgitation. Mitral regurgitation is mild. There is mild tricuspid regurgitation.RVSP-46 mmof hg. The IVC is normal in size and collapses >50% with inspiration. There is no pericardial effusion. No vegetation or thrombus. S/p Resoiratory failure on Vent.
--- NOTE | 2017-08-31 18:40 | US ---
PROCEDURE: Renal ultrasound dated 08/31/2017. In 8th HISTORY: obstructive uropathy COMPARISON: Comparison made with prior abdominal ultrasound dated 07/28/2017. TECHNIQUE: Sonogram of the kidneys. FINDINGS: RIGHT KIDNEY: Right kidney measures approximately 10.3 x 5.5 x 6.4 cm: . Normal in size, contour and echogenicity. No stone, solid mass lesion or hydronephrosis visualized. LEFT KIDNEY: Left kidney measures approximately 10.7 x 6.3 x 5.3 cm. Normal in size, contour and echogenicity. No stone, solid mass lesion or hydronephrosis visualized. OTHER FINDINGS: None. IMPRESSION: Unremarkable renal sonogram.
--- NOTE | 2017-08-31 20:59 | CP.PCM.PCO ---
Assessment & Plan - Assessment and Plan (Free Text) Assessment: Notified by Dr. Funez of [facility] that the ultrasound revealed the patient's kaufman catheter was posterior to the bladder and not within the bladder henson. Notified the nurse who relayed to me that patient had a change of kaufman catheter to a coude catheter by urology (Dr. Leiva) after the ultrasound study was performed. Currently draining urine via kaufman catheter.
--- NOTE | 2017-08-31 21:00 | US ---
EXAM: US Pelvis limited, Transabdominal EXAM DATE/TIME: 08/31/2017 5:35 PM CLINICAL HISTORY: The patient age is 56 years old and is female; Signs and symptoms; Bladder; Urine retention; Additional info: High residual urine in the bladder Facility exam id and description: Us bladder bladder only/residual urine TECHNIQUE: Real-time transabdominal pelvic ultrasound (limited) with image documentation. COMPARISON: US - BLADDER ONLY/RESIDUAL URINE 2015-10-05 19:52 FINDINGS: Uterus/cervix: The uterus measures 6.6 x 2.4 x 3.4 cm. The endometrial stripe measures 0.3 cm, which is within normal limits. No myometrial mass visualized. Right ovary: Not visualized. Left ovary: Not visualized. Free fluid: Free fluid/ascites is seen within the pelvis. Bladder: The patient has a Barron catheter. This is not visualized within the bladder. The bladder measures 7.8 x 7.6 x 8.4 cm, with a volume of 341.5 mm. Post void imaging of the bladder was not available for review. IMPRESSION: 1. Free fluid/ascites is seen within the pelvis. 2. The patient has a Barron catheter. This is not visualized within the bladder. Clinical correlation is recommended. Findings are discussed with Dr Celaya , 08/31/2017 8:59 PM EDT. The findings were acknowledged and understood.
[2017-08-31] MEDS: Albumin Human 5% (12.5 gm/250 ml) IV SCH ×2 (22:02→23:37)
--- NOTE | 2017-08-31 22:21 | PN ---
DATE: 08/31/2017 SUBJECTIVE: The patient is in bed, in no acute distress; however, the patient remains intubated on the ventilator, appears comfortable. PHYSICAL EXAMINATION: VITAL SIGNS: Temperature is 97, T-max was 101; heart rate of 111; respiratory rate on the vent; blood pressure is 126/50. HEENT: ET tube in place. NECK: Supple. LUNGS: Have decreased breath sounds. HEART: Normal S1, S2. ABDOMEN: Soft, nontender. LABORATORY DATA: Reveals a white count of 20,000, hemoglobin of 11, platelets of 270. Chemistries reveal a BUN of 6, creatinine of 0.5 with procalcitonin 0.21. Urinalysis is negative. Serology revels influenza is positive and microbiology thus far is all negative. Dr. Ambrosio's note is reviewed from today. ASSESSMENT AND PLAN: This is a 56-year-old female admitted from a retirement, seen early this morning in 129, bed 4. The patient with alcohol abuse and opioid dependent, cervical spondylosis surgery in the past, alcoholic hepatitis, smoker, hepatitis C, depression, anxiety, arthritis, presenting with severe sepsis with health-care associated pneumonia, secondary to positive influenza A with a negative procalcitonin and negative cultures, currently on day #2 of Tamiflu and also on day #2 of vancomycin, meropenem, and Levaquin. We will discontinue the vancomycin since all initial cultures are negative and sputum culture is negative and the methicillin-resistant Staphylococcus aureus screen is negative, which is also pending, but negative procalcitonin less likely. On vancomycin, meropenem, Levaquin, and Tamiflu. Check the methicillin-resistant Staphylococcus aureus screening, nasal screen and sputum culture. We will make further recommendations. Oli Ken MD
[2017-09-01] MEDS: Albumin Human 5% (12.5 gm/250 ml) IV SCH (01:09)
[2017-09-01] MEDS: Fentanyl 1000mcg/100ml NS 1,000 MCG/100 ML BAG IV PRN ×4 (02:25→23:55)
--- NOTE | 2017-09-01 02:36 | CON ---
DATE: CARDIOLOGY CONSULTATION REASON FOR CONSULTATION AND FOLLOWUP: Cardiac evaluation, tachycardia, intubated, respiratory failure. BRIEF CLINICAL HISTORY: This is a 56-year-old female with past medical history significant for alcohol abuse, alcoholic hepatitis, opiate abuse, hypertension, depression, who presented with shortness of breath from [facility] because of increasing shortness of breath. Patient was found to have pneumonia as well as flu, intubated. Awake and alert. Denies any chest pain, shortness of breath, or any palpitation. Currently being intubated. Responds to verbal stimuli. PAST MEDICAL HISTORY: Significant for hypertension and depression. SOCIAL HISTORY: Alcohol abuse, tobacco abuse, history of alcoholic hepatitis, history of opiate abuse as well. Claims that he was an excess smoker, drinks heavily, and substance abuse as well, but quit smoking. ALLERGIES: NO KNOWN DRUG ALLERGIES. HOME MEDICATIONS: Patient is on thiamine Cozaar, folate, Prozac. PREVIOUS CARDIAC WORKUP: As follows; patient had echocardiography on 10/05/2015 that was a TIFFANY (transesophageal echo) that showed ejection fraction of 65%, trace aortic regurgitation, [id number] mitral regurgitation, [id number] tricuspid regurgitation, trace pulmonary insufficiency, trace pericardial effusion, no vegetation noted. Ejection fraction reported 65%. TIFFANY was done after echo was inconclusive and patient was growing blood culture positive, so TIFFANY was requested to rule out vegetation. REVIEW OF SYSTEMS: As per HPI. PHYSICAL EXAMINATION: VITAL SIGNS: Temperature afebrile, heart rate 119, and blood pressure 126/52. HEENT: PERRLA. Extraocular muscles Intact. NECK: Supple. No carotid bruits. No thyromegaly. CHEST: Clear to auscultation. HEART: S1 and S2, regular. ABDOMEN: Soft. EXTREMITIES: Clubbing and cyanosis negative. LABORATORY DATA: Blood workup as follows; WBC 20.2, hemoglobin 11.7, hematocrit 34.8, and platelet count 270. Chemistries show sodium 130, potassium 3.9, chloride 114, carbon dioxide 15, anion gap of 11, BUN 6, and creatinine 0.5. Total protein 5.6, albumin 2.4. Chest x-ray shows multifocal pneumonia; no change from previous examination. IMPRESSION: Multilobar pneumonia, history of tobacco abuse, history of alcohol abuse, history of substance abuse, status post respiratory failure, intubated, history of previous TIFFANY, preserved , trace mitral regurgitation, trace tricuspid regurgitation, and trace aortic regurgitation two years ago, and a history of influenza positive. RECOMMENDATION: Try to wean off the vent as tolerated. We will get echo to assess LV function with lipid profile, TSH, hemoglobin A1c. We can start low dose of beta dennis. We will put low dose of beta dennis. We will increase 25 p.o. b.i.d. and we will discontinue metoprolol succinate to 12.5 mg. Further recommendations will be made depending on the hospital course and the finding and nature of workup. We will follow with you. Thank you, Dr. Cruz, for providing us the opportunity in taking care of the patient, Tabitha Naylor. Armando Jennings MD
[2017-09-01] MEDS: Meropenem IV 1 gm in NS 50 ML IVPB SCH ×3 (06:58→21:04)
[2017-09-01 07:05] LABS: ARTERIAL BLOOD GAS HCO3 15.3 mmol/L (21-28); ARTERIAL BLOOD GAS HEMOGLOBIN 9.8 g/dL (11.7-17.4); ARTERIAL BLOOD GAS O2 CAPACITY 13.4 mL/dl (16-24); ARTERIAL BLOOD GAS O2 CONTENT 12.8 ML/dl (15-23); ARTERIAL BLOOD GAS O2 SAT 95.7 % (95-98); ARTERIAL BLOOD GAS PCO2 47 mm/Hg (35-45); ARTERIAL BLOOD GAS TCO2 16.7 mmol.L (22-28)
[2017-09-01 07:09] LABS: BASO # 0.04 K/mm3 (0.0-2.0); BASO % 0.1 % (0.0-3.0); EOS # 0.1 (0.0-0.7); EOS % 0.4 % (1.5-5.0); GRAN # 24.1 (1.4-6.5); GRAN % 87.7 % (50.0-68.0); HEMOGLOBIN 9.9 g/dL (12.0-16.0); LYMPH # 1.6 (1.2-3.4); LYMPH % 5.8 % (22.0-35.0); MEAN CELL VOLUME 105.1 fl (80.0-105.0); MEAN CORPUSCULAR HEMOGLOBIN 33.7 pg (25.0-35.0); MEAN PLATELET VOLUME 10.2 fl (7.0-11.0); MONO # 1.6 (0.1-0.6); RBC 2.94 10^6/uL (3.5-6.1); RED CELL DISTRIBUTION WIDTH 14.2 % (11.5-14.5)
[2017-09-01 07:15] LABS: ARTERIAL BLOOD GAS PH 7.12 (7.35-7.45)
[2017-09-01 07:30] LABS: ALB/GLOB RATIO 1.2 (1.1-1.8); ALBUMIN 3.5 g/dL (3.0-4.8); CALCIUM 8.8 mg/dL (8.4-10.5)
[2017-09-01] MEDS: Albuterol-Ipratrop 3 mg / 0.5 (3 ml) UD IH SCH ×3 (07:36→20:57)
[2017-09-01] MEDS: Vancomycin 1gm in NS 250ml 1 GM/250 ML BAG IVPB SCH ×2 (07:36→20:17)
[2017-09-01 07:38] LABS: WHITE BLOOD COUNT 27.5 10^3/ul (4.5-11.0)
[2017-09-01] MEDS ORDERED: Dextrose 50% SYRINGE Inj (50 ml) IVP ONE ×3 (07:45→21:19)
[2017-09-01] MEDS ORDERED: Cisatracurium Besylate 100 MG in Sodium Chloride 0.9% 250 ML IV PRN ×2 (08:11→08:17)
[2017-09-01] MEDS ORDERED: Lactated Ringer's 1,000 ML IV SCH ×3 (08:15→12:30)
--- NOTE | 2017-09-01 08:42 | RAD ---
HISTORY: f/u COMPARISON: 08/31/2017. FINDINGS: The endotracheal tube terminates 2 cm proximal to the rakesh. The nasogastric tube terminates in the stomach. The left PICC line terminates in the SVC. LUNGS: There is worsening confluent airspace disease in both lungs. PLEURA: No significant pleural effusion identified, no pneumothorax apparent. CARDIOVASCULAR: Normal. OSSEOUS STRUCTURES: No significant abnormalities. VISUALIZED UPPER ABDOMEN: Normal. OTHER FINDINGS: None. IMPRESSION: Worsening pulmonary edema/ARDS. Stable position of support line and tubes.
--- NOTE | 2017-09-01 09:26 | PN ---
DATE: 09/01/2017(650am-740am) PULMONARY NOTE SUBJECTIVE: The patient remains on the ventilator. She is currently sedated. PHYSICAL EXAMINATION: VITAL SIGNS: Temperature is 98.7, pulse is 122, respiratory rate 26/20, blood pressure 96/62. HEENT: Normocephalic, atraumatic. NECK: No JVD. CARDIOVASCULAR: Positive S1, S2. No S3 gallop. LUNGS: Crackles at both bases. Mild bilateral rhonchi. No wheezing. EXTREMITIES: No clubbing, cyanosis or edema. GI: Abdomen is soft, nondistended. Bowel sounds are positive. SKIN: No acute rash. NEUROLOGIC: Exam limited at the present time. PERTINENT LABORATORY DATA: Chest x-ray was repeated this morning and reviewed. There remains extensive bilateral pulmonary infiltrates. Arterial blood gas was done on PRVC 20, tidal volume 350, FIO2 of 60%, PEEP of 10. Results are pH is 7.12, pCO2 of 47, pO2 of 73. IMPRESSION: 1. Respiratory failure. 2. Bilateral pneumonia. 3. Haemophilus influenza A positivity. Rule out influenza pneumonia. 4. Sepsis syndrome. 5. Alcoholic hepatitis. 6. Anemia. PLAN: The patient remains in the ICU and on the ventilator. She remains sedated. I did discuss the case with the night nurse at length. The night nurse stated that the patient is doing poorly overall. I did review the chest x-ray as above. There are extensive bilateral pulmonary infiltrates noted. I have also reviewed the arterial blood gas. There is now a mixed metabolic and respiratory acidosis. There is also a large alveolar-arterial gradient. I will discuss the ventilator settings with the ICU team in the next few moments. I would continue with the antibiotic coverage as per Infectious Disease. Input by Dr. Ken is noted. Temperatures are resolving. Repeat a.m. labs are pending. Input by Cardiology is also noted. Deep tracheal aspirate studies-pending. The patient remains critically ill with very, very guarded prognosis. Again, I will discuss the above with the entire ICU team in the next few moments. I will also discuss the above with the attending physician later this morning. Kit Powell MD MTDWes
[2017-09-01] MEDS ORDERED: Sodium Chloride 0.9% 1,000 ML IV STA (09:29)
[2017-09-01] MEDS: levoFLOXacin 750 mg in D5W 150 ML BAG IVPB SCH (09:33)
[2017-09-01] MEDS: Oseltamivir 6 MG/ML PO SCH ×2 (10:00→19:00)
[2017-09-01 10:05] LABS: INR 2.25 (0.93-1.08); PROTHROMBIN TIME 26.3 SECONDS (9.4-12.5)
--- NOTE | 2017-09-01 10:35 | PN ---
DATE: LOCATION: The patient is in [facility] Critical Care Unit. SUBJECTIVE: The patient is admitted with bilateral multilobar pneumonia. The patient had respiratory failure with hypoxia and acidosis. The patient was intubated and the patient is in the ICU. The patient has past history of alcoholic hepatitis. The patient has history of hypertension, depression. The patient is on the respirator at this time. She has a Barron catheter. PHYSICAL EXAMINATION: VITAL SIGNS: Pulse is 122, blood pressure 96/62, respirations maintained by the respirator. LUNGS: Bilateral crepitation. HEART: Normal sinus rhythm. Sinus tachycardia. ABDOMEN: Soft. The patient has a Barron catheter to drain the bladder. The patient had retention of urine yesterday. PLATEN GRINDER: Examination is not clinically assessed because of the patient's sedation with medication for agitation. MEDICATIONS: The patient's list of medications consist of Ativan IV, Diprivan, albuterol, fentanyl patch for pain. The patient is on heparin drip. Heparin subacute for prophylaxis and the patient is on levofloxacin 750 mg IV daily. The patient's condition is critical. The vital signs show that the patient is acutely sick. LABORATORY DATA: The patient's white count is 27,000. She is septic and she has been seen by the respiratory instructional systems design consultant Dr. Powell, Infectious Disease instructional systems design consultant Dr. Ken. The patient is cared for in the Critical Care Unit by the costume specialist and we will continue current management, followup. The patient's condition is critical as mentioned. Tay Cruz MD
[2017-09-01] MEDS: Cisatracurium Besylate 100 MG in Sodium Chloride 0.9% 250 ML IV PRN (10:40)
--- NOTE | 2017-09-01 11:56 | US ---
HISTORY: Leg pain and swelling. Evaluate for DVT PHYSICIAN(S): Oscar Zafar MD. TECHNIQUE: Duplex sonography and color-flow Doppler with graded compression were used to evaluate the deep venous systems of both lower extremities. The exam is limited by edema FINDINGS: The visualized deep venous systems of both lower extremities are sonographically normal and compressible. Normal wave forms and augmentation are seen. There is no sonographic evidence for deep venous thrombosis in the visualized segments of both lower extremities. IMPRESSION: No sonographic evidence for deep venous thrombosis in the visualized segments of both lower extremities.
--- NOTE | 2017-09-01 11:57 | CP.CCUPN ---
<Sushant Molina - Last Filed: 09/01/17 12:22> CCU Subjective - Physician Review Subjective (Free Text): 09/01/17 11:54 Patient seen and examined at bedside currently sedated and intubated; ROS not obtainable. CCU Objective - Vital Signs / Intake & Output Vital Signs (Last 4 hours): Vital Signs Temp Pulse Resp BP Pulse Ox 09/01/17 11:17 109/79 09/01/17 11:16 100 H 100 09/01/17 11:10 101 H 60/38 L 100 09/01/17 11:09 101 H 61/41 L 100 09/01/17 11:04 101 H 62/41 L 100 09/01/17 11:01 102 H 70/36 L 100 09/01/17 11:00 102 H 100 09/01/17 10:53 102 H 89/43 L 100 09/01/17 10:51 103 H 75/42 L 100 09/01/17 10:50 102 H 100 09/01/17 10:46 104 H 75/43 L 100 09/01/17 10:45 104 H 100 09/01/17 10:42 104 H 72/44 L 100 09/01/17 10:40 105 H 100 09/01/17 10:30 106 H 78/36 L 100 09/01/17 10:20 108 H 100 09/01/17 10:17 109 H 88/59 L 98 09/01/17 10:16 108 H 86/41 L 98 09/01/17 10:10 109 H 98 09/01/17 10:00 107 H 90/59 L 99 09/01/17 09:50 107 H 98 09/01/17 09:40 107 H 99 09/01/17 09:30 105 H 93/48 L 98 09/01/17 09:20 106 H 20 98 09/01/17 09:11 94/51 L 09/01/17 09:10 101 H 98 09/01/17 09:01 103 H 94/51 L 97 18 09:00 103 H 75/51 L 97 09/01/17 08:50 104 H 97 09/01/17 08:40 107 H 96 09/01/17 08:30 107 H 97/67 L 97 09/01/17 08:20 110 H 95 09/01/17 08:10 112 H 95 09/01/17 08:06 112 H 114/95 H 89 L 09/01/17 08:00 98.2 F 109 H 78/49 L 91 L Intake and Output (Last 8hrs): Intake & Output 08/31/17 09/01/17 09/01/17 22:59 06:59 14:59 Intake Total 1295 1352 178 Output Total 230 125 Balance 1065 1227 178 Intake: IV 1135 1112 178 Left Upper arm 450 1012 Right Antecubital 150 Right Forearm 300 Tube Feeding 160 240 Output: Urine 230 125 Urethral (Barron) 230 125 - Physical Exam Head: Positive for: Atraumatic, Normocephalic Pupils: Positive for: PERRL, Other (no nystagmus, no photophobia, sclera anicteric) Extroacular Muscles: Positive for: EOMI Conjunctiva: Positive for: Normal Ears: Positive for: Normal Mouth: Positive for: Dry, Normal Teeth, Other (uvula/tongue are midline, no exudate/lesions, no drooling/stridor) Pharnyx: Positive for: Normal Nose (External): Positive for: Atraumatic Nose (Internal): Positive for: Normal Inspection Neck: Positive for: Normal Range of Motion, Trachea Midline, Other (no step off , no nuchal rigidity, no meningeal signs). Negative for: Meningeal Signs, MIDLINE TENDERNESS Respiratory/Chest: Positive for: Rhonchi (upper and lower lobes bilaterally, significantly in upper right lobe), Other (asymmetric breath sounds, right slightly decr compare with left; + coarse breath sounds, no wheezing/rales, faint rales noted b/l, no accessory muscle use noted, no tachypenia). Negative for: Clear to Auscultation, Respiratory Distress, Accessory Muscle Use, Wheezes , Rales Cardiovascular: Positive for: Normal S1, S2. Negative for: Murmurs Abdomen: Positive for: Normal Bowel Sounds, Other (well nourished female, no focal tenderness, no masses/rebound/guarding/rigidity, no matos's sign, no mcburney's point tenderness). Negative for: Tenderness, Feeding Tubes Back: Positive for: Normal Inspection. Negative for: CVA Tenderness, Midline Tenderness, Paraspinal Tenderness Upper Extremity: Positive for: Normal Inspection, Normal ROM, NORMAL PULSES, Neurovascularly Intact Lower Extremity: Positive for: Normal Inspection, NORMAL PULSES, Neurovascularly Intact. Negative for: Latonia's Sign Neurological: Positive for: Other (sedated) Skin: Positive for: Warm, Dry, Other (cap refill ~ 1sec, no ulcerations, no petechiae, no gross pallor). Negative for: Rashes Psychiatric: Positive for: Other (sedated) - Medications Active Medications: Active Medications Generic Name Dose Route Start Last Admin Trade Name Freq PRN Reason Stop Dose Admin Albuterol/Ipratropium 3 ml 08/29/17 20:00 09/01/17 07:36 Duoneb 3 Mg/0.5 Mg (3 Ml) Ud IH 3 ml [id number] NORMA Administration Protocol Fluoxetine HCl 40 mg 08/30/17 10:00 08/30/17 15:44 Prozac PO 40 mg DAILY NORMA Administration Furosemide 20 mg 09/01/17 10:00 09/01/17 09:30 Lasix IV Not Given BID [facility] Heparin Sodium (Porcine) 5,000 units 08/30/17 22:00 09/01/17 06:58 Heparin SC 5,000 units Q8 NORMA Administration Protocol Meropenem 50 mls @ 100 mls/hr 08/30/17 14:00 09/01/17 06:58 Merrem Iv 1 Gm Premix IVPB 09/08/17 14:01 100 mls/hr Q8 NORMA Administration Protocol Vancomycin HCl 1 gm in 250 mls @ 167 mls/hr 08/30/17 07:15 09/01/17 07:36 Vancomycin 1gm IVPB 09/08/17 07:16 167 mls/hr Q12H NORMA Administration Protocol Propofol 1,000 mg in 100 mls @ 1.987 mls/hr 08/30/17 19:47 08/31/17 08:47 Diprivan IV 0 mcg/kg/min .Q24H PRN 0 mls/hr TITRATE PER MD ORDER Titration Protocol 5 MCG/KG/MIN Acetaminophen 1,000 mg in 100 mls @ 400 mls/hr 08/30/17 20:19 08/30/17 22:21 Ofirmev IVPB 09/01/17 20:20 400 mls/hr Q6H PRN Administration Temperature Fentanyl Citrate 1,000 mcg in 100 mls @ 7.5 mls/hr 08/31/17 08:32 09/01/17 11 :13 Fentanyl Citrate/Sodium Chloride 1 Mg/100 Ml IV 80 mcg/hr .[id number] PRN 8 mls/hr TITRATE PER MD ORDER Titration Protocol 75 MCG/HR Midazolam 100 mg/100ml in NS 100 mg in 100 mls @ 1 mls/hr 08/31/17 15:48 11:42 Midazolam 100 Mg/100ml In Ns IV 6 mg/hr .Q24H PRN 6 mls/hr Seizure activity Titration Protocol 1 MG/HR Cisatracurium Besylate 100 mg/ 260 mls @ 10.33 mls/hr 09/01/17 10:09 11:49 Sodium Chloride IV 2 mcg/kg/min .Q24H PRN 20.66 mls/hr TITRATE PER MD ORDER Titration Protocol 1 MCG/KG/MIN Levofloxacin/Dextrose 750 mg 08/30/17 10:00 09/01/17 09:33 Levaquin 750mg IVPB 09/08/17 10:01 750 mg DAILY NORMA Administration Protocol Lorazepam 1 mg 08/30/17 20:59 08/30/17 21:13 Ativan IVP 1 mg ONCE PRN Administration Anxiety Protocol Metoprolol Tartrate 25 mg 08/31/17 18:00 09/01/17 09:11 Lopressor PO Not Given BID NORMA Midazolam HCl 4 mg 08/31/17 08:31 08/31/17 20:36 Versed Inj IVP 4 mg Q2H PRN Administration Agitation Oseltamivir Phosphate 75 mg 08/30/17 23:15 09/01/17 10:00 Tamiflu Susp PO 75 mg BID NORMA Administration Protocol Pantoprazole Sodium 40 mg 08/31/17 10:00 09/01/17 09:38 Protonix Inj IVP 40 mg DAILY NORMA Administration Verapamil HCl 2.5 mg 09/01/17 09:04 Verapamil Inj IVP Q6H PRN for herat rate >130 - Patient Studies Lab Studies: Microbiology Studies 08/31/17 08:00 Gram Stain - Preliminary Sputum 08/29/17 18:37 Urine Culture - Final Urine,Clean Catch 50-100,000 CFU/ML. MULTIPLE SPECIES. SUGGEST REPEAT SPECIMEN. Lab Studies 09/01/17 09/01/17 09/01/17 Range/Units 09:44 08:29 07:56 WBC (4.5-11.0) 10^3/ul RBC (3.5-6.1) 10^6/uL Hgb (12.0-16.0) g/dL Hct (36.0-48.0) % MCV (80.0-105.0) fl MCH (25.0-35.0) pg MCHC (31.0-37.0) g/dl RDW (11.5-14.5) % Plt Count (120.0-450.0) 10^3/uL MPV (7.0-11.0) fl Gran % (50.0-68.0) % Lymph % (Auto) (22.0-35.0) % [place] % (Auto) (1.0-6.0) % Eos % (Auto) (1.5-5.0) % Baso % (Auto) (0.0-3.0) % Gran # (1.4-6.5) Lymph # (Auto) (1.2-3.4) [place] # (Auto) (0.1-0.6) Eos # (Auto) (0.0-0.7) Baso # (Auto) (0.0-2.0) K/mm3 PT 26.3 H (9.4-12.5) SECONDS INR 2.25 H (0.93-1.08) pCO2 (35-45) mm/Hg pO2 (80-100) mm/Hg HCO3 (21-28) mmol/L ABG pH (7.35-7.45) ABG Total CO2 (22-28) mmol.L ABG O2 Saturation (95-98) % ABG O2 Content (15-23) ML/dl ABG Base Excess (-2.0-3.0) mmol/L ABG Hemoglobin (11.7-17.4) g/dL ABG Carboxyhemoglobin (0.5-1.5) % POC ABG HHb (Measured) (0-5) % ABG Methemoglobin (0.0-3.0) % ABG O2 Capacity (16-24) mL/dl ABG Potassium (3.6-5.2) mmol/L Hgb O2 Saturation (95.0-98.0) % Sodium (132-148) mmol/L Chloride (98-107) mmol/L Glucose (65-105) mg/dl Lactate (0.7-2.1) mmol/L FiO2 % Potassium (3.6-5.0) mmol/L Carbon Dioxide (21-33) mmol/L Anion Gap (10-20) BUN (7-21) mg/dL Creatinine (0.7-1.2) mg/dl Est GFR ( Amer) Est GFR (Non-Af Amer) POC Glucose (mg/dL) 148 H 52 L (65-110) mg/dL Random Glucose (70-110) mg/dL Calcium (8.4-10.5) mg/dL Phosphorus (2.5-4.5) mg/dL Magnesium (1.7-2.2) mg/dL Total Bilirubin (0.2-1.3) mg/dL AST (14-36) U/L ALT (7-56) U/L Alkaline Phosphatase (38-126) U/L Total Protein (5.8-8.3) g/dL Albumin (3.0-4.8) g/dL Globulin gm/dL Albumin/Globulin Ratio (1.1-1.8) Triglycerides (35-160) mg/dL Cholesterol (130-200) mg/dL LDL Cholesterol Direct (0-129) mg/dL HDL Cholesterol (29-60) mg/dL TSH 3rd Generation (0.46-4.68) mIU/mL Arterial Blood Potassium (3.6-5.2) mmol/L 09/01/17 09/01/17 09/01/17 Range/Units 06:45 05:30 05:30 WBC (4.5-11.0) 10^3/ul RBC (3.5-6.1) 10^6/uL Hgb (12.0-16.0) g/dL Hct (36.0-48.0) % MCV (80.0-105.0) fl MCH (25.0-35.0) pg MCHC (31.0-37.0) g/dl RDW (11.5-14.5) % Plt Count (120.0-450.0) 10^3/uL MPV (7.0-11.0) fl Gran % (50.0-68.0) % Lymph % (Auto) (22.0-35.0) % [place] % (Auto) (1.0-6.0) % Eos % (Auto) (1.5-5.0) % Baso % (Auto) (0.0-3.0) % Gran # (1.4-6.5) Lymph # (Auto) (1.2-3.4) [place] # (Auto) (0.1-0.6) Eos # (Auto) (0.0-0.7) Baso # (Auto) (0.0-2.0) K/mm3 PT (9.4-12.5) SECONDS INR (0.93-1.08) pCO2 47 H (35-45) mm/Hg pO2 73.0 L (80-100) mm/Hg HCO3 15.3 L (21-28) mmol/L ABG pH 7.12 L* (7.35-7.45) ABG Total CO2 16.7 L (22-28) mmol.L ABG O2 Saturation 95.7 (95-98) % ABG O2 Content 12.8 L (15-23) ML/dl ABG Base Excess -13.4 L (-2.0-3.0) mmol/L ABG Hemoglobin 9.8 L (11.7-17.4) g/dL ABG Carboxyhemoglobin 2.6 H (0.5-1.5) % POC ABG HHb (Measured) 4.2 (0-5) % ABG Methemoglobin 0.7 (0.0-3.0) % ABG O2 Capacity 13.4 L (16-24) mL/dl ABG Potassium (3.6-5.2) mmol/L Hgb O2 Saturation 92.5 L (95.0-98.0) % Sodium 141 (132-148) mmol/L Chloride 113 H (98-107) mmol/L Glucose (65-105) mg/dl Lactate (0.7-2.1) mmol/L FiO2 60.0 % Potassium 4.7 (3.6-5.0) mmol/L Carbon Dioxide 15 L (21-33) mmol/L Anion Gap 19 (10-20) BUN 12 (7-21) mg/dL Creatinine 1.2 (0.7-1.2) mg/dl Est GFR ( Amer) 56 Est GFR (Non-Af Amer) 46 POC Glucose (mg/dL) (65-110) mg/dL Random Glucose 50 L (70-110) mg/dL Calcium 8.8 (8.4-10.5) mg/dL Phosphorus 5.1 H (2.5-4.5) mg/dL Magnesium 1.7 (1.7-2.2) mg/dL Total Bilirubin 2.6 H (0.2-1.3) mg/dL AST 70 H D (14-36) U/L ALT 27 (7-56) U/L Alkaline Phosphatase 90 (38-126) U/L Total Protein 6.3 (5.8-8.3) g/dL Albumin 3.5 (3.0-4.8) g/dL Globulin 2.9 gm/dL Albumin/Globulin Ratio 1.2 (1.1-1.8) Triglycerides 205 H (35-160) mg/dL Cholesterol 142 (130-200) mg/dL LDL Cholesterol Direct 71 (0-129) mg/dL HDL Cholesterol 15 L (29-60) mg/dL TSH 3rd Generation 0.98 (0.46-4.68) mIU/mL Arterial Blood Potassium (3.6-5.2) mmol/L 09/01/17 08/31/17 08/31/17 Range/Units 05:30 17:00 17:00 WBC 27.5 H* D 19.2 H (4.5-11.0) 10^3/ul RBC 2.94 L 2.86 L (3.5-6.1) 10^6/uL Hgb 9.9 L 9.6 L D (12.0-16.0) g/dL Hct 30.9 L 29.2 L (36.0-48.0) % MCV 105.1 H D 102.1 (80.0-105.0) fl MCH 33.7 33.6 (25.0-35.0) pg MCHC 32.0 32.9 (31.0-37.0) g/dl RDW 14.2 13.8 (11.5-14.5) % Plt Count 335 277 (120.0-450.0) 10^3/uL MPV 10.2 9.9 (7.0-11.0) fl Gran % 87.7 H 91.3 H (50.0-68.0) % Lymph % (Auto) 5.8 L 3.9 L (22.0-35.0) % [place] % (Auto) 6.0 4.2 (1.0-6.0) % Eos % (Auto) 0.4 L 0.5 L (1.5-5.0) % Baso % (Auto) 0.1 0.1 (0.0-3.0) % Gran # 24.10 H 17.56 H (1.4-6.5) Lymph # (Auto) 1.6 0.8 L (1.2-3.4) [place] # (Auto) 1.6 H 0.8 H (0.1-0.6) Eos # (Auto) 0.1 0.1 (0.0-0.7) Baso # (Auto) 0.04 0.02 (0.0-2.0) K/mm3 PT (9.4-12.5) SECONDS INR (0.93-1.08) pCO2 (35-45) mm/Hg pO2 (80-100) mm/Hg HCO3 (21-28) mmol/L ABG pH (7.35-7.45) ABG Total CO2 (22-28) mmol.L ABG O2 Saturation (95-98) % ABG O2 Content (15-23) ML/dl ABG Base Excess (-2.0-3.0) mmol/L ABG Hemoglobin (11.7-17.4) g/dL ABG Carboxyhemoglobin (0.5-1.5) % POC ABG HHb (Measured) (0-5) % ABG Methemoglobin (0.0-3.0) % ABG O2 Capacity (16-24) mL/dl ABG Potassium (3.6-5.2) mmol/L Hgb O2 Saturation (95.0-98.0) % Sodium 138 (132-148) mmol/L Chloride 113 H (98-107) mmol/L Glucose (65-105) mg/dl Lactate (0.7-2.1) mmol/L FiO2 % Potassium 3.9 (3.6-5.0) mmol/L Carbon Dioxide 16 L (21-33) mmol/L Anion Gap 14 (10-20) BUN 7 (7-21) mg/dL Creatinine 0.6 L (0.7-1.2) mg/dl Est GFR ( Amer) > 60 Est GFR (Non-Af Amer) > 60 POC Glucose (mg/dL) (65-110) mg/dL Random Glucose 86 (70-110) mg/dL Calcium 8.3 L (8.4-10.5) mg/dL Phosphorus (2.5-4.5) mg/dL Magnesium (1.7-2.2) mg/dL Total Bilirubin 2.3 H (0.2-1.3) mg/dL AST 50 H (14-36) U/L ALT 32 (7-56) U/L Alkaline Phosphatase 91 (38-126) U/L Total Protein 5.5 L (5.8-8.3) g/dL Albumin 2.7 L (3.0-4.8) g/dL Globulin 2.8 gm/dL Albumin/Globulin Ratio 1.0 L (1.1-1.8) Triglycerides (35-160) mg/dL Cholesterol (130-200) mg/dL LDL Cholesterol Direct (0-129) mg/dL HDL Cholesterol (29-60) mg/dL TSH 3rd Generation (0.46-4.68) mIU/mL Arterial Blood Potassium (3.6-5.2) mmol/L 08/31/17 Range/Units 16:17 WBC (4.5-11.0) 10^3/ul RBC (3.5-6.1) 10^6/uL Hgb (12.0-16.0) g/dL Hct (36.0-48.0) % MCV (80.0-105.0) fl MCH (25.0-35.0) pg MCHC (31.0-37.0) g/dl RDW (11.5-14.5) % Plt Count (120.0-450.0) 10^3/uL MPV (7.0-11.0) fl Gran % (50.0-68.0) % Lymph % (Auto) (22.0-35.0) % [place] % (Auto) (1.0-6.0) % Eos % (Auto) (1.5-5.0) % Baso % (Auto) (0.0-3.0) % Gran # (1.4-6.5) Lymph # (Auto) (1.2-3.4) [place] # (Auto) (0.1-0.6) Eos # (Auto) (0.0-0.7) Baso # (Auto) (0.0-2.0) K/mm3 PT (9.4-12.5) SECONDS INR (0.93-1.08) pCO2 29 L (35-45) mm/Hg pO2 69.0 L (80-100) mm/Hg HCO3 14.3 L (21-28) mmol/L ABG pH 7.30 L (7.35-7.45) ABG Total CO2 15.2 L (22-28) mmol.L ABG O2 Saturation 97.3 (95-98) % ABG O2 Content (15-23) ML/dl ABG Base Excess -10.7 L (-2.0-3.0) mmol/L ABG Hemoglobin (11.7-17.4) g/dL ABG Carboxyhemoglobin (0.5-1.5) % POC ABG HHb (Measured) (0-5) % ABG Methemoglobin (0.0-3.0) % ABG O2 Capacity (16-24) mL/dl ABG Potassium 3.1 L (3.6-5.2) mmol/L Hgb O2 Saturation (95.0-98.0) % Sodium 139.0 (132-148) mmol/L Chloride 114.0 H (98-107) mmol/L Glucose 80 (65-105) mg/dl Lactate 1.1 (0.7-2.1) mmol/L FiO2 60.0 % Potassium (3.6-5.0) mmol/L Carbon Dioxide (21-33) mmol/L Anion Gap (10-20) BUN (7-21) mg/dL Creatinine (0.7-1.2) mg/dl Est GFR ( Amer) Est GFR (Non-Af Amer) POC Glucose (mg/dL) (65-110) mg/dL Random Glucose (70-110) mg/dL Calcium (8.4-10.5) mg/dL Phosphorus (2.5-4.5) mg/dL Magnesium (1.7-2.2) mg/dL Total Bilirubin (0.2-1.3) mg/dL AST (14-36) U/L ALT (7-56) U/L Alkaline Phosphatase (38-126) U/L Total Protein (5.8-8.3) g/dL Albumin (3.0-4.8) g/dL Globulin gm/dL Albumin/Globulin Ratio (1.1-1.8) Triglycerides (35-160) mg/dL Cholesterol (130-200) mg/dL LDL Cholesterol Direct (0-129) mg/dL HDL Cholesterol (29-60) mg/dL TSH 3rd Generation (0.46-4.68) mIU/mL Arterial Blood Potassium 3.1 L (3.6-5.2) mmol/L Laboratory Results - last 24 hr 08/31/17 08/31/17 08/31/17 16:17 17:00 17:00 WBC 19.2 H RBC 2.86 L Hgb 9.6 L D Hct 29.2 L MCV 102.1 MCH 33.6 MCHC 32.9 RDW 13.8 Plt Count 277 MPV 9.9 Gran % 91.3 H Lymph % (Auto) 3.9 L [place] % (Auto) 4.2 Eos % (Auto) 0.5 L Baso % (Auto) 0.1 Gran # 17.56 H Lymph # (Auto) 0.8 L [place] # (Auto) 0.8 H Eos # (Auto) 0.1 Baso # (Auto) 0.02 PT INR pCO2 29 L pO2 69.0 L HCO3 14.3 L ABG pH 7.30 L ABG Total CO2 15.2 L ABG O2 Saturation 97.3 ABG O2 Content ABG Base Excess -10.7 L ABG Hemoglobin ABG Carboxyhemoglobin POC ABG HHb (Measured) ABG Methemoglobin ABG O2 Capacity ABG Potassium 3.1 L Hgb O2 Saturation Sodium 139.0 138 Chloride 114.0 H 113 H Glucose 80 Lactate 1.1 FiO2 60.0 Potassium 3.9 Carbon Dioxide 16 L Anion Gap 14 BUN 7 Creatinine 0.6 L Est GFR ( Amer) > 60 Est GFR (Non-Af Amer) > 60 POC Glucose (mg/dL) Random Glucose 86 Calcium 8.3 L Phosphorus Magnesium Total Bilirubin 2.3 H AST 50 H ALT 32 Alkaline Phosphatase 91 Total Protein 5.5 L Albumin 2.7 L Globulin 2.8 Albumin/Globulin Ratio 1.0 L Triglycerides Cholesterol LDL Cholesterol Direct HDL Cholesterol TSH 3rd Generation Arterial Blood Potassium 3.1 L 09/01/17 09/01/17 09/01/17 05:30 05:30 05:30 WBC 27.5 H* D RBC 2.94 L Hgb 9.9 L Hct 30.9 L MCV 105.1 H D MCH 33.7 MCHC 32.0 RDW 14.2 Plt Count 335 MPV 10.2 Gran % 87.7 H Lymph % (Auto) 5.8 L [place] % (Auto) 6.0 Eos % (Auto) 0.4 L Baso % (Auto) 0.1 Gran # 24.10 H Lymph # (Auto) 1.6 [place] # (Auto) 1.6 H Eos # (Auto) 0.1 Baso # (Auto) 0.04 PT INR pCO2 pO2 HCO3 ABG pH ABG Total CO2 ABG O2 Saturation ABG O2 Content ABG Base Excess ABG Hemoglobin ABG Carboxyhemoglobin POC ABG HHb (Measured) ABG Methemoglobin ABG O2 Capacity ABG Potassium Hgb O2 Saturation Sodium 141 Chloride 113 H Glucose Lactate FiO2 Potassium 4.7 Carbon Dioxide 15 L Anion Gap 19 BUN 12 Creatinine 1.2 Est GFR ( Amer) 56 Est GFR (Non-Af Amer) 46 POC Glucose (mg/dL) Random Glucose 50 L Calcium 8.8 Phosphorus 5.1 H Magnesium 1.7 Total Bilirubin 2.6 H AST 70 H D ALT 27 Alkaline Phosphatase 90 Total Protein 6.3 Albumin 3.5 Globulin 2.9 Albumin/Globulin Ratio 1.2 Triglycerides 205 H Cholesterol 142 LDL Cholesterol Direct 71 HDL Cholesterol 15 L TSH 3rd Generation 0.98 Arterial Blood Potassium 09/01/17 09/01/17 09/01/17 06:45 07:56 08:29 WBC RBC Hgb Hct MCV MCH MCHC RDW Plt Count MPV Gran % Lymph % (Auto) [place] % (Auto) Eos % (Auto) Baso % (Auto) Gran # Lymph # (Auto) [place] # (Auto) Eos # (Auto) Baso # (Auto) PT INR pCO2 47 H pO2 73.0 L HCO3 15.3 L ABG pH 7.12 L* ABG Total CO2 16.7 L ABG O2 Saturation 95.7 ABG O2 Content 12.8 L ABG Base Excess -13.4 L ABG Hemoglobin 9.8 L ABG Carboxyhemoglobin 2.6 H POC ABG HHb (Measured) 4.2 ABG Methemoglobin 0.7 ABG O2 Capacity 13.4 L ABG Potassium Hgb O2 Saturation 92.5 L Sodium Chloride Glucose Lactate FiO2 60.0 Potassium Carbon Dioxide Anion Gap BUN Creatinine Est GFR ( Amer) Est GFR (Non-Af Amer) POC Glucose (mg/dL) 52 L 148 H Random Glucose Calcium Phosphorus Magnesium Total Bilirubin AST ALT Alkaline Phosphatase Total Protein Albumin Globulin Albumin/Globulin Ratio Triglycerides Cholesterol LDL Cholesterol Direct HDL Cholesterol TSH 3rd Generation Arterial Blood Potassium 09/01/17 09:44 WBC RBC Hgb Hct MCV MCH MCHC RDW Plt Count MPV Gran % Lymph % (Auto) [place] % (Auto) Eos % (Auto) Baso % (Auto) Gran # Lymph # (Auto) [place] # (Auto) Eos # (Auto) Baso # (Auto) PT 26.3 H INR 2.25 H pCO2 pO2 HCO3 ABG pH ABG Total CO2 ABG O2 Saturation ABG O2 Content ABG Base Excess ABG Hemoglobin ABG Carboxyhemoglobin POC ABG HHb (Measured) ABG Methemoglobin ABG O2 Capacity ABG Potassium Hgb O2 Saturation Sodium Chloride Glucose Lactate FiO2 Potassium Carbon Dioxide Anion Gap BUN Creatinine Est GFR ( Amer) Est GFR (Non-Af Amer) POC Glucose (mg/dL) Random Glucose Calcium Phosphorus Magnesium Total Bilirubin AST ALT Alkaline Phosphatase Total Protein Albumin Globulin Albumin/Globulin Ratio Triglycerides Cholesterol LDL Cholesterol Direct HDL Cholesterol TSH 3rd Generation Arterial Blood Potassium EKG/Cardiology Studies: Cardiology / EKG Studies 09/01/17 09:03 ELECTROCARDIOGRAM Urgent Comment: Reason For Exam: sinus tach on vent Fingerstick Blood Sugar Results: 87 Review of Systems - Review of Systems Systems not reviewed;Unavailable: Intubated Critical Care Progress Note - Nutrition Nutrition: Nutrition Category Date Time Status Heart Healthy Diet [DIET] Diets 08/29/17 Lunch Ordered Assessment/Plan - Assessment and Plan (Free Text) Assessment: Patient is a 56 F recently admitted for alcoholic hepatitis with a history of narcotic abuse, hypertension, untreated hepatitis C, ETOH abuse, and tobacco abuse presenting from [facility] re[facility] with complaints of increased shortness of breath at rest and dry cough x 1 day found to be in hypoxemic respiratory failure with worsening progression of pneumonia. Neuro: -Intubated and sedated on fentanyl, midazolam -paralysis with nimbex -Monitor with ICU BIS score -Train 1 of 4 -EEG ordered; results pending Cardiovascular: -maintain MAP>65 -Consider pressors pending blood pressures. PICC line placed -keep patient normotensive -Echocardiogram reveals EF 60-65%, no pericardial effusion, RVSP 46 Pulmonary -ARDS; currently in process of paralysis -Most recent blood gas pCO2 32, pO2 211, HCO3 13.7, pH 7.24 on PRVC 80 14 24 350 -Continue with ABGs and monitor Infectious disease -Influenza superimposed with bilateral pneumonia -Continue with tamiflu for treatment of influenza. Patient on tamiflu therapy day #3 -Continue with levaquin day#3 ,vancomycin day #3, and meropenem day#3 -Blood cultures no growth after 48 hours -Microbiology studies, fungal stain, AFB, TB, cytology from trach aspirate pending Gastrointestinal -Monitor liver enzymes -GI prophylaxis -NPO -OGT Renal -maintain euvolemia -maintain electrolytes, replete as needed -Replete fluid status as needed; monitor with I&O Endocrine -maintain euglycemia and normothermia Hematologic -Maintain H&H stable -DVT prophylaxis with Heparin <Earl Vinson - Last Filed: 09/01/17 12:38> CCU Objective - Vital Signs / Intake & Output Vital Signs (Last 4 hours): Vital Signs Pulse Resp BP Pulse Ox 09/01/17 12:00 63/34 L 09/01/17 11:59 90 100 09/01/17 11:53 61/33 L 09/01/17 11:52 89 100 09/01/17 11:50 86 100 09/01/17 11:45 97 H 69/34 L 100 09/01/17 11:40 98 H 100 09/01/17 11:39 98 H 64/35 L 100 09/01/17 11:34 99 H 68/35 L 100 09/01/17 11:30 65/35 L 09/01/17 11:29 99 H 100 09/01/17 11:20 100 H 100 04/20/18 11:17 100 H 109/79 100 18 11:16 100 H 100 09/01/17 11:10 101 H 60/38 L 100 18 11:09 101 H 61/41 L 100 18 11:04 101 H 62/41 L 100 09/01/17 11:01 102 H 70/36 L 100 18 11:00 102 H 100 09/01/17 10:53 102 H 89/43 L 100 18 10:51 103 H 75/42 L 100 18 10:50 102 H 100 09/01/17 10:46 104 H 75/43 L 100 09/01/17 10:45 104 H 100 09/01/17 10:42 104 H 72/44 L 100 09/01/17 10:40 105 H 100 09/01/17 10:30 106 H 78/36 L 100 09/01/17 10:20 108 H 100 09/01/17 10:17 109 H 88/59 L 98 09/01/17 10:16 108 H 86/41 L 98 09/01/17 10:10 109 H 98 09/01/17 10:00 107 H 90/59 L 99 09/01/17 09:50 107 H 98 09/01/17 09:40 107 H 99 09/01/17 09:30 105 H 93/48 L 98 09/01/17 09:20 106 H 20 98 09/01/17 09:11 94/51 L 09/01/17 09:10 101 H 98 09/01/17 09:01 103 H 94/51 L 97 09/01/17 09:00 103 H 75/51 L 97 09/01/17 08:50 104 H 97 09/01/17 08:40 107 H 96 09/01/17 08:30 107 H 97/67 L 97 Intake and Output (Last 8hrs): Intake & Output 08/31/17 09/01/17 09/01/17 22:59 06:59 14:59 Intake Total 1295 1352 178 Output Total 230 125 Balance 1065 1227 178 Intake: IV 1135 1112 178 Left Upper arm 450 1012 Right Antecubital 150 Right Forearm 300 Tube Feeding 160 240 Output: Urine 230 125 Urethral (Barron) 230 125 - Medications Active Medications: Active Medications Generic Name Dose Route Start Last Admin Trade Name Freq PRN Reason Stop Dose Admin Albuterol/Ipratropium 3 ml 08/29/17 20:00 09/01/17 07:36 Duoneb 3 Mg/0.5 Mg (3 Ml) Ud IH 3 ml [id number] NORMA Administration Protocol Fluoxetine HCl 40 mg 08/30/17 10:00 08/30/17 15:44 Prozac PO 40 mg DAILY NORMA Administration Furosemide 20 mg 09/01/17 10:00 09/01/17 09:30 Lasix IV Not Given BID NORMA Heparin Sodium (Porcine) 5,000 units 08/30/17 22:00 09/01/17 06:58 Heparin SC 5,000 units Q8 NORMA Administration Protocol Meropenem 50 mls @ 100 mls/hr 08/30/17 14:00 09/01/17 06:58 Merrem Iv 1 Gm Premix IVPB 09/08/17 14:01 100 mls/hr Q8 NORMA Administration Protocol Vancomycin HCl 1 gm in 250 mls @ 167 mls/hr 08/30/17 07:15 09/01/17 07:36 Vancomycin 1gm IVPB 09/08/17 07:16 167 mls/hr Q12H NORMA Administration Protocol Propofol 1,000 mg in 100 mls @ 1.987 mls/hr 08/30/17 19:47 08/31/17 08:47 Diprivan IV 0 mcg/kg/min .Q24H PRN 0 mls/hr TITRATE PER MD ORDER Titration Protocol 5 MCG/KG/MIN Acetaminophen 1,000 mg in 100 mls @ 400 mls/hr 08/30/17 20:19 08/30/17 22:21 Ofirmev IVPB 09/01/17 20:20 400 mls/hr Q6H PRN Administration Temperature Fentanyl Citrate 1,000 mcg in 100 mls @ 7.5 mls/hr 08/31/17 08:32 09/01/17 11 :13 Fentanyl Citrate/Sodium Chloride 1 Mg/100 Ml IV 80 mcg/hr .[id number] PRN 8 mls/hr TITRATE PER MD ORDER Titration Protocol 75 MCG/HR Midazolam 100 mg/100ml in NS 100 mg in 100 mls @ 1 mls/hr 08/31/17 15:48 12:28 Midazolam 100 Mg/100ml In Ns IV 1 mg/hr .Q24H PRN 1 mls/hr Seizure activity Titration Protocol 1 MG/HR Cisatracurium Besylate 100 mg/ 260 mls @ 10.33 mls/hr 09/01/17 10:09 12:10 Sodium Chloride IV 1 mcg/kg/min .Q24H PRN 10.33 mls/hr TITRATE PER MD ORDER Titration Protocol 1 MCG/KG/MIN Lactated Ringer's 1,000 mls @ 1,000 mls/hr 09/01/17 12:30 Lactated Ringer's IV 09/01/17 13:29 .Q1H NORMA Levofloxacin/Dextrose 750 mg 08/30/17 10:00 09/01/17 09:33 Levaquin 750mg IVPB 09/08/17 10:01 750 mg DAILY NORMA Administration Protocol Lorazepam 1 mg 08/30/17 20:59 08/30/17 21:13 Ativan IVP 1 mg ONCE PRN Administration Anxiety Protocol Metoprolol Tartrate 25 mg 08/31/17 18:00 09/01/17 09:11 Lopressor PO Not Given BID [facility] Midazolam HCl 4 mg 08/31/17 08:31 08/31/17 20:36 Versed Inj IVP 4 mg Q2H PRN Administration Agitation Oseltamivir Phosphate 75 mg 08/30/17 23:15 09/01/17 10:00 Tamiflu Susp PO 75 mg BID NORMA Administration Protocol Pantoprazole Sodium 40 mg 08/31/17 10:00 09/01/17 09:38 Protonix Inj IVP 40 mg DAILY NORMA Administration Verapamil HCl 2.5 mg 09/01/17 09:04 Verapamil Inj IVP Q6H PRN for herat rate >130 - Patient Studies Lab Studies: Microbiology Studies 08/31/17 08:00 Gram Stain - Preliminary Sputum 08/29/17 18:37 Urine Culture - Final Urine,Clean Catch 50-100,000 CFU/ML. MULTIPLE SPECIES. SUGGEST REPEAT SPECIMEN. Lab Studies 09/01/17 09/01/17 09/01/17 Range/Units 12:07 11:57 09:44 WBC (4.5-11.0) 10^3/ul RBC (3.5-6.1) 10^6/uL Hgb (12.0-16.0) g/dL Hct (36.0-48.0) % MCV (80.0-105.0) fl MCH (25.0-35.0) pg MCHC (31.0-37.0) g/dl RDW (11.5-14.5) % Plt Count (120.0-450.0) 10^3/uL MPV (7.0-11.0) fl Gran % (50.0-68.0) % Lymph % (Auto) (22.0-35.0) % [place] % (Auto) (1.0-6.0) % Eos % (Auto) (1.5-5.0) % Baso % (Auto) (0.0-3.0) % Gran # (1.4-6.5) Lymph # (Auto) (1.2-3.4) [place] # (Auto) (0.1-0.6) Eos # (Auto) (0.0-0.7) Baso # (Auto) (0.0-2.0) K/mm3 PT 26.3 H (9.4-12.5) SECONDS INR 2.25 H (0.93-1.08) pCO2 32 L (35-45) mm/Hg pO2 211.0 H (80-100) mm/Hg HCO3 13.7 L (21-28) mmol/L ABG pH 7.24 L (7.35-7.45) ABG Total CO2 14.7 L (22-28) mmol.L ABG O2 Saturation 100.4 H (95-98) % ABG O2 Content (15-23) ML/dl ABG Base Excess -12.5 L (-2.0-3.0) mmol/L ABG Hemoglobin (11.7-17.4) g/dL ABG Carboxyhemoglobin (0.5-1.5) % POC ABG HHb (Measured) (0-5) % ABG Methemoglobin (0.0-3.0) % ABG O2 Capacity (16-24) mL/dl ABG Potassium 3.4 L (3.6-5.2) mmol/L Hgb O2 Saturation (95.0-98.0) % Sodium 138.0 (132-148) mmol/L Chloride 116.0 H (98-107) mmol/L Glucose 63 L (65-105) mg/dl Lactate 0.9 (0.7-2.1) mmol/L Mechanical Rate 24 FiO2 80.0 % Tidal Volume 350 PEEP 14 Potassium (3.6-5.0) mmol/L Carbon Dioxide (21-33) mmol/L Anion Gap (10-20) BUN (7-21) mg/dL Creatinine (0.7-1.2) mg/dl Est GFR ( Amer) Est GFR (Non-Af Amer) POC Glucose (mg/dL) 69 (65-110) mg/dL Random Glucose (70-110) mg/dL Calcium (8.4-10.5) mg/dL Phosphorus (2.5-4.5) mg/dL Magnesium (1.7-2.2) mg/dL Total Bilirubin (0.2-1.3) mg/dL AST (14-36) U/L ALT (7-56) U/L Alkaline Phosphatase (38-126) U/L Total Protein (5.8-8.3) g/dL Albumin (3.0-4.8) g/dL Globulin gm/dL Albumin/Globulin Ratio (1.1-1.8) Triglycerides (35-160) mg/dL Cholesterol (130-200) mg/dL LDL Cholesterol Direct (0-129) mg/dL HDL Cholesterol (29-60) mg/dL TSH 3rd Generation (0.46-4.68) mIU/mL Arterial Blood Potassium 3.4 L (3.6-5.2) mmol/L 09/01/17 09/01/17 09/01/17 Range/Units 08:29 07:56 06:45 WBC (4.5-11.0) 10^3/ul RBC (3.5-6.1) 10^6/uL Hgb (12.0-16.0) g/dL Hct (36.0-48.0) % MCV (80.0-105.0) fl MCH (25.0-35.0) pg MCHC (31.0-37.0) g/dl RDW (11.5-14.5) % Plt Count (120.0-450.0) 10^3/uL MPV (7.0-11.0) fl Gran % (50.0-68.0) % Lymph % (Auto) (22.0-35.0) % [place] % (Auto) (1.0-6.0) % Eos % (Auto) (1.5-5.0) % Baso % (Auto) (0.0-3.0) % Gran # (1.4-6.5) Lymph # (Auto) (1.2-3.4) [place] # (Auto) (0.1-0.6) Eos # (Auto) (0.0-0.7) Baso # (Auto) (0.0-2.0) K/mm3 PT (9.4-12.5) SECONDS INR (0.93-1.08) pCO2 47 H (35-45) mm/Hg pO2 73.0 L (80-100) mm/Hg HCO3 15.3 L (21-28) mmol/L ABG pH 7.12 L* (7.35-7.45) ABG Total CO2 16.7 L (22-28) mmol.L ABG O2 Saturation 95.7 (95-98) % ABG O2 Content 12.8 L (15-23) ML/dl ABG Base Excess -13.4 L (-2.0-3.0) mmol/L ABG Hemoglobin 9.8 L (11.7-17.4) g/dL ABG Carboxyhemoglobin 2.6 H (0.5-1.5) % POC ABG HHb (Measured) 4.2 (0-5) % ABG Methemoglobin 0.7 (0.0-3.0) % ABG O2 Capacity 13.4 L (16-24) mL/dl ABG Potassium (3.6-5.2) mmol/L Hgb O2 Saturation 92.5 L (95.0-98.0) % Sodium (132-148) mmol/L Chloride (98-107) mmol/L Glucose (65-105) mg/dl Lactate (0.7-2.1) mmol/L Mechanical Rate FiO2 60.0 % Tidal Volume PEEP Potassium (3.6-5.0) mmol/L Carbon Dioxide (21-33) mmol/L Anion Gap (10-20) BUN (7-21) mg/dL Creatinine (0.7-1.2) mg/dl Est GFR ( Amer) Est GFR (Non-Af Amer) POC Glucose (mg/dL) 148 H 52 L (65-110) mg/dL Random Glucose (70-110) mg/dL Calcium (8.4-10.5) mg/dL Phosphorus (2.5-4.5) mg/dL Magnesium (1.7-2.2) mg/dL Total Bilirubin (0.2-1.3) mg/dL AST (14-36) U/L ALT (7-56) U/L Alkaline Phosphatase (38-126) U/L Total Protein (5.8-8.3) g/dL Albumin (3.0-4.8) g/dL Globulin gm/dL Albumin/Globulin Ratio (1.1-1.8) Triglycerides (35-160) mg/dL Cholesterol (130-200) mg/dL LDL Cholesterol Direct (0-129) mg/dL HDL Cholesterol (29-60) mg/dL TSH 3rd Generation (0.46-4.68) mIU/mL Arterial Blood Potassium (3.6-5.2) mmol/L 09/01/17 09/01/17 09/01/17 Range/Units 05:30 05:30 05:30 WBC 27.5 H* D (4.5-11.0) 10^3/ul RBC 2.94 L (3.5-6.1) 10^6/uL Hgb 9.9 L (12.0-16.0) g/dL Hct 30.9 L (36.0-48.0) % MCV 105.1 H D (80.0-105.0) fl MCH 33.7 (25.0-35.0) pg MCHC 32.0 (31.0-37.0) g/dl RDW 14.2 (11.5-14.5) % Plt Count 335 (120.0-450.0) 10^3/uL MPV 10.2 (7.0-11.0) fl Gran % 87.7 H (50.0-68.0) % Lymph % (Auto) 5.8 L (22.0-35.0) % [place] % (Auto) 6.0 (1.0-6.0) % Eos % (Auto) 0.4 L (1.5-5.0) % Baso % (Auto) 0.1 (0.0-3.0) % Gran # 24.10 H (1.4-6.5) Lymph # (Auto) 1.6 (1.2-3.4) [place] # (Auto) 1.6 H (0.1-0.6) Eos # (Auto) 0.1 (0.0-0.7) Baso # (Auto) 0.04 (0.0-2.0) K/mm3 PT (9.4-12.5) SECONDS INR (0.93-1.08) pCO2 (35-45) mm/Hg pO2 (80-100) mm/Hg HCO3 (21-28) mmol/L ABG pH (7.35-7.45) ABG Total CO2 (22-28) mmol.L ABG O2 Saturation (95-98) % ABG O2 Content (15-23) ML/dl ABG Base Excess (-2.0-3.0) mmol/L ABG Hemoglobin (11.7-17.4) g/dL ABG Carboxyhemoglobin (0.5-1.5) % POC ABG HHb (Measured) (0-5) % ABG Methemoglobin (0.0-3.0) % ABG O2 Capacity (16-24) mL/dl ABG Potassium (3.6-5.2) mmol/L Hgb O2 Saturation (95.0-98.0) % Sodium 141 (132-148) mmol/L Chloride 113 H (98-107) mmol/L Glucose (65-105) mg/dl Lactate (0.7-2.1) mmol/L Mechanical Rate FiO2 % Tidal Volume PEEP Potassium 4.7 (3.6-5.0) mmol/L Carbon Dioxide 15 L (21-33) mmol/L Anion Gap 19 (10-20) BUN 12 (7-21) mg/dL Creatinine 1.2 (0.7-1.2) mg/dl Est GFR ( Amer) 56 Est GFR (Non-Af Amer) 46 POC Glucose (mg/dL) (65-110) mg/dL Random Glucose 50 L (70-110) mg/dL Calcium 8.8 (8.4-10.5) mg/dL Phosphorus 5.1 H (2.5-4.5) mg/dL Magnesium 1.7 (1.7-2.2) mg/dL Total Bilirubin 2.6 H (0.2-1.3) mg/dL AST 70 H D (14-36) U/L ALT 27 (7-56) U/L Alkaline Phosphatase 90 (38-126) U/L Total Protein 6.3 (5.8-8.3) g/dL Albumin 3.5 (3.0-4.8) g/dL Globulin 2.9 gm/dL Albumin/Globulin Ratio 1.2 (1.1-1.8) Triglycerides 205 H (35-160) mg/dL Cholesterol 142 (130-200) mg/dL LDL Cholesterol Direct 71 (0-129) mg/dL HDL Cholesterol 15 L (29-60) mg/dL TSH 3rd Generation 0.98 (0.46-4.68) mIU/mL Arterial Blood Potassium (3.6-5.2) mmol/L 08/31/17 08/31/17 08/31/17 Range/Units 17:00 17:00 16:17 WBC 19.2 H (4.5-11.0) 10^3/ul RBC 2.86 L (3.5-6.1) 10^6/uL Hgb 9.6 L D (12.0-16.0) g/dL Hct 29.2 L (36.0-48.0) % MCV 102.1 (80.0-105.0) fl MCH 33.6 (25.0-35.0) pg MCHC 32.9 (31.0-37.0) g/dl RDW 13.8 (11.5-14.5) % Plt Count 277 (120.0-450.0) 10^3/uL MPV 9.9 (7.0-11.0) fl Gran % 91.3 H (50.0-68.0) % Lymph % (Auto) 3.9 L (22.0-35.0) % [place] % (Auto) 4.2 (1.0-6.0) % Eos % (Auto) 0.5 L (1.5-5.0) % Baso % (Auto) 0.1 (0.0-3.0) % Gran # 17.56 H (1.4-6.5) Lymph # (Auto) 0.8 L (1.2-3.4) [place] # (Auto) 0.8 H (0.1-0.6) Eos # (Auto) 0.1 (0.0-0.7) Baso # (Auto) 0.02 (0.0-2.0) K/mm3 PT (9.4-12.5) SECONDS INR (0.93-1.08) pCO2 29 L (35-45) mm/Hg pO2 69.0 L (80-100) mm/Hg HCO3 14.3 L (21-28) mmol/L ABG pH 7.30 L (7.35-7.45) ABG Total CO2 15.2 L (22-28) mmol.L ABG O2 Saturation 97.3 (95-98) % ABG O2 Content (15-23) ML/dl ABG Base Excess -10.7 L (-2.0-3.0) mmol/L ABG Hemoglobin (11.7-17.4) g/dL ABG Carboxyhemoglobin (0.5-1.5) % POC ABG HHb (Measured) (0-5) % ABG Methemoglobin (0.0-3.0) % ABG O2 Capacity (16-24) mL/dl ABG Potassium 3.1 L (3.6-5.2) mmol/L Hgb O2 Saturation (95.0-98.0) % Sodium 138 139.0 (132-148) mmol/L Chloride 113 H 114.0 H (98-107) mmol/L Glucose 80 (65-105) mg/dl Lactate 1.1 (0.7-2.1) mmol/L Mechanical Rate FiO2 60.0 % Tidal Volume PEEP Potassium 3.9 (3.6-5.0) mmol/L Carbon Dioxide 16 L (21-33) mmol/L Anion Gap 14 (10-20) BUN 7 (7-21) mg/dL Creatinine 0.6 L (0.7-1.2) mg/dl Est GFR ( Amer) > 60 Est GFR (Non-Af Amer) > 60 POC Glucose (mg/dL) (65-110) mg/dL Random Glucose 86 (70-110) mg/dL Calcium 8.3 L (8.4-10.5) mg/dL Phosphorus (2.5-4.5) mg/dL Magnesium (1.7-2.2) mg/dL Total Bilirubin 2.3 H (0.2-1.3) mg/dL AST 50 H (14-36) U/L ALT 32 (7-56) U/L Alkaline Phosphatase 91 (38-126) U/L Total Protein 5.5 L (5.8-8.3) g/dL Albumin 2.7 L (3.0-4.8) g/dL Globulin 2.8 gm/dL Albumin/Globulin Ratio 1.0 L (1.1-1.8) Triglycerides (35-160) mg/dL Cholesterol (130-200) mg/dL LDL Cholesterol Direct (0-129) mg/dL HDL Cholesterol (29-60) mg/dL TSH 3rd Generation (0.46-4.68) mIU/mL Arterial Blood Potassium 3.1 L (3.6-5.2) mmol/L Laboratory Results - last 24 hr 08/31/17 08/31/17 08/31/17 16:17 17:00 17:00 WBC 19.2 H RBC 2.86 L Hgb 9.6 L D Hct 29.2 L MCV 102.1 MCH 33.6 MCHC 32.9 RDW 13.8 Plt Count 277 MPV 9.9 Gran % 91.3 H Lymph % (Auto) 3.9 L [place] % (Auto) 4.2 Eos % (Auto) 0.5 L Baso % (Auto) 0.1 Gran # 17.56 H Lymph # (Auto) 0.8 L [place] # (Auto) 0.8 H Eos # (Auto) 0.1 Baso # (Auto) 0.02 PT INR pCO2 29 L pO2 69.0 L HCO3 14.3 L ABG pH 7.30 L ABG Total CO2 15.2 L ABG O2 Saturation 97.3 ABG O2 Content ABG Base Excess -10.7 L ABG Hemoglobin ABG Carboxyhemoglobin POC ABG HHb (Measured) ABG Methemoglobin ABG O2 Capacity ABG Potassium 3.1 L Hgb O2 Saturation Sodium 139.0 138 Chloride 114.0 H 113 H Glucose 80 Lactate 1.1 Mechanical Rate FiO2 60.0 Tidal Volume PEEP Potassium 3.9 Carbon Dioxide 16 L Anion Gap 14 BUN 7 Creatinine 0.6 L Est GFR ( Amer) > 60 Est GFR (Non-Af Amer) > 60 POC Glucose (mg/dL) Random Glucose 86 Calcium 8.3 L Phosphorus Magnesium Total Bilirubin 2.3 H AST 50 H ALT 32 Alkaline Phosphatase 91 Total Protein 5.5 L Albumin 2.7 L Globulin 2.8 Albumin/Globulin Ratio 1.0 L Triglycerides Cholesterol LDL Cholesterol Direct HDL Cholesterol TSH 3rd Generation Arterial Blood Potassium 3.1 L 09/01/17 09/01/17 09/01/17 05:30 05:30 05:30 WBC 27.5 H* D RBC 2.94 L Hgb 9.9 L Hct 30.9 L MCV 105.1 H D MCH 33.7 MCHC 32.0 RDW 14.2 Plt Count 335 MPV 10.2 Gran % 87.7 H Lymph % (Auto) 5.8 L [place] % (Auto) 6.0 Eos % (Auto) 0.4 L Baso % (Auto) 0.1 Gran # 24.10 H Lymph # (Auto) 1.6 [place] # (Auto) 1.6 H Eos # (Auto) 0.1 Baso # (Auto) 0.04 PT INR pCO2 pO2 HCO3 ABG pH ABG Total CO2 ABG O2 Saturation ABG O2 Content ABG Base Excess ABG Hemoglobin ABG Carboxyhemoglobin POC ABG HHb (Measured) ABG Methemoglobin ABG O2 Capacity ABG Potassium Hgb O2 Saturation Sodium 141 Chloride 113 H Glucose Lactate Mechanical Rate FiO2 Tidal Volume PEEP Potassium 4.7 Carbon Dioxide 15 L Anion Gap 19 BUN 12 Creatinine 1.2 Est GFR ( Amer) 56 Est GFR (Non-Af Amer) 46 POC Glucose (mg/dL) Random Glucose 50 L Calcium 8.8 Phosphorus 5.1 H Magnesium 1.7 Total Bilirubin 2.6 H AST 70 H D ALT 27 Alkaline Phosphatase 90 Total Protein 6.3 Albumin 3.5 Globulin 2.9 Albumin/Globulin Ratio 1.2 Triglycerides 205 H Cholesterol 142 LDL Cholesterol Direct 71 HDL Cholesterol 15 L TSH 3rd Generation 0.98 Arterial Blood Potassium 09/01/17 09/01/17 09/01/17 06:45 07:56 08:29 WBC RBC Hgb Hct MCV MCH MCHC RDW Plt Count MPV Gran % Lymph % (Auto) [place] % (Auto) Eos % (Auto) Baso % (Auto) Gran # Lymph # (Auto) [place] # (Auto) Eos # (Auto) Baso # (Auto) PT INR pCO2 47 H pO2 73.0 L HCO3 15.3 L ABG pH 7.12 L* ABG Total CO2 16.7 L ABG O2 Saturation 95.7 ABG O2 Content 12.8 L ABG Base Excess -13.4 L ABG Hemoglobin 9.8 L ABG Carboxyhemoglobin 2.6 H POC ABG HHb (Measured) 4.2 ABG Methemoglobin 0.7 ABG O2 Capacity 13.4 L ABG Potassium Hgb O2 Saturation 92.5 L Sodium Chloride Glucose Lactate Mechanical Rate FiO2 60.0 Tidal Volume PEEP Potassium Carbon Dioxide Anion Gap BUN Creatinine Est GFR ( Amer) Est GFR (Non-Af Amer) POC Glucose (mg/dL) 52 L 148 H Random Glucose Calcium Phosphorus Magnesium Total Bilirubin AST ALT Alkaline Phosphatase Total Protein Albumin Globulin Albumin/Globulin Ratio Triglycerides Cholesterol LDL Cholesterol Direct HDL Cholesterol TSH 3rd Generation Arterial Blood Potassium 09/01/17 09/01/17 09/01/17 09:44 11:57 12:07 WBC RBC Hgb Hct MCV MCH MCHC RDW Plt Count MPV Gran % Lymph % (Auto) [place] % (Auto) Eos % (Auto) Baso % (Auto) Gran # Lymph # (Auto) [place] # (Auto) Eos # (Auto) Baso # (Auto) PT 26.3 H INR 2.25 H pCO2 32 L pO2 211.0 H HCO3 13.7 L ABG pH 7.24 L ABG Total CO2 14.7 L ABG O2 Saturation 100.4 H ABG O2 Content ABG Base Excess -12.5 L ABG Hemoglobin ABG Carboxyhemoglobin POC ABG HHb (Measured) ABG Methemoglobin ABG O2 Capacity ABG Potassium 3.4 L Hgb O2 Saturation Sodium 138.0 Chloride 116.0 H Glucose 63 L Lactate 0.9 Mechanical Rate 24 FiO2 80.0 Tidal Volume 350 PEEP 14 Potassium Carbon Dioxide Anion Gap BUN Creatinine Est GFR ( Amer) Est GFR (Non-Af Amer) POC Glucose (mg/dL) 69 Random Glucose Calcium Phosphorus Magnesium Total Bilirubin AST ALT Alkaline Phosphatase Total Protein Albumin Globulin Albumin/Globulin Ratio Triglycerides Cholesterol LDL Cholesterol Direct HDL Cholesterol TSH 3rd Generation Arterial Blood Potassium 3.4 L EKG/Cardiology Studies: Cardiology / EKG Studies 09/01/17 09:03 ELECTROCARDIOGRAM Urgent Comment: Reason For Exam: sinus tach on vent Critical Care Progress Note - Nutrition Nutrition: Nutrition Category Date Time Status Heart Healthy Diet [DIET] Diets 08/29/17 Lunch Ordered Assessment/Plan - Assessment and Plan (Free Text) Assessment: Patient seen and examined on rounds with resident, agree with note with following additions/exceptions: patient is 56yo female w/PMHx alcoholic hepatitis, narcotic abuse, hypertension , untreated hepatitis C, ETOH abuse, and tobacco abuse [facility] with complaints of increased shortness of breath at rest and dry cough x 1 day found to be in hypoxemic respiratory failure, Influenza PNA, ARDS. Currently intubated, sedated. Patient diffuse bilateral opacities, P/F ratio 300. This morning patient was paralyzed with Nimbex, on PRVC, low tidal vol, high PEEP. Current P/F ration 264, improving oxygenation. Barron in place, Neurology following, ID following. Given 1L LR bolus today. Hypoxemic Resp Failure ARDS Influenza PNA Renal failure Oliguria Hep C EtOH abuse Cirrhosis Recommend: - cont with vent support, low tidal vol ventilation, 6cc/PBW, high PEEP, titrate down FiO2 to 60%, P/F ratio 264 - Duonebs q4hr - Adequate sedation, Paralytics for 48hours, train 4 monitoring, BIS monitoring - keep net negative fluid balance, monitor Cr - Antibiotics as per ID, Merrem, Levaquin, Tamiflu - monitor urine output - FS control - monitor HH - avoid nephrotoxic drugs - follow up renal - follow neurology, EGG - monitor LFTs - GI ppx - DVT ppx - Monitor in MICU Patient at high risk for morbidity and mortality critical care time 45 minutes Case discussed with family members, clinical updates provided
[2017-09-01 12:11] LABS: ARTERIAL BLOOD GAS HCO3 13.7 mmol/L (21-28); ARTERIAL BLOOD GAS O2 SAT 100.4 % (95-98); ARTERIAL BLOOD GAS PCO2 32 mm/Hg (35-45); ARTERIAL BLOOD GAS PH 7.24 (7.35-7.45); ARTERIAL BLOOD GAS TCO2 14.7 mmol.L (22-28)
--- NOTE | 2017-09-01 12:36 | PN ---
DATE: 09/01/2017 REASON FOR CONSULTATION AND FOLLOWUP: Cardiac evaluation, tachycardia, intubated, respiratory failure, multilobar pneumonia, and flu. SUBJECTIVE: The patient is on vent, waking up, responded to verbal stimuli. PHYSICAL EXAMINATION GENERAL: Not in any apparent distress, still being intubated. VITAL SIGNS: Temperature afebrile, heart rate 122, and blood pressure 96/62. HEENT: PERRLA. Intact. NECK: Supple. No carotid bruits or thyromegaly. CHEST: Clear to auscultation. HEART: S1 and S2 regular. ABDOMEN: Soft. EXTREMITIES: Clubbing and cyanosis negative. LABORATORY DATA: Blood workup as follows, WBC 27.5, hemoglobin 9.9, hematocrit 30.9, and platelet count 335. Chemistry shows sodium 141, potassium 4.0, chloride 113, carbon dioxide of 15, anion gap of 19, BUN 12, and creatinine 1.2. Total protein 6.3, albumin 3.5. Albumin-globulin ratio 1.2. Triglycerides 205, cholesterol 142, LDL 71, HDL 15, TSH 0.98. IMPRESSION: A 56-year-old female with past medical history of alcoholic hepatitis, tobacco abuse, alcohol abuse, [facility] with [facility] as well as flu. The patient had a TIFFANY done on 10/04/2012, that showed ejection fraction 65%, trace aortic regurgitation, trace to mild mitral regurgitation, trace to mild tricuspid regurgitation in the past, no vegetation at that time, who initially admitted from the [facility] because of the pneumonia. Repeat echo was done yesterday to assess LV function that revealed ejection fraction of 65%, trace aortic regurgitation, mild mitral regurgitation, mild tricuspid regurgitation, right ventricular systolic pressure of 46 mmHg, 50%. No pericardial effusion, no vegetation or thrombus noted, status post respiratory failure, on ventilator. RECOMMENDATIONS: We will continue low dose beta dennis. We will start IV because of the tachycardia, probably the tachycardia is multifactorial secondary to respiratory insufficiency, pneumonia, anemia. CVS status, overall heart function is normal, but looks like chest pain is still getting worse, looks like the patient is going to ARDS. We will start low dose beta dennis. We will repeat EKG. Continue gentle diuretics as blood pressure is tolerated. Though, we will repeat EKG. We will follow with you. We will also give p.r.n. verapamil. Armando Jennings MD [facility] # [phone]
[2017-09-01] MEDS: NOREPINEPHRINE BIT/0.9 % NACL 4 MG/250 ML BAG IV PRN ×3 (13:32→21:32)
--- NOTE | 2017-09-01 13:37 | CARD ---
APPROVED REPORT EKG Measurement Heart [id number] <Conclusion> Sinus tachycardia Possible Left atrial enlargement Cannot rule out Anterior infarct, age undetermined Abnormal ECG
--- NOTE | 2017-09-01 14:26 | PROCN ---
DATE: 08/30/2017 PROCEDURE: Endotracheal intubation. INDICATION: Hypoxemic respiratory failure. DESCRIPTION OF PROCEDURE: The patient was preoxygenated with 100% FiO2 via Ambu bag for over five minutes. Her oxygen saturation as well as other vital signs were monitored throughout the procedure and remained within normal limits. The patient was sedated with 10 mL of propofol. Direct laryngoscopy performed with blade 3. Vocal cords visualized and trachea intubated at first attempt. Position confirmed with gastric auscultation, bilateral lung auscultation and change of the color of the end-tidal CO2 gauge. Chest x-ray confirmed correct position of the endotracheal tube. The patient tolerated the procedure well. Cezar Ambrosio MD
[2017-09-01] MEDS: Midazolam 100 mg/100ml in NS 100 MG/100 ML SOL IV PRN (14:35)
--- NOTE | 2017-09-01 16:50 | CP.PCM.PN ---
Subjective - Date & Time of Evaluation Date of Evaluation: 08/31/17 Time of Evaluation: 10:00 - Subjective Subjective: Continues to be on the ventilator, sedated and paralyzed, no fevers overnight. Objective - Vital Signs/Intake and Output Vital Signs (last 24 hours): Temp Pulse Resp BP Pulse Ox 97.3 F L 131 H 29 H 93/50 L 93 L 08/31/17 16:00 08/31/17 19:30 08/31/17 10:00 08/31/17 20:09 08/31/17 19:30 Intake and Output: 08/31/17 09/01/17 18:59 06:59 Intake Total 1212 50 Output Total 230 Balance 982 50 - Medications Medications: Current Medications Albuterol/Ipratropium (Duoneb 3 Mg/0.5 Mg (3 Ml) Ud) 3 ml IH [id number] NORMA PRN Reason: Protocol Last Admin: 08/31/17 13:27 Dose: 3 ml Fluoxetine HCl (Prozac) 40 mg PO DAILY [facility] Last Admin: 08/30/17 15:44 Dose: 40 mg Heparin Sodium (Porcine) (Heparin) 5,000 units SC Q8 NORMA PRN Reason: Protocol Last Admin: 08/31/17 21:38 Dose: 5,000 units Meropenem (Merrem Iv 1 Gm Premix) 50 mls @ 100 mls/hr IVPB Q8 NORMA PRN Reason: Protocol Stop: 09/08/17 14:01 Last Admin: 08/31/17 21:21 Dose: 100 mls/hr Vancomycin HCl (Vancomycin 1gm) 1 gm in 250 mls @ 167 mls/hr IVPB Q12H NORMA PRN Reason: Protocol Stop: 09/08/17 07:16 Last Admin: 08/31/17 20:09 Dose: 167 mls/hr Propofol (Diprivan) 1,000 mg in 100 mls @ 1.987 mls/hr IV .Q24H PRN; Protocol; 5 MCG/KG/MIN PRN Reason: TITRATE PER MD ORDER Last Titration: 08/31/17 08:47 Dose: 0 mcg/kg/min, 0 mls/hr Acetaminophen (Ofirmev) 1,000 mg in 100 mls @ 400 mls/hr IVPB Q6H PRN PRN Reason: Temperature Stop: 09/01/17 20:20 Last Admin: 08/30/17 22:21 Dose: 400 mls/hr Lactated Ringer's (Lactated Ringer's) 1,000 mls @ 100 mls/hr IV .Q10H [facility] Last Admin: 08/31/17 09:02 Dose: Not Given Fentanyl Citrate (Fentanyl Citrate/Sodium Chloride 1 Mg/100 Ml) 1,000 mcg in 100 mls @ 7.5 mls/hr IV .[id number] PRN; Protocol; 75 MCG/HR PRN Reason: TITRATE PER MD ORDER Last Admin: 08/31/17 16:09 Dose: 120 mcg/hr, 12 mls/hr Midazolam 100 mg/100ml in NS (Midazolam 100 Mg/100ml In Ns) 100 mg in 100 mls @ 1 mls/hr IV .Q24H PRN; Protocol; 1 MG/HR PRN Reason: Seizure activity Last Titration: 08/31/17 22:28 Dose: 2 mg/hr, 2 mls/hr Levofloxacin/Dextrose (Levaquin 750mg) 750 mg IVPB DAILY [facility] PRN Reason: Protocol Stop: 09/08/17 10:01 Last Admin: 08/31/17 09:12 Dose: 750 mg Lorazepam (Ativan) 1 mg IVP ONCE PRN; Protocol PRN Reason: Anxiety Last Admin: 08/30/17 21:13 Dose: 1 mg Metoprolol Tartrate (Lopressor) 25 mg PO BID [facility] Last Admin: 08/31/17 18:24 Dose: 25 mg Midazolam HCl (Versed Inj) 4 mg IVP Q2H PRN PRN Reason: Agitation Last Admin: 08/31/17 20:36 Dose: 4 mg Oseltamivir Phosphate (Tamiflu Susp) 75 mg PO BID [facility] PRN Reason: Protocol Last Admin: 08/31/17 18:44 Dose: 75 mg Pantoprazole Sodium (Protonix Inj) 40 mg IVP DAILY [facility] Last Admin: 08/31/17 11:06 Dose: 40 mg - Labs Labs: 08/31/17 17:00 08/31/17 17:00 PT 21.0 SECONDS (9.4-12.5) H 08/29/17 13:00 INR 1.80 (0.93-1.08) H 08/29/17 13:00 APTT 34.6 Seconds (25.1-36.5) 08/29/17 13:00 - Constitutional Appears: Chronically Ill, Other (intubated, sedated, paralyzed) - Head Exam Head Exam: NORMAL INSPECTION - ENT Exam Additional comments: ET tube in place - Respiratory Exam Respiratory Exam: Decreased Breath Sounds - Cardiovascular Exam Cardiovascular Exam: +S1, +S2 - GI/Abdominal Exam GI & Abdominal Exam: Soft. absent: Tenderness Assessment and Plan - Assessment and Plan (Free Text) Plan: Assessment severe sepsis due to HCAP on top of Influenza A infection history of alcoholic hepatitis ethanol abuse history of opioid dependence cervical spondylosis S/P surgery Plan continue Merrem and Levaquin day 3 pending final culture results; complete 4-7 days of therapy continue Tamilfu day 3 to complete 5 days of therapy will continue to monitor clinically overall prognosis is poor
[2017-09-01] MEDS: Aritificial Tears (15ml) OU SCH (21:02)
--- NOTE | 2017-09-02 00:07 | CON ---
DATE: 09/01/2017 REASON FOR CONSULTATION: Acute kidney injury, oliguria. HISTORY OF PRESENTING ILLNESS: A 56-year-old lady, known to me from prior evaluation. The patient admitted on 08/28/2017. The patient was transferred from [facility] where she was receiving treatment for her alcoholic hepatitis. She was found to be tachycardic, was feeling weak and had some cough and shortness of breath. She was transferred to the hospital. Subsequently, she went into hypoxemic respiratory failure, was found to have bilateral fluffy infiltrates. The patient developed respiratory distress. She required endotracheal intubation. She was transferred to the ICU. Currently, seen in the ICU on mechanical ventilation. Brother is at bedside. Consultation is requested because of poor urine output. Her urine output was only 450 mL on 08/31/2017 and only 355 mL on 09/01/2017. The patient has been receiving some fluid resuscitation. Also, her creatinine has risen from 0.5 to 1.2. PAST MEDICAL AND SURGICAL HISTORY: Hypertension, lumbar neuritis, chronic pain, alcoholic hepatitis, hyponatremia, hypokalemia. FAMILY HISTORY: Noncontributory. SOCIAL HISTORY: Chronic alcohol use, ex-smoker, narcotic dependence. ALLERGIES: NO KNOWN DRUG ALLERGIES. MEDICATIONS AT HOME: Losartan 50 mg daily, prednisolone 20 every 12, fluoxetine, chlordiazepoxide, thiamine. REVIEW OF SYSTEMS: Unavailable as the patient is sedated and on mechanical ventilation. PHYSICAL EXAMINATION: GENERAL: Obese middle-aged lady, lying in bed. VITAL SIGNS: Blood pressure 95/48, heart rate 96, respiratory rate 18, temperature 97.9. HEENT: Normocephalic, atraumatic, positive pallor. NECK: Supple. No JVD. LUNGS: Bilateral equal air entry, bilateral equal expansion. CARDIAC: S1 and S2, regular rate and rhythm, no murmur, no rub. ABDOMEN: Obese, distended, soft, nontender, bowel sounds present. EXTREMITIES: No lower extremity edema. INTAKE AND OUTPUT: 2714/355. LABORATORY DATA: Sodium 141, potassium 4.7, chloride 113, CO2 of 15, BUN 12, creatinine 1.2, glucose 50, A1c 4.3, calcium 8.8, phosphorus 5.1, magnesium 1.7, total bili 2.6, AST 70, ALT 27, albumin 3.5. WBC 27.5, hemoglobin 9.9, hematocrit 30.9, platelets 335. Urinalysis: Yellow, clear, pH 6.5, specific gravity 1.010, protein trace, glucose negative, blood trace, bilirubin small, leukocyte esterase small. Cultures, no growth. RENAL ULTRASOUND: Right kidney 10.3 cm, normal in size. Left kidney 10.7 cm, unremarkable sonogram. ECHOCARDIOGRAM: Normal chamber size, trace aortic regurg, mitral regurg is mild, mild tricuspid regurg, IVC collapses. No pericardial effusion, no vegetation. CURRENT MEDICATIONS: Ativan 1 mg every six p.r.n., DuoNeb, fentanyl, heparin, Lasix 20 IV b.i.d. not given today, Levaquin 750, norepinephrine 18 mcg/minute, Lopressor 25 b.i.d., meropenem, Protonix, Prozac, Tamiflu, vancomycin, verapamil. ASSESSMENT: 1. Acute kidney injury superimposed on chronic kidney disease stage 2 ?. 2. Acute respiratory failure. 3. Pulmonary edema/adult respiratory distress syndrome. 4. Sepsis/septic shock. 5. Oliguria. PLAN: 1. Case discussed with the ICU team, case discussed with Dr. Hudson. Clinically, the patient appears to be dry. Recurrent CVP monitoring. 2. Continue ventilatory support. 3. Continue antibiotics for pneumonia. 4. Trial of fluids. 5. Hyperchloremic metabolic acidosis. 6. Recommend alkalinization of IV fluids. 7. Prognosis guarded. More than 35 minutes was spent in the care of this critically ill patient. Leticia Thomas MD
[2017-09-02] MEDS: NOREPINEPHRINE BIT/0.9 % NACL 4 MG/250 ML BAG IV PRN ×6 (02:32→21:37)
[2017-09-02] MEDS: Midazolam 100 mg/100ml in NS 100 MG/100 ML SOL IV PRN ×2 (03:46→19:02)
[2017-09-02] MEDS: Cisatracurium Besylate 100 MG in Sodium Chloride 0.9% 250 ML IV PRN ×2 (05:01→17:03)
[2017-09-02] MEDS: Meropenem IV 1 gm in NS 50 ML IVPB SCH ×3 (05:02→21:38)
[2017-09-02 05:58] LABS: BASO # 0.04 K/mm3 (0.0-2.0); BASO % 0.1 % (0.0-3.0); EOS # 0.2 (0.0-0.7); EOS % 0.6 % (1.5-5.0); GRAN # 23.64 (1.4-6.5); GRAN % 88.5 % (50.0-68.0); HEMOGLOBIN 10.1 g/dL (12.0-16.0); LYMPH # 1.3 (1.2-3.4); MEAN CELL VOLUME 104.3 fl (80.0-105.0); MEAN CORPUSCULAR HEMOGLOBIN 33.8 pg (25.0-35.0); MEAN CORPUSCULAR HGB CONC 32.4 g/dl (31.0-37.0); MEAN PLATELET VOLUME 9.8 fl (7.0-11.0); MONO # 1.6 (0.1-0.6); MONO % 5.8 % (1.0-6.0); PLATELET COUNT 326 10^3/uL (120.0-450.0); RBC 2.99 10^6/uL (3.5-6.1); RED CELL DISTRIBUTION WIDTH 14.4 % (11.5-14.5)
[2017-09-02 06:01] LABS: WHITE BLOOD COUNT 26.7 10^3/ul (4.5-11.0)
[2017-09-02] MEDS: Aritificial Tears (15ml) OU SCH ×3 (06:11→22:10)
[2017-09-02] MEDS: Vancomycin 1gm in NS 250ml 1 GM/250 ML BAG IVPB SCH (06:17)
[2017-09-02 06:24] LABS: ALBUMIN 2.6 g/dL (3.0-4.8); CALCIUM 8.4 mg/dL (8.4-10.5)
[2017-09-02] MEDS ORDERED: Magnesium Sulfate 2 GM in Sodium Chloride 0.9% 100 ML IVPB ONE (07:01)
[2017-09-02 08:19] LABS: BAND 4 % (0-2); LYMPHOCYTE 4 % (22.0-35.0); MONOCYTE 4 % (1.0-6.0); NEUTROPHIL 88 % (50.0-70.0)
[2017-09-02 08:20] LABS: BURR CELLS 1+; PLATELET ESTIMATE NORMAL (NORMAL)
[2017-09-02] MEDS: Albuterol-Ipratrop 3 mg / 0.5 (3 ml) UD IH SCH ×4 (08:24→21:23)
--- NOTE | 2017-09-02 09:05 | PN ---
DATE: 09/02/2017(730am-820am) PULMONARY NOTE SUBJECTIVE: The patient remains on the ventilator. She remains sedated. PHYSICAL EXAMINATION: VITAL SIGNS: Temperature is 98.5, pulse 95, respiratory rate 25/24, blood pressure 94/55. HEENT: Normocephalic, atraumatic. No JVD. CARDIOVASCULAR: Positive S1, S2. No S3 gallop. LUNGS: Crackles at both bases. Less rhonchi. No wheezing. EXTREMITIES: No clubbing, cyanosis or edema. GI: Abdomen is soft, nondistended. Bowel sounds are positive. SKIN: No acute rash. NEUROLOGIC: Limited at the present time. PERTINENT LABORATORY DATA: Chest x-ray was done this morning and reviewed. The x-ray is a poor rotated film. There are significant infiltrates that remain; however, there may be some clearing in the right lung. Arterial blood gas was ordered - pending. IMPRESSION: 1. Respiratory failure. 2. Bilateral pneumonia. 3. Haemophilus influenza A positivity. Rule out influenza pneumonia. 4. Sepsis syndrome. 5. Alcoholic hepatitis. 6. Anemia. PLAN: The patient remains in the ICU and on the ventilator. She is currently sedated. I did discuss the case with the night nurse at length. The night nurse stated that the patient is not doing well overall. I did review the chest x-ray as above. There remains extensive bilateral pulmonary infiltrates. However, there appears to be some clearing in the right lung. As above, I have ordered a repeat arterial blood gas -not done yet- pending. I will check that when feasible. On physical exam, there is less bronchospasm noted. I will continue with the current nebulizer treatments for now. The patient remains on antibiotic therapy - as per Infectious Disease. The temperatures have resolved. However, there is a significant leukocytosis. Deep tracheal aspirate studies are still pending. Inputs by Renal and Cardiology are also noted. The patient remains critically ill at this point in time. I will discuss the above with the entire ICU team in the next few moments. I will also discuss the above with the attending physician. Kit Powell MD [facility] # [id number] MTDD
[2017-09-02] MEDS: levoFLOXacin 750 mg in D5W 150 ML BAG IVPB SCH (10:21)
--- NOTE | 2017-09-02 10:54 | PN ---
DATE: 09/02/2017 CHRONOMETER ADJUSTER NOTE LOCATION: [facility]. SUBJECTIVE: The patient is sedated on the ventilator with Versed and fentanyl and notes that she is on Nimbex as well. The patient is requiring Levophed to support her blood pressure. O2 saturation is good on a ventilator, FIO2 of 60%. PHYSICAL EXAMINATION: VITAL SIGNS: As far as physical exam note that her temperature is 98.5, pulse is 95, respirations of 18 and BP of 94/55. SKIN: Warm and dry. HEAD: Atraumatic, normocephalic. Eyes are reactive to light. Ear, nose and throat seemed to be within normal limits. NECK: Supple. No JVD. No thyroid enlargement. No lymph nodes. HEART: Regular rate and rhythm. Normal S1, S2. LUNGS: Reveal mild rhonchi bilaterally. ABDOMEN: Soft, obese, slightly distended. Decreased bowel sounds. GENITALIA AND RECTAL: Deferred. MUSCULOSKELETAL: No joint deformities. EXTREMITIES: Reveal positive lower extremity edema. NEUROLOGICALLY: She is sedated on the ventilator. LABORATORY DATA: As far as her laboratories, the patient has white count of 26.7, hemoglobin of 10.1, hematocrit 31.2 with platelets of 226,000. Her CMP is pending. Chest x-ray reveals bilateral diffuse infiltrates. IMPRESSION: As far as my impression, this patient has bilateral pneumonia, which looks to be influenza pneumonia and respiratory failure requiring ventilator support. The patient seems to have adult respiratory distress syndrome. She has possible sepsis with increased white count and noted to have anemia as well as history of chronic obstructive pulmonary disease, congestive heart failure, hepatitis C and drug abuse. As far as our plan, we will continue with ventilator support and decrease the FIO2 as tolerated. The patient will continue with Versed and fentanyl, Nimbex as well as her Levophed. She is getting DuoNeb as bronchodilator. She continues to get Lasix as well as subcu heparin. The patient is on Levaquin as well as meropenem and is on Tamiflu as well. She will continue with the Protonix and we will follow her chest x-ray closely. We will continue to treat aggressively along with the other consultants and the primary care doctor. Getachew Bo MD
[2017-09-02] MEDS: Oseltamivir 6 MG/ML PO SCH ×2 (11:39→21:38)
--- NOTE | 2017-09-02 11:39 | US ---
HISTORY: Ascites COMPARISON: Comparison made with renal ultrasound 08/31/2017 TECHNIQUE: Sonographic evaluation of the abdomen. FINDINGS: LIVER: The is borderline/mildly enlarged measuring approximately 18 cm in CC dimension. Liver demonstrates increased echotexture suggesting fatty issued however other infiltrative hepatocellular disease process not excluded. No definitive hepatic masses or collections seen on images presented. There is abdominal ascites present. GALLBLADDER: Gallbladder is physiologically distended. No evidence of intraluminal gallbladder calculi. No sonographic Martinez sign. COMMON BILE DUCT: Measures 6 mm. Spleen is upper limits PANCREAS: Unremarkable as visualized. No mass. No ductal dilatation. RIGHT KIDNEY: Measures 11.6 x 6.5 x 6.4cm. Normal echogenicity. No calculus, mass, or hydronephrosis. LEFT KIDNEY: Measures 11.3 x 6.3 x 6.3cm. Normal echogenicity. No calculus, mass, or hydronephrosis. SPLEEN: The spleen is upper limits normal in size measuring approximately 11.3 cm. AORTA: Not visualized on this study due to body habitus and bowel gas IVC: Not visualized on this study due to body habitus and bowel gas OTHER FINDINGS: None. IMPRESSION: Borderline hepatomegaly. Increased hepatic echo-texture likely due to fatty infiltration however other infiltrative hepatic cellular disease process not excluded. .
[2017-09-02] MEDS: Fentanyl 1000mcg/100ml NS 1,000 MCG/100 ML BAG IV PRN ×2 (12:07→21:34)
--- NOTE | 2017-09-02 13:10 | RAD ---
HISTORY: f/u COMPARISON: Comparison chest 09/01/2017 FINDINGS: ETT and NGT remain in good position. No change left-sided PICC line with tip that appears to be in the SVC LUNGS: Diffuse bilateral infiltrates likely representing pulmonary edema/ CHF. Superimposed pneumonia not excluded. . Questionable bilateral effusions PLEURA: As above no pneumothorax apparent. CARDIOVASCULAR: Normal. OSSEOUS STRUCTURES: No significant abnormalities. VISUALIZED UPPER ABDOMEN: Normal. OTHER FINDINGS: None. IMPRESSION: Support lines and tubes as above. Diffuse bilateral infiltrates possibly representing pulmonary edema/ CHF however superimposed pneumonia not excluded. Questionable bilateral effusions
--- NOTE | 2017-09-02 13:30 | PN ---
DATE: SUBJECTIVE: The patient is in Critical Care Unit. The patient was admitted with bilateral pneumonia, multilobar. The patient had past history of alcoholic liver disease. The patient also has history of depression and hypertension. The patient was admitted to the hospital from [facility]. Within 24 hours, the patient's condition deteriorated, the patient went into respiratory failure. Bilateral pneumonia extensive infiltrating both lungs and the patient is seen this morning. She is on the respirator. She has to be maintained on Levophed for blood pressure control. She is sedated with multiple sedative agents, which is Diprivan and fentanyl. The patient is also on Lasix. The patient is on antibiotics, meropenem. The patient is on vancomycin. PHYSICAL EXAMINATION: VITAL SIGNS: At this time; the patient's heart rate is 104, blood pressure is 101/62. The patient's O2 sat is maintained by the respirator. Her condition is critical. The patient is treated with all aggressive measures. The chest x-ray does not show much improvement in the last 24-48 hours. We will continue current management. The patient is seen by the Automotive General Manager in the ICU. The patient was also seen by Dr. Powell, electric blanket packer, and we requested encoding clerk also do a consult on the patient. Current condition is poor. We will try to be aggressive and treat the patient with all modalities of treatment available. Tay Cruz MD
--- NOTE | 2017-09-02 14:09 | PN ---
DATE: 09/02/2017 SUBJECTIVE: The patient is in bed, in no acute distress, nontoxic. PHYSICAL EXAMINATION: VITAL SIGNS: Temperature is 98, blood pressure is 94/50; respiratory rate, the patient is on a vent and heart rate of 96. HEENT: Reveals ET tube in place. NECK: Supple. LUNGS: Have decreased breath sounds. HEART: Normal S1, S2. ABDOMEN: Soft, nontender. LABORATORY DATA: Reveals a white count of 26,000, hemoglobin of 10, platelets of 326, 88% granulocytosis, and chemistries revealed the patient's BUN of 19, creatinine is 1.5, and procalcitonin is 0.21. Urinalysis is noted. Serology reveals influenza is positive. Urine Legionella antigen is negative. Microbiology reveals the blood cultures are negative MRSA screen is not detected. Urine culture is mixed organisms. Sputum culture is pending. Microbacterium cultures from the sputum, no acid-fast is seen. Chest x-ray from this morning is pending, and chest x-ray from yesterday worsening confluent airspace disease in both lungs. Review of orders reveals the patient to be on Levaquin, meropenem and vancomycin. Review of Dr. Powell's note from yesterday notes that the patient has respiratory failure, bilateral pneumonia with Haemophilus influenzae and alcoholic hepatitis. ASSESSMENT AND PLAN: A 56-year-old female seen early this morning in the ICU, intubated on the ventilator, comfortable, however, in critical condition with severe sepsis due to healthcare-associated pneumonia on top of influenza A infection and alcoholic hepatitis and ethanol abuse with history of opiate dependence and cervical spondylitis status post surgery and day #4 of meropenem and Levaquin and day #4 of Tamiflu. We will discontinue the vancomycin now with acute kidney injury. We will repeat blood cultures, urine cultures, sputum cultures, urinalysis and repeat procalcitonin. Overall prognosis is poor for this patient. Oli Ken MD
[2017-09-02 14:46] LABS: ARTERIAL BLOOD GAS O2 CAPACITY 13.3 mL/dl (16-24); ARTERIAL BLOOD GAS O2 CONTENT 13.4 ML/dl (15-23)
[2017-09-02 15:19] LABS: ARTERIAL BLOOD GAS PCO2 31 mm/Hg (35-45); ARTERIAL BLOOD GAS PH 7.18 (7.35-7.45)
[2017-09-02 15:20] LABS: ARTERIAL BLOOD GAS HCO3 11.6 mmol/L (21-28); ARTERIAL BLOOD GAS HEMOGLOBIN 9.6 g/dL (11.7-17.4)
[2017-09-02 15:21] LABS: ARTERIAL BLOOD GAS O2 SAT 100.4 % (95-98); ARTERIAL BLOOD GAS TCO2 12.6 mmol.L (22-28)
--- NOTE | 2017-09-02 17:13 | PN ---
DATE: 09/02/2017 SUBJECTIVE: The patient is seen lying in bed in the ICU. She is sedated. She is paralyzed. She is on mechanical ventilation. Brother and daughter are at bedside. PHYSICAL EXAMINATION GENERAL: Obese middle-aged lady lying in bed in the ICU, on mechanical ventilation, on pressors. VITAL SIGNS: Blood pressure 88/43, heart rate 92, respiratory rate 18, temperature 98.5. HEENT: Normocephalic, atraumatic, pupils nonreactive to light, positive pallor. NECK: Supple, no JVD. LUNGS: Bilateral equal air entry, bilateral equal expansion, no rales appreciated anteriorly. CARDIAC: S1 and S2, regular rate and rhythm, no murmur, no rub. ABDOMEN: Obese, distended, soft, nontender, bowel sounds present. EXTREMITIES: No lower extremity edema. INTAKE AND OUTPUT: 7696/235. LABORATORY DATA: WBC 27, hemoglobin 10, hematocrit 31, platelets 326, 88% polys. Sodium 139, potassium 4.1, chloride 115, CO2 of 12, BUN 19, creatinine 1.5, glucose 84, calcium 8.4, phosphorus 5.1, magnesium 1.4, total bilirubin 2.6, albumin 2.6. INR 2.25. No blood gas today. Influenza A positive. Cultures no growth. Chest x-ray: Diffuse bilateral infiltrates, pulmonary edema versus CHF. Abdominal ultrasound: Borderline hepatomegaly, increase hepatic echotexture secondary to fatty infiltration or other infiltrative process; right kidney 11.6 cm, left kidney 11.3 cm, normal echogenicity. CURRENT MEDICATIONS: Ativan, Diprivan, DuoNeb, fentanyl, heparin, Lasix 20 IV b.i.d. not given this morning, Levaquin 750 daily, norepinephrine 20 mcg per minute, Lopressor 25 b.i.d., Merrem 1 g every 8 hours, Protonix, Prozac, Tamiflu, verapamil, Versed. ASSESSMENT: 1. Shock, severe sepsis, influenza pneumonia, respiratory failure. 2. Profound hypotension. 3. Acute respiratory distress syndrome. 4. Acute kidney injury, oliguric. 5. History of alcoholic hepatitis. 6. Chronic obstructive pulmonary disease. 7. Elevated LFTs. PLAN: 1. Continue antibiotics as per ID recommendations. 2. Continue antivirals. 3. Agree with pressor support. 4. Continue to monitor urine output closely. 5. Not a candidate for renal replacement therapy at this time in light of severe hemodynamic instability, hypotension, pressor requirements. Case discussed with family members at bedside. Case discussed with ICU staff. More than 35 minutes spent in the care of this critically ill patient. Leticia Thomas MD
[2017-09-03] MEDS: NOREPINEPHRINE BIT/0.9 % NACL 4 MG/250 ML BAG IV PRN ×6 (01:30→20:19)
[2017-09-03] MEDS: Albuterol-Ipratrop 3 mg / 0.5 (3 ml) UD IH SCH ×4 (01:32→20:24)
[2017-09-03] MEDS ORDERED: Dextrose 25% Inj (10ml) IV ONE (05:00)
[2017-09-03] MEDS ORDERED: Dextrose 50% SYRINGE Inj (50 ml) IVP ONE (05:00)
[2017-09-03] MEDS: Meropenem IV 1 gm in NS 50 ML IVPB SCH ×3 (05:41→21:49)
[2017-09-03] MEDS: Aritificial Tears (15ml) OU SCH ×3 (05:42→21:49)
[2017-09-03 05:46] LABS: ARTERIAL BLOOD GAS HCO3 11.8 mmol/L (21-28); ARTERIAL BLOOD GAS HEMOGLOBIN 11.6 g/dL (11.7-17.4); ARTERIAL BLOOD GAS O2 CAPACITY 16.3 mL/dl (16-24); ARTERIAL BLOOD GAS O2 CONTENT 16.4 ML/dl (15-23); ARTERIAL BLOOD GAS O2 SAT 100.7 % (95-98); ARTERIAL BLOOD GAS PCO2 37 mm/Hg (35-45); ARTERIAL BLOOD GAS TCO2 12.9 mmol.L (22-28)
[2017-09-03 05:55] LABS: ARTERIAL BLOOD GAS PH 7.11 (7.35-7.45)
[2017-09-03] MEDS: Cisatracurium Besylate 100 MG in Sodium Chloride 0.9% 250 ML IV PRN (06:24)
[2017-09-03] MEDS ORDERED: Sodium Bicarbonate (8.4%) 50 Meq Syringe IVP STA (06:58)
[2017-09-03] MEDS ORDERED: Sodium Bicarbonate (8.4%) 50 Meq Syringe IVP ONE (07:00)
[2017-09-03 07:11] LABS: BASO # 0.03 K/mm3 (0.0-2.0); BASO % 0.1 % (0.0-3.0); EOS # 0.2 (0.0-0.7); EOS % 1.1 % (1.5-5.0); GRAN # 18.74 (1.4-6.5); GRAN % 86.8 % (50.0-68.0); HEMOGLOBIN 9.9 g/dL (12.0-16.0); LYMPH # 1.1 (1.2-3.4); LYMPH % 4.9 % (22.0-35.0); MEAN CELL VOLUME 103.4 fl (80.0-105.0); MEAN CORPUSCULAR HEMOGLOBIN 33.4 pg (25.0-35.0); MEAN CORPUSCULAR HGB CONC 32.4 g/dl (31.0-37.0); MONO # 1.5 (0.1-0.6); MONO % 7.1 % (1.0-6.0); RBC 2.96 10^6/uL (3.5-6.1); RED CELL DISTRIBUTION WIDTH 14.6 % (11.5-14.5); WHITE BLOOD COUNT 21.6 10^3/ul (4.5-11.0)
[2017-09-03 07:37] LABS: ALB/GLOB RATIO 0.8 (1.1-1.8); ALBUMIN 2.3 g/dL (3.0-4.8); CALCIUM 8.3 mg/dL (8.4-10.5)
[2017-09-03 09:06] LABS: ARTERIAL BLOOD GAS HCO3 12.3 mmol/L (21-28); ARTERIAL BLOOD GAS HEMOGLOBIN 9.5 g/dL (11.7-17.4); ARTERIAL BLOOD GAS O2 CAPACITY 13.2 mL/dl (16-24); ARTERIAL BLOOD GAS O2 CONTENT 13.2 ML/dl (15-23); ARTERIAL BLOOD GAS O2 SAT 100.2 % (95-98); ARTERIAL BLOOD GAS PCO2 30 mm/Hg (35-45); ARTERIAL BLOOD GAS PH 7.22 (7.35-7.45); ARTERIAL BLOOD GAS TCO2 13.2 mmol.L (22-28)
[2017-09-03] MEDS: Sodium Bicarbonate 8.4% 100 MEQ in Dextrose 5%/0.45% NS 1,000 ML IV SCH (09:54)
--- NOTE | 2017-09-03 09:57 | RAD ---
HISTORY: Follow-up COMPARISON: No prior. FINDINGS: In situ ETT, tip of which lies approximately 5.7 cm above rakesh. In situ NGT, the tip of which has not been included on this film though distal aspect does lie below EG junction. No change left-sided PICC line tip in the SVC/brachiocephalic junction. LUNGS: Diffuse bilateral infiltrates again noted upper which could be due to pneumonia and or pulmonary edema/CHF. Clinical correlation recommended. Questionable small right-sided effusion. PLEURA: As above. No apparent pneumothorax CARDIOVASCULAR: Normal. OSSEOUS STRUCTURES: No significant abnormalities. VISUALIZED UPPER ABDOMEN: Normal. OTHER FINDINGS: None. IMPRESSION: Support lines and tubes as above. Diffuse bilateral infiltrates again noted with questionable small right-sided effusion
[2017-09-03] MEDS: Oseltamivir 6 MG/ML PO SCH ×2 (09:58→22:00)
[2017-09-03] MEDS: levoFLOXacin 750 mg in D5W 150 ML BAG IVPB SCH (10:00)
--- NOTE | 2017-09-03 10:36 | PN ---
DATE: 09/03/2017(740am-830am) PULMONARY NOTE SUBJECTIVE: The patient remains on the ventilator. She remains sedated. PHYSICAL EXAMINATION: VITAL SIGNS: Temperature is 98, pulse 94, respiratory rate 24/24, blood pressure 118/62. Oxygen saturation on the ventilator is 99%. HEENT: Normocephalic, atraumatic. No JVD. CARDIOVASCULAR: Positive S1, S2. No S3 gallop. LUNGS: Crackles at both bases. Mild bilateral rhonchi. No wheezing. EXTREMITIES: No clubbing, cyanosis or edema. GI: Abdomen is soft, nondistended. Bowel sounds are positive. SKIN: No acute rash. NEUROLOGIC: Limited at the present time. PERTINENT LABORATORY DATA: Chest x-ray was done this morning and reviewed. There remains bilateral pulmonary infiltrates. However, the infiltrates are much less dense - compared to the films earlier in the week. Arterial blood gas was done on PRVC 24, tidal volume 350, FIO2 of 60%, PEEP of 14. Results are: PH 7.11, pCO2 of 37, pO2 of 171. IMPRESSION: 1. Respiratory failure. 2. Bilateral pneumonia. 3. Haemophilus influenza A positivity. Rule out influenza pneumonia. 4. Sepsis syndrome. 5. Alcoholic hepatitis. 6. Anemia. PLAN: The patient remains in the ICU and on the ventilator. She remains sedated. I did discuss the case with the night nurse at length. The night nurse stated that the patient continues to do poorly. I did review the chest x-ray as above. Bilateral pulmonary infiltrates remain. However, the infiltrates are much less dense compared to earlier in the week. I have also reviewed the arterial blood gas. The arterial blood gas reveals a severe metabolic acidosis with a decrease in the alveolar-arterial gradient. I will increase the minute ventilation and decrease the FIO2 this morning. Orders were discussed with the nurse. A repeat arterial blood gas is ordered. On physical exam, there is no significant bronchospasm. I will continue with the current nebulizer treatments for now. The patient remains on antibiotic therapy - as per Infectious Disease. Temperatures have resolved. The leukocytosis is decreased this morning. Inputs by Renal and Cardiology are also noted. The patient remains critically ill. Her overall status/prognosis is very, very guarded. I did discuss the above with Dr. Bo (cap inspector). I will also discuss the above with the attending physician. Kit Powell MD [facility] # [id number] TYLER
--- NOTE | 2017-09-03 11:06 | PN ---
DATE: 09/03/2017 FOOD PREP WORKER NOTE SUBJECTIVE: The patient is sedated on the ventilator, continued to require ventilator support. Note that the patient is on Nimbex as well. She is on Levophed to support her blood pressure and FIO2 of the ventilator is decreased to 50%. O2 saturation is stable. The patient continues to have severe metabolic acidosis. PHYSICAL EXAMINATION: VITAL SIGNS: Physical exam note that her temperature is 98, pulse is 94 and her respiratory rate is 30 with a BP of 118/62. SKIN: Warm and dry. HEENT: Head atraumatic, normocephalic. Eyes reactive to light. Ear, nose and throat seemed to be within normal limits. NECK: Supple. No JVD. No thyroid enlargement. No lymph nodes. HEART: Regular rate and rhythm. Normal S1, S2, but tachycardic. LUNGS: Reveal rhonchi bilaterally. ABDOMEN: Soft. Decreased bowel sounds. GENITALIA AND RECTAL: Deferred. MUSCULOSKELETAL: No joint deformities. EXTREMITIES: Reveal positive edema. NEUROLOGICAL: The patient is unresponsive on the ventilator. LABORATORY DATA: As far as her laboratories are concerned, her white count is 21.6, hemoglobin is 9.9, hematocrit 30.6 with platelets of 277,000. Her arterial blood gas reveals a pH of 7.11, pCO2 of 37, pO2 of 171. As far as her sodium is 141, potassium 4.3, chloride 118, CO2 of 12 with a BUN of 26, creatinine of 2 and a glucose of 124. As far as chest x-ray is concerned, it still shows bilateral infiltrates. IMPRESSION: The patient has bilateral pneumonia/adult respiratory distress syndrome secondary to influenza. She has respiratory failure, on ventilator support and possible sepsis, anemia, chronic obstructive pulmonary disease, congestive heart failure, hepatitis C and a history of drug abuse. PLAN: We will continue to support the patient with the ventilator and decrease the FIO2 as tolerated. Note that the patient has been started on a bicarb drip and we will follow the labs closely. We will continue to administer Versed and fentanyl as well as the Nimbex and Levophed and the patient is getting DuoNeb for bronchodilatation as well as Lasix and subcu heparin. She is on Levaquin and meropenem and Tamiflu and we will continue with the Protonix as well. Getachew Bo MD
[2017-09-03] MEDS: Fentanyl 1000mcg/100ml NS 1,000 MCG/100 ML BAG IV PRN (13:27)
[2017-09-03] MEDS: Midazolam 100 mg/100ml in NS 100 MG/100 ML SOL IV PRN (14:51)
--- NOTE | 2017-09-03 15:24 | PCM.URO ---
Urology Progress Note - Objective Lab Studies: Reviewed (shae) Lab Results Last 24 Hours: Laboratory Results - last 24 hr 08/30/17 09/02/17 09/02/17 21:21 10:30 14:01 WBC RBC Hgb Hct MCV MCH MCHC RDW Plt Count MPV Gran % Lymph % (Auto) [place] % (Auto) Eos % (Auto) Baso % (Auto) Gran # Lymph # (Auto) [place] # (Auto) Eos # (Auto) Baso # (Auto) pCO2 pO2 HCO3 ABG pH ABG Total CO2 ABG O2 Saturation ABG O2 Content ABG Base Excess ABG Hemoglobin ABG Carboxyhemoglobin POC ABG HHb (Measured) ABG Methemoglobin ABG O2 Capacity Hgb O2 Saturation FiO2 Sodium Potassium Chloride Carbon Dioxide Anion Gap BUN Creatinine Est GFR ( Amer) Est GFR (Non-Af Amer) POC Glucose (mg/dL) 93 Random Glucose Calcium Phosphorus Magnesium Total Bilirubin AST ALT Alkaline Phosphatase Total Protein Albumin Globulin Albumin/Globulin Ratio Procalcitonin 1.13 H Influenza Type A Ab 1:32 H Influenza Type B Ab 1:32 H 09/02/17 09/02/17 09/02/17 14:40 15:59 17:54 WBC RBC Hgb Hct MCV MCH MCHC RDW Plt Count MPV Gran % Lymph % (Auto) [place] % (Auto) Eos % (Auto) Baso % (Auto) Gran # Lymph # (Auto) [place] # (Auto) Eos # (Auto) Baso # (Auto) pCO2 31 L pO2 137.0 H HCO3 11.6 L ABG pH 7.18 L* ABG Total CO2 12.6 L ABG O2 Saturation 100.4 H ABG O2 Content 13.4 L ABG Base Excess 15.5 H ABG Hemoglobin 9.6 L ABG Carboxyhemoglobin 2.1 H POC ABG HHb (Measured) 0.4 ABG Methemoglobin 1.2 ABG O2 Capacity 13.3 L Hgb O2 Saturation FiO2 60.0 Sodium Potassium Chloride Carbon Dioxide Anion Gap BUN Creatinine Est GFR ( Amer) Est GFR (Non-Af Amer) POC Glucose (mg/dL) 80 79 Random Glucose Calcium Phosphorus Magnesium Total Bilirubin AST ALT Alkaline Phosphatase Total Protein Albumin Globulin Albumin/Globulin Ratio Procalcitonin Influenza Type A Ab Influenza Type B Ab 09/02/17 09/02/17 09/02/17 20:15 21:44 23:47 WBC RBC Hgb Hct MCV MCH MCHC RDW Plt Count MPV Gran % Lymph % (Auto) [place] % (Auto) Eos % (Auto) Baso % (Auto) Gran # Lymph # (Auto) [place] # (Auto) Eos # (Auto) Baso # (Auto) pCO2 pO2 HCO3 ABG pH ABG Total CO2 ABG O2 Saturation ABG O2 Content ABG Base Excess ABG Hemoglobin ABG Carboxyhemoglobin POC ABG HHb (Measured) ABG Methemoglobin ABG O2 Capacity Hgb O2 Saturation FiO2 Sodium Potassium Chloride Carbon Dioxide Anion Gap BUN Creatinine Est GFR ( Amer) Est GFR (Non-Af Amer) POC Glucose (mg/dL) 74 80 73 Random Glucose Calcium Phosphorus Magnesium Total Bilirubin AST ALT Alkaline Phosphatase Total Protein Albumin Globulin Albumin/Globulin Ratio Procalcitonin Influenza Type A Ab Influenza Type B Ab 09/03/17 09/03/17 09/03/17 01:49 04:03 05:30 WBC RBC Hgb Hct MCV MCH MCHC RDW Plt Count MPV Gran % Lymph % (Auto) [place] % (Auto) Eos % (Auto) Baso % (Auto) Gran # Lymph # (Auto) [place] # (Auto) Eos # (Auto) Baso # (Auto) pCO2 37 pO2 171.0 H HCO3 11.8 L ABG pH 7.11 L* ABG Total CO2 12.9 L ABG O2 Saturation 100.7 H ABG O2 Content 16.4 ABG Base Excess -16.8 L ABG Hemoglobin 11.6 L ABG Carboxyhemoglobin 1.8 H POC ABG HHb (Measured) -0.7 L ABG Methemoglobin 0.8 ABG O2 Capacity 16.3 Hgb O2 Saturation 98.1 H FiO2 60.0 Sodium Potassium Chloride Carbon Dioxide Anion Gap BUN Creatinine Est GFR ( Amer) Est GFR (Non-Af Amer) POC Glucose (mg/dL) 65 69 Random Glucose Calcium Phosphorus Magnesium Total Bilirubin AST ALT Alkaline Phosphatase Total Protein Albumin Globulin Albumin/Globulin Ratio Procalcitonin Influenza Type A Ab Influenza Type B Ab 09/03/17 09/03/17 09/03/17 06:30 06:45 06:45 WBC 21.6 H RBC 2.96 L Hgb 9.9 L Hct 30.6 L MCV 103.4 MCH 33.4 MCHC 32.4 RDW 14.6 H Plt Count 277 MPV 10.0 Gran % 86.8 H Lymph % (Auto) 4.9 L [place] % (Auto) 7.1 H Eos % (Auto) 1.1 L Baso % (Auto) 0.1 Gran # 18.74 H Lymph # (Auto) 1.1 L [place] # (Auto) 1.5 H Eos # (Auto) 0.2 Baso # (Auto) 0.03 pCO2 pO2 HCO3 ABG pH ABG Total CO2 ABG O2 Saturation ABG O2 Content ABG Base Excess ABG Hemoglobin ABG Carboxyhemoglobin POC ABG HHb (Measured) ABG Methemoglobin ABG O2 Capacity Hgb O2 Saturation FiO2 Sodium 141 Potassium 4.3 Chloride 118 H Carbon Dioxide 12 L Anion Gap 16 BUN 26 H Creatinine 2.0 H Est GFR ( Amer) 31 Est GFR (Non-Af Amer) 26 POC Glucose (mg/dL) 115 H Random Glucose 124 H Calcium 8.3 L Phosphorus 6.3 H Magnesium 2.0 Total Bilirubin 2.6 H AST 59 H ALT 29 Alkaline Phosphatase 90 Total Protein 5.1 L Albumin 2.3 L Globulin 2.8 Albumin/Globulin Ratio 0.8 L Procalcitonin Influenza Type A Ab Influenza Type B Ab 09/03/17 09/03/17 09/03/17 07:58 09:03 10:02 WBC RBC Hgb Hct MCV MCH MCHC RDW Plt Count MPV Gran % Lymph % (Auto) [place] % (Auto) Eos % (Auto) Baso % (Auto) Gran # Lymph # (Auto) [place] # (Auto) Eos # (Auto) Baso # (Auto) pCO2 30 L pO2 116.0 H HCO3 12.3 L ABG pH 7.22 L ABG Total CO2 13.2 L ABG O2 Saturation 100.2 H ABG O2 Content 13.2 L ABG Base Excess -14.2 L ABG Hemoglobin 9.5 L ABG Carboxyhemoglobin 2.0 H POC ABG HHb (Measured) -0.2 L ABG Methemoglobin 1.2 ABG O2 Capacity 13.2 L Hgb O2 Saturation 97.0 FiO2 50.0 Sodium Potassium Chloride Carbon Dioxide Anion Gap BUN Creatinine Est GFR ( Amer) Est GFR (Non-Af Amer) POC Glucose (mg/dL) 107 101 Random Glucose Calcium Phosphorus Magnesium Total Bilirubin AST ALT Alkaline Phosphatase Total Protein Albumin Globulin Albumin/Globulin Ratio Procalcitonin Influenza Type A Ab Influenza Type B Ab 09/03/17 11:29 WBC RBC Hgb Hct MCV MCH MCHC RDW Plt Count MPV Gran % Lymph % (Auto) [place] % (Auto) Eos % (Auto) Baso % (Auto) Gran # Lymph # (Auto) [place] # (Auto) Eos # (Auto) Baso # (Auto) pCO2 pO2 HCO3 ABG pH ABG Total CO2 ABG O2 Saturation ABG O2 Content ABG Base Excess ABG Hemoglobin ABG Carboxyhemoglobin POC ABG HHb (Measured) ABG Methemoglobin ABG O2 Capacity Hgb O2 Saturation FiO2 Sodium Potassium Chloride Carbon Dioxide Anion Gap BUN Creatinine Est GFR ( Amer) Est GFR (Non-Af Amer) POC Glucose (mg/dL) 116 H Random Glucose Calcium Phosphorus Magnesium Total Bilirubin AST ALT Alkaline Phosphatase Total Protein Albumin Globulin Albumin/Globulin Ratio Procalcitonin Influenza Type A Ab Influenza Type B Ab Intake & Output: Intake & Output 09/02/17 09/03/17 09/03/17 18:59 06:59 18:59 Intake Total 2885 2590 620 Output Total 100 50 Balance 2785 2540 620 Weight 168 lb Intake: IV 2885 2590 620 Left Upper arm 1675 1260 Right Antecubital 100 Output: Urine 100 50 Urethral (Barron) 100 50 Vital Signs: Vital Signs - 24 hr 09/02/17 09/02/17 09/02/17 15:30 15:40 15:50 Temperature Pulse Rate 96 H 97 H 95 H Respiratory Rate Blood Pressure O2 Sat by Pulse Oximetry 09/02/17 09/02/17 09/02/17 16:00 16:10 16:20 Temperature 97.4 F L Pulse Rate 97 H 94 H 96 H Respiratory Rate Blood Pressure 97/51 L O2 Sat by Pulse 100 100 Oximetry 09/02/17 09/02/17 09/02/17 16:30 16:40 16:50 Temperature Pulse Rate 97 H 96 H 97 H Respiratory Rate Blood Pressure O2 Sat by Pulse 100 100 100 Oximetry 09/02/17 09/02/17 09/02/17 16:59 17:00 17:10 Temperature Pulse Rate 97 H 98 H Respiratory Rate Blood Pressure 98/48 L O2 Sat by Pulse 100 100 Oximetry 09/02/17 09/02/17 09/02/17 17:14 17:16 17:17 Temperature Pulse Rate 98 H 98 H 98 H Respiratory Rate Blood Pressure O2 Sat by Pulse Oximetry 09/02/17 09/02/17 09/02/17 17:18 17:20 17:30 Temperature Pulse Rate 97 H 98 H 98 H Respiratory Rate Blood Pressure O2 Sat by Pulse 100 100 Oximetry 09/02/17 09/02/17 09/02/17 17:40 17:50 18:00 Temperature Pulse Rate 98 H 95 H 97 H Respiratory Rate Blood Pressure 100/49 L O2 Sat by Pulse 100 100 100 Oximetry 09/02/17 09/02/17 09/02/17 18:10 18:12 18:20 Temperature Pulse Rate 97 H 98 H 99 H Respiratory Rate Blood Pressure O2 Sat by Pulse 100 100 100 Oximetry 09/02/17 09/02/17 09/02/17 18:30 18:40 18:50 Temperature Pulse Rate 99 H 100 H 100 H Respiratory Rate Blood Pressure O2 Sat by Pulse 100 100 100 Oximetry 09/02/17 09/02/17 09/02/17 19:00 19:10 19:20 Temperature Pulse Rate 101 H 101 H 101 H Respiratory Rate Blood Pressure 106/57 L O2 Sat by Pulse 100 100 100 Oximetry 09/02/17 09/02/17 09/02/17 19:30 19:40 19:50 Temperature Pulse Rate 102 H 103 H 103 H Respiratory Rate Blood Pressure O2 Sat by Pulse 100 100 100 Oximetry 09/02/17 09/02/17 09/02/17 20:00 20:10 20:20 Temperature 97.9 F Pulse Rate 103 H 103 H 103 H Respiratory 24 Rate Blood Pressure 105/56 L O2 Sat by Pulse 100 100 100 Oximetry 09/02/17 09/02/17 09/02/17 20:30 20:40 20:50 Temperature Pulse Rate 103 H 104 H 103 H Respiratory Rate Blood Pressure O2 Sat by Pulse 100 100 100 Oximetry 09/02/17 09/02/17 09/02/17 21:00 21:10 21:20 Temperature Pulse Rate 101 H 100 H 110 H Respiratory Rate Blood Pressure 101/55 L O2 Sat by Pulse 100 99 100 Oximetry 09/02/17 09/02/17 09/02/17 21:30 21:40 21:50 Temperature Pulse Rate 111 H 113 H 110 H Respiratory Rate Blood Pressure O2 Sat by Pulse 100 100 100 Oximetry 09/02/17 09/02/17 09/02/17 22:00 22:10 22:20 Temperature Pulse Rate 102 H 103 H 103 H Respiratory Rate Blood Pressure 100/50 L O2 Sat by Pulse 100 100 100 Oximetry 09/02/17 09/02/17 09/02/17 22:30 22:40 22:50 Temperature Pulse Rate 104 H 104 H 104 H Respiratory Rate Blood Pressure O2 Sat by Pulse 100 100 100 Oximetry 09/02/17 09/02/17 09/02/17 23:00 23:10 23:20 Temperature Pulse Rate 104 H 104 H 104 H Respiratory Rate Blood Pressure 106/49 L O2 Sat by Pulse 100 100 100 Oximetry 09/02/17 09/02/17 09/02/17 23:30 23:40 23:50 Temperature Pulse Rate 103 H 103 H 104 H Respiratory Rate Blood Pressure O2 Sat by Pulse 100 100 Oximetry 09/03/17 09/03/17 09/03/17 00:00 00:10 00:20 Temperature 97.8 F Pulse Rate 104 H 103 H 104 H Respiratory 24 Rate Blood Pressure O2 Sat by Pulse 100 Oximetry 09/03/17 09/03/17 09/03/17 00:21 00:22 00:30 Temperature Pulse Rate 105 H 103 H Respiratory Rate Blood Pressure 100/51 L O2 Sat by Pulse 100 Oximetry 09/03/17 09/03/17 09/03/17 00:40 00:50 00:59 Temperature Pulse Rate 104 H 103 H 104 H Respiratory Rate Blood Pressure O2 Sat by Pulse 100 100 100 Oximetry 09/03/17 09/03/17 09/03/17 01:00 01:10 01:20 Temperature Pulse Rate 105 H 105 H Respiratory Rate Blood Pressure 111/54 L O2 Sat by Pulse 100 100 Oximetry 09/03/17 09/03/17 09/03/17 01:30 01:40 01:47 Temperature Pulse Rate 104 H 104 H 104 H Respiratory Rate Blood Pressure O2 Sat by Pulse 100 100 Oximetry 09/03/17 09/03/17 09/03/17 01:48 01:50 01:59 Temperature Pulse Rate 104 H 102 H 104 H Respiratory Rate Blood Pressure O2 Sat by Pulse 100 100 Oximetry 09/03/17 09/03/1709/03/18 02:00 02:10 02:20 Temperature Pulse Rate 104 H 104 H 103 H Respiratory Rate Blood Pressure 100/51 L O2 Sat by Pulse 100 100 Oximetry 09/03/17 09/03/17 09/03/17 02:30 02:40 02:50 Temperature Pulse Rate 104 H 103 H 102 H Respiratory Rate Blood Pressure O2 Sat by Pulse 100 100 100 Oximetry 09/03/17 09/03/17 09/03/17 02:59 03:00 03:10 Temperature Pulse Rate 102 H 103 H Respiratory Rate Blood Pressure 104/53 L O2 Sat by Pulse 100 100 Oximetry 09/03/17 09/03/17 09/03/17 03:20 03:30 03:40 Temperature Pulse Rate 103 H 100 H 102 H Respiratory Rate Blood Pressure O2 Sat by Pulse 100 100 100 Oximetry 09/03/17 09/03/17 09/03/17 03:50 03:59 04:00 Temperature 98 F Pulse Rate 102 H 102 H 104 H Respiratory 24 Rate Blood Pressure 105/56 L O2 Sat by Pulse 100 100 96 Oximetry 09/03/17 09/03/17 09/03/17 04:10 04:20 04:30 Temperature Pulse Rate 102 H 106 H 107 H Respiratory Rate Blood Pressure O2 Sat by Pulse 100 100 100 Oximetry 09/03/17 09/03/17 09/03/17 04:40 04:50 04:54 Temperature Pulse Rate 106 H 106 H 107 H Respiratory Rate Blood Pressure O2 Sat by Pulse 100 100 Oximetry 09/03/17 09/03/17 09/03/17 04:55 04:56 04:57 Temperature Pulse Rate 108 H 108 H 109 H Respiratory Rate Blood Pressure O2 Sat by Pulse Oximetry 09/03/17 09/03/17 09/03/17 04:58 04:59 05:00 Temperature Pulse Rate 109 H 109 H Respiratory Rate Blood Pressure 81/47 L O2 Sat by Pulse Oximetry 09/03/17 09/03/17 09/03/17 05:10 05:46 05:47 Temperature Pulse Rate 105 H 104 H 105 H Respiratory Rate Blood Pressure O2 Sat by Pulse 100 Oximetry 09/03/17 09/03/17 09/03/17 05:48 05:49 05:50 Temperature Pulse Rate 105 H 104 H Respiratory Rate Blood Pressure 84/42 L O2 Sat by Pulse 100 Oximetry 09/03/17 09/03/17 09/03/17 06:00 06:01 06:02 Temperature Pulse Rate 101 H 103 H 102 H Respiratory Rate Blood Pressure 86/43 L O2 Sat by Pulse 93 L Oximetry 09/03/17 09/03/17 09/03/17 06:03 06:04 06:05 Temperature Pulse Rate 102 H 103 H 104 H Respiratory Rate Blood Pressure O2 Sat by Pulse Oximetry 09/03/17 09/03/17 09/03/17 06:06 06:07 06:10 Temperature Pulse Rate 103 H 103 H 104 H Respiratory Rate Blood Pressure O2 Sat by Pulse 72 L Oximetry 09/03/17 09/03/17 09/03/17 06:20 06:30 06:34 Temperature Pulse Rate 103 H 103 H 101 H Respiratory Rate Blood Pressure 108/49 L O2 Sat by Pulse 70 L 73 L 62 L Oximetry 09/03/17 09/03/17 09/03/17 06:40 06:45 06:46 Temperature Pulse Rate 101 H 96 H 101 H Respiratory Rate Blood Pressure O2 Sat by Pulse 67 L Oximetry 09/03/17 09/03/17 09/03/17 06:47 06:48 06:49 Temperature Pulse Rate 97 H 99 H 99 H Respiratory Rate Blood Pressure O2 Sat by Pulse Oximetry 09/03/17 09/03/17 09/03/17 06:50 06:51 06:52 Temperature Pulse Rate 98 H 98 H 101 H Respiratory Rate Blood Pressure O2 Sat by Pulse Oximetry 09/03/17 09/03/17 09/03/17 06:53 06:54 06:55 Temperature Pulse Rate 100 H 100 H 97 H Respiratory Rate Blood Pressure O2 Sat by Pulse Oximetry 09/03/17 09/03/17 09/03/17 06:56 06:57 06:58 Temperature Pulse Rate 99 H 99 H 97 H Respiratory Rate Blood Pressure O2 Sat by Pulse Oximetry 09/03/17 09/03/17 09/03/17 06:59 07:00 07:01 Temperature Pulse Rate 98 H 96 H 104 H Respiratory Rate Blood Pressure 118/62 O2 Sat by Pulse Oximetry 09/03/17 09/03/17 09/03/17 07:02 07:03 07:04 Temperature Pulse Rate 104 H 104 H 103 H Respiratory Rate Blood Pressure O2 Sat by Pulse Oximetry 09/03/17 09/03/17 09/03/17 07:05 07:06 07:07 Temperature Pulse Rate 101 H 103 H 103 H Respiratory Rate Blood Pressure O2 Sat by Pulse Oximetry 09/03/17 09/03/17 09/03/17 07:08 07:09 07:10 Temperature Pulse Rate 102 H 101 H 101 H Respiratory Rate Blood Pressure O2 Sat by Pulse Oximetry 09/03/17 09/03/17 09/03/17 07:11 07:12 07:20 Temperature Pulse Rate 101 H 101 H 97 H Respiratory Rate Blood Pressure O2 Sat by Pulse 96 Oximetry 09/03/17 09/03/17 09/03/17 07:30 07:40 07:50 Temperature Pulse Rate 96 H 98 H 94 H Respiratory Rate Blood Pressure O2 Sat by Pulse 99 98 99 Oximetry 09/03/17 09/03/17 09/03/17 08:00 08:07 08:10 Temperature 97.4 F L Pulse Rate 93 H 86 Respiratory Rate Blood Pressure 121/60 O2 Sat by Pulse 100 99 Oximetry 09/03/17 09/03/17 09/03/17 08:20 08:30 08:40 Temperature Pulse Rate 89 92 H 92 H Respiratory Rate Blood Pressure O2 Sat by Pulse 100 100 100 Oximetry 09/03/17 09/03/17 09/03/17 08:50 09:00 09:10 Temperature Pulse Rate 93 H 94 H 93 H Respiratory Rate Blood Pressure 101/55 L O2 Sat by Pulse 100 100 100 Oximetry 09/03/17 09/03/17 09/03/17 09:20 09:30 09:40 Temperature Pulse Rate 92 H 92 H 93 H Respiratory Rate Blood Pressure O2 Sat by Pulse 100 100 100 Oximetry 09/03/17 09/03/17 09/03/17 09:50 10:00 10:10 Temperature Pulse Rate 93 H 93 H 94 H Respiratory Rate Blood Pressure 108/47 L O2 Sat by Pulse 100 100 100 Oximetry 09/03/17 09/03/17 09/03/17 10:20 10:30 10:40 Temperature Pulse Rate 94 H 93 H 94 H Respiratory Rate Blood Pressure O2 Sat by Pulse 100 100 100 Oximetry 09/03/17 09/03/17 09/03/17 10:50 11:00 11:10 Temperature Pulse Rate 96 H 85 93 H Respiratory Rate Blood Pressure 112/52 L O2 Sat by Pulse 100 100 100 Oximetry 09/03/17 09/03/17 09/03/17 11:20 11:30 11:40 Temperature Pulse Rate 95 H 93 H 94 H Respiratory Rate Blood Pressure O2 Sat by Pulse 100 100 100 Oximetry 09/03/17 09/03/17 09/03/17 11:50 11:57 12:00 Temperature 97.6 F Pulse Rate 93 H 92 H Respiratory Rate Blood Pressure 112/52 L 108/52 L O2 Sat by Pulse 100 100 Oximetry 09/03/17 09/03/17 09/03/17 12:10 12:20 12:30 Temperature Pulse Rate 93 H 91 H 92 H Respiratory Rate Blood Pressure O2 Sat by Pulse 100 100 100 Oximetry 09/03/17 09/03/17 09/03/17 12:40 12:50 13:00 Temperature Pulse Rate 93 H 90 89 Respiratory Rate Blood Pressure 108/59 L O2 Sat by Pulse 100 100 100 Oximetry 09/03/17 09/03/17 09/03/17 13:10 13:20 13:30 Temperature Pulse Rate 93 H 91 H 93 H Respiratory Rate Blood Pressure O2 Sat by Pulse 100 100 100 Oximetry 09/03/17 09/03/17 09/03/17 13:40 13:50 14:00 Temperature Pulse Rate 93 H 93 H 96 H Respiratory Rate Blood Pressure 111/49 L O2 Sat by Pulse 100 100 99 Oximetry
[2017-09-03] MEDS ORDERED: Cisatracurium Besylate 100 MG in Sodium Chloride 0.9% 250 ML IV PRN (19:10)
--- NOTE | 2017-09-03 19:25 | PN ---
DATE: 09/03/2017 SUBJECTIVE: The patient is seen lying in bed in the ICU. Multiple family members are at bedside. The patient is on mechanical ventilation. She is sedated. She is paralyzed. She is on 20 mcg/kg/min of Levophed. She has been started on IV fluids, D5 half-normal saline with 2 ampules of bicarb at 50. Blood pressure remains borderline. 24-hour urine output is only 150 mL. PHYSICAL EXAMINATION: GENERAL: Middle-aged lady lying in bed in the ICU, on mechanical ventilation. VITAL SIGNS: Blood pressure 111/49, heart rate 96, respiratory rate 24, temperature 97.6. HEENT: Normocephalic, atraumatic, positive pallor, pupils fixed and sluggish. NECK: Supple, no JVD. LUNGS: Bilateral equal air entry, bilateral equal expansion anteriorly. CARDIAC: S1 and S2, regular rate and rhythm, no murmur, no rub. ABDOMEN: Obese, distended, positive fluid thrill, bowel sounds sluggish. EXTREMITIES: 2+ pitting edema of the lower extremities. INTAKE AND OUTPUT: 5475/150 LABORATORY DATA: WBC 22, hemoglobin 9.9, hematocrit 30.6, and platelets 277. Sodium 141, potassium 4.3, chloride 118, CO2 of 12, anion gap 11, albumin 23, corrected anion gap is 13. Glucose 124. Calcium 8.3, phosphorus 6.3, magnesium 2. Total bili 2.6. Urine eosinophils negative. Blood gas; pH 7.22, pCO2 of 30, pO2 of 116. Chest x-ray, diffuse bilateral infiltrates. CURRENT MEDICATIONS: Ativan, cisatracurium, Diprivan, doxycycline, DuoNeb, fentanyl, Lasix 20 IV b.i.d., Lopressor 25 b.i.d., Merrem 1 g every 8 hours, Protonix 40 IV daily, Prozac, D5 half-normal saline with 2 ampule of bicarb at 50, Tamiflu, verapamil, and Versed. ASSESSMENT: 1. Severe sepsis/systemic inflammatory response syndrome. 2. Respiratory failure/adult respiratory distress syndrome. 3. Shock. 4. Acute kidney injury, oligoanuric. 5. History of alcoholic hepatitis. 6. Total body volume overload. 7. Profound hypotension despite pressor support. 8. ?Adrenal insufficiency. PLAN: 1. Long discussion with multiple family members at the bedside, the patient is in oligoanuric acute kidney injury. She has total body volume overload. Need to consider renal replacement therapy. 2. Overall prognosis poor. Renal replacement therapy may not change outcome. 3. ?Consider empiric treatment with steroids, ?adrenal insufficiency. 4. Long discussion with ICU staff. 5. Change Lasix to 40 mg IV daily. 6. Limit IV fluids. More than 35 minutes spent in the care of this critically ill patient. Leticia Thomas MD
[2017-09-04] MEDS: NOREPINEPHRINE BIT/0.9 % NACL 4 MG/250 ML BAG IV PRN ×5 (00:24→20:10)
[2017-09-04] MEDS: Albuterol-Ipratrop 3 mg / 0.5 (3 ml) UD IH SCH ×4 (01:42→20:41)
[2017-09-04] MEDS: Aritificial Tears (15ml) OU SCH ×3 (05:00→22:24)
[2017-09-04] MEDS: Meropenem IV 1 gm in NS 50 ML IVPB SCH ×3 (05:01→22:24)
[2017-09-04 05:23] LABS: ARTERIAL BLOOD GAS HCO3 13.1 mmol/L (21-28); ARTERIAL BLOOD GAS HEMOGLOBIN 12.9 g/dL (11.7-17.4); ARTERIAL BLOOD GAS O2 CAPACITY 17.9 mL/dl (16-24); ARTERIAL BLOOD GAS O2 CONTENT 17.9 ML/dl (15-23); ARTERIAL BLOOD GAS O2 SAT 100.2 % (95-98); ARTERIAL BLOOD GAS PCO2 32 mm/Hg (35-45); ARTERIAL BLOOD GAS PH 7.22 (7.35-7.45); ARTERIAL BLOOD GAS TCO2 14.1 mmol.L (22-28)
[2017-09-04] MEDS: Sodium Bicarbonate 8.4% 100 MEQ in Dextrose 5%/0.45% NS 1,000 ML IV SCH (05:32)
[2017-09-04 07:09] LABS: BASO # 0.03 K/mm3 (0.0-2.0); BASO % 0.2 % (0.0-3.0); EOS # 0.4 (0.0-0.7); GRAN # 14.66 (1.4-6.5); HEMOGLOBIN 8.7 g/dL (12.0-16.0); LYMPH # 1.1 (1.2-3.4); LYMPH % 6.5 % (22.0-35.0); MEAN CORPUSCULAR HEMOGLOBIN 33.3 pg (25.0-35.0); MEAN CORPUSCULAR HGB CONC 33.3 g/dl (31.0-37.0); MEAN PLATELET VOLUME 9.7 fl (7.0-11.0); MONO # 1.5 (0.1-0.6); MONO % 8.3 % (1.0-6.0); RBC 2.61 10^6/uL (3.5-6.1); RED CELL DISTRIBUTION WIDTH 14.7 % (11.5-14.5); WHITE BLOOD COUNT 17.7 10^3/ul (4.5-11.0)
[2017-09-04 07:37] LABS: ALB/GLOB RATIO 0.7 (1.1-1.8); ALBUMIN 1.7 g/dL (3.0-4.8); CALCIUM 6.7 mg/dL (8.4-10.5)
[2017-09-04] MEDS ORDERED: Sodium Bicarbonate 8.4% 150 MEQ in Dextrose 5% In Water 1,000 ML IV SCH (07:45)
[2017-09-04] MEDS ORDERED: Magnesium Sulfate 1 gm in D5W 1 GM/100 ML BAG IVPB ONE ×2 (07:46→07:47)
[2017-09-04] MEDS ORDERED: Albumin Human 25% (12.5 gm/50 ml) IV ONE (07:48)
[2017-09-04] MEDS: Fentanyl 1000mcg/100ml NS 1,000 MCG/100 ML BAG IV PRN ×2 (08:29→19:00)
[2017-09-04] MEDS: Vasopressin 20 UNITS in Dextrose 5% In Water 100 ML IV SCH (08:40)
--- NOTE | 2017-09-04 08:40 | PN ---
DATE:(640am-730am) PULMONARY NOTE: SUBJECTIVE The patient remains on the ventilator. She is currently sedated. OBJECTIVE VITAL SIGNS: Temperature is 97, pulse 93, respirations 28/28, blood pressure 105/53. HEENT: Normocephalic, atraumatic. No JVD. CARDIOVASCULAR: Positive S1, S2. No S3 gallop. LUNGS: Crackles at both bases. Less rhonchi. No wheezing. EXTREMITIES: No clubbing, cyanosis or edema. GASTROINTESTINAL: Abdomen is soft, nondistended. Bowel sounds are positive. SKIN: No acute rash. NEUROLOGIC: Exam limited at the present time. PERTINENT LABORATORY DATA: Chest x-ray was done this morning and reviewed. There remains bilateral pulmonary infiltrates. However, the infiltrates appear much less dense - compared to the last week's films. Arterial blood gas was done on PRVC 28, tidal volume 350, FIO2 of 100%, PEEP of 14. Results are: PH 7.22, pCO2 of 32, pO2 of 136. IMPRESSION: 1. Respiratory failure. 2. Bilateral pneumonia. 3. Haemophilus influenza A positivity. Rule out influenza pneumonia. 4. Sepsis syndrome. 5. Alcoholic hepatitis. 6. Anemia. PLAN The patient remains in the ICU and on the ventilator. She remains sedated. I did discuss the case with the night nurse at length. The night nurse stated that the patient had a fairly uneventful night. I have also reviewed the chest x-ray. As above, bilateral pulmonary infiltrates remain. However, the infiltrates are much less dense compared to last week's films. I have also reviewed the arterial blood gas. The arterial blood gas is improved--- with an increase in the pH and a decrease in the alveolar-arterial gradient. I will discuss the ventilator settings with the ICU team this morning. I would continue with the antibiotic coverage as per Infectious Disease. Input by Dr. Ken is noted. Temperatures have resolved. The leukocytosis is resolving. We are still awaiting the deep tracheal aspirate studies. Inputs by Renal and Cardiology are also noted. The clinical status of the patient, is certainly improved - compared to last week. However, she remains critically ill with a very, very guarded prognosis. I will discuss the above with the entire ICU team in the next few moments. I will also discuss the above with the attending physician later this morning. Kit Powell MD [facility] # [phone] MTDWes
[2017-09-04] MEDS: Albumin Human 25% (12.5 gm/50 ml) IV SCH ×5 (08:51→23:56)
--- NOTE | 2017-09-04 09:35 | RAD ---
HISTORY: f/u COMPARISON: 09/03/2017 FINDINGS: LUNGS: There is moderate vascular and interstitial congestion right greater than left. There has been slight improvement PLEURA: No significant pleural effusion identified, no pneumothorax apparent. CARDIOVASCULAR: Normal. OSSEOUS STRUCTURES: No significant abnormalities. VISUALIZED UPPER ABDOMEN: Normal. OTHER FINDINGS: Endotracheal and nasogastric tube in satisfactory position IMPRESSION: Moderate vascular and interstitial congestion right greater than left. There has been slight improvement
--- NOTE | 2017-09-04 09:42 | PN ---
DATE: LOCATION: The patient is in Critical Care Unit. SUBJECTIVE: This is a 56-year-old white female. She was admitted with pneumonia, tachycardia. The patient has been treated for alcoholic hepatitis in [facility] and the day before the discharge date, the patient was found to be tachy and she was brought to the emergency room for evaluation, developed bilateral pneumonia, multilobar pneumonia of the lung. The patient was admitted to the [facility]. The 24 hours later, the patient's clinical condition worsened. The patient's respiratory symptoms deteriorated. The patient has diffuse bilateral bilobar pneumonia and respiratory insufficiency and failure, the patient to be intubated. The patient was seen, at this time, the patient is on multiple sedations. The patient is on Levophed. The patient is on multiple cardiac medications, respiratory management to facilitate the respiratory process. PHYSICAL EXAMINATION: VITAL SIGNS: Pulse is 94, blood pressure is 112/70, the patient's respirations are maintained by the respirator. The patient's overall condition is critical. The patient is getting antibiotics and other respiratory facilities and medications for sedation. The patient's family is aware of the critical nature of the patient's problem and initiating factor is respiratory infection. The patient also had influenza A virus positive at the time of admission. We will follow up. Tay Cruz MD
[2017-09-04] MEDS: Oseltamivir 6 MG/ML PO SCH ×2 (10:03→22:25)
--- NOTE | 2017-09-04 10:42 | PN ---
DATE: 09/03/2017 SUBJECTIVE: Patient is in the ICU 129, bed 4, remains intubated on a ventilator, seen earlier this morning. PHYSICAL EXAMINATION: VITAL SIGNS: Temperature is 98, blood pressure is 118/60, respiratory rate on the vent, heart rate of 96. HEENT: Reveals ET tube in place. NECK: Supple. LUNGS: Decreased breath sounds. HEART: Normal S1, S2. ABDOMEN: Soft, nontender. LABORATORY EXAMINATION: Reveals a white count of 21,600, hemoglobin of 9, platelets of 277. Chemistries reveal a BUN of 26, creatinine is 2. Urinalysis is noted. Serology, influenza is positive. Urine for Legionella antigen is negative. Blood cultures negative. Urine cultures negative. Sputum cultures, normal oral hang. MRSA screen is negative. Another sputum culture is negative. The patient's procalcitonin is now up to 1.13, initially negative. Review of orders reveals the patient to have Levaquin, meropenem, and Tamiflu. The patient had a chest x-ray this morning. Diffuse bilateral infiltrates are noted. Pneumonia versus diffuse interstitial pneumonia versus pulmonary edema read by Dr. Barrett Arroyo. Questionable small right-sided effusion. The patient also had an abdominal ultrasound that was read by Dr. Barrett Arroyo. Borderline hepatomegaly. Gallbladder is physiologically distended. Common bile duct is [address] Powell's note is reviewed and the patient's repeat blood cultures from yesterday are negative. Urine cultures are negative. ASSESSMENT AND PLAN: A 56-year-old female, seen earlier this morning in room 129, bed 4, coronary care unit, who has severe sepsis with healthcare-associated pneumonia on top of influenza A in the face of alcoholic hepatitis and ethanol abuse, opioid dependence, cervical spondylitis status post surgery, and now with respiratory failure, intubated on a ventilator with severe sepsis with repeat blood cultures and urine cultures negative, day #5 of meropenem. We will discontinue Levaquin and use doxycycline with complicated influenza pneumonia with bacterial healthcare-associated pneumonia with now repeat procalcitonin is elevated and we will check on the repeat sputum culture from yesterday. Thus far, the repeat blood and urine cultures are negative. However, we do have an elevated procalcitonin at this time and we will treat with doxy and meropenem in addition to completing Tamiflu. Overall prognosis is quite poor for this patient who has ventilatory failure, intubated on a ventilator. Oli Ken MD
--- NOTE | 2017-09-04 11:15 | CP.CCUPN ---
<Sushant Molina - Last Filed: 09/04/17 11:57> CCU Subjective - Physician Review Subjective (Free Text): Patient seen and examined at bedside currently intubated with PRVC FiO2 50% PEEP 10 RR 30 TV 350 CCU Objective - Vital Signs / Intake & Output Vital Signs (Last 4 hours): Vital Signs Pulse Resp BP Pulse Ox 09/04/17 09:50 97 H 126/68 09/04/17 08:40 113/60 09/04/17 08:00 105/55 L 09/04/17 07:56 30 H 100 Intake and Output (Last 8hrs): Intake & Output 09/03/17 09/04/17 09/04/17 22:59 06:59 14:59 Intake Total 2429 2938 330 Output Total 300 300 Balance 2129 2638 330 Weight 80.286 kg 83.325 kg Intake: IV 2429 2938 330 Left Upper arm 1929 abx 300 d5 0.5 (NaBi) 600 fentanyl 60 levo 900 nimbex 300 versed 48 Output: Urine 300 300 Urethral (Barron) 300 300 - Physical Exam Head: Positive for: Atraumatic, Normocephalic Pupils: Positive for: PERRL, Other (no nystagmus, no photophobia, sclera anicteric) Extroacular Muscles: Positive for: EOMI Conjunctiva: Positive for: Normal Ears: Positive for: Normal Mouth: Positive for: Dry, Normal Teeth, Other (uvula/tongue are midline, no exudate/lesions, no drooling/stridor) Pharnyx: Positive for: Normal Nose (External): Positive for: Atraumatic Nose (Internal): Positive for: Normal Inspection Neck: Positive for: Normal Range of Motion, Trachea Midline, Other (no step off , no nuchal rigidity, no meningeal signs). Negative for: Meningeal Signs, MIDLINE TENDERNESS Respiratory/Chest: Positive for: Rhonchi (upper and lower lobes bilaterally, significantly in upper right lobe), Other (asymmetric breath sounds, right slightly decr compare with left; + coarse breath sounds, no wheezing/rales, faint rales noted b/l, no accessory muscle use noted, no tachypenia). Negative for: Clear to Auscultation, Respiratory Distress, Accessory Muscle Use, Wheezes , Rales Cardiovascular: Positive for: Normal S1, S2. Negative for: Murmurs Abdomen: Positive for: Normal Bowel Sounds, Other (well nourished female, no focal tenderness, no masses/rebound/guarding/rigidity, no matos's sign, no mcburney's point tenderness). Negative for: Tenderness, Feeding Tubes Back: Positive for: Normal Inspection. Negative for: CVA Tenderness, Midline Tenderness, Paraspinal Tenderness Upper Extremity: Positive for: Normal Inspection, Normal ROM, NORMAL PULSES, Neurovascularly Intact Lower Extremity: Positive for: Normal Inspection, NORMAL PULSES, Neurovascularly Intact. Negative for: Latonia's Sign Neurological: Positive for: Other (sedated) Skin: Positive for: Warm, Dry, Other (cap refill ~ 1sec, no ulcerations, no petechiae, no gross pallor). Negative for: Rashes Psychiatric: Positive for: Other (sedated) - Medications Active Medications: Active Medications Generic Name Dose Route Start Last Admin Trade Name Freq PRN Reason Stop Dose Admin Albumin Human 12.5 gm 09/04/17 08:00 09/04/17 08:51 Albumin Human 25% (12.5 Gm/50 Ml) IV 09/05/17 08:01 Not Given Q4H NORMA Albuterol/Ipratropium 3 ml 08/29/17 20:00 09/04/17 07:56 Duoneb 3 Mg/0.5 Mg (3 Ml) Ud IH 3 ml [id number] NORMA Administration Protocol Artificial Tears 0 ml 09/01/17 22:00 09/04/17 05:00 Artificial Tears OU 1 drop Q8 NORMA Administration Fluoxetine HCl 40 mg 08/30/17 10:00 08/30/17 15:44 Prozac PO 40 mg DAILY NORMA Administration Furosemide 40 mg 09/03/17 11:35 09/04/17 09:44 Lasix IV Not Given DAILY NORMA Heparin Sodium (Porcine) 5,000 units 08/30/17 22:00 09/04/17 05:01 Heparin SC 5,000 units Q8 NORMA Administration Protocol Hydrocortisone Sodium Succinate 50 mg 09/04/17 07:45 09/04/17 08:03 Solu-Cortef IVP 50 mg Q6H NORMA Administration Meropenem 50 mls @ 100 mls/hr 08/30/17 14:00 09/04/17 05:01 Merrem Iv 1 Gm Premix IVPB 09/08/17 14:01 100 mls/hr Q8 NORMA Administration Protocol Propofol 1,000 mg in 100 mls @ 1.987 mls/hr 08/30/17 19:47 08/31/17 08:47 Diprivan IV 0 mcg/kg/min .Q24H PRN 0 mls/hr TITRATE PER MD ORDER Titration Protocol 5 MCG/KG/MIN Midazolam 100 mg/100ml in NS 100 mg in 100 mls @ 1 mls/hr 08/31/17 15:48 09:51 Midazolam 100 Mg/100ml In Ns IV 0 mg/hr .Q24H PRN 0 mls/hr Seizure activity Titration Protocol 1 MG/HR NOREPINEPHRINE BIT/0.9 % NACL 4 mg in 250 mls @ 15 mls/hr 09/01/17 13:26 08:34 Levophed 4 Mg/ 250 Ml Ns Premixed IV 20 mcg/min .[id number] PRN 75 mls/hr TITRATE PER MD ORDER Administration Protocol 4 MCG/MIN Doxycycline Hyclate 100 mg/ 100 mls @ 100 mls/hr 09/03/17 22:00 09/04/17 09: 54 Sodium Chloride IVPB 09/12/17 22:01 100 mls/hr Q12 NORMA Administration Protocol Sodium Bicarbonate 150 meq/ 1,150 mls @ 150 mls/hr 09/04/17 07:45 09/04/17 08 :37 Dextrose IV 150 mls/hr .Q7H40M NORMA Administration Vasopressin 20 units/ Dextrose 101 mls @ 12.12 mls/hr 09/04/17 07:45 08:40 IV 12.12 mls/hr .Q8H20M NORMA Administration Protocol 0.04 U/MIN Potassium Chloride 10 meq in 100 mls @ 50 mls/hr 09/04/17 10:00 Potassium Chloride 10 Meq/100 Ml IVPB 09/04/17 17:59 Q2H NORMA Lorazepam 1 mg 08/30/17 20:59 08/30/17 21:13 Ativan IVP 1 mg ONCE PRN Administration Anxiety Protocol Metoprolol Tartrate 25 mg 08/31/17 18:00 09/04/17 09:50 Lopressor PO 25 mg BID NORMA Administration Midazolam HCl 4 mg 08/31/17 08:31 08/31/17 20:36 Versed Inj IVP 4 mg Q2H PRN Administration Agitation Oseltamivir Phosphate 75 mg 09/02/17 22:00 09/04/17 10:03 Tamiflu Susp PO 75 mg 1000,2200 NORMA Administration Protocol Pantoprazole Sodium 40 mg 08/31/17 10:00 09/04/17 09:53 Protonix Inj IVP 40 mg DAILY NORMA Administration Verapamil HCl 2.5 mg 09/01/17 09:04 Verapamil Inj IVP Q6H PRN for herat rate >130 - Patient Studies Lab Studies: Microbiology Studies 09/02/17 10:30 Blood Culture - Preliminary Blood NO GROWTH AFTER 48 HOURS 09/02/17 10:50 Blood Culture - Preliminary Blood NO GROWTH AFTER 48 HOURS 08/31/17 20:39 Gram Stain - Final Sputum Induced Sputum Culture - Final NORMAL ORAL CHERYL 09/02/17 11:50 Urine Culture - Final Urine No Growth (<1,000 CFU/ML) Lab Studies 09/04/17 09/04/17 09/04/17 Range/Units 10:30 06:35 06:00 WBC (4.5-11.0) 10^3/ul RBC (3.5-6.1) 10^6/uL Hgb (12.0-16.0) g/dL Hct (36.0-48.0) % MCV (80.0-105.0) fl MCH (25.0-35.0) pg MCHC (31.0-37.0) g/dl RDW (11.5-14.5) % Plt Count (120.0-450.0) 10^3/uL MPV (7.0-11.0) fl Gran % (50.0-68.0) % Lymph % (Auto) (22.0-35.0) % [place] % (Auto) (1.0-6.0) % Eos % (Auto) (1.5-5.0) % Baso % (Auto) (0.0-3.0) % Gran # (1.4-6.5) Lymph # (Auto) (1.2-3.4) [place] # (Auto) (0.1-0.6) Eos # (Auto) (0.0-0.7) Baso # (Auto) (0.0-2.0) K/mm3 pCO2 (35-45) mm/Hg pO2 (80-100) mm/Hg HCO3 (21-28) mmol/L ABG pH (7.35-7.45) ABG Total CO2 (22-28) mmol.L ABG O2 Saturation (95-98) % ABG O2 Content (15-23) ML/dl ABG Base Excess (-2.0-3.0) mmol/L ABG Hemoglobin (11.7-17.4) g/dL ABG Carboxyhemoglobin (0.5-1.5) % POC ABG HHb (Measured) (0-5) % ABG Methemoglobin (0.0-3.0) % ABG O2 Capacity (16-24) mL/dl Hgb O2 Saturation (95.0-98.0) % FiO2 % Sodium 145 (132-148) mmol/L Potassium 3.1 L (3.6-5.0) mmol/L Chloride 121 H (98-107) mmol/L Carbon Dioxide 12 L (21-33) mmol/L Anion Gap 14 (10-20) BUN 27 H (7-21) mg/dL Creatinine 1.4 H (0.7-1.2) mg/dl Est GFR ( Amer) 47 Est GFR (Non-Af Amer) 39 POC Glucose (mg/dL) 103 (65-110) mg/dL Random Glucose 86 (70-110) mg/dL Lactic Acid 2.4 H (0.7-2.1) mmol/L Calcium 6.7 L* (8.4-10.5) mg/dL Phosphorus 4.4 (2.5-4.5) mg/dL Magnesium 1.6 L (1.7-2.2) mg/dL Total Bilirubin 2.3 H (0.2-1.3) mg/dL AST 53 H (14-36) U/L ALT 27 (7-56) U/L Alkaline Phosphatase 80 (38-126) U/L Total Protein 4.2 L (5.8-8.3) g/dL Albumin 1.7 L (3.0-4.8) g/dL Globulin 2.4 gm/dL Albumin/Globulin Ratio 0.7 L (1.1-1.8) 04/23/18 04/23/18 04/23/18 Range/Units 06:00 05:00 04:22 WBC 17.7 H (4.5-11.0) 10^3/ul RBC 2.61 L (3.5-6.1) 10^6/uL Hgb 8.7 L (12.0-16.0) g/dL Hct 26.1 L (36.0-48.0) % MCV 100.0 D (80.0-105.0) fl MCH 33.3 (25.0-35.0) pg MCHC 33.3 (31.0-37.0) g/dl RDW 14.7 H (11.5-14.5) % Plt Count 208 (120.0-450.0) 10^3/uL MPV 9.7 (7.0-11.0) fl Gran % 83.0 H (50.0-68.0) % Lymph % (Auto) 6.5 L (22.0-35.0) % [place] % (Auto) 8.3 H (1.0-6.0) % Eos % (Auto) 2.0 (1.5-5.0) % Baso % (Auto) 0.2 (0.0-3.0) % Gran # 14.66 H (1.4-6.5) Lymph # (Auto) 1.1 L (1.2-3.4) [place] # (Auto) 1.5 H (0.1-0.6) Eos # (Auto) 0.4 (0.0-0.7) Baso # (Auto) 0.03 (0.0-2.0) K/mm3 pCO2 32 L (35-45) mm/Hg pO2 136.0 H (80-100) mm/Hg HCO3 13.1 L (21-28) mmol/L ABG pH 7.22 L (7.35-7.45) ABG Total CO2 14.1 L (22-28) mmol.L ABG O2 Saturation 100.2 H (95-98) % ABG O2 Content 17.9 (15-23) ML/dl ABG Base Excess -13.4 L (-2.0-3.0) mmol/L ABG Hemoglobin 12.9 (11.7-17.4) g/dL ABG Carboxyhemoglobin 2.0 H (0.5-1.5) % POC ABG HHb (Measured) -0.2 L (0-5) % ABG Methemoglobin 0.7 (0.0-3.0) % ABG O2 Capacity 17.9 (16-24) mL/dl Hgb O2 Saturation 97.4 (95.0-98.0) % FiO2 50.0 % Sodium (132-148) mmol/L Potassium (3.6-5.0) mmol/L Chloride (98-107) mmol/L Carbon Dioxide (21-33) mmol/L Anion Gap (10-20) BUN (7-21) mg/dL Creatinine (0.7-1.2) mg/dl Est GFR ( Amer) Est GFR (Non-Af Amer) POC Glucose (mg/dL) 106 (65-110) mg/dL Random Glucose (70-110) mg/dL Lactic Acid (0.7-2.1) mmol/L Calcium (8.4-10.5) mg/dL Phosphorus (2.5-4.5) mg/dL Magnesium (1.7-2.2) mg/dL Total Bilirubin (0.2-1.3) mg/dL AST (14-36) U/L ALT (7-56) U/L Alkaline Phosphatase (38-126) U/L Total Protein (5.8-8.3) g/dL Albumin (3.0-4.8) g/dL Globulin gm/dL Albumin/Globulin Ratio (1.1-1.8) 09/03/17 09/03/17 09/03/17 Range/Units 23:44 19:44 18:03 WBC (4.5-11.0) 10^3/ul RBC (3.5-6.1) 10^6/uL Hgb (12.0-16.0) g/dL Hct (36.0-48.0) % MCV (80.0-105.0) fl MCH (25.0-35.0) pg MCHC (31.0-37.0) g/dl RDW (11.5-14.5) % Plt Count (120.0-450.0) 10^3/uL MPV (7.0-11.0) fl Gran % (50.0-68.0) % Lymph % (Auto) (22.0-35.0) % [place] % (Auto) (1.0-6.0) % Eos % (Auto) (1.5-5.0) % Baso % (Auto) (0.0-3.0) % Gran # (1.4-6.5) Lymph # (Auto) (1.2-3.4) [place] # (Auto) (0.1-0.6) Eos # (Auto) (0.0-0.7) Baso # (Auto) (0.0-2.0) K/mm3 pCO2 (35-45) mm/Hg pO2 (80-100) mm/Hg HCO3 (21-28) mmol/L ABG pH (7.35-7.45) ABG Total CO2 (22-28) mmol.L ABG O2 Saturation (95-98) % ABG O2 Content (15-23) ML/dl ABG Base Excess (-2.0-3.0) mmol/L ABG Hemoglobin (11.7-17.4) g/dL ABG Carboxyhemoglobin (0.5-1.5) % POC ABG HHb (Measured) (0-5) % ABG Methemoglobin (0.0-3.0) % ABG O2 Capacity (16-24) mL/dl Hgb O2 Saturation (95.0-98.0) % FiO2 % Sodium (132-148) mmol/L Potassium (3.6-5.0) mmol/L Chloride (98-107) mmol/L Carbon Dioxide (21-33) mmol/L Anion Gap (10-20) BUN (7-21) mg/dL Creatinine (0.7-1.2) mg/dl Est GFR ( Amer) Est GFR (Non-Af Amer) POC Glucose (mg/dL) 103 91 97 (65-110) mg/dL Random Glucose (70-110) mg/dL Lactic Acid (0.7-2.1) mmol/L Calcium (8.4-10.5) mg/dL Phosphorus (2.5-4.5) mg/dL Magnesium (1.7-2.2) mg/dL Total Bilirubin (0.2-1.3) mg/dL AST (14-36) U/L ALT (7-56) U/L Alkaline Phosphatase (38-126) U/L Total Protein (5.8-8.3) g/dL Albumin (3.0-4.8) g/dL Globulin gm/dL Albumin/Globulin Ratio (1.1-1.8) 09/03/17 09/03/17 09/03/17 Range/Units 16:06 11:29 10:02 WBC (4.5-11.0) 10^3/ul RBC (3.5-6.1) 10^6/uL Hgb (12.0-16.0) g/dL Hct (36.0-48.0) % MCV (80.0-105.0) fl MCH (25.0-35.0) pg MCHC (31.0-37.0) g/dl RDW (11.5-14.5) % Plt Count (120.0-450.0) 10^3/uL MPV (7.0-11.0) fl Gran % (50.0-68.0) % Lymph % (Auto) (22.0-35.0) % [place] % (Auto) (1.0-6.0) % Eos % (Auto) (1.5-5.0) % Baso % (Auto) (0.0-3.0) % Gran # (1.4-6.5) Lymph # (Auto) (1.2-3.4) [place] # (Auto) (0.1-0.6) Eos # (Auto) (0.0-0.7) Baso # (Auto) (0.0-2.0) K/mm3 pCO2 (35-45) mm/Hg pO2 (80-100) mm/Hg HCO3 (21-28) mmol/L ABG pH (7.35-7.45) ABG Total CO2 (22-28) mmol.L ABG O2 Saturation (95-98) % ABG O2 Content (15-23) ML/dl ABG Base Excess (-2.0-3.0) mmol/L ABG Hemoglobin (11.7-17.4) g/dL ABG Carboxyhemoglobin (0.5-1.5) % POC ABG HHb (Measured) (0-5) % ABG Methemoglobin (0.0-3.0) % ABG O2 Capacity (16-24) mL/dl Hgb O2 Saturation (95.0-98.0) % FiO2 % Sodium (132-148) mmol/L Potassium (3.6-5.0) mmol/L Chloride (98-107) mmol/L Carbon Dioxide (21-33) mmol/L Anion Gap (10-20) BUN (7-21) mg/dL Creatinine (0.7-1.2) mg/dl Est GFR ( Amer) Est GFR (Non-Af Amer) POC Glucose (mg/dL) 107 116 H 101 (65-110) mg/dL Random Glucose (70-110) mg/dL Lactic Acid (0.7-2.1) mmol/L Calcium (8.4-10.5) mg/dL Phosphorus (2.5-4.5) mg/dL Magnesium (1.7-2.2) mg/dL Total Bilirubin (0.2-1.3) mg/dL AST (14-36) U/L ALT (7-56) U/L Alkaline Phosphatase (38-126) U/L Total Protein (5.8-8.3) g/dL Albumin (3.0-4.8) g/dL Globulin gm/dL Albumin/Globulin Ratio (1.1-1.8) Laboratory Results - last 24 hr 09/03/17 09/03/17 09/03/17 10:02 11:29 16:06 WBC RBC Hgb Hct MCV MCH MCHC RDW Plt Count MPV Gran % Lymph % (Auto) [place] % (Auto) Eos % (Auto) Baso % (Auto) Gran # Lymph # (Auto) [place] # (Auto) Eos # (Auto) Baso # (Auto) pCO2 pO2 HCO3 ABG pH ABG Total CO2 ABG O2 Saturation ABG O2 Content ABG Base Excess ABG Hemoglobin ABG Carboxyhemoglobin POC ABG HHb (Measured) ABG Methemoglobin ABG O2 Capacity Hgb O2 Saturation FiO2 Sodium Potassium Chloride Carbon Dioxide Anion Gap BUN Creatinine Est GFR ( Amer) Est GFR (Non-Af Amer) POC Glucose (mg/dL) 101 116 H 107 Random Glucose Lactic Acid Calcium Phosphorus Magnesium Total Bilirubin AST ALT Alkaline Phosphatase Total Protein Albumin Globulin Albumin/Globulin Ratio 09/03/17 09/03/17 09/03/17 18:03 19:44 23:44 WBC RBC Hgb Hct MCV MCH MCHC RDW Plt Count MPV Gran % Lymph % (Auto) [place] % (Auto) Eos % (Auto) Baso % (Auto) Gran # Lymph # (Auto) [place] # (Auto) Eos # (Auto) Baso # (Auto) pCO2 pO2 HCO3 ABG pH ABG Total CO2 ABG O2 Saturation ABG O2 Content ABG Base Excess ABG Hemoglobin ABG Carboxyhemoglobin POC ABG HHb (Measured) ABG Methemoglobin ABG O2 Capacity Hgb O2 Saturation FiO2 Sodium Potassium Chloride Carbon Dioxide Anion Gap BUN Creatinine Est GFR ( Amer) Est GFR (Non-Af Amer) POC Glucose (mg/dL) 97 91 103 Random Glucose Lactic Acid Calcium Phosphorus Magnesium Total Bilirubin AST ALT Alkaline Phosphatase Total Protein Albumin Globulin Albumin/Globulin Ratio 09/04/17 09/04/17 09/04/17 04:22 05:00 06:00 WBC 17.7 H RBC 2.61 L Hgb 8.7 L Hct 26.1 L MCV 100.0 D MCH 33.3 MCHC 33.3 RDW 14.7 H Plt Count 208 MPV 9.7 Gran % 83.0 H Lymph % (Auto) 6.5 L [place] % (Auto) 8.3 H Eos % (Auto) 2.0 Baso % (Auto) 0.2 Gran # 14.66 H Lymph # (Auto) 1.1 L [place] # (Auto) 1.5 H Eos # (Auto) 0.4 Baso # (Auto) 0.03 pCO2 32 L pO2 136.0 H HCO3 13.1 L ABG pH 7.22 L ABG Total CO2 14.1 L ABG O2 Saturation 100.2 H ABG O2 Content 17.9 ABG Base Excess -13.4 L ABG Hemoglobin 12.9 ABG Carboxyhemoglobin 2.0 H POC ABG HHb (Measured) -0.2 L ABG Methemoglobin 0.7 ABG O2 Capacity 17.9 Hgb O2 Saturation 97.4 FiO2 50.0 Sodium Potassium Chloride Carbon Dioxide Anion Gap BUN Creatinine Est GFR ( Amer) Est GFR (Non-Af Amer) POC Glucose (mg/dL) 106 Random Glucose Lactic Acid Calcium Phosphorus Magnesium Total Bilirubin AST ALT Alkaline Phosphatase Total Protein Albumin Globulin Albumin/Globulin Ratio 09/04/17 09/04/17 09/04/17 06:00 06:35 10:30 WBC RBC Hgb Hct MCV MCH MCHC RDW Plt Count MPV Gran % Lymph % (Auto) [place] % (Auto) Eos % (Auto) Baso % (Auto) Gran # Lymph # (Auto) [place] # (Auto) Eos # (Auto) Baso # (Auto) pCO2 pO2 HCO3 ABG pH ABG Total CO2 ABG O2 Saturation ABG O2 Content ABG Base Excess ABG Hemoglobin ABG Carboxyhemoglobin POC ABG HHb (Measured) ABG Methemoglobin ABG O2 Capacity Hgb O2 Saturation FiO2 Sodium 145 Potassium 3.1 L Chloride 121 H Carbon Dioxide 12 L Anion Gap 14 BUN 27 H Creatinine 1.4 H Est GFR ( Amer) 47 Est GFR (Non-Af Amer) 39 POC Glucose (mg/dL) 103 Random Glucose 86 Lactic Acid 2.4 H Calcium 6.7 L* Phosphorus 4.4 Magnesium 1.6 L Total Bilirubin 2.3 H AST 53 H ALT 27 Alkaline Phosphatase 80 Total Protein 4.2 L Albumin 1.7 L Globulin 2.4 Albumin/Globulin Ratio 0.7 L Fingerstick Blood Sugar Results: 89 Review of Systems - Review of Systems Systems not reviewed;Unavailable: Intubated Critical Care Progress Note - Nutrition Nutrition: Nutrition Category Date Time Status NPO Diet [DIET] Diets 09/01/17 Breakfast Ordered Assessment/Plan - Assessment and Plan (Free Text) Assessment: K. P 56 F with history of alcoholic hepatitis, who presented with new onset shortness of breath and cough found to have NAVJOT, and HCAP pneumonia with superimposed influenza which progressed into ARDS. neuro -AAOx3 -Nimbex discontinued -Currently on fentanyl 50 pulm -Continue with vent support -PRVC FiO2 50% PEEP 12 RR 30 TV 350 blood gas 7.22, pco2 32, po2 136, hco3 13.1. Pending O2 sat will adjust PEEP -CXR improved -Duonebs q4hr cardiovascular -Maintain MAP>65 -Currently placing on levophed since coming off sedation. -Maintain normotensive -DVT ppx renal -With NAVJOT picture, vancomycin was discontinued pt on day 6 of merrem and levaquin and day 5 of tamiflu -Input 5987, output 600 -Maintain electrolytes and replete as needed - avoid nephrotoxic drugs Infectious disease -Influenza superimposed with bilateral pneumonia secondary to HCAP -Continue with tamiflu for treatment of influenza. Patient on tamiflu therapy day #5 -Continue with levaquin day#6, meropenem day#6 for treatment of pneumonia -Blood cultures no growth after 48 hours -Microbiology studies, fungal stain, AFB, TB, cytology from trach aspirate pending Gastrointestinal -Monitor liver enzymes -GI prophylaxis -NPO -OGT Endocrine -maintain euglycemia and normothermia Hematologic -Maintain H&H stable -DVT prophylaxis with Heparin <Cezar Ambrosio - Last Filed: 09/04/17 17:25> CCU Objective - Vital Signs / Intake & Output Vital Signs (Last 4 hours): Vital Signs Pulse Resp BP Pulse Ox 09/04/17 16:00 109/58 L 09/04/17 15:58 85 09/04/17 15:50 84 09/04/17 15:40 84 09/04/17 15:30 86 100/45 L 09/04/17 15:22 84 33 H 99/48 L 09/04/17 15:20 83 28 H 09/04/17 15:17 78 33 H 09/04/17 15:16 76/46 L 09/04/17 14:50 90 L 09/04/17 14:40 86 72 L 09/04/17 14:30 89 103/49 L 72 L 09/04/17 14:20 84 72 L 09/04/17 14:10 84 82 L 09/04/17 14:00 85 65/38 L 94 L 09/04/17 13:50 86 96 09/04/17 13:40 82 92 L 09/04/17 13:30 78 117/76 96 Intake and Output (Last 8hrs): Intake & Output 09/04/17 09/04/17 09/04/17 06:59 14:59 22:59 Intake Total 2938 580 Output Total 300 Balance 2638 580 Weight 183 lb 11.2 oz Intake: IV 2938 580 abx 300 d5 0.5 (NaBi) 600 fentanyl 60 levo 900 nimbex 300 versed 48 Output: Urine 300 Urethral (Barron) 300 - Medications Active Medications: Active Medications Generic Name Dose Route Start Last Admin Trade Name Freq PRN Reason Stop Dose Admin Albumin Human 12.5 gm 09/04/17 08:00 09/04/17 12:39 Albumin Human 25% (12.5 Gm/50 Ml) IV 09/05/17 08:01 12.5 gm Q4H NORMA Administration Albuterol/Ipratropium 3 ml 08/29/17 20:00 09/04/17 13:30 Duoneb 3 Mg/0.5 Mg (3 Ml) Ud IH 3 ml [id number] NORMA Administration Protocol Artificial Tears 0 ml 09/01/17 22:00 09/04/17 05:00 Artificial Tears OU 1 drop Q8 NORMA Administration Fluoxetine HCl 40 mg 08/30/17 10:00 08/30/17 15:44 Prozac PO 40 mg DAILY NORMA Administration Furosemide 40 mg 09/03/17 11:35 09/04/17 09:44 Lasix IV Not Given DAILY NORMA Heparin Sodium (Porcine) 5,000 units 08/30/17 22:00 09/04/17 05:01 Heparin SC 5,000 units Q8 NORMA Administration Protocol Hydrocortisone Sodium Succinate 50 mg 09/04/17 07:45 09/04/17 14:18 Solu-Cortef IVP 50 mg Q6H NORMA Administration Propofol 1,000 mg in 100 mls @ 1.987 mls/hr 08/30/17 19:47 08/31/17 08:47 Diprivan IV 0 mcg/kg/min .Q24H PRN 0 mls/hr TITRATE PER MD ORDER Titration Protocol 5 MCG/KG/MIN Midazolam 100 mg/100ml in NS 100 mg in 100 mls @ 1 mls/hr 08/31/17 15:48 09:51 Midazolam 100 Mg/100ml In Ns IV 0 mg/hr .Q24H PRN 0 mls/hr Seizure activity Titration Protocol 1 MG/HR NOREPINEPHRINE BIT/0.9 % NACL 4 mg in 250 mls @ 15 mls/hr 09/01/17 13:26 14:26 Levophed 4 Mg/ 250 Ml Ns Premixed IV 20 mcg/min .[id number] PRN 75 mls/hr TITRATE PER MD ORDER Administration Protocol 4 MCG/MIN Doxycycline Hyclate 100 mg/ 100 mls @ 100 mls/hr 09/03/17 22:00 09/04/17 09: 54 Sodium Chloride IVPB 09/12/17 22:01 100 mls/hr Q12 NORMA Administration Protocol Sodium Bicarbonate 150 meq/ 1,150 mls @ 150 mls/hr 09/04/17 07:45 09/04/17 08 :37 Dextrose IV 150 mls/hr .Q7H40M NORMA Administration Vasopressin 20 units/ Dextrose 101 mls @ 12.12 mls/hr 09/04/17 07:45 08:40 IV 12.12 mls/hr .Q8H20M NORMA Administration Protocol 0.04 U/MIN Potassium Chloride 10 meq in 100 mls @ 50 mls/hr 09/04/17 10:00 09/04/17 13: 56 Potassium Chloride 10 Meq/100 Ml IVPB 09/04/17 17:59 50 mls/hr Q2H NORMA Administration Lorazepam 1 mg 08/30/17 20:59 08/30/17 21:13 Ativan IVP 1 mg ONCE PRN Administration Anxiety Protocol Metoprolol Tartrate 25 mg 08/31/17 18:00 09/04/17 09:50 Lopressor PO 25 mg BID NORMA Administration Midazolam HCl 4 mg 08/31/17 08:31 08/31/17 20:36 Versed Inj IVP 4 mg Q2H PRN Administration Agitation Oseltamivir Phosphate 75 mg 09/02/17 22:00 09/04/17 10:03 Tamiflu Susp PO 75 mg 1000,2200 NORMA Administration Protocol Pantoprazole Sodium 40 mg 08/31/17 10:00 09/04/17 09:53 Protonix Inj IVP 40 mg DAILY NORMA Administration Verapamil HCl 2.5 mg 09/01/17 09:04 Verapamil Inj IVP Q6H PRN for herat rate >130 - Patient Studies Lab Studies: Microbiology Studies 09/02/17 10:30 Blood Culture - Preliminary Blood NO GROWTH AFTER 48 HOURS 09/02/17 10:50 Blood Culture - Preliminary Blood NO GROWTH AFTER 48 HOURS Lab Studies 09/04/17 09/04/17 09/04/17 Range/Units 16:15 11:49 10:30 WBC (4.5-11.0) 10^3/ul RBC (3.5-6.1) 10^6/uL Hgb (12.0-16.0) g/dL Hct (36.0-48.0) % MCV (80.0-105.0) fl MCH (25.0-35.0) pg MCHC (31.0-37.0) g/dl RDW (11.5-14.5) % Plt Count (120.0-450.0) 10^3/uL MPV (7.0-11.0) fl Gran % (50.0-68.0) % Lymph % (Auto) (22.0-35.0) % [place] % (Auto) (1.0-6.0) % Eos % (Auto) (1.5-5.0) % Baso % (Auto) (0.0-3.0) % Gran # (1.4-6.5) Lymph # (Auto) (1.2-3.4) [place] # (Auto) (0.1-0.6) Eos # (Auto) (0.0-0.7) Baso # (Auto) (0.0-2.0) K/mm3 pCO2 (35-45) mm/Hg pO2 (80-100) mm/Hg HCO3 (21-28) mmol/L ABG pH (7.35-7.45) ABG Total CO2 (22-28) mmol.L ABG O2 Saturation (95-98) % ABG O2 Content (15-23) ML/dl ABG Base Excess (-2.0-3.0) mmol/L ABG Hemoglobin (11.7-17.4) g/dL ABG Carboxyhemoglobin (0.5-1.5) % POC ABG HHb (Measured) (0-5) % ABG Methemoglobin (0.0-3.0) % ABG O2 Capacity (16-24) mL/dl Hgb O2 Saturation (95.0-98.0) % FiO2 % Sodium (132-148) mmol/L Potassium (3.6-5.0) mmol/L Chloride (98-107) mmol/L Carbon Dioxide (21-33) mmol/L Anion Gap (10-20) BUN (7-21) mg/dL Creatinine (0.7-1.2) mg/dl Est GFR ( Amer) Est GFR (Non-Af Amer) POC Glucose (mg/dL) 124 H 143 H (65-110) mg/dL Random Glucose (70-110) mg/dL Lactic Acid 2.4 H (0.7-2.1) mmol/L Calcium (8.4-10.5) mg/dL Phosphorus (2.5-4.5) mg/dL Magnesium (1.7-2.2) mg/dL Total Bilirubin (0.2-1.3) mg/dL AST (14-36) U/L ALT (7-56) U/L Alkaline Phosphatase (38-126) U/L Total Protein (5.8-8.3) g/dL Albumin (3.0-4.8) g/dL Globulin gm/dL Albumin/Globulin Ratio (1.1-1.8) 09/04/17 09/04/17 09/04/17 Range/Units 07:53 06:35 06:00 WBC (4.5-11.0) 10^3/ul RBC (3.5-6.1) 10^6/uL Hgb (12.0-16.0) g/dL Hct (36.0-48.0) % MCV (80.0-105.0) fl MCH (25.0-35.0) pg MCHC (31.0-37.0) g/dl RDW (11.5-14.5) % Plt Count (120.0-450.0) 10^3/uL MPV (7.0-11.0) fl Gran % (50.0-68.0) % Lymph % (Auto) (22.0-35.0) % [place] % (Auto) (1.0-6.0) % Eos % (Auto) (1.5-5.0) % Baso % (Auto) (0.0-3.0) % Gran # (1.4-6.5) Lymph # (Auto) (1.2-3.4) [place] # (Auto) (0.1-0.6) Eos # (Auto) (0.0-0.7) Baso # (Auto) (0.0-2.0) K/mm3 pCO2 (35-45) mm/Hg pO2 (80-100) mm/Hg HCO3 (21-28) mmol/L ABG pH (7.35-7.45) ABG Total CO2 (22-28) mmol.L ABG O2 Saturation (95-98) % ABG O2 Content (15-23) ML/dl ABG Base Excess (-2.0-3.0) mmol/L ABG Hemoglobin (11.7-17.4) g/dL ABG Carboxyhemoglobin (0.5-1.5) % POC ABG HHb (Measured) (0-5) % ABG Methemoglobin (0.0-3.0) % ABG O2 Capacity (16-24) mL/dl Hgb O2 Saturation (95.0-98.0) % FiO2 % Sodium 145 (132-148) mmol/L Potassium 3.1 L (3.6-5.0) mmol/L Chloride 121 H (98-107) mmol/L Carbon Dioxide 12 L (21-33) mmol/L Anion Gap 14 (10-20) BUN 27 H (7-21) mg/dL Creatinine 1.4 H (0.7-1.2) mg/dl Est GFR ( Amer) 47 Est GFR (Non-Af Amer) 39 POC Glucose (mg/dL) 96 103 (65-110) mg/dL Random Glucose 86 (70-110) mg/dL Lactic Acid (0.7-2.1) mmol/L Calcium 6.7 L* (8.4-10.5) mg/dL Phosphorus 4.4 (2.5-4.5) mg/dL Magnesium 1.6 L (1.7-2.2) mg/dL Total Bilirubin 2.3 H (0.2-1.3) mg/dL AST 53 H (14-36) U/L ALT 27 (7-56) U/L Alkaline Phosphatase 80 (38-126) U/L Total Protein 4.2 L (5.8-8.3) g/dL Albumin 1.7 L (3.0-4.8) g/dL Globulin 2.4 gm/dL Albumin/Globulin Ratio 0.7 L (1.1-1.8) 09/04/17 09/04/17 09/04/17 Range/Units 06:00 05:00 04:22 WBC 17.7 H (4.5-11.0) 10^3/ul RBC 2.61 L (3.5-6.1) 10^6/uL Hgb 8.7 L (12.0-16.0) g/dL Hct 26.1 L (36.0-48.0) % MCV 100.0 D (80.0-105.0) fl MCH 33.3 (25.0-35.0) pg MCHC 33.3 (31.0-37.0) g/dl RDW 14.7 H (11.5-14.5) % Plt Count 208 (120.0-450.0) 10^3/uL MPV 9.7 (7.0-11.0) fl Gran % 83.0 H (50.0-68.0) % Lymph % (Auto) 6.5 L (22.0-35.0) % [place] % (Auto) 8.3 H (1.0-6.0) % Eos % (Auto) 2.0 (1.5-5.0) % Baso % (Auto) 0.2 (0.0-3.0) % Gran # 14.66 H (1.4-6.5) Lymph # (Auto) 1.1 L (1.2-3.4) [place] # (Auto) 1.5 H (0.1-0.6) Eos # (Auto) 0.4 (0.0-0.7) Baso # (Auto) 0.03 (0.0-2.0) K/mm3 pCO2 32 L (35-45) mm/Hg pO2 136.0 H (80-100) mm/Hg HCO3 13.1 L (21-28) mmol/L ABG pH 7.22 L (7.35-7.45) ABG Total CO2 14.1 L (22-28) mmol.L ABG O2 Saturation 100.2 H (95-98) % ABG O2 Content 17.9 (15-23) ML/dl ABG Base Excess -13.4 L (-2.0-3.0) mmol/L ABG Hemoglobin 12.9 (11.7-17.4) g/dL ABG Carboxyhemoglobin 2.0 H (0.5-1.5) % POC ABG HHb (Measured) -0.2 L (0-5) % ABG Methemoglobin 0.7 (0.0-3.0) % ABG O2 Capacity 17.9 (16-24) mL/dl Hgb O2 Saturation 97.4 (95.0-98.0) % FiO2 50.0 % Sodium (132-148) mmol/L Potassium (3.6-5.0) mmol/L Chloride (98-107) mmol/L Carbon Dioxide (21-33) mmol/L Anion Gap (10-20) BUN (7-21) mg/dL Creatinine (0.7-1.2) mg/dl Est GFR ( Amer) Est GFR (Non-Af Amer) POC Glucose (mg/dL) 106 (65-110) mg/dL Random Glucose (70-110) mg/dL Lactic Acid (0.7-2.1) mmol/L Calcium (8.4-10.5) mg/dL Phosphorus (2.5-4.5) mg/dL Magnesium (1.7-2.2) mg/dL Total Bilirubin (0.2-1.3) mg/dL AST (14-36) U/L ALT (7-56) U/L Alkaline Phosphatase (38-126) U/L Total Protein (5.8-8.3) g/dL Albumin (3.0-4.8) g/dL Globulin gm/dL Albumin/Globulin Ratio (1.1-1.8) 09/03/17 09/03/17 09/03/17 Range/Units 23:44 19:44 18:03 WBC (4.5-11.0) 10^3/ul RBC (3.5-6.1) 10^6/uL Hgb (12.0-16.0) g/dL Hct (36.0-48.0) % MCV (80.0-105.0) fl MCH (25.0-35.0) pg MCHC (31.0-37.0) g/dl RDW (11.5-14.5) % Plt Count (120.0-450.0) 10^3/uL MPV (7.0-11.0) fl Gran % (50.0-68.0) % Lymph % (Auto) (22.0-35.0) % [place] % (Auto) (1.0-6.0) % Eos % (Auto) (1.5-5.0) % Baso % (Auto) (0.0-3.0) % Gran # (1.4-6.5) Lymph # (Auto) (1.2-3.4) [place] # (Auto) (0.1-0.6) Eos # (Auto) (0.0-0.7) Baso # (Auto) (0.0-2.0) K/mm3 pCO2 (35-45) mm/Hg pO2 (80-100) mm/Hg HCO3 (21-28) mmol/L ABG pH (7.35-7.45) ABG Total CO2 (22-28) mmol.L ABG O2 Saturation (95-98) % ABG O2 Content (15-23) ML/dl ABG Base Excess (-2.0-3.0) mmol/L ABG Hemoglobin (11.7-17.4) g/dL ABG Carboxyhemoglobin (0.5-1.5) % POC ABG HHb (Measured) (0-5) % ABG Methemoglobin (0.0-3.0) % ABG O2 Capacity (16-24) mL/dl Hgb O2 Saturation (95.0-98.0) % FiO2 % Sodium (132-148) mmol/L Potassium (3.6-5.0) mmol/L Chloride (98-107) mmol/L Carbon Dioxide (21-33) mmol/L Anion Gap (10-20) BUN (7-21) mg/dL Creatinine (0.7-1.2) mg/dl Est GFR ( Amer) Est GFR (Non-Af Amer) POC Glucose (mg/dL) 103 91 97 (65-110) mg/dL Random Glucose (70-110) mg/dL Lactic Acid (0.7-2.1) mmol/L Calcium (8.4-10.5) mg/dL Phosphorus (2.5-4.5) mg/dL Magnesium (1.7-2.2) mg/dL Total Bilirubin (0.2-1.3) mg/dL AST (14-36) U/L ALT (7-56) U/L Alkaline Phosphatase (38-126) U/L Total Protein (5.8-8.3) g/dL Albumin (3.0-4.8) g/dL Globulin gm/dL Albumin/Globulin Ratio (1.1-1.8) Laboratory Results - last 24 hr 09/03/17 09/03/17 09/03/17 18:03 19:44 23:44 WBC RBC Hgb Hct MCV MCH MCHC RDW Plt Count MPV Gran % Lymph % (Auto) [place] % (Auto) Eos % (Auto) Baso % (Auto) Gran # Lymph # (Auto) [place] # (Auto) Eos # (Auto) Baso # (Auto) pCO2 pO2 HCO3 ABG pH ABG Total CO2 ABG O2 Saturation ABG O2 Content ABG Base Excess ABG Hemoglobin ABG Carboxyhemoglobin POC ABG HHb (Measured) ABG Methemoglobin ABG O2 Capacity Hgb O2 Saturation FiO2 Sodium Potassium Chloride Carbon Dioxide Anion Gap BUN Creatinine Est GFR ( Amer) Est GFR (Non-Af Amer) POC Glucose (mg/dL) 97 91 103 Random Glucose Lactic Acid Calcium Phosphorus Magnesium Total Bilirubin AST ALT Alkaline Phosphatase Total Protein Albumin Globulin Albumin/Globulin Ratio 09/04/17 09/04/17 09/04/17 04:22 05:00 06:00 WBC 17.7 H RBC 2.61 L Hgb 8.7 L Hct 26.1 L MCV 100.0 D MCH 33.3 MCHC 33.3 RDW 14.7 H Plt Count 208 MPV 9.7 Gran % 83.0 H Lymph % (Auto) 6.5 L [place] % (Auto) 8.3 H Eos % (Auto) 2.0 Baso % (Auto) 0.2 Gran # 14.66 H Lymph # (Auto) 1.1 L [place] # (Auto) 1.5 H Eos # (Auto) 0.4 Baso # (Auto) 0.03 pCO2 32 L pO2 136.0 H HCO3 13.1 L ABG pH 7.22 L ABG Total CO2 14.1 L ABG O2 Saturation 100.2 H ABG O2 Content 17.9 ABG Base Excess -13.4 L ABG Hemoglobin 12.9 ABG Carboxyhemoglobin 2.0 H POC ABG HHb (Measured) -0.2 L ABG Methemoglobin 0.7 ABG O2 Capacity 17.9 Hgb O2 Saturation 97.4 FiO2 50.0 Sodium Potassium Chloride Carbon Dioxide Anion Gap BUN Creatinine Est GFR ( Amer) Est GFR (Non-Af Amer) POC Glucose (mg/dL) 106 Random Glucose Lactic Acid Calcium Phosphorus Magnesium Total Bilirubin AST ALT Alkaline Phosphatase Total Protein Albumin Globulin Albumin/Globulin Ratio 09/04/17 09/04/17 09/04/17 06:00 06:35 07:53 WBC RBC Hgb Hct MCV MCH MCHC RDW Plt Count MPV Gran % Lymph % (Auto) [place] % (Auto) Eos % (Auto) Baso % (Auto) Gran # Lymph # (Auto) [place] # (Auto) Eos # (Auto) Baso # (Auto) pCO2 pO2 HCO3 ABG pH ABG Total CO2 ABG O2 Saturation ABG O2 Content ABG Base Excess ABG Hemoglobin ABG Carboxyhemoglobin POC ABG HHb (Measured) ABG Methemoglobin ABG O2 Capacity Hgb O2 Saturation FiO2 Sodium 145 Potassium 3.1 L Chloride 121 H Carbon Dioxide 12 L Anion Gap 14 BUN 27 H Creatinine 1.4 H Est GFR ( Amer) 47 Est GFR (Non-Af Amer) 39 POC Glucose (mg/dL) 103 96 Random Glucose 86 Lactic Acid Calcium 6.7 L* Phosphorus 4.4 Magnesium 1.6 L Total Bilirubin 2.3 H AST 53 H ALT 27 Alkaline Phosphatase 80 Total Protein 4.2 L Albumin 1.7 L Globulin 2.4 Albumin/Globulin Ratio 0.7 L 09/04/17 09/04/17 09/04/17 10:30 11:49 16:15 WBC RBC Hgb Hct MCV MCH MCHC RDW Plt Count MPV Gran % Lymph % (Auto) [place] % (Auto) Eos % (Auto) Baso % (Auto) Gran # Lymph # (Auto) [place] # (Auto) Eos # (Auto) Baso # (Auto) pCO2 pO2 HCO3 ABG pH ABG Total CO2 ABG O2 Saturation ABG O2 Content ABG Base Excess ABG Hemoglobin ABG Carboxyhemoglobin POC ABG HHb (Measured) ABG Methemoglobin ABG O2 Capacity Hgb O2 Saturation FiO2 Sodium Potassium Chloride Carbon Dioxide Anion Gap BUN Creatinine Est GFR ( Amer) Est GFR (Non-Af Amer) POC Glucose (mg/dL) 143 H 124 H Random Glucose Lactic Acid 2.4 H Calcium Phosphorus Magnesium Total Bilirubin AST ALT Alkaline Phosphatase Total Protein Albumin Globulin Albumin/Globulin Ratio Critical Care Progress Note - Nutrition Nutrition: Nutrition Category Date Time Status NPO Diet [DIET] Diets 09/01/17 Breakfast Ordered Attending/Attestation - Attestation I have personally seen and examined this patient.: Yes I have fully participated in the care of the patient.: Yes I have reviewed all pertinent clinical information: Yes Notes (Text): 09/04/17 17:[address] ambrosio note
--- NOTE | 2017-09-04 11:57 | CP.PCM.PN ---
<LaishaRd - Last Filed: 09/04/17 11:59> Subjective - Date & Time of Evaluation Date of Evaluation: 09/04/17 Time of Evaluation: 08:45 - Subjective Subjective: GI progress note. Dr. Gupta Patient seen and examined at bedside this morning. She is intubated on vent and sedated. She is currently on pressors. Noted to have some abdominal distention and possible grimacing upon palpation of the abdomen. Objective - Vital Signs/Intake and Output Vital Signs (last 24 hours): Temp Pulse Resp BP Pulse Ox 97.9 F 97 H 30 H 126/68 100 09/04/17 04:00 09/04/17 09:50 09/04/17 07:56 09/04/17 09:50 09/04/17 07:56 Intake and Output: 09/04/17 09/04/17 06:59 18:59 Intake Total 3188 330 Output Total 300 Balance 2888 330 - Medications Medications: Current Medications Albumin Human (Albumin Human 25% (12.5 Gm/50 Ml)) 12.5 gm IV Q4H NORMA Stop: 09/05/17 08:01 Last Admin: 09/04/17 08:51 Dose: Not Given Albuterol/Ipratropium (Duoneb 3 Mg/0.5 Mg (3 Ml) Ud) 3 ml IH [id number] NORMA PRN Reason: Protocol Last Admin: 09/04/17 07:56 Dose: 3 ml Artificial Tears (Artificial Tears) 0 ml OU Q8 NORMA Last Admin: 09/04/17 05:00 Dose: 1 drop Fluoxetine HCl (Prozac) 40 mg PO DAILY [facility] Last Admin: 08/30/17 15:44 Dose: 40 mg Furosemide (Lasix) 40 mg IV DAILY [facility] Last Admin: 09/04/17 09:44 Dose: Not Given Heparin Sodium (Porcine) (Heparin) 5,000 units SC Q8 NORMA PRN Reason: Protocol Last Admin: 09/04/17 05:01 Dose: 5,000 units Hydrocortisone Sodium Succinate (Solu-Cortef) 50 mg IVP Q6H NORMA Last Admin: 09/04/17 08:03 Dose: 50 mg Meropenem (Merrem Iv 1 Gm Premix) 50 mls @ 100 mls/hr IVPB Q8 NORMA PRN Reason: Protocol Stop: 09/08/17 14:01 Last Admin: 09/04/17 05:01 Dose: 100 mls/hr Propofol (Diprivan) 1,000 mg in 100 mls @ 1.987 mls/hr IV .Q24H PRN; Protocol; 5 MCG/KG/MIN PRN Reason: TITRATE PER MD ORDER Last Titration: 08/31/17 08:47 Dose: 0 mcg/kg/min, 0 mls/hr Midazolam 100 mg/100ml in NS (Midazolam 100 Mg/100ml In Ns) 100 mg in 100 mls @ 1 mls/hr IV .Q24H PRN; Protocol; 1 MG/HR PRN Reason: Seizure activity Last Titration: 09/04/17 09:51 Dose: 0 mg/hr, 0 mls/hr NOREPINEPHRINE BIT/0.9 % NACL (Levophed 4 Mg/ 250 Ml Ns Premixed) 4 mg in 250 mls @ 15 mls/hr IV .[id number] PRN; Protocol; 4 MCG/MIN PRN Reason: TITRATE PER MD ORDER Last Admin: 09/04/17 08:34 Dose: 20 mcg/min, 75 mls/hr Doxycycline Hyclate 100 mg/ (Sodium Chloride) 100 mls @ 100 mls/hr IVPB Q12 NORMA PRN Reason: Protocol Stop: 09/12/17 22:01 Last Admin: 09/04/17 09:54 Dose: 100 mls/hr Sodium Bicarbonate 150 meq/ (Dextrose) 1,150 mls @ 150 mls/hr IV .Q7H40M NORMA Last Admin: 09/04/17 08:37 Dose: 150 mls/hr Vasopressin 20 units/ Dextrose 101 mls @ 12.12 mls/hr IV .Q8H20M NORMA; 0.04 U/ MIN PRN Reason: Protocol Last Admin: 09/04/17 08:40 Dose: 12.12 mls/hr Potassium Chloride (Potassium Chloride 10 Meq/100 Ml) 10 meq in 100 mls @ 50 mls/hr IVPB Q2H NORMA Stop: 09/04/17 17:59 Lorazepam (Ativan) 1 mg IVP ONCE PRN; Protocol PRN Reason: Anxiety Last Admin: 08/30/17 21:13 Dose: 1 mg Metoprolol Tartrate (Lopressor) 25 mg PO BID NORMA Last Admin: 09/04/17 09:50 Dose: 25 mg Midazolam HCl (Versed Inj) 4 mg IVP Q2H PRN PRN Reason: Agitation Last Admin: 08/31/17 20:36 Dose: 4 mg Oseltamivir Phosphate (Tamiflu Susp) 75 mg PO 1000,2200 [facility] PRN Reason: Protocol Last Admin: 09/04/17 10:03 Dose: 75 mg Pantoprazole Sodium (Protonix Inj) 40 mg IVP DAILY [facility] Last Admin: 09/04/17 09:53 Dose: 40 mg Verapamil HCl (Verapamil Inj) 2.5 mg IVP Q6H PRN PRN Reason: for herat rate >130 - Labs Labs: 09/04/17 06:00 09/04/17 06:00 PT 26.3 SECONDS (9.4-12.5) H 09/01/17 09:44 INR 2.25 (0.93-1.08) H 09/01/17 09:44 APTT 34.6 Seconds (25.1-36.5) 08/29/17 13:00 - Constitutional Appears: Chronically Ill - Head Exam Head Exam: ATRAUMATIC, NORMAL INSPECTION, NORMOCEPHALIC - ENT Exam ENT Exam: Mucous Membranes Moist Additional comments: intubated and on vent - Respiratory Exam Additional comments: intubated and sedated on vent - Cardiovascular Exam Cardiovascular Exam: RRR. absent: JVD - GI/Abdominal Exam GI & Abdominal Exam: Distended (mild abdominal distention.), Soft Additional comments: Unable to perform accurate abdominal exam due to patient's status. soft, Mild distention of the abdomen with grimacing noted upon palpation - Neurological Exam Additional comments: intubated and on sedation - Skin Skin Exam: Dry, Intact, Normal Color, Warm Assessment and Plan - Assessment and Plan (Free Text) Assessment: 56yo F with Hx of Alcoholic Hepatitis. In ICU with bilateral PNA, VDRF, ARDS secondary to influenza and possible sepsis. r/o ischemia or abdominal pathology - Mild lactic acidosis noted today (2.3) Plan: - Continue Abx - f/u CT Abd/Pelvis w PO contrast. r/o ischemic colitis or other intra- abdominal pathology - ICU management of ARDS - No indication to discontinue oral tube feeding. Check gastric residuals if there is a concern. Further recs as per Dr. Alonso Interiano PGY1 <Page Guptaobdulio V - Last Filed: 09/04/17 23:33> Objective - Vital Signs/Intake and Output Vital Signs (last 24 hours): Temp Pulse Resp BP Pulse Ox 97.4 F L 89 56 H 107/56 L 86 L 09/04/17 16:00 09/04/17 20:40 09/04/17 16:27 09/04/17 22:24 09/04/17 20:40 Intake and Output: 09/04/17 09/05/17 18:59 06:59 Intake Total 3494 300 Output Total 1000 Balance 2494 300 - Medications Medications: Current Medications Albumin Human (Albumin Human 25% (12.5 Gm/50 Ml)) 12.5 gm IV Q4H [facility] Stop: 09/05/17 08:01 Last Admin: 09/04/17 20:21 Dose: 12.5 gm Albuterol/Ipratropium (Duoneb 3 Mg/0.5 Mg (3 Ml) Ud) 3 ml IH [id number] NORMA PRN Reason: Protocol Last Admin: 09/04/17 20:41 Dose: 3 ml Artificial Tears (Artificial Tears) 0 ml OU Q8 NORMA Last Admin: 09/04/17 22:24 Dose: 1 drop Fluoxetine HCl (Prozac) 40 mg PO DAILY [facility] Last Admin: 08/30/17 15:44 Dose: 40 mg Furosemide (Lasix) 40 mg IVP Q12 NORMA Last Admin: 09/04/17 22:24 Dose: 40 mg Heparin Sodium (Porcine) (Heparin) 5,000 units SC Q8 NORMA PRN Reason: Protocol Last Admin: 09/04/17 22:24 Dose: 5,000 units Hydrocortisone Sodium Succinate (Solu-Cortef) 50 mg IVP Q6H NORMA Last Admin: 09/04/17 20:24 Dose: 50 mg Propofol (Diprivan) 1,000 mg in 100 mls @ 1.987 mls/hr IV .Q24H PRN; Protocol; 5 MCG/KG/MIN PRN Reason: TITRATE PER MD ORDER Last Titration: 08/31/17 08:47 Dose: 0 mcg/kg/min, 0 mls/hr Midazolam 100 mg/100ml in NS (Midazolam 100 Mg/100ml In Ns) 100 mg in 100 mls @ 1 mls/hr IV .Q24H PRN; Protocol; 1 MG/HR PRN Reason: Seizure activity Last Admin: 09/04/17 19:25 Dose: 1 mg/hr, 1 mls/hr NOREPINEPHRINE BIT/0.9 % NACL (Levophed 4 Mg/ 250 Ml Ns Premixed) 4 mg in 250 mls @ 15 mls/hr IV .[id number] PRN; Protocol; 4 MCG/MIN PRN Reason: TITRATE PER MD ORDER Last Admin: 09/04/17 20:10 Dose: 14 mcg/min, 52.5 mls/hr Doxycycline Hyclate 100 mg/ (Sodium Chloride) 100 mls @ 100 mls/hr IVPB Q12 NORMA PRN Reason: Protocol Stop: 09/12/17 22:01 Last Admin: 09/04/17 22:25 Dose: 100 mls/hr Sodium Bicarbonate 150 meq/ (Dextrose) 1,150 mls @ 150 mls/hr IV .Q7H40M NORMA Last Admin: 09/04/17 08:37 Dose: 150 mls/hr Vasopressin 20 units/ Dextrose 101 mls @ 12.12 mls/hr IV .Q8H20M NORMA; 0.04 U/ MIN PRN Reason: Protocol Last Admin: 09/04/17 08:40 Dose: 12.12 mls/hr Cisatracurium Besylate 200 mg/ (Sodium Chloride) 270 mls @ 3.37 mls/hr IV .Q24H PRN; Protocol; 0.5 MCG/KG/MIN PRN Reason: TITRATE PER MD ORDER Last Admin: 09/04/17 19:44 Dose: 0.5 mcg/kg/min, 3.37 mls/hr Midazolam 100 mg/100ml in NS (Midazolam 100 Mg/100ml In Ns) 100 mg in 100 mls @ 1 mls/hr IV .Q24H PRN; Protocol; 1 MG/HR PRN Reason: Agitation Meropenem (Merrem Iv 1 Gm Premix) 50 mls @ 100 mls/hr IVPB Q12 NORMA PRN Reason: Protocol Stop: 09/11/17 22:01 Last Admin: 09/04/17 22:24 Dose: 100 mls/hr Fentanyl Citrate (Fentanyl Citrate/Sodium Chloride 1 Mg/100 Ml) 1,000 mcg in 100 mls @ 2 mls/hr IV .Q24H PRN; Protocol; 20 MCG/HR PRN Reason: TITRATE PER MD ORDER Last Admin: 09/04/17 19:00 Dose: 20 mcg/hr, 2 mls/hr Lorazepam (Ativan) 1 mg IVP ONCE PRN; Protocol PRN Reason: Anxiety Last Admin: 08/30/17 21:13 Dose: 1 mg Metoprolol Tartrate (Lopressor) 25 mg PO BID NORMA Last Admin: 09/04/17 19:21 Dose: Not Given Midazolam HCl (Versed Inj) 4 mg IVP Q2H PRN PRN Reason: Agitation Last Admin: 08/31/17 20:36 Dose: 4 mg Oseltamivir Phosphate (Tamiflu Susp) 75 mg PO 1000,2200 NORMA PRN Reason: Protocol Last Admin: 09/04/17 22:25 Dose: 75 mg Pantoprazole Sodium (Protonix Inj) 40 mg IVP DAILY [facility] Last Admin: 09/04/17 09:53 Dose: 40 mg Verapamil HCl (Verapamil Inj) 2.5 mg IVP Q6H PRN PRN Reason: for herat rate >130 - Labs Labs: 09/04/17 06:00 09/04/17 06:00 PT 26.3 SECONDS (9.4-12.5) H 09/01/17 09:44 INR 2.25 (0.93-1.08) H 09/01/17 09:44 APTT 34.6 Seconds (25.1-36.5) 08/29/17 13:00 Attending/Attestation - Attestation I have personally seen and examined this patient.: Yes I have fully participated in the care of the patient.: Yes I have reviewed all pertinent clinical information, including history, physical exam and plan: Yes Notes (Text): This is an addendum to GI progress report dictated by the Insurance Claims Examiner.The patient was seen and examined earlier. Medical records, lab studies, imagings were reviewed. Last 24 hours events reviewed. Agreed with the above treatment plan as outlined in Insurance Claims Examiner 's notes the with the addition of the following 09/04/17 23:33
[2017-09-04] MEDS ORDERED: Barium Sulfate Susp 2.1% w/v, 2.0% w/w 450 mL Bottle PO ONE (12:01)
--- NOTE | 2017-09-04 12:24 | PN ---
DATE: 09/04/2017 SUBJECTIVE: The patient is seen and examined at bedside. She is on neuromuscular blockade (Nimbex) that was just stopped. The patient is on Versed 4 mg per hour, which was also stopped and fentanyl 50 mcg per hour. The patient is on Levophed 20 mcg/minute and on bicarb drip at 50 mL/hour. On that setting, her vital signs are as follows; heart rate 92, oxygen saturation 100%, respiratory rate 30, end-tidal CO2 on the monitor 25, blood pressure 105/55. The patient did on PRVC 50/14/28 (increased to 30) and tidal volume 350 mL/hour. Peak pressure (the patient is on neuromuscular blockade) is 28. Of note, PEEP was tapered down to 12. PHYSICAL EXAMINATION: ENT: Head and neck atraumatic. LUNGS: Clear to auscultation bilaterally. HEART: Regular rate and rhythm. S1, S2 normal. ABDOMEN: Soft, nontender and nondistended (the patient is on neuromuscular blockade). MUSCULOSKELETAL: 2+ bilateral pedal and ankle edema substantial third spacing. SKIN: Moist. PSYCH: The patient is sedated and on neuromuscular blockade. LABORATORY DATA: Of note, the patient had 300 mL of urine output overnight and substantially positive in terms of fluid balance. WBC is 17.7, down from 21.6. Hemoglobin level of 8.7, platelet count of 208. Sodium 145, potassium 3.1, chloride 121, carbon dioxide 12, BUN 27, creatinine 1.4, down from 2.0, glucose 103, calcium 6.7, albumin 1.7, magnesium 1.6, phosphorus 4.4, AST 53, ALT 27, total bilirubin 2.3, slightly trending down from 2.6 as of yesterday. Procalcitonin is 1.13 up from 0.21 as of 2 days ago. MEDICATIONS: DuoNeb every 6 hours, doxycycline, Lasix 40 mg IV daily, , heparin 5000 subcutaneous every 8, hydrocortisone 50 mg IV every 6, Ativan p.r.n., meropenem, metoprolol, midazolam p.r.n., norepinephrine, Tamiflu, Protonix, sodium bicarb 150 mL/hour, vasopressin, verapamil p.r.n., Versed. ASSESSMENT AND PLAN: This is a 56-year-old lady who presented with influenza pneumonia, complicated by adult respiratory distress syndrome, hypoxemic respiratory failure requiring intubation. Her clinical course progressed to distributive shock with multiorgan system failure and requiring vasopressor support. At the present time, the patient is on Levophed 20 mcg per minute. We will add vasopressin 0.04 units per minute and hydrocortisone stress dose steroids. We will proceed with protective lung ventilation strategy with tidal volume 4 to 8 mL per predicted body weight and maintaining plateau pressure less than 30. The patient's gas exchange parameters appeared to be improving. We will start tapering down PEEP and FiO2 with maintaining higher then ARDSNet PEEP/FiO2 ratio. We will maintain head of bed elevated more than 35 degrees, oral hygiene and VAP bundle. We will try to continue with conservative fluid and oxygen management. The patient has substantial third spacing, most likely secondary to increased permeability of vascular bed in the setting of septic shock. The patient has advanced liver disease and I will proceed with albumin supplementation and Lasix in attempt to redistribute intravascular volume. I will touch base with Nephrology Service about this strategy as the data on the subject is scarce. Her creatinine is improving; however, she still remains oliguric with substantially positive fluid balance. Whether or not to proceed with renal replacement therapy will be deferred to Nephrology Service. A significantly positive fluid balance may be detrimental to outcome in severe sepsis/septic shock and acute kidney injury as well. Meanwhile, we will proceed with broad-spectrum antibiotics, Infectious Disease followup. Today is Tamiflu day #5, whether to continue or to stop Tamiflu will be deferred to Infectious Disease Service. We will continue with deep venous thrombosis/gastrointestinal prophylaxis and her feeds were stopped, however, will be restarted as soon as vasopressor requirement comes down. We will maintain blood glucose level within 140 to 160 range according to NICE-SUGAR trial. We will continue with bicarb drip to offset significant metabolic acidosis. The patient is afebrile and white cell count is trending down. We will stop neuromuscular blockade and light out sedation. We will reevaluate the patient's mental status once that is done. Addendum: Spoke with Dr. Thomas-->agreed with albumin/lasix, also agreed with holding fluids for now, working with Levo/vaso/stress dose steroids/bicarb pushes/hyperoncotic albumin. creatinine is trending down, patient responded to lasix, levo is down to 14 ccm time 40 min Cezar Ambrosio MD [facility] # [id number] TYLER
[2017-09-04] MEDS ORDERED: Sodium Bicarbonate (8.4%) 50 Meq Syringe IVP ONE ×3 (13:24→18:47)
--- NOTE | 2017-09-04 14:40 | PN ---
DATE: 09/04/2017 SUBJECTIVE: The patient is in the Critical Care Unit. She was admitted with pneumonia, progressive respiratory failure. The patient has history of alcoholic hepatitis, hypertension, depression. PHYSICAL EXAMINATION: VITAL SIGNS: Currently, the patient's pulse is 93, blood pressure 105/53, O2 sat is maintained by respirator. LUNGS: The patient has bilateral crepitations. MENTAL STATUS: Mental state is sedate because of medications. The patient is very restless . She has renal insufficiency, might need renal dialysis for acute illness. The patient also has liver dysfunction from alcoholic hepatitis, sepsis. The patient also has influenza virus A infection. Condition is critical. Prognosis is guarded. Discontinue acute care and the patient has some mild improvement in the chest x-ray noted today. Tay Cruz MD
--- NOTE | 2017-09-04 15:29 | CT ---
PROCEDURE: CT Abdomen and Pelvis without intravenous contrast HISTORY: abd distention. r/o ischemia COMPARISON: None. TECHNIQUE: Without. Contrast Dose: Radiation dose: Total exam DLP = Total exam DLP = 1113 mGy-cm. This CT exam was performed using one or more of the following dose reduction techniques: Automated exposure control, adjustment of the mA and/or kV according to patient size, and/or use of iterative reconstruction technique. FINDINGS: LOWER THORAX: There is dense consolidation in both lower lobes consistent with pneumonia LIVER: Unremarkable. No gross lesion or ductal dilatation. GALLBLADDER AND BILE DUCTS: Unremarkable. PANCREAS: Unremarkable. No gross lesion or ductal dilatation. SPLEEN: Unremarkable. ADRENALS: Unremarkable. No mass. KIDNEYS AND URETERS: Unremarkable. No hydronephrosis. No solid mass. VASCULATURE: Unremarkable. No aortic aneurysm. BOWEL: Unremarkable. No obstruction. No gross mural thickening. There is no evidence of bowel ischemia APPENDIX: Unremarkable. Normal appendix. PERITONEUM: There is a moderate amount of ascites collected in the pelvis. There is also anasarca. LYMPH NODES: Unremarkable. No enlarged lymph nodes. BLADDER: Unremarkable. REPRODUCTIVE: Unremarkable. BONES: No acute fracture. OTHER FINDINGS: None. IMPRESSION: Severe lower lobe consolidation suspicious for pneumonia. Moderate ascites.
--- NOTE | 2017-09-04 16:59 | PN ---
DATE: 09/04/2017 SUBJECTIVE: The patient is seen in the ICU. She is awake, eyes are open, but she is not really following commands. She is not tracking. She remains on mechanical ventilation. She remains on Levophed at 16 mcg per kilogram per minute, she also been started on vasopressin. IV fluids have been discontinued. She received Lasix 40 mg IV push this morning. She also is receiving albumin now 25 g every 4 hours. PHYSICAL EXAMINATION: GENERAL: Elderly lady, lying in bed in the ICU on mechanical ventilation. VITAL SIGNS: Blood pressure 126/68, heart rate 97, respiratory rate 18-24, temperature 97.9. HEENT: Normocephalic, atraumatic, positive pallor, no icterus. NECK: Supple, no JVD. lungs: Bilateral equal entry, bilateral equal expansion, no rales appreciated anteriorly. CARDIAC: S1 and S2. Regular rate and rhythm, no murmur, no rub. ABDOMEN: Obese, distended, soft, nontender, bowel sounds present. EXTREMITIES: 3+ pitting edema of the lower extremities. INTAKE AND OUTPUT: 5987/600. LABORATORY DATA: WBC 17.7, hemoglobin 8.7, hematocrit 26, platelets 208. Sodium 145, potassium 3.1, chloride 121, CO2 of 12, BUN 27, creatinine 1.4, glucose 86, lactic acid 2.4, calcium 6.7, albumin 1.7, corrected calcium is 8.2, phosphorus 4.4, magnesium 1.6, total bili 2.3. Cultures: No growth. CURRENT MEDICATIONS: Albumin 12.5 g IV every four, Ativan, Diprivan, doxycycline 100 every 12; DuoNeb; heparin 5000 subcu, 40 IV daily Levophed 16 mcg/minute, Lopressor 25 b.i.d., Potassium chloride 10 mEq, four bags ordered. Protonix, Prozac, Solu-Cortef, Tamiflu, vasopressin, verapamil, Versed. ASSESSMENT: 1. Acute kidney injury, now nonoliguric. 2. Septic shock. 3. Respiratory failure/adult respiratory distress syndrome 4. Severe metabolic and respiratory acidosis. 5. Hypotension/low flow state. 6. Hypokalemia. 7. Severe anemia. 8. Lactic acidosis. 9. History of alcoholic hepatitis. PLAN: 1. The patient appears marginally improved clinically. Urine output is slowly increasing. 2. Intense third spacing, the patient has 3+ edema. 5. Agree with plan for IV Lasix along with IV albumin, change Lasix to 40 IV every 12. 4. Agree with plans for intermittent sodium bicarbonate IV push instead of IV fluids. 5. No plans for renal replacement therapy today. 6. Continue antibiotics as per ID recommendations, although all cultures have been negative. 7. Continue respiratory treatments, ventilator management. 8. The patient remains critically ill with guarded prognosis. 9. Case discussed with daughter at bedside. 10. Case discussed with ICU staff at length. 11. More than 35 minutes spent in the care of this critically ill patient. Leticia Thomas MD
[2017-09-04] MEDS ORDERED: Cisatracurium Besylate 200 MG in Sodium Chloride 0.9% 250 ML IV PRN (18:33)
[2017-09-04] MEDS ORDERED: Midazolam 100 mg/100ml in NS 100 MG/100 ML SOL IV PRN (18:51)
--- NOTE | 2017-09-04 19:15 | CP.PCM.PN ---
Subjective - Date & Time of Evaluation Date of Evaluation: 09/04/17 Time of Evaluation: 09:20 - Subjective Subjective: Continues to be on the ventilator but not on paralytics anymore, no fevers, no diarrhea. Objective - Vital Signs/Intake and Output Vital Signs (last 24 hours): Temp Pulse Resp BP Pulse Ox 97.9 F 85 33 H 109/58 L 90 L 09/04/17 04:00 09/04/17 15:58 09/04/17 15:22 09/04/17 16:00 09/04/17 14:50 Intake and Output: 09/04/17 09/05/17 18:59 06:59 Intake Total 580 Balance 580 - Medications Medications: Current Medications Albumin Human (Albumin Human 25% (12.5 Gm/50 Ml)) 12.5 gm IV Q4H [facility] Stop: 09/05/17 08:01 Last Admin: 09/04/17 12:39 Dose: 12.5 gm Albuterol/Ipratropium (Duoneb 3 Mg/0.5 Mg (3 Ml) Ud) 3 ml IH [id number] NORMA PRN Reason: Protocol Last Admin: 09/04/17 13:30 Dose: 3 ml Artificial Tears (Artificial Tears) 0 ml OU Q8 NORMA Last Admin: 09/04/17 05:00 Dose: 1 drop Fluoxetine HCl (Prozac) 40 mg PO DAILY [facility] Last Admin: 08/30/17 15:44 Dose: 40 mg Furosemide (Lasix) 40 mg IVP Q12 [facility] Heparin Sodium (Porcine) (Heparin) 5,000 units SC Q8 NORMA PRN Reason: Protocol Last Admin: 09/04/17 05:01 Dose: 5,000 units Hydrocortisone Sodium Succinate (Solu-Cortef) 50 mg IVP Q6H [facility]MA Last Admin: 09/04/17 14:18 Dose: 50 mg Propofol (Diprivan) 1,000 mg in 100 mls @ 1.987 mls/hr IV .Q24H PRN; Protocol; 5 MCG/KG/MIN PRN Reason: TITRATE PER MD ORDER Last Titration: 08/31/17 08:47 Dose: 0 mcg/kg/min, 0 mls/hr Midazolam 100 mg/100ml in NS (Midazolam 100 Mg/100ml In Ns) 100 mg in 100 mls @ 1 mls/hr IV .Q24H PRN; Protocol; 1 MG/HR PRN Reason: Seizure activity Last Titration: 09/04/17 09:51 Dose: 0 mg/hr, 0 mls/hr NOREPINEPHRINE BIT/0.9 % NACL (Levophed 4 Mg/ 250 Ml Ns Premixed) 4 mg in 250 mls @ 15 mls/hr IV .[id number] PRN; Protocol; 4 MCG/MIN PRN Reason: TITRATE PER MD ORDER Last Admin: 09/04/17 14:26 Dose: 20 mcg/min, 75 mls/hr Doxycycline Hyclate 100 mg/ (Sodium Chloride) 100 mls @ 100 mls/hr IVPB Q12 NORMA PRN Reason: Protocol Stop: 09/12/17 22:01 Last Admin: 09/04/17 09:54 Dose: 100 mls/hr Sodium Bicarbonate 150 meq/ (Dextrose) 1,150 mls @ 150 mls/hr IV .Q7H40M NORMA Last Admin: 09/04/17 08:37 Dose: 150 mls/hr Vasopressin 20 units/ Dextrose 101 mls @ 12.12 mls/hr IV .Q8H20M NORMA; 0.04 U/ MIN PRN Reason: Protocol Last Admin: 09/04/17 08:40 Dose: 12.12 mls/hr Cisatracurium Besylate 200 mg/ (Sodium Chloride) 270 mls @ 3.37 mls/hr IV .Q24H PRN; Protocol; 0.5 MCG/KG/MIN PRN Reason: TITRATE PER MD ORDER Midazolam 100 mg/100ml in NS (Midazolam 100 Mg/100ml In Ns) 100 mg in 100 mls @ 1 mls/hr IV .Q24H PRN; Protocol; 1 MG/HR PRN Reason: Agitation Meropenem (Merrem Iv 1 Gm Premix) 50 mls @ 100 mls/hr IVPB Q12 NORMA PRN Reason: Protocol Stop: 09/11/17 22:01 Lorazepam (Ativan) 1 mg IVP ONCE PRN; Protocol PRN Reason: Anxiety Last Admin: 08/30/17 21:13 Dose: 1 mg Metoprolol Tartrate (Lopressor) 25 mg PO BID NORMA Last Admin: 09/04/17 09:50 Dose: 25 mg Midazolam HCl (Versed Inj) 4 mg IVP Q2H PRN PRN Reason: Agitation Last Admin: 08/31/17 20:36 Dose: 4 mg Oseltamivir Phosphate (Tamiflu Susp) 75 mg PO 1000,2200 NORMA PRN Reason: Protocol Last Admin: 09/04/17 10:03 Dose: 75 mg Pantoprazole Sodium (Protonix Inj) 40 mg IVP DAILY NORMA Last Admin: 09/04/17 09:53 Dose: 40 mg Verapamil HCl (Verapamil Inj) 2.5 mg IVP Q6H PRN PRN Reason: for herat rate >130 - Labs Labs: 09/04/17 06:00 09/04/17 06:00 PT 26.3 SECONDS (9.4-12.5) H 09/01/17 09:44 INR 2.25 (0.93-1.08) H 09/01/17 09:44 APTT 34.6 Seconds (25.1-36.5) 08/29/17 13:00 - Constitutional Appears: Chronically Ill, Other (intubated and sedated) - Head Exam Head Exam: NORMAL INSPECTION - ENT Exam Additional comments: ET tube in place - Neck Exam Neck Exam: absent: Meningismus - Respiratory Exam Respiratory Exam: Decreased Breath Sounds - Cardiovascular Exam Cardiovascular Exam: +S1, +S2 - GI/Abdominal Exam GI & Abdominal Exam: Soft. absent: Tenderness Assessment and Plan - Assessment and Plan (Free Text) Plan: Assessment severe sepsis with VDRF due to HCAP on top of Influenza A infection history of alcoholic hepatitis ethanol abuse history of opioid dependence cervical spondylosis S/P surgery Plan continue Merrem and Doxycycline day 5 pending final culture results; complete 4- 7 days of therapy continue Tamilfu day 5 to complete 5 days of therapy will continue to monitor clinically overall prognosis is poor
[2017-09-04] MEDS: Midazolam 100 mg/100ml in NS 100 MG/100 ML SOL IV PRN (19:25)
--- NOTE | 2017-09-04 19:31 | PN ---
DATE: 09/04/2017 REASON FOR CONSULTATION AND FOLLOWUP: Cardiac evaluation, cardiac intubated hypotension, respiratory failure, multilobar pneumonia, flu. SUBJECTIVE: Patient remain on the vent, getting EEG now. PHYSICAL EXAMINATION: GENERAL: Not in apparent distress, still being intubated, on multiple different vasopressins, norepinephrine, and fentanyl drip. VITAL SIGNS: Temperature afebrile, heart rate 80, blood pressure 105/55. HEENT: PERRLA. Extraocular muscles intact. NECK: Supple. No carotid bruit or thyromegaly. CHEST: Clear to auscultation. HEART: S1 and S2, regular. ABDOMEN: Soft. EXTREMITIES: Clubbing and cyanosis negative. LABORATORY DATA: WBC 17.3, hemoglobin 8.7, hematocrit 26.1, platelet count 208. Chemistry shows sodium 145, potassium 3.1, chloride 121, carbon dioxide 12, anion gap 14, BUN 27, creatinine 1.7, calcium 6.7, lactic acid 2.4, total protein 4.2, albumin 1.7, albumin-globulin ratio 0.7. IMPRESSION: Severe protein calorie malnutrition, which was present on admission, but it was mild, now it is severe; anemia; multilobar pneumonia, flu, transferred from [facility]. Patient has flu as well as multilobar pneumonia, hypotension, septic shock, multiple vasopressors. Patient's recent echo repeated on 08/28/2017 that showed ejection fraction of 65%, trace aortic regurgitation, mild mitral regurgitation, mild tricuspid regurgitation, right ventricular systolic pressure 46%, inferior vena cava collapsing more than 50%, no pericardial effusion, no vegetation, no thrombus noted. RECOMMENDATION: Wean off the vent as tolerated. Wean off the vasopressors. Consider IV albumin. Discussed with Dr. Ambrosio. We will follow with you. Continue broad-spectrum antibiotics. We will give IV albumin. and blood pressure. We will follow with you. Supplement potassium. Thank you, Dr. Cruz, for providing us the opportunity in taking care of the patient, Tabitha Naylor. Armando Jennings MD
[2017-09-05] MEDS: Vasopressin 20 UNITS in Dextrose 5% In Water 100 ML IV SCH ×2 (00:04→09:00)
[2017-09-05] MEDS: NOREPINEPHRINE BIT/0.9 % NACL 4 MG/250 ML BAG IV PRN ×2 (00:59→06:13)
[2017-09-05] MEDS: Albuterol-Ipratrop 3 mg / 0.5 (3 ml) UD IH SCH ×3 (02:33→13:06)
[2017-09-05] MEDS: Fentanyl 1000mcg/100ml NS 1,000 MCG/100 ML BAG IV PRN (03:36)
[2017-09-05] MEDS: Albumin Human 25% (12.5 gm/50 ml) IV SCH ×6 (04:25→14:35)
[2017-09-05] MEDS: Aritificial Tears (15ml) OU SCH ×2 (05:04→13:46)
[2017-09-05 05:20] LABS: ARTERIAL BLOOD GAS HCO3 17.1 mmol/L (21-28); ARTERIAL BLOOD GAS HEMOGLOBIN 9.7 g/dL (11.7-17.4); ARTERIAL BLOOD GAS O2 CAPACITY 13.2 mL/dl (16-24); ARTERIAL BLOOD GAS O2 CONTENT 13.1 ML/dl (15-23); ARTERIAL BLOOD GAS O2 SAT 99.1 % (95-98); ARTERIAL BLOOD GAS PCO2 31 mm/Hg (35-45); ARTERIAL BLOOD GAS PH 7.35 (7.35-7.45); ARTERIAL BLOOD GAS TCO2 18.1 mmol.L (22-28)
[2017-09-05 06:45] LABS: BASO # 0.01 K/mm3 (0.0-2.0); BASO % 0.1 % (0.0-3.0); GRAN # 16.99 (1.4-6.5); GRAN % 88.4 % (50.0-68.0); HEMOGLOBIN 8.5 g/dL (12.0-16.0); LYMPH # 0.9 (1.2-3.4); LYMPH % 4.7 % (22.0-35.0); MEAN CELL VOLUME 98.4 fl (80.0-105.0); MEAN CORPUSCULAR HEMOGLOBIN 33.3 pg (25.0-35.0); MEAN CORPUSCULAR HGB CONC 33.9 g/dl (31.0-37.0); MONO # 1.3 (0.1-0.6); MONO % 6.8 % (1.0-6.0); PLATELET COUNT 180 10^3/uL (120.0-450.0); RBC 2.55 10^6/uL (3.5-6.1); RED CELL DISTRIBUTION WIDTH 14.7 % (11.5-14.5); WHITE BLOOD COUNT 19.2 10^3/ul (4.5-11.0)
[2017-09-05 07:05] LABS: INR 2.65 (0.93-1.08); PARTIAL THROMBOPLASTIN TIME 61.5 Seconds (25.1-36.5); PROTHROMBIN TIME 31.1 SECONDS (9.4-12.5)
[2017-09-05 07:24] LABS: ALB/GLOB RATIO 1.1 (1.1-1.8); ALBUMIN 2.5 g/dL (3.0-4.8); CALCIUM 6.9 mg/dL (8.4-10.5)
--- NOTE | 2017-09-05 08:01 | RAD ---
HISTORY: f/u COMPARISON: 09/04/2017 FINDINGS: LUNGS: There is an increasing consolidation of both lungs consistent with either a diffuse pneumonia or pulmonary edema. PLEURA: No significant pleural effusion identified, no pneumothorax apparent. CARDIOVASCULAR: Normal. OSSEOUS STRUCTURES: No significant abnormalities. VISUALIZED UPPER ABDOMEN: Normal. OTHER FINDINGS: The nasogastric tube is been pulled back and terminates in the mid esophagus. The endotracheal tube is in satisfactory position IMPRESSION: Increased bilateral alveolar infiltrate consistent with diffuse pneumonia versus pulmonary edema. Suboptimal position of the nasogastric tube in the midesophagus
[2017-09-05] MEDS ORDERED: Magnesium Sulfate 2 GM in Sodium Chloride 0.9% 100 ML IVPB ONE (08:22)
[2017-09-05] MEDS ORDERED: Albumin Human 25% (12.5 gm/50 ml) IV SCH (08:30)
[2017-09-05 09:01] LABS: ATYPICAL LYMPHOCYTE 1 % (0.0-0.0); BAND 2 % (0-2); LYMPHOCYTE 7 % (22.0-35.0); MONOCYTE 8 % (1.0-6.0); NEUTROPHIL 82 % (50.0-70.0)
--- NOTE | 2017-09-05 09:13 | PN ---
DATE: 09/05/2017 PULMONARY NOTE SUBJECTIVE: The patient remains on the ventilator. She remains sedated. PHYSICAL EXAMINATION: VITAL SIGNS: Temperature is 97.4, pulse 93, respirations 30/30, blood pressure 107/47. Oxygen saturation on the ventilator is 95%. HEENT: Normocephalic, atraumatic. NECK: No JVD. CARDIOVASCULAR: Positive S1, S2. No S3 gallop. LUNGS: Crackles at both bases. Mild bilateral rhonchi. No wheezing. EXTREMITIES: No clubbing, cyanosis or edema. GI: Abdomen is soft, mildly distended. Bowel sounds are positive. SKIN: No acute rash. NEUROLOGIC: Exam limited at the present time. PERTINENT LABORATORY DATA: Chest x-ray was done this morning and reviewed. It is clearly worse today with increasing bilateral pulmonary infiltrates. Arterial blood gas was done on PRVC of 30, tidal volume 350, FiO2 of 50%, PEEP of 15. Results are pH 7.35, pCO2 of 31 and pO2 of 82. IMPRESSION: 1. Respiratory failure. 2. Bilateral pneumonia. 3. Haemophilus influenza A positivity. Rule out influenza pneumonia. 4. Sepsis syndrome. 5. Alcoholic hepatitis. 6. Anemia. Plan: The patient remains in the ICU and on the ventilator. She remains sedated. I did discuss the case with the night nurse at length. The night nurse did inform me that the patient was doing poorly during his shift. Apparently, when taking the oral contrast for her CAT scan yesterday, she did aspirate. Contrast was obtained from the endotracheal tube as well as her mouth. I did review the chest x-ray as above. The chest x-ray is clearly worse with increased pulmonary infiltrates. I have also reviewed the arterial blood gas. The arterial blood gas reveals a normal pH, but with a significant alveolar-arterial gradient. I will continue with the current ventilator settings for now. I would continue with the antibiotic coverage as per Infectious Disease. The temperatures have resolved. There remains a leukocytosis. I would continue with the Renal, GI, and Cardiology evaluations. All inputs are noted. We are still awaiting the deep tracheal aspirate pathology. I will meet with the pathologist this morning. The patient remains critically ill at this point in time. Her overall status/prognosis remains very very guarded. I will discuss the above with the entire ICU team in the next few moments. I will also discuss the above with the attending physician. Kit Powell MD [id number]
[2017-09-05] MEDS: Meropenem IV 1 gm in NS 50 ML IVPB SCH (09:32)
--- NOTE | 2017-09-05 09:56 | CP.CCUPN ---
<Sushant Molina - Last Filed: 09/05/17 10:01> CCU Subjective - Physician Review Subjective (Free Text): Patient seen and examined at bedside intubated and sedated. ROS unobtainable. Critical Care Time Spent (in minutes): 40 CCU Objective - Vital Signs / Intake & Output Vital Signs (Last 4 hours): Vital Signs Pulse BP Pulse Ox 09/05/17 09:37 90/50 L 09/05/17 09:34 87 112/64 09/05/17 09:00 99/58 L 09/05/17 06:30 93 H 95 09/05/17 06:20 92 H 95 09/05/17 06:10 92 H 96 09/05/17 06:00 93 H 107/47 L 09/05/17 05:59 93 H 95 Intake and Output (Last 8hrs): Intake & Output 09/04/17 09/05/17 09/05/17 22:59 06:59 14:59 Intake Total 3221 2087 203 Output Total 1000 1000 Balance 2221 1087 203 Intake: IV 2320 2086 203 Left Upper arm 144 abx 700 300 albumin 150 d5 0.5 (NaBi) 450 fentanyl 90 96 levo 624 612 nimbex 5 120 vaso 144 versed 1 12 Oral 0 Other 900 Output: Urine 1000 1000 Urethral (Barron) 1000 1000 Other: # Bowel Movements 0 - Physical Exam Head: Positive for: Atraumatic, Normocephalic Pupils: Positive for: PERRL, Other (no nystagmus, no photophobia, sclera anicteric) Extroacular Muscles: Positive for: EOMI Conjunctiva: Positive for: Normal Ears: Positive for: Normal Mouth: Positive for: Dry, Normal Teeth, Other (uvula/tongue are midline, no exudate/lesions, no drooling/stridor) Pharnyx: Positive for: Normal Nose (External): Positive for: Atraumatic Nose (Internal): Positive for: Normal Inspection Neck: Positive for: Normal Range of Motion, Trachea Midline, Other (no step off , no nuchal rigidity, no meningeal signs). Negative for: Meningeal Signs, MIDLINE TENDERNESS Respiratory/Chest: Positive for: Rhonchi (upper and lower lobes bilaterally, significantly in upper right lobe), Other (asymmetric breath sounds, right slightly decr compare with left; + coarse breath sounds, no wheezing/rales, faint rales noted b/l, no accessory muscle use noted, no tachypenia). Negative for: Clear to Auscultation, Respiratory Distress, Accessory Muscle Use, Wheezes , Rales Cardiovascular: Positive for: Normal S1, S2. Negative for: Murmurs Abdomen: Positive for: Other (well nourished female, no focal tenderness, no masses/rebound/guarding/rigidity, no matos's sign, no mcburney's point tenderness). Negative for: Tenderness, Normal Bowel Sounds, Feeding Tubes Back: Positive for: Normal Inspection. Negative for: CVA Tenderness, Midline Tenderness, Paraspinal Tenderness Upper Extremity: Positive for: Normal Inspection, Normal ROM, NORMAL PULSES, Neurovascularly Intact Lower Extremity: Positive for: Normal Inspection, NORMAL PULSES, Neurovascularly Intact. Negative for: Latonia's Sign Neurological: Positive for: Other (sedated) Skin: Positive for: Warm, Dry, Other (cap refill ~ 1sec, no ulcerations, no petechiae, no gross pallor). Negative for: Rashes Psychiatric: Positive for: Other (sedated) - Medications Active Medications: Active Medications Generic Name Dose Route Start Last Admin Trade Name Freq PRN Reason Stop Dose Admin Albumin Human 12.5 gm 09/05/17 08:30 09/05/17 09:24 Albumin Human 25% (12.5 Gm/50 Ml) IV 12.5 gm Q2H NORMA Administration Albuterol/Ipratropium 3 ml 08/29/17 20:00 09/05/17 07:55 Duoneb 3 Mg/0.5 Mg (3 Ml) Ud IH 3 ml [id number] NORMA Administration Protocol Artificial Tears 0 ml 09/01/17 22:00 09/05/17 05:04 Artificial Tears OU 1 drop Q8 NORMA Administration Fluoxetine HCl 40 mg 08/30/17 10:00 08/30/17 15:44 Prozac PO 40 mg DAILY NORMA Administration Heparin Sodium (Porcine) 5,000 units 08/30/17 22:00 09/05/17 05:03 Heparin SC 5,000 units Q8 NORMA Administration Protocol Hydrocortisone Sodium Succinate 50 mg 09/04/17 07:45 09/05/17 08:46 Solu-Cortef IVP 50 mg Q6H NORMA Administration Propofol 1,000 mg in 100 mls @ 1.987 mls/hr 08/30/17 19:47 08/31/17 08:47 Diprivan IV 0 mcg/kg/min .Q24H PRN 0 mls/hr TITRATE PER MD ORDER Titration Protocol 5 MCG/KG/MIN NOREPINEPHRINE BIT/0.9 % NACL 4 mg in 250 mls @ 15 mls/hr 09/01/17 13:26 09:35 Levophed 4 Mg/ 250 Ml Ns Premixed IV 6 mcg/min .[id number] PRN 22.5 mls/hr TITRATE PER MD ORDER Titration Protocol 4 MCG/MIN Doxycycline Hyclate 100 mg/ 100 mls @ 100 mls/hr 09/03/17 22:00 09/05/17 09: 29 Sodium Chloride IVPB 09/12/17 22:01 100 mls/hr Q12 NORMA Administration Protocol Sodium Bicarbonate 150 meq/ 1,150 mls @ 150 mls/hr 09/04/17 07:45 09/04/17 08 :37 Dextrose IV 150 mls/hr .[id number] NORMA Administration Vasopressin 20 units/ Dextrose 101 mls @ 12.12 mls/hr 09/04/17 07:45 09:00 IV 12.12 mls/hr .[id number] NORMA Administration Protocol 0.04 U/MIN Midazolam 100 mg/100ml in NS 100 mg in 100 mls @ 1 mls/hr 09/04/17 18:51 Midazolam 100 Mg/100ml In Ns IV .Q24H PRN Agitation Protocol 1 MG/HR Meropenem 50 mls @ 100 mls/hr 09/04/17 22:00 09/05/17 09:32 Merrem Iv 1 Gm Premix IVPB 09/11/17 22:01 100 mls/hr Q12 NORMA Administration Protocol Fentanyl Citrate 1,000 mcg in 100 mls @ 2 mls/hr 09/04/17 21:17 09/05/17 08: 30 Fentanyl Citrate/Sodium Chloride 1 Mg/100 Ml IV 60 mcg/hr .Q24H PRN 6 mls/hr TITRATE PER MD ORDER Titration Protocol 20 MCG/HR Potassium Chloride 10 meq in 100 mls @ 50 mls/hr 09/05/17 08:30 09/05/17 08: 36 Potassium Chloride 10 Meq/100 Ml IVPB 09/05/17 16:29 50 mls/hr Q2H NORMA Administration Lorazepam 1 mg 08/30/17 20:59 08/30/17 21:13 Ativan IVP 1 mg ONCE PRN Administration Anxiety Protocol Metoprolol Tartrate 25 mg 08/31/17 18:00 09/05/17 09:34 Lopressor PO 25 mg BID NORMA Administration Midazolam HCl 4 mg 08/31/17 08:31 08/31/17 20:36 Versed Inj IVP 4 mg Q2H PRN Administration Agitation Oseltamivir Phosphate 75 mg 09/02/17 22:00 09/04/17 22:25 Tamiflu Susp PO 75 mg 1000,2200 NORMA Administration Protocol Pantoprazole Sodium 40 mg 08/31/17 10:00 09/05/17 09:31 Protonix Inj IVP 40 mg DAILY NORMA Administration Verapamil HCl 2.5 mg 09/01/17 09:04 Verapamil Inj IVP Q6H PRN for herat rate >130 - Patient Studies Lab Studies: Microbiology Studies 09/02/17 10:30 Blood Culture - Preliminary Blood NO GROWTH AFTER 48 HOURS 09/02/17 10:50 Blood Culture - Preliminary Blood NO GROWTH AFTER 48 HOURS Lab Studies 09/05/17 09/05/17 09/05/17 Range/Units 08:01 06:00 06:00 WBC (4.5-11.0) 10^3/ul RBC (3.5-6.1) 10^6/uL Hgb (12.0-16.0) g/dL Hct (36.0-48.0) % MCV (80.0-105.0) fl MCH (25.0-35.0) pg MCHC (31.0-37.0) g/dl RDW (11.5-14.5) % Plt Count (120.0-450.0) 10^3/uL MPV (7.0-11.0) fl Gran % (50.0-68.0) % Lymph % (Auto) (22.0-35.0) % Moody % (Auto) (1.0-6.0) % Eos % (Auto) (1.5-5.0) % Baso % (Auto) (0.0-3.0) % Gran # (1.4-6.5) Lymph # (Auto) (1.2-3.4) Moody # (Auto) (0.1-0.6) Eos # (Auto) (0.0-0.7) Baso # (Auto) (0.0-2.0) K/mm3 Neutrophils % (Manual) (50.0-70.0) % Band Neutrophils % (0-2) % Lymphocytes % (Manual) (22.0-35.0) % Atypical Lymphs % (0.0-0.0) % Monocytes % (Manual) (1.0-6.0) % PT 31.1 H (9.4-12.5) SECONDS INR 2.65 H (0.93-1.08) APTT 61.5 H (25.1-36.5) Seconds pCO2 (35-45) mm/Hg pO2 (80-100) mm/Hg HCO3 (21-28) mmol/L ABG pH (7.35-7.45) ABG Total CO2 (22-28) mmol.L ABG O2 Saturation (95-98) % ABG O2 Content (15-23) ML/dl ABG Base Excess (-2.0-3.0) mmol/L ABG Hemoglobin (11.7-17.4) g/dL ABG Carboxyhemoglobin (0.5-1.5) % POC ABG HHb (Measured) (0-5) % ABG Methemoglobin (0.0-3.0) % ABG O2 Capacity (16-24) mL/dl Hgb O2 Saturation (95.0-98.0) % FiO2 % Sodium (132-148) mmol/L Potassium (3.6-5.0) mmol/L Chloride (98-107) mmol/L Carbon Dioxide (21-33) mmol/L Anion Gap (10-20) BUN (7-21) mg/dL Creatinine (0.7-1.2) mg/dl Est GFR ( Amer) Est GFR (Non-Af Amer) POC Glucose (mg/dL) 140 H (65-110) mg/dL Random Glucose (70-110) mg/dL Lactic Acid (0.7-2.1) mmol/L Calcium (8.4-10.5) mg/dL Phosphorus 4.2 (2.5-4.5) mg/dL Magnesium 1.5 L (1.7-2.2) mg/dL Total Bilirubin (0.2-1.3) mg/dL AST (14-36) U/L ALT (7-56) U/L Alkaline Phosphatase (38-126) U/L NT-Pro-B Natriuret Pep 3430 H (0-450) pg/mL Total Protein (5.8-8.3) g/dL Albumin (3.0-4.8) g/dL Globulin gm/dL Albumin/Globulin Ratio (1.1-1.8) 09/05/17 09/05/17 09/05/17 Range/Units 06:00 06:00 05:15 WBC 19.2 H (4.5-11.0) 10^3/ul RBC 2.55 L (3.5-6.1) 10^6/uL Hgb 8.5 L (12.0-16.0) g/dL Hct 25.1 L (36.0-48.0) % MCV 98.4 (80.0-105.0) fl MCH 33.3 (25.0-35.0) pg MCHC 33.9 (31.0-37.0) g/dl RDW 14.7 H (11.5-14.5) % Plt Count 180 (120.0-450.0) 10^3/uL MPV 10.0 (7.0-11.0) fl Gran % 88.4 H (50.0-68.0) % Lymph % (Auto) 4.7 L (22.0-35.0) % Moody % (Auto) 6.8 H (1.0-6.0) % Eos % (Auto) 0.0 L (1.5-5.0) % Baso % (Auto) 0.1 (0.0-3.0) % Gran # 16.99 H (1.4-6.5) Lymph # (Auto) 0.9 L (1.2-3.4) Moody # (Auto) 1.3 H (0.1-0.6) Eos # (Auto) 0.0 (0.0-0.7) Baso # (Auto) 0.01 (0.0-2.0) K/mm3 Neutrophils % (Manual) 82 H (50.0-70.0) % Band Neutrophils % 2 (0-2) % Lymphocytes % (Manual) 7 L (22.0-35.0) % Atypical Lymphs % 1 H (0.0-0.0) % Monocytes % (Manual) 8 H (1.0-6.0) % PT (9.4-12.5) SECONDS INR (0.93-1.08) APTT (25.1-36.5) Seconds pCO2 31 L (35-45) mm/Hg pO2 82.0 (80-100) mm/Hg HCO3 17.1 L (21-28) mmol/L ABG pH 7.35 (7.35-7.45) ABG Total CO2 18.1 L (22-28) mmol.L ABG O2 Saturation 99.1 H (95-98) % ABG O2 Content 13.1 L (15-23) ML/dl ABG Base Excess -7.6 L (-2.0-3.0) mmol/L ABG Hemoglobin 9.7 L (11.7-17.4) g/dL ABG Carboxyhemoglobin 2.6 H (0.5-1.5) % POC ABG HHb (Measured) 0.9 (0-5) % ABG Methemoglobin 1.1 (0.0-3.0) % ABG O2 Capacity 13.2 L (16-24) mL/dl Hgb O2 Saturation 95.5 (95.0-98.0) % FiO2 50.0 % Sodium 142 (132-148) mmol/L Potassium 2.9 L* (3.6-5.0) mmol/L Chloride 115 H (98-107) mmol/L Carbon Dioxide 14 L (21-33) mmol/L Anion Gap 16 (10-20) BUN 28 H (7-21) mg/dL Creatinine 1.3 H (0.7-1.2) mg/dl Est GFR ( Amer) 51 Est GFR (Non-Af Amer) 42 POC Glucose (mg/dL) (65-110) mg/dL Random Glucose 232 H (70-110) mg/dL Lactic Acid (0.7-2.1) mmol/L Calcium 6.9 L* (8.4-10.5) mg/dL Phosphorus (2.5-4.5) mg/dL Magnesium (1.7-2.2) mg/dL Total Bilirubin 3.0 H (0.2-1.3) mg/dL AST 58 H (14-36) U/L ALT 24 (7-56) U/L Alkaline Phosphatase 91 (38-126) U/L NT-Pro-B Natriuret Pep (0-450) pg/mL Total Protein 4.8 L (5.8-8.3) g/dL Albumin 2.5 L (3.0-4.8) g/dL Globulin 2.3 gm/dL Albumin/Globulin Ratio 1.1 (1.1-1.8) 09/05/17 09/04/17 09/04/17 Range/Units 04:24 23:17 16:15 WBC (4.5-11.0) 10^3/ul RBC (3.5-6.1) 10^6/uL Hgb (12.0-16.0) g/dL Hct (36.0-48.0) % MCV (80.0-105.0) fl MCH (25.0-35.0) pg MCHC (31.0-37.0) g/dl RDW (11.5-14.5) % Plt Count (120.0-450.0) 10^3/uL MPV (7.0-11.0) fl Gran % (50.0-68.0) % Lymph % (Auto) (22.0-35.0) % Moody % (Auto) (1.0-6.0) % Eos % (Auto) (1.5-5.0) % Baso % (Auto) (0.0-3.0) % Gran # (1.4-6.5) Lymph # (Auto) (1.2-3.4) Moody # (Auto) (0.1-0.6) Eos # (Auto) (0.0-0.7) Baso # (Auto) (0.0-2.0) K/mm3 Neutrophils % (Manual) (50.0-70.0) % Band Neutrophils % (0-2) % Lymphocytes % (Manual) (22.0-35.0) % Atypical Lymphs % (0.0-0.0) % Monocytes % (Manual) (1.0-6.0) % PT (9.4-12.5) SECONDS INR (0.93-1.08) APTT (25.1-36.5) Seconds pCO2 (35-45) mm/Hg pO2 (80-100) mm/Hg HCO3 (21-28) mmol/L ABG pH (7.35-7.45) ABG Total CO2 (22-28) mmol.L ABG O2 Saturation (95-98) % ABG O2 Content (15-23) ML/dl ABG Base Excess (-2.0-3.0) mmol/L ABG Hemoglobin (11.7-17.4) g/dL ABG Carboxyhemoglobin (0.5-1.5) % POC ABG HHb (Measured) (0-5) % ABG Methemoglobin (0.0-3.0) % ABG O2 Capacity (16-24) mL/dl Hgb O2 Saturation (95.0-98.0) % FiO2 % Sodium (132-148) mmol/L Potassium (3.6-5.0) mmol/L Chloride (98-107) mmol/L Carbon Dioxide (21-33) mmol/L Anion Gap (10-20) BUN (7-21) mg/dL Creatinine (0.7-1.2) mg/dl Est GFR ( Amer) Est GFR (Non-Af Amer) POC Glucose (mg/dL) 132 H 124 H 124 H (65-110) mg/dL Random Glucose (70-110) mg/dL Lactic Acid (0.7-2.1) mmol/L Calcium (8.4-10.5) mg/dL Phosphorus (2.5-4.5) mg/dL Magnesium (1.7-2.2) mg/dL Total Bilirubin (0.2-1.3) mg/dL AST (14-36) U/L ALT (7-56) U/L Alkaline Phosphatase (38-126) U/L NT-Pro-B Natriuret Pep (0-450) pg/mL Total Protein (5.8-8.3) g/dL Albumin (3.0-4.8) g/dL Globulin gm/dL Albumin/Globulin Ratio (1.1-1.8) 09/04/17 09/04/17 09/04/17 Range/Units 11:49 10:30 07:53 WBC (4.5-11.0) 10^3/ul RBC (3.5-6.1) 10^6/uL Hgb (12.0-16.0) g/dL Hct (36.0-48.0) % MCV (80.0-105.0) fl MCH (25.0-35.0) pg MCHC (31.0-37.0) g/dl RDW (11.5-14.5) % Plt Count (120.0-450.0) 10^3/uL MPV (7.0-11.0) fl Gran % (50.0-68.0) % Lymph % (Auto) (22.0-35.0) % Moody % (Auto) (1.0-6.0) % Eos % (Auto) (1.5-5.0) % Baso % (Auto) (0.0-3.0) % Gran # (1.4-6.5) Lymph # (Auto) (1.2-3.4) Moody # (Auto) (0.1-0.6) Eos # (Auto) (0.0-0.7) Baso # (Auto) (0.0-2.0) K/mm3 Neutrophils % (Manual) (50.0-70.0) % Band Neutrophils % (0-2) % Lymphocytes % (Manual) (22.0-35.0) % Atypical Lymphs % (0.0-0.0) % Monocytes % (Manual) (1.0-6.0) % PT (9.4-12.5) SECONDS INR (0.93-1.08) APTT (25.1-36.5) Seconds pCO2 (35-45) mm/Hg pO2 (80-100) mm/Hg HCO3 (21-28) mmol/L ABG pH (7.35-7.45) ABG Total CO2 (22-28) mmol.L ABG O2 Saturation (95-98) % ABG O2 Content (15-23) ML/dl ABG Base Excess (-2.0-3.0) mmol/L ABG Hemoglobin (11.7-17.4) g/dL ABG Carboxyhemoglobin (0.5-1.5) % POC ABG HHb (Measured) (0-5) % ABG Methemoglobin (0.0-3.0) % ABG O2 Capacity (16-24) mL/dl Hgb O2 Saturation (95.0-98.0) % FiO2 % Sodium (132-148) mmol/L Potassium (3.6-5.0) mmol/L Chloride (98-107) mmol/L Carbon Dioxide (21-33) mmol/L Anion Gap (10-20) BUN (7-21) mg/dL Creatinine (0.7-1.2) mg/dl Est GFR ( Amer) Est GFR (Non-Af Amer) POC Glucose (mg/dL) 143 H 96 (65-110) mg/dL Random Glucose (70-110) mg/dL Lactic Acid 2.4 H (0.7-2.1) mmol/L Calcium (8.4-10.5) mg/dL Phosphorus (2.5-4.5) mg/dL Magnesium (1.7-2.2) mg/dL Total Bilirubin (0.2-1.3) mg/dL AST (14-36) U/L ALT (7-56) U/L Alkaline Phosphatase (38-126) U/L NT-Pro-B Natriuret Pep (0-450) pg/mL Total Protein (5.8-8.3) g/dL Albumin (3.0-4.8) g/dL Globulin gm/dL Albumin/Globulin Ratio (1.1-1.8) Laboratory Results - last 24 hr 09/04/17 09/04/17 09/04/17 07:53 10:30 11:49 WBC RBC Hgb Hct MCV MCH MCHC RDW Plt Count MPV Gran % Lymph % (Auto) Moody % (Auto) Eos % (Auto) Baso % (Auto) Gran # Lymph # (Auto) Moody # (Auto) Eos # (Auto) Baso # (Auto) Neutrophils % (Manual) Band Neutrophils % Lymphocytes % (Manual) Atypical Lymphs % Monocytes % (Manual) PT INR APTT pCO2 pO2 HCO3 ABG pH ABG Total CO2 ABG O2 Saturation ABG O2 Content ABG Base Excess ABG Hemoglobin ABG Carboxyhemoglobin POC ABG HHb (Measured) ABG Methemoglobin ABG O2 Capacity Hgb O2 Saturation FiO2 Sodium Potassium Chloride Carbon Dioxide Anion Gap BUN Creatinine Est GFR ( Amer) Est GFR (Non-Af Amer) POC Glucose (mg/dL) 96 143 H Random Glucose Lactic Acid 2.4 H Calcium Phosphorus Magnesium Total Bilirubin AST ALT Alkaline Phosphatase NT-Pro-B Natriuret Pep Total Protein Albumin Globulin Albumin/Globulin Ratio 09/04/17 09/04/17 09/05/17 16:15 23:17 04:24 WBC RBC Hgb Hct MCV MCH MCHC RDW Plt Count MPV Gran % Lymph % (Auto) Moody % (Auto) Eos % (Auto) Baso % (Auto) Gran # Lymph # (Auto) Moody # (Auto) Eos # (Auto) Baso # (Auto) Neutrophils % (Manual) Band Neutrophils % Lymphocytes % (Manual) Atypical Lymphs % Monocytes % (Manual) PT INR APTT pCO2 pO2 HCO3 ABG pH ABG Total CO2 ABG O2 Saturation ABG O2 Content ABG Base Excess ABG Hemoglobin ABG Carboxyhemoglobin POC ABG HHb (Measured) ABG Methemoglobin ABG O2 Capacity Hgb O2 Saturation FiO2 Sodium Potassium Chloride Carbon Dioxide Anion Gap BUN Creatinine Est GFR ( Amer) Est GFR (Non-Af Amer) POC Glucose (mg/dL) 124 H 124 H 132 H Random Glucose Lactic Acid Calcium Phosphorus Magnesium Total Bilirubin AST ALT Alkaline Phosphatase NT-Pro-B Natriuret Pep Total Protein Albumin Globulin Albumin/Globulin Ratio 09/05/17 09/05/17 09/05/17 05:15 06:00 06:00 WBC 19.2 H RBC 2.55 L Hgb 8.5 L Hct 25.1 L MCV 98.4 MCH 33.3 MCHC 33.9 RDW 14.7 H Plt Count 180 MPV 10.0 Gran % 88.4 H Lymph % (Auto) 4.7 L Moody % (Auto) 6.8 H Eos % (Auto) 0.0 L Baso % (Auto) 0.1 Gran # 16.99 H Lymph # (Auto) 0.9 L Moody # (Auto) 1.3 H Eos # (Auto) 0.0 Baso # (Auto) 0.01 Neutrophils % (Manual) 82 H Band Neutrophils % 2 Lymphocytes % (Manual) 7 L Atypical Lymphs % 1 H Monocytes % (Manual) 8 H PT INR APTT pCO2 31 L pO2 82.0 HCO3 17.1 L ABG pH 7.35 ABG Total CO2 18.1 L ABG O2 Saturation 99.1 H ABG O2 Content 13.1 L ABG Base Excess -7.6 L ABG Hemoglobin 9.7 L ABG Carboxyhemoglobin 2.6 H POC ABG HHb (Measured) 0.9 ABG Methemoglobin 1.1 ABG O2 Capacity 13.2 L Hgb O2 Saturation 95.5 FiO2 50.0 Sodium 142 Potassium 2.9 L* Chloride 115 H Carbon Dioxide 14 L Anion Gap 16 BUN 28 H Creatinine 1.3 H Est GFR ( Amer) 51 Est GFR (Non-Af Amer) 42 POC Glucose (mg/dL) Random Glucose 232 H Lactic Acid Calcium 6.9 L* Phosphorus Magnesium Total Bilirubin 3.0 H AST 58 H ALT 24 Alkaline Phosphatase 91 NT-Pro-B Natriuret Pep Total Protein 4.8 L Albumin 2.5 L Globulin 2.3 Albumin/Globulin Ratio 1.1 09/05/17 09/05/17 09/05/17 06:00 06:00 08:01 WBC RBC Hgb Hct MCV MCH MCHC RDW Plt Count MPV Gran % Lymph % (Auto) Moody % (Auto) Eos % (Auto) Baso % (Auto) Gran # Lymph # (Auto) Moody # (Auto) Eos # (Auto) Baso # (Auto) Neutrophils % (Manual) Band Neutrophils % Lymphocytes % (Manual) Atypical Lymphs % Monocytes % (Manual) PT 31.1 H INR 2.65 H APTT 61.5 H pCO2 pO2 HCO3 ABG pH ABG Total CO2 ABG O2 Saturation ABG O2 Content ABG Base Excess ABG Hemoglobin ABG Carboxyhemoglobin POC ABG HHb (Measured) ABG Methemoglobin ABG O2 Capacity Hgb O2 Saturation FiO2 Sodium Potassium Chloride Carbon Dioxide Anion Gap BUN Creatinine Est GFR ( Amer) Est GFR (Non-Af Amer) POC Glucose (mg/dL) 140 H Random Glucose Lactic Acid Calcium Phosphorus 4.2 Magnesium 1.5 L Total Bilirubin AST ALT Alkaline Phosphatase NT-Pro-B Natriuret Pep 3430 H Total Protein Albumin Globulin Albumin/Globulin Ratio Fingerstick Blood Sugar Results: 140 Review of Systems - Review of Systems Systems not reviewed;Unavailable: Intubated Critical Care Progress Note - Nutrition Nutrition: Nutrition Category Date Time Status NPO Diet [DIET] Diets 09/01/17 Breakfast Ordered Assessment/Plan - Assessment and Plan (Free Text) Assessment: 56 year old female with history of alcoholic hepatitis presenting with with influenza pneumonia, complicated by hypoxemic respiratory failure, requiring intubation. Neuro -Intubated and sedated on fentanyl and versed -Nimbex discontinued Pulmonary -Aspiration pneumonia s/p CT abdomen contrast -PRVC settings 50 15 30 350; blood gas 7.35, pCO2 31, pO2 82, HCO3 17.1 -CXR shows worsening -Continue with duonebs cardiovascular -Maintain MAP>65; on levophed and vasopressin -Maintain normotensive -DVT ppx Hematologic -DVT prophylaxis with heparin Gastrointestinal -Monitor liver enzymes -GI prophylaxis -NPO -OGT Infectious disease -Influenza superimposed with bilateral pneumonia secondary to HCAP -Tamiflu course completed -Continue with meropenem day#7 for treatment of pneumonia, doxycycline day #3 Endocrine -maintain euglycemia and normothermia Renal -maintain euvolemia -lasix discontinued as per ICU -Current Cr is 1.3; continues to improve -Maintain electrolytes normal. Current magnesium is 1.5 will replete, current potassium 2.9 will replete, Corrected calcium 8.1 <Earl Vinson - Last Filed: 09/05/17 10:29> CCU Objective - Vital Signs / Intake & Output Vital Signs (Last 4 hours): Vital Signs Pulse BP Pulse Ox 09/05/17 09:37 90/50 L 09/05/17 09:34 87 112/64 09/05/17 09:00 99/58 L 09/05/17 06:30 93 H 95 Intake and Output (Last 8hrs): Intake & Output 09/04/17 09/05/17 09/05/17 22:59 06:59 14:59 Intake Total 3221 2087 213 Output Total 1000 1000 Balance 2221 1087 213 Intake: IV 1 2087 213 Left Upper arm 144 abx 700 300 albumin 150 d5 0.5 (NaBi) 450 fentanyl 90 96 levo 624 612 nimbex 5 120 vaso 144 versed 1 12 Oral 0 Other 900 Output: Urine 1000 1000 Urethral (Barron) 1000 1000 Other: # Bowel Movements 0 - Medications Active Medications: Active Medications Generic Name Dose Route Start Last Admin Trade Name Freq PRN Reason Stop Dose Admin Albumin Human 12.5 gm 09/05/17 08:30 09/05/17 09:24 Albumin Human 25% (12.5 Gm/50 Ml) IV 12.5 gm Q2H NORMA Administration Albuterol/Ipratropium 3 ml 08/29/17 20:00 09/05/17 07:55 Duoneb 3 Mg/0.5 Mg (3 Ml) Ud IH 3 ml [id number] NORMA Administration Protocol Artificial Tears 0 ml 09/01/17 22:00 09/05/17 05:04 Artificial Tears OU 1 drop Q8 NORMA Administration Fluoxetine HCl 40 mg 08/30/17 10:00 08/30/17 15:44 Prozac PO 40 mg DAILY NORMA Administration Heparin Sodium (Porcine) 5,000 units 08/30/17 22:00 09/05/17 05:03 Heparin SC 5,000 units Q8 NORMA Administration Protocol Hydrocortisone Sodium Succinate 50 mg 09/04/17 07:45 09/05/17 08:46 Solu-Cortef IVP 50 mg Q6H NORMA Administration Propofol 1,000 mg in 100 mls @ 1.987 mls/hr 08/30/17 19:47 08/31/17 08:47 Diprivan IV 0 mcg/kg/min .Q24H PRN 0 mls/hr TITRATE PER MD ORDER Titration Protocol 5 MCG/KG/MIN NOREPINEPHRINE BIT/0.9 % NACL 4 mg in 250 mls @ 15 mls/hr 09/01/17 13:26 09:35 Levophed 4 Mg/ 250 Ml Ns Premixed IV 6 mcg/min .[id number] PRN 22.5 mls/hr TITRATE PER MD ORDER Titration Protocol 4 MCG/MIN Doxycycline Hyclate 100 mg/ 100 mls @ 100 mls/hr 09/03/17 22:00 09/05/17 09: 29 Sodium Chloride IVPB 09/12/17 22:01 100 mls/hr Q12 NORMA Administration Protocol Sodium Bicarbonate 150 meq/ 1,150 mls @ 150 mls/hr 09/04/17 07:45 09/04/17 08 :37 Dextrose IV 150 mls/hr .Q7H40M NORMA Administration Vasopressin 20 units/ Dextrose 101 mls @ 12.12 mls/hr 09/04/17 07:45 09:00 IV 12.12 mls/hr .Q8H20M NORMA Administration Protocol 0.04 U/MIN Midazolam 100 mg/100ml in NS 100 mg in 100 mls @ 1 mls/hr 09/04/17 18:51 09:35 Midazolam 100 Mg/100ml In Ns IV 1 mg/hr .Q24H PRN 1 mls/hr Agitation Administration Protocol 1 MG/HR Meropenem 50 mls @ 100 mls/hr 09/04/17 22:00 09/05/17 09:32 Merrem Iv 1 Gm Premix IVPB 09/11/17 22:01 100 mls/hr Q12 NORMA Administration Protocol Fentanyl Citrate 1,000 mcg in 100 mls @ 2 mls/hr 09/04/17 21:17 09/05/17 10: 00 Fentanyl Citrate/Sodium Chloride 1 Mg/100 Ml IV 80 mcg/hr .Q24H PRN 8 mls/hr TITRATE PER MD ORDER Titration Protocol 20 MCG/HR Potassium Chloride 10 meq in 100 mls @ 50 mls/hr 09/05/17 08:30 09/05/17 08: 36 Potassium Chloride 10 Meq/100 Ml IVPB 09/05/17 16:29 50 mls/hr Q2H NORMA Administration Lorazepam 1 mg 08/30/17 20:59 08/30/17 21:13 Ativan IVP 1 mg ONCE PRN Administration Anxiety Protocol Metoprolol Tartrate 25 mg 08/31/17 18:00 09/05/17 09:34 Lopressor PO 25 mg BID NORMA Administration Midazolam HCl 4 mg 08/31/17 08:31 08/31/17 20:36 Versed Inj IVP 4 mg Q2H PRN Administration Agitation Oseltamivir Phosphate 75 mg 09/02/17 22:00 09/04/17 22:25 Tamiflu Susp PO 75 mg 1000,2200 NORMA Administration Protocol Pantoprazole Sodium 40 mg 08/31/17 10:00 09/05/17 09:31 Protonix Inj IVP 40 mg DAILY NORMA Administration Verapamil HCl 2.5 mg 09/01/17 09:04 Verapamil Inj IVP Q6H PRN for herat rate >130 - Patient Studies Lab Studies: Microbiology Studies 09/02/17 10:30 Blood Culture - Preliminary Blood NO GROWTH AFTER 48 HOURS 09/02/17 10:50 Blood Culture - Preliminary Blood NO GROWTH AFTER 48 HOURS Lab Studies 09/05/17 09/05/17 09/05/17 Range/Units 08:01 06:00 06:00 WBC (4.5-11.0) 10^3/ul RBC (3.5-6.1) 10^6/uL Hgb (12.0-16.0) g/dL Hct (36.0-48.0) % MCV (80.0-105.0) fl MCH (25.0-35.0) pg MCHC (31.0-37.0) g/dl RDW (11.5-14.5) % Plt Count (120.0-450.0) 10^3/uL MPV (7.0-11.0) fl Gran % (50.0-68.0) % Lymph % (Auto) (22.0-35.0) % Moody % (Auto) (1.0-6.0) % Eos % (Auto) (1.5-5.0) % Baso % (Auto) (0.0-3.0) % Gran # (1.4-6.5) Lymph # (Auto) (1.2-3.4) Moody # (Auto) (0.1-0.6) Eos # (Auto) (0.0-0.7) Baso # (Auto) (0.0-2.0) K/mm3 Neutrophils % (Manual) (50.0-70.0) % Band Neutrophils % (0-2) % Lymphocytes % (Manual) (22.0-35.0) % Atypical Lymphs % (0.0-0.0) % Monocytes % (Manual) (1.0-6.0) % PT 31.1 H (9.4-12.5) SECONDS INR 2.65 H (0.93-1.08) APTT 61.5 H (25.1-36.5) Seconds pCO2 (35-45) mm/Hg pO2 (80-100) mm/Hg HCO3 (21-28) mmol/L ABG pH (7.35-7.45) ABG Total CO2 (22-28) mmol.L ABG O2 Saturation (95-98) % ABG O2 Content (15-23) ML/dl ABG Base Excess (-2.0-3.0) mmol/L ABG Hemoglobin (11.7-17.4) g/dL ABG Carboxyhemoglobin (0.5-1.5) % POC ABG HHb (Measured) (0-5) % ABG Methemoglobin (0.0-3.0) % ABG O2 Capacity (16-24) mL/dl Hgb O2 Saturation (95.0-98.0) % FiO2 % Sodium (132-148) mmol/L Potassium (3.6-5.0) mmol/L Chloride (98-107) mmol/L Carbon Dioxide (21-33) mmol/L Anion Gap (10-20) BUN (7-21) mg/dL Creatinine (0.7-1.2) mg/dl Est GFR ( Amer) Est GFR (Non-Af Amer) POC Glucose (mg/dL) 140 H (65-110) mg/dL Random Glucose (70-110) mg/dL Lactic Acid (0.7-2.1) mmol/L Calcium (8.4-10.5) mg/dL Phosphorus 4.2 (2.5-4.5) mg/dL Magnesium 1.5 L (1.7-2.2) mg/dL Total Bilirubin (0.2-1.3) mg/dL AST (14-36) U/L ALT (7-56) U/L Alkaline Phosphatase (38-126) U/L NT-Pro-B Natriuret Pep 3430 H (0-450) pg/mL Total Protein (5.8-8.3) g/dL Albumin (3.0-4.8) g/dL Globulin gm/dL Albumin/Globulin Ratio (1.1-1.8) 09/05/17 09/05/17 09/05/17 Range/Units 06:00 06:00 05:15 WBC 19.2 H (4.5-11.0) 10^3/ul RBC 2.55 L (3.5-6.1) 10^6/uL Hgb 8.5 L (12.0-16.0) g/dL Hct 25.1 L (36.0-48.0) % MCV 98.4 (80.0-105.0) fl MCH 33.3 (25.0-35.0) pg MCHC 33.9 (31.0-37.0) g/dl RDW 14.7 H (11.5-14.5) % Plt Count 180 (120.0-450.0) 10^3/uL MPV 10.0 (7.0-11.0) fl Gran % 88.4 H (50.0-68.0) % Lymph % (Auto) 4.7 L (22.0-35.0) % Moody % (Auto) 6.8 H (1.0-6.0) % Eos % (Auto) 0.0 L (1.5-5.0) % Baso % (Auto) 0.1 (0.0-3.0) % Gran # 16.99 H (1.4-6.5) Lymph # (Auto) 0.9 L (1.2-3.4) Moody # (Auto) 1.3 H (0.1-0.6) Eos # (Auto) 0.0 (0.0-0.7) Baso # (Auto) 0.01 (0.0-2.0) K/mm3 Neutrophils % (Manual) 82 H (50.0-70.0) % Band Neutrophils % 2 (0-2) % Lymphocytes % (Manual) 7 L (22.0-35.0) % Atypical Lymphs % 1 H (0.0-0.0) % Monocytes % (Manual) 8 H (1.0-6.0) % PT (9.4-12.5) SECONDS INR (0.93-1.08) APTT (25.1-36.5) Seconds pCO2 31 L (35-45) mm/Hg pO2 82.0 (80-100) mm/Hg HCO3 17.1 L (21-28) mmol/L ABG pH 7.35 (7.35-7.45) ABG Total CO2 18.1 L (22-28) mmol.L ABG O2 Saturation 99.1 H (95-98) % ABG O2 Content 13.1 L (15-23) ML/dl ABG Base Excess -7.6 L (-2.0-3.0) mmol/L ABG Hemoglobin 9.7 L (11.7-17.4) g/dL ABG Carboxyhemoglobin 2.6 H (0.5-1.5) % POC ABG HHb (Measured) 0.9 (0-5) % ABG Methemoglobin 1.1 (0.0-3.0) % ABG O2 Capacity 13.2 L (16-24) mL/dl Hgb O2 Saturation 95.5 (95.0-98.0) % FiO2 50.0 % Sodium 142 (132-148) mmol/L Potassium 2.9 L* (3.6-5.0) mmol/L Chloride 115 H (98-107) mmol/L Carbon Dioxide 14 L (21-33) mmol/L Anion Gap 16 (10-20) BUN 28 H (7-21) mg/dL Creatinine 1.3 H (0.7-1.2) mg/dl Est GFR ( Amer) 51 Est GFR (Non-Af Amer) 42 POC Glucose (mg/dL) (65-110) mg/dL Random Glucose 232 H (70-110) mg/dL Lactic Acid (0.7-2.1) mmol/L Calcium 6.9 L* (8.4-10.5) mg/dL Phosphorus (2.5-4.5) mg/dL Magnesium (1.7-2.2) mg/dL Total Bilirubin 3.0 H (0.2-1.3) mg/dL AST 58 H (14-36) U/L ALT 24 (7-56) U/L Alkaline Phosphatase 91 (38-126) U/L NT-Pro-B Natriuret Pep (0-450) pg/mL Total Protein 4.8 L (5.8-8.3) g/dL Albumin 2.5 L (3.0-4.8) g/dL Globulin 2.3 gm/dL Albumin/Globulin Ratio 1.1 (1.1-1.8) 09/05/17 09/04/17 09/04/17 Range/Units 04: 23:17 16:15 WBC (4.5-11.0) 10^3/ul RBC (3.5-6.1) 10^6/uL Hgb (12.0-16.0) g/dL Hct (36.0-48.0) % MCV (80.0-105.0) fl MCH (25.0-35.0) pg MCHC (31.0-37.0) g/dl RDW (11.5-14.5) % Plt Count (120.0-450.0) 10^3/uL MPV (7.0-11.0) fl Gran % (50.0-68.0) % Lymph % (Auto) (22.0-35.0) % Moody % (Auto) (1.0-6.0) % Eos % (Auto) (1.5-5.0) % Baso % (Auto) (0.0-3.0) % Gran # (1.4-6.5) Lymph # (Auto) (1.2-3.4) Moody # (Auto) (0.1-0.6) Eos # (Auto) (0.0-0.7) Baso # (Auto) (0.0-2.0) K/mm3 Neutrophils % (Manual) (50.0-70.0) % Band Neutrophils % (0-2) % Lymphocytes % (Manual) (22.0-35.0) % Atypical Lymphs % (0.0-0.0) % Monocytes % (Manual) (1.0-6.0) % PT (9.4-12.5) SECONDS INR (0.93-1.08) APTT (25.1-36.5) Seconds pCO2 (35-45) mm/Hg pO2 (80-100) mm/Hg HCO3 (21-28) mmol/L ABG pH (7.35-7.45) ABG Total CO2 (22-28) mmol.L ABG O2 Saturation (95-98) % ABG O2 Content (15-23) ML/dl ABG Base Excess (-2.0-3.0) mmol/L ABG Hemoglobin (11.7-17.4) g/dL ABG Carboxyhemoglobin (0.5-1.5) % POC ABG HHb (Measured) (0-5) % ABG Methemoglobin (0.0-3.0) % ABG O2 Capacity (16-24) mL/dl Hgb O2 Saturation (95.0-98.0) % FiO2 % Sodium (132-148) mmol/L Potassium (3.6-5.0) mmol/L Chloride (98-107) mmol/L Carbon Dioxide (21-33) mmol/L Anion Gap (10-20) BUN (7-21) mg/dL Creatinine (0.7-1.2) mg/dl Est GFR ( Amer) Est GFR (Non-Af Amer) POC Glucose (mg/dL) 132 H 124 H 124 H (65-110) mg/dL Random Glucose (70-110) mg/dL Lactic Acid (0.7-2.1) mmol/L Calcium (8.4-10.5) mg/dL Phosphorus (2.5-4.5) mg/dL Magnesium (1.7-2.2) mg/dL Total Bilirubin (0.2-1.3) mg/dL AST (14-36) U/L ALT (7-56) U/L Alkaline Phosphatase (38-126) U/L NT-Pro-B Natriuret Pep (0-450) pg/mL Total Protein (5.8-8.3) g/dL Albumin (3.0-4.8) g/dL Globulin gm/dL Albumin/Globulin Ratio (1.1-1.8) 09/04/17 09/04/17 09/04/17 Range/Units 11:49 10:30 07:53 WBC (4.5-11.0) 10^3/ul RBC (3.5-6.1) 10^6/uL Hgb (12.0-16.0) g/dL Hct (36.0-48.0) % MCV (80.0-105.0) fl MCH (25.0-35.0) pg MCHC (31.0-37.0) g/dl RDW (11.5-14.5) % Plt Count (120.0-450.0) 10^3/uL MPV (7.0-11.0) fl Gran % (50.0-68.0) % Lymph % (Auto) (22.0-35.0) % Moody % (Auto) (1.0-6.0) % Eos % (Auto) (1.5-5.0) % Baso % (Auto) (0.0-3.0) % Gran # (1.4-6.5) Lymph # (Auto) (1.2-3.4) Moody # (Auto) (0.1-0.6) Eos # (Auto) (0.0-0.7) Baso # (Auto) (0.0-2.0) K/mm3 Neutrophils % (Manual) (50.0-70.0) % Band Neutrophils % (0-2) % Lymphocytes % (Manual) (22.0-35.0) % Atypical Lymphs % (0.0-0.0) % Monocytes % (Manual) (1.0-6.0) % PT (9.4-12.5) SECONDS INR (0.93-1.08) APTT (25.1-36.5) Seconds pCO2 (35-45) mm/Hg pO2 (80-100) mm/Hg HCO3 (21-28) mmol/L ABG pH (7.35-7.45) ABG Total CO2 (22-28) mmol.L ABG O2 Saturation (95-98) % ABG O2 Content (15-23) ML/dl ABG Base Excess (-2.0-3.0) mmol/L ABG Hemoglobin (11.7-17.4) g/dL ABG Carboxyhemoglobin (0.5-1.5) % POC ABG HHb (Measured) (0-5) % ABG Methemoglobin (0.0-3.0) % ABG O2 Capacity (16-24) mL/dl Hgb O2 Saturation (95.0-98.0) % FiO2 % Sodium (132-148) mmol/L Potassium (3.6-5.0) mmol/L Chloride (98-107) mmol/L Carbon Dioxide (21-33) mmol/L Anion Gap (10-20) BUN (7-21) mg/dL Creatinine (0.7-1.2) mg/dl Est GFR ( Amer) Est GFR (Non-Af Amer) POC Glucose (mg/dL) 143 H 96 (65-110) mg/dL Random Glucose (70-110) mg/dL Lactic Acid 2.4 H (0.7-2.1) mmol/L Calcium (8.4-10.5) mg/dL Phosphorus (2.5-4.5) mg/dL Magnesium (1.7-2.2) mg/dL Total Bilirubin (0.2-1.3) mg/dL AST (14-36) U/L ALT (7-56) U/L Alkaline Phosphatase (38-126) U/L NT-Pro-B Natriuret Pep (0-450) pg/mL Total Protein (5.8-8.3) g/dL Albumin (3.0-4.8) g/dL Globulin gm/dL Albumin/Globulin Ratio (1.1-1.8) Laboratory Results - last 24 hr 09/04/17 09/04/17 09/04/17 07:53 10:30 11:49 WBC RBC Hgb Hct MCV MCH MCHC RDW Plt Count MPV Gran % Lymph % (Auto) Moody % (Auto) Eos % (Auto) Baso % (Auto) Gran # Lymph # (Auto) Moody # (Auto) Eos # (Auto) Baso # (Auto) Neutrophils % (Manual) Band Neutrophils % Lymphocytes % (Manual) Atypical Lymphs % Monocytes % (Manual) PT INR APTT pCO2 pO2 HCO3 ABG pH ABG Total CO2 ABG O2 Saturation ABG O2 Content ABG Base Excess ABG Hemoglobin ABG Carboxyhemoglobin POC ABG HHb (Measured) ABG Methemoglobin ABG O2 Capacity Hgb O2 Saturation FiO2 Sodium Potassium Chloride Carbon Dioxide Anion Gap BUN Creatinine Est GFR ( Amer) Est GFR (Non-Af Amer) POC Glucose (mg/dL) 96 143 H Random Glucose Lactic Acid 2.4 H Calcium Phosphorus Magnesium Total Bilirubin AST ALT Alkaline Phosphatase NT-Pro-B Natriuret Pep Total Protein Albumin Globulin Albumin/Globulin Ratio 09/04/17 09/04/17 09/05/17 16:15 23:17 04:24 WBC RBC Hgb Hct MCV MCH MCHC RDW Plt Count MPV Gran % Lymph % (Auto) Moody % (Auto) Eos % (Auto) Baso % (Auto) Gran # Lymph # (Auto) Moody # (Auto) Eos # (Auto) Baso # (Auto) Neutrophils % (Manual) Band Neutrophils % Lymphocytes % (Manual) Atypical Lymphs % Monocytes % (Manual) PT INR APTT pCO2 pO2 HCO3 ABG pH ABG Total CO2 ABG O2 Saturation ABG O2 Content ABG Base Excess ABG Hemoglobin ABG Carboxyhemoglobin POC ABG HHb (Measured) ABG Methemoglobin ABG O2 Capacity Hgb O2 Saturation FiO2 Sodium Potassium Chloride Carbon Dioxide Anion Gap BUN Creatinine Est GFR ( Amer) Est GFR (Non-Af Amer) POC Glucose (mg/dL) 124 H 124 H 132 H Random Glucose Lactic Acid Calcium Phosphorus Magnesium Total Bilirubin AST ALT Alkaline Phosphatase NT-Pro-B Natriuret Pep Total Protein Albumin Globulin Albumin/Globulin Ratio 09/05/17 09/05/17 09/05/17 05:15 06:00 06:00 WBC 19.2 H RBC 2.55 L Hgb 8.5 L Hct 25.1 L MCV 98.4 MCH 33.3 MCHC 33.9 RDW 14.7 H Plt Count 180 MPV 10.0 Gran % 88.4 H Lymph % (Auto) 4.7 L Moody % (Auto) 6.8 H Eos % (Auto) 0.0 L Baso % (Auto) 0.1 Gran # 16.99 H Lymph # (Auto) 0.9 L Moody # (Auto) 1.3 H Eos # (Auto) 0.0 Baso # (Auto) 0.01 Neutrophils % (Manual) 82 H Band Neutrophils % 2 Lymphocytes % (Manual) 7 L Atypical Lymphs % 1 H Monocytes % (Manual) 8 H PT INR APTT pCO2 31 L pO2 82.0 HCO3 17.1 L ABG pH 7.35 ABG Total CO2 18.1 L ABG O2 Saturation 99.1 H ABG O2 Content 13.1 L ABG Base Excess -7.6 L ABG Hemoglobin 9.7 L ABG Carboxyhemoglobin 2.6 H POC ABG HHb (Measured) 0.9 ABG Methemoglobin 1.1 ABG O2 Capacity 13.2 L Hgb O2 Saturation 95.5 FiO2 50.0 Sodium 142 Potassium 2.9 L* Chloride 115 H Carbon Dioxide 14 L Anion Gap 16 BUN 28 H Creatinine 1.3 H Est GFR ( Amer) 51 Est GFR (Non-Af Amer) 42 POC Glucose (mg/dL) Random Glucose 232 H Lactic Acid Calcium 6.9 L* Phosphorus Magnesium Total Bilirubin 3.0 H AST 58 H ALT 24 Alkaline Phosphatase 91 NT-Pro-B Natriuret Pep Total Protein 4.8 L Albumin 2.5 L Globulin 2.3 Albumin/Globulin Ratio 1.1 09/05/17 09/05/17 09/05/17 06:00 06:00 08:01 WBC RBC Hgb Hct MCV MCH MCHC RDW Plt Count MPV Gran % Lymph % (Auto) Moody % (Auto) Eos % (Auto) Baso % (Auto) Gran # Lymph # (Auto) Moody # (Auto) Eos # (Auto) Baso # (Auto) Neutrophils % (Manual) Band Neutrophils % Lymphocytes % (Manual) Atypical Lymphs % Monocytes % (Manual) PT 31.1 H INR 2.65 H APTT 61.5 H pCO2 pO2 HCO3 ABG pH ABG Total CO2 ABG O2 Saturation ABG O2 Content ABG Base Excess ABG Hemoglobin ABG Carboxyhemoglobin POC ABG HHb (Measured) ABG Methemoglobin ABG O2 Capacity Hgb O2 Saturation FiO2 Sodium Potassium Chloride Carbon Dioxide Anion Gap BUN Creatinine Est GFR ( Amer) Est GFR (Non-Af Amer) POC Glucose (mg/dL) 140 H Random Glucose Lactic Acid Calcium Phosphorus 4.2 Magnesium 1.5 L Total Bilirubin AST ALT Alkaline Phosphatase NT-Pro-B Natriuret Pep 3430 H Total Protein Albumin Globulin Albumin/Globulin Ratio Critical Care Progress Note - Nutrition Nutrition: Nutrition Category Date Time Status NPO Diet [DIET] Diets 09/01/17 Breakfast Ordered Assessment/Plan - Assessment and Plan (Free Text) Assessment: Patient seen and examined on rounds with resident, agree with note with following additions/exceptions: patient is 56yo female w/PMHx alcoholic hepatitis, narcotic abuse, hypertension , untreated hepatitis C, ETOH abuse, and tobacco abuse [facility] with complaints of increased shortness of breath at rest and dry cough x 1 day found to be in hypoxemic respiratory failure, Influenza PNA, ARDS. Currently intubated, sedated, OFF paralytics. On PRVC FiO2 60%, PEEP 14, P/F ratio 164, moderate ARDS. Renal, ID and Pulm following. Cr has been stable wit adequate UOP. Hypoxemic Resp Failure ARDS Influenza PNA Renal failure Oliguria Hep C EtOH abuse Cirrhosis Recommend: - cont with vent support, low tidal vol ventilation, 6cc/PBW, high PEEP, titrate down FiO2 to 50% - Duonebs q4hr - monitor off Paralytics, keep sedation - keep net negative fluid balance, monitor Cr - Antibiotics as per ID, Merrem, Levaquin, Tamiflu - monitor urine output - FS control - monitor HH - avoid nephrotoxic drugs - follow up renal - follow neurology - monitor LFTs - GI ppx - DVT ppx - obtain palliative care consult, will need tracheostomy/PEG - Monitor in MICU Patient at high risk for morbidity and mortality critical care time 40 minutes
--- NOTE | 2017-09-05 10:09 | RAD ---
HISTORY: Pneumonia COMPARISON: 09/05/2017 FINDINGS: LUNGS: Extensive diffuse bilateral pulmonary opacity. This may represent diffuse pneumonia, ARDS, pulmonary edema, etc. No focal consolidation identified. PLEURA: No significant pleural effusion identified, no pneumothorax apparent. CARDIOVASCULAR: Normal heart size. ET tube and NG tube grossly unchanged from prior examination. OSSEOUS STRUCTURES: No significant abnormalities. VISUALIZED UPPER ABDOMEN: Normal. OTHER FINDINGS: None. IMPRESSION: No significant change. Extensive diffuse bilateral pulmonary opacity peer
--- NOTE | 2017-09-05 11:16 | PN ---
DATE: LOCATION: The patient is in the Critical Care Unit, room 129, bed 4. SUBJECTIVE: The patient is admitted to ICU after being intubated for respiratory failure with pneumonia, bilateral multilobar pneumonia. The patient has positive cirrhosis of liver, alcoholic hepatitis, depression, hypertension. The patient is on the respirator. She has been sedated. She is on Diprivan, Ativan and the patient is getting Levophed to maintain blood pressure. She has some minimal urine output now. PHYSICAL EXAMINATION: VITAL SIGNS: The blood pressure is 107/47, the patient's pulse is 93. The patient is being maintained on respirator for oxygenation and respiratory assess. The patient's overall condition is critical. The patient is maintained on medications and support to follow up on the progress of the patient's pneumonia. LABORATORY DATA: The patient's blood work, hemoglobin 8.5, total white count 19,000. Chemistry: The patient's potassium was low at 2.9. The patient's sugar is 140. Magnesium 1.5. The patient's albumin is 3 and BNP 3430. Peripheral examination shows edema of both legs. ASSESSMENT AND PLAN: We will continue current management in ICU. The patient has multiple consultants for multiple organ failure, kidney, liver, and also cardiac condition that is secondary to sepsis. The patient has congestive failure too in addition to the pneumonia. We will follow up. Tay Cruz MD
[2017-09-05 12:30] VITALS: TEMP 97.6
--- NOTE | 2017-09-05 13:00 | CP.PCM.PN ---
Subjective - Date & Time of Evaluation Date of Evaluation: 09/05/17 Time of Evaluation: 09:50 - Subjective Subjective: Seen and examined at the bedside earlier today, chart was reviewed. Patient remains intubated and being weaned off sedation. Patient reported to have aspirated about 400 cc of contrast yesterday. No reports of any overt GI bleed. Patient had CT scan of abdomen and pelvis, showed lower lobe pneumonia and ascites. Patient went for a chest x-ray this a.m. this shows extensive pulmonary pacing and bilaterally. Patient NPO. Objective - Vital Signs/Intake and Output Vital Signs (last 24 hours): Temp Pulse Resp BP Pulse Ox 97.6 F 87 22 94/45 L 95 09/05/17 08:00 09/05/17 09:34 09/05/17 08:00 09/05/17 10:20 09/05/17 06:30 Intake and Output: 09/05/17 09/05/17 06:59 18:59 Intake Total 2394 234 Output Total 1000 Balance 1394 234 - Medications Medications: Current Medications Albumin Human (Albumin Human 25% (12.5 Gm/50 Ml)) 12.5 gm IV Q2H [facility] Last Admin: 09/05/17 11:21 Dose: 12.5 gm Albuterol/Ipratropium (Duoneb 3 Mg/0.5 Mg (3 Ml) Ud) 3 ml IH [id number] NORMA PRN Reason: Protocol Last Admin: 09/05/17 07:55 Dose: 3 ml Artificial Tears (Artificial Tears) 0 ml OU Q8 NORMA Last Admin: 09/05/17 05:04 Dose: 1 drop Fluoxetine HCl (Prozac) 40 mg PO DAILY [facility] Last Admin: 08/30/17 15:44 Dose: 40 mg Heparin Sodium (Porcine) (Heparin) 5,000 units SC Q8 NORMA PRN Reason: Protocol Last Admin: 09/05/17 05:03 Dose: 5,000 units Hydrocortisone Sodium Succinate (Solu-Cortef) 50 mg IVP Q6H [facility] Last Admin: 09/05/17 08:46 Dose: 50 mg Propofol (Diprivan) 1,000 mg in 100 mls @ 1.987 mls/hr IV .Q24H PRN; Protocol; 5 MCG/KG/MIN PRN Reason: TITRATE PER MD ORDER Last Titration: 08/31/17 08:47 Dose: 0 mcg/kg/min, 0 mls/hr NOREPINEPHRINE BIT/0.9 % NACL (Levophed 4 Mg/ 250 Ml Ns Premixed) 4 mg in 250 mls @ 15 mls/hr IV .[id number] PRN; Protocol; 4 MCG/MIN PRN Reason: TITRATE PER MD ORDER Last Titration: 09/05/17 09:35 Dose: 6 mcg/min, 22.5 mls/hr Doxycycline Hyclate 100 mg/ (Sodium Chloride) 100 mls @ 100 mls/hr IVPB Q12 NORMA PRN Reason: Protocol Stop: 09/12/17 22:01 Last Admin: 09/05/17 09:29 Dose: 100 mls/hr Sodium Bicarbonate 150 meq/ (Dextrose) 1,150 mls @ 150 mls/hr IV .Q7H40M [facility] Last Admin: 09/04/17 08:37 Dose: 150 mls/hr Vasopressin 20 units/ Dextrose 101 mls @ 12.12 mls/hr IV .Q8H20M NORMA; 0.04 U/ MIN PRN Reason: Protocol Last Admin: 09/05/17 09:00 Dose: 12.12 mls/hr Midazolam 100 mg/100ml in NS (Midazolam 100 Mg/100ml In Ns) 100 mg in 100 mls @ 1 mls/hr IV .Q24H PRN; Protocol; 1 MG/HR PRN Reason: Agitation Last Titration: 09/05/17 11:30 Dose: 6 mg/hr, 6 mls/hr Meropenem (Merrem Iv 1 Gm Premix) 50 mls @ 100 mls/hr IVPB Q12 NORMA PRN Reason: Protocol Stop: 09/11/17 22:01 Last Admin: 09/05/17 09:32 Dose: 100 mls/hr Fentanyl Citrate (Fentanyl Citrate/Sodium Chloride 1 Mg/100 Ml) 1,000 mcg in 100 mls @ 2 mls/hr IV .Q24H PRN; Protocol; 20 MCG/HR PRN Reason: TITRATE PER MD ORDER Last Titration: 09/05/17 12:00 Dose: 100 mcg/hr, 10 mls/hr Potassium Chloride (Potassium Chloride 10 Meq/100 Ml) 10 meq in 100 mls @ 50 mls/hr IVPB Q2H NORMA Stop: 09/05/17 16:29 Last Admin: 09/05/17 08:36 Dose: 50 mls/hr Lorazepam (Ativan) 1 mg IVP ONCE PRN; Protocol PRN Reason: Anxiety Last Admin: 08/30/17 21:13 Dose: 1 mg Metoprolol Tartrate (Lopressor) 25 mg PO BID [facility] Last Admin: 09/05/17 09:34 Dose: 25 mg Midazolam HCl (Versed Inj) 4 mg IVP Q2H PRN PRN Reason: Agitation Last Admin: 08/31/17 20:36 Dose: 4 mg Oseltamivir Phosphate (Tamiflu Susp) 75 mg PO 1000,2200 [facility] PRN Reason: Protocol Last Admin: 09/04/17 22:25 Dose: 75 mg Pantoprazole Sodium (Protonix Inj) 40 mg IVP DAILY [facility] Last Admin: 09/05/17 09:31 Dose: 40 mg Verapamil HCl (Verapamil Inj) 2.5 mg IVP Q6H PRN PRN Reason: for herat rate >130 - Labs Labs: 09/05/17 06:00 09/05/17 06:00 PT 31.1 SECONDS (9.4-12.5) H 09/05/17 06:00 INR 2.65 (0.93-1.08) H 09/05/17 06:00 APTT 61.5 Seconds (25.1-36.5) H 09/05/17 06:00 - Constitutional Appears: Chronically Ill - Head Exam Head Exam: NORMOCEPHALIC - Eye Exam Eye Exam: absent: Scleral icterus - Neck Exam Neck Exam: Normal Inspection - Respiratory Exam Respiratory Exam: Rales, Rhonchi. absent: Respiratory Distress (intubated) - Cardiovascular Exam Cardiovascular Exam: +S1, +S2 - GI/Abdominal Exam GI & Abdominal Exam: Distended, Soft, Hypoactive Bowel Sounds - Extremities Exam Extremities Exam: Pedal Edema (anasarca). absent: Calf Tenderness - Neurological Exam Neurological Exam: Altered (sedated/intubated) - Skin Skin Exam: Dry, Warm Assessment and Plan - Assessment and Plan (Free Text) Assessment: Assessment: Respiratory failure, bilateral pneumonia, positive influenza Sepsis R/o Ischemic colitis, s/p ct scan no evidence of ischemic bowel Alcoholic hepatitis, liver cirrhosis Anemia Hypertension Plan: On IV antibiotics Continue PPI On heparin subcutaneous On Solu-Cortef On vasopressin and levothyroid tube feedings currently on hold status post aspiration yesterday continue to follow closely as epr ICU team Seen and discussed with Dr. Hernandes.
--- NOTE | 2017-09-05 13:51 | CP.PCM.CON ---
History of Present Illness - History of Present Illness History of Present Illness: Palliative consult requested by Dr Alanna Vinson copied to Dr Ronda Cruz 56 year old female with hsity of alcohol abuse, cirrhosis and Hepatitis C who was sent from [facility] with weakness, tachycardia,cough and shortness of breath. Chest x ray multi focal pneumonia> RUL. She subsequently went into hypoxemic respiratory failure and was intubated. Also found positive for H Influenza. PMHx: HTN, lumbar neuritis, alcohol/drug abuse,alcoholic hepatitis, hyponatremia , hypokalemia. Social History: Ex smoker, alcohol and drug misuse. Family History: Non contributory. Advance Care Planning: The patient does not have an Advanced Directive. Review of Systems: As per HPI, patient is intubated and unresponsive at this time. Past Patient History - Infectious Disease Hx of Infectious Diseases: None - Past Medical History & Family History Past Medical History?: Yes - Past Social History Smoking Status: Unknown If Ever Smoked - CARDIAC Hx Pacemaker: No - PULMONARY Hx Respiratory Disorders: Yes Hx Pneumonia: Yes - NEUROLOGICAL Hx Neurological Disorder: No - HEENT Hx HEENT Problems: No - RENAL Hx Chronic Kidney Disease: No - ENDOCRINE/METABOLIC Hx Endocrine Disorders: No - HEMATOLOGICAL/ONCOLOGICAL Hx Cancer: No - INTEGUMENTARY Hx Dermatological Problems: No - MUSCULOSKELETAL/RHEUMATOLOGICAL Hx Musculoskeletal Disorders: Yes Hx Falls: Yes Other/Comment: LEFT RIB PAIN SINCE 09/28/15, cervical spondylosis, wrist fracture - GASTROINTESTINAL Hx Gastrointestinal Disorders: No Other/Comment: cirrhosis - GENITOURINARY/GYNECOLOGICAL Hx Genitourinary Disorders: No - PSYCHIATRIC Hx Psychophysiologic Disorder: Yes Hx Anxiety: Yes Hx Depression: Yes Other/Comment: opioid dependency, alcohol use (last 06/2017) - SURGICAL HISTORY Hx Mastectomy: No - ANESTHESIA Hx Anesthesia Reactions: No Hx Malignant Hyperthermia: No Meds Allergies/Adverse Reactions: Allergies Allergy/AdvReac Type Severity Reaction Status Date / Time No Known Allergies Allergy Verified 09/29/15 11:18 - Medications Medications: Current Medications Albumin Human (Albumin Human 25% (12.5 Gm/50 Ml)) 12.5 gm IV Q2H [facility] Last Admin: 09/05/17 12:34 Dose: 12.5 gm Albuterol/Ipratropium (Duoneb 3 Mg/0.5 Mg (3 Ml) Ud) 3 ml IH [id number] NORMA PRN Reason: Protocol Last Admin: 09/05/17 13:06 Dose: 3 ml Artificial Tears (Artificial Tears) 0 ml OU Q8 NORMA Last Admin: 09/05/17 05:04 Dose: 1 drop Fluoxetine HCl (Prozac) 40 mg PO DAILY [facility] Last Admin: 08/30/17 15:44 Dose: 40 mg Heparin Sodium (Porcine) (Heparin) 5,000 units SC Q8 NORMA PRN Reason: Protocol Last Admin: 09/05/17 05:03 Dose: 5,000 units Hydrocortisone Sodium Succinate (Solu-Cortef) 50 mg IVP Q6H [facility] Last Admin: 09/05/17 08:46 Dose: 50 mg Propofol (Diprivan) 1,000 mg in 100 mls @ 1.987 mls/hr IV .Q24H PRN; Protocol; 5 MCG/KG/MIN PRN Reason: TITRATE PER MD ORDER Last Titration: 08/31/17 08:47 Dose: 0 mcg/kg/min, 0 mls/hr NOREPINEPHRINE BIT/0.9 % NACL (Levophed 4 Mg/ 250 Ml Ns Premixed) 4 mg in 250 mls @ 15 mls/hr IV .[id number] PRN; Protocol; 4 MCG/MIN PRN Reason: TITRATE PER MD ORDER Last Titration: 09/05/17 09:35 Dose: 6 mcg/min, 22.5 mls/hr Doxycycline Hyclate 100 mg/ (Sodium Chloride) 100 mls @ 100 mls/hr IVPB Q12 NORMA PRN Reason: Protocol Stop: 09/12/17 22:01 Last Admin: 09/05/17 09:29 Dose: 100 mls/hr Sodium Bicarbonate 150 meq/ (Dextrose) 1,150 mls @ 150 mls/hr IV .Q7H40M [facility] Last Admin: 09/04/17 08:37 Dose: 150 mls/hr Vasopressin 20 units/ Dextrose 101 mls @ 12.12 mls/hr IV .Q8H20M NORMA; 0.04 U/ MIN PRN Reason: Protocol Last Admin: 09/05/17 09:00 Dose: 12.12 mls/hr Midazolam 100 mg/100ml in NS (Midazolam 100 Mg/100ml In Ns) 100 mg in 100 mls @ 1 mls/hr IV .Q24H PRN; Protocol; 1 MG/HR PRN Reason: Agitation Last Titration: 09/05/17 13:00 Dose: 7 mg/hr, 7 mls/hr Meropenem (Merrem Iv 1 Gm Premix) 50 mls @ 100 mls/hr IVPB Q12 NORMA PRN Reason: Protocol Stop: 09/11/17 22:01 Last Admin: 09/05/17 09:32 Dose: 100 mls/hr Fentanyl Citrate (Fentanyl Citrate/Sodium Chloride 1 Mg/100 Ml) 1,000 mcg in 100 mls @ 2 mls/hr IV .Q24H PRN; Protocol; 20 MCG/HR PRN Reason: TITRATE PER MD ORDER Last Titration: 09/05/17 13:43 Dose: 130 mcg/hr, 13 mls/hr Potassium Chloride (Potassium Chloride 10 Meq/100 Ml) 10 meq in 100 mls @ 50 mls/hr IVPB Q2H [facility] Stop: 09/05/17 16:29 Last Admin: 09/05/17 08:36 Dose: 50 mls/hr Lorazepam (Ativan) 1 mg IVP ONCE PRN; Protocol PRN Reason: Anxiety Last Admin: 08/30/17 21:13 Dose: 1 mg Metoprolol Tartrate (Lopressor) 25 mg PO BID [facility] Last Admin: 09/05/17 09:34 Dose: 25 mg Midazolam HCl (Versed Inj) 4 mg IVP Q2H PRN PRN Reason: Agitation Last Admin: 08/31/17 20:36 Dose: 4 mg Oseltamivir Phosphate (Tamiflu Susp) 75 mg PO 1000,2200 [facility] PRN Reason: Protocol Last Admin: 09/04/17 22:25 Dose: 75 mg Pantoprazole Sodium (Protonix Inj) 40 mg IVP DAILY [facility] Last Admin: 09/05/17 09:31 Dose: 40 mg Verapamil HCl (Verapamil Inj) 2.5 mg IVP Q6H PRN PRN Reason: for herat rate >130 Physical Exam - ENT Exam ENT Exam: Mucous Membranes Moist - Respiratory Exam Respiratory Exam: Decreased Breath Sounds - Cardiovascular Exam Cardiovascular Exam: +S1, +S2 - GI/Abdominal Exam GI & Abdominal Exam: Diminished Bowel Sounds, Soft - Extremities Exam Extremities exam: Positive for: pedal pulses present Additional comments: edema of upper/lower extremities - Skin Skin Exam: Dry, Pallor - Additional Findings Additional findings: palliative performance scale rating 10 % Results - Vital Signs Recent Vital Signs: Last Vital Signs Temp 97.6 F 09/05/17 08:00 Pulse 93 H 09/05/17 13:20 Resp 22 09/05/17 08:00 BP 109/69 09/05/17 13:20 Pulse Ox 88 L 09/05/17 13:20 - Labs Result Diagrams: 09/05/17 06:00 09/05/17 06:00 Labs: Laboratory Results - last 24 hr 09/04/17 09/04/17 09/04/17 11:49 16:15 23:17 WBC RBC Hgb Hct MCV MCH MCHC RDW Plt Count MPV Gran % Lymph % (Auto) Johnson % (Auto) Eos % (Auto) Baso % (Auto) Gran # Lymph # (Auto) Johnson # (Auto) Eos # (Auto) Baso # (Auto) Neutrophils % (Manual) Band Neutrophils % Lymphocytes % (Manual) Atypical Lymphs % Monocytes % (Manual) PT INR APTT pCO2 pO2 HCO3 ABG pH ABG Total CO2 ABG O2 Saturation ABG O2 Content ABG Base Excess ABG Hemoglobin ABG Carboxyhemoglobin POC ABG HHb (Measured) ABG Methemoglobin ABG O2 Capacity Hgb O2 Saturation FiO2 Sodium Potassium Chloride Carbon Dioxide Anion Gap BUN Creatinine Est GFR ( Amer) Est GFR (Non-Af Amer) POC Glucose (mg/dL) 143 H 124 H 124 H Random Glucose Calcium Phosphorus Magnesium Total Bilirubin AST ALT Alkaline Phosphatase NT-Pro-B Natriuret Pep Total Protein Albumin Globulin Albumin/Globulin Ratio 09/05/17 09/05/17 09/05/17 04:24 05:15 06:00 WBC 19.2 H RBC 2.55 L Hgb 8.5 L Hct 25.1 L MCV 98.4 MCH 33.3 MCHC 33.9 RDW 14.7 H Plt Count 180 MPV 10.0 Gran % 88.4 H Lymph % (Auto) 4.7 L Johnson % (Auto) 6.8 H Eos % (Auto) 0.0 L Baso % (Auto) 0.1 Gran # 16.99 H Lymph # (Auto) 0.9 L Johnson # (Auto) 1.3 H Eos # (Auto) 0.0 Baso # (Auto) 0.01 Neutrophils % (Manual) 82 H Band Neutrophils % 2 Lymphocytes % (Manual) 7 L Atypical Lymphs % 1 H Monocytes % (Manual) 8 H PT INR APTT pCO2 31 L pO2 82.0 HCO3 17.1 L ABG pH 7.35 ABG Total CO2 18.1 L ABG O2 Saturation 99.1 H ABG O2 Content 13.1 L ABG Base Excess -7.6 L ABG Hemoglobin 9.7 L ABG Carboxyhemoglobin 2.6 H POC ABG HHb (Measured) 0.9 ABG Methemoglobin 1.1 ABG O2 Capacity 13.2 L Hgb O2 Saturation 95.5 FiO2 50.0 Sodium Potassium Chloride Carbon Dioxide Anion Gap BUN Creatinine Est GFR ( Amer) Est GFR (Non-Af Amer) POC Glucose (mg/dL) 132 H Random Glucose Calcium Phosphorus Magnesium Total Bilirubin AST ALT Alkaline Phosphatase NT-Pro-B Natriuret Pep Total Protein Albumin Globulin Albumin/Globulin Ratio 09/05/17 09/05/17 09/05/17 06:00 06:00 06:00 WBC RBC Hgb Hct MCV MCH MCHC RDW Plt Count MPV Gran % Lymph % (Auto) Johnson % (Auto) Eos % (Auto) Baso % (Auto) Gran # Lymph # (Auto) Johnson # (Auto) Eos # (Auto) Baso # (Auto) Neutrophils % (Manual) Band Neutrophils % Lymphocytes % (Manual) Atypical Lymphs % Monocytes % (Manual) PT 31.1 H INR 2.65 H APTT 61.5 H pCO2 pO2 HCO3 ABG pH ABG Total CO2 ABG O2 Saturation ABG O2 Content ABG Base Excess ABG Hemoglobin ABG Carboxyhemoglobin POC ABG HHb (Measured) ABG Methemoglobin ABG O2 Capacity Hgb O2 Saturation FiO2 Sodium 142 Potassium 2.9 L* Chloride 115 H Carbon Dioxide 14 L Anion Gap 16 BUN 28 H Creatinine 1.3 H Est GFR ( Amer) 51 Est GFR (Non-Af Amer) 42 POC Glucose (mg/dL) Random Glucose 232 H Calcium 6.9 L* Phosphorus 4.2 Magnesium 1.5 L Total Bilirubin 3.0 H AST 58 H ALT 24 Alkaline Phosphatase 91 NT-Pro-B Natriuret Pep 3430 H Total Protein 4.8 L Albumin 2.5 L Globulin 2.3 Albumin/Globulin Ratio 1.1 09/05/17 09/05/17 08:01 12:05 WBC RBC Hgb Hct MCV MCH MCHC RDW Plt Count MPV Gran % Lymph % (Auto) Johnson % (Auto) Eos % (Auto) Baso % (Auto) Gran # Lymph # (Auto) Johnson # (Auto) Eos # (Auto) Baso # (Auto) Neutrophils % (Manual) Band Neutrophils % Lymphocytes % (Manual) Atypical Lymphs % Monocytes % (Manual) PT INR APTT pCO2 pO2 HCO3 ABG pH ABG Total CO2 ABG O2 Saturation ABG O2 Content ABG Base Excess ABG Hemoglobin ABG Carboxyhemoglobin POC ABG HHb (Measured) ABG Methemoglobin ABG O2 Capacity Hgb O2 Saturation FiO2 Sodium Potassium Chloride Carbon Dioxide Anion Gap BUN Creatinine Est GFR ( Amer) Est GFR (Non-Af Amer) POC Glucose (mg/dL) 140 H 149 H Random Glucose Calcium Phosphorus Magnesium Total Bilirubin AST ALT Alkaline Phosphatase NT-Pro-B Natriuret Pep Total Protein Albumin Globulin Albumin/Globulin Ratio Assessment & Plan - Assessment and Plan (Free Text) Assessment: 56 year old female with history of alcohol abuse, cirrhosis and Hepatits C who is admitted with pneumonia, H Influenza, sepsis, ARDS, NAVJOT and metabolic imbalance. Intubated, ventilator dependent,vasopressors. The patients daughter Molly and ex at bedside, later joined by patients brother. Dr Alanna Vinson updated family of patients medical situation. Discussion regarding goals of care ensued. Family asked to consider resuscitation status as well as future goals of care. Aggressive measures/trach / PEG/LTACH explained. Benefits and burdens also explained in detail. Option for terminal extubation and comfort care also offered. Family encouraged to consider what patient would want under these circumstances. Encouraged family to discuss goals of care and resuscitation status. Molly is designated as family spokesperson. Psychosocial support provided Time spent in goals of care and advance care planning discussion with family, 30 minutes Plan: ID, pulmonary, renal and java j2ee architect notes reviewed. Labs/ imaging/medications reviewed Pulmonary:Continue vent support, duo nebs, sedation Sepis: Antibiotics as per ID NAVJOT: Renal recommendations, IF fluids, correct metabolic imbalance Goals of care and advance care planning
[2017-09-05] MEDS: Oseltamivir 6 MG/ML PO SCH (15:09)
--- NOTE | 2017-09-05 15:27 | PN ---
DATE: REASON FOR CONSULTATION AND FOLLOWUP: Cardiac evaluation, status post intubated, hypotension, respiratory failure, multilobar pneumonia, and flu. SUBJECTIVE: The patient remained on the vent, gag reflex positive, on vent, sedation, multiple vasopressor. Had an EEG done yesterday. OBJECTIVE: GENERAL: Not in apparent distress. VITAL SIGNS: Temperature afebrile, heart rate 87, blood pressure 112/64. HEENT: PERRLA. Extraocular muscles intact. NECK: Supple. No carotid bruit or thyromegaly. CHEST: Clear to auscultation. HEART: S1 and S2 regular. ABDOMEN: Soft. EXTREMITIES: Clubbing and cyanosis negative. LABORATORY DATA: Blood workup as follows: WBC 19.2, hemoglobin 8.5, hematocrit 25.1, platelet count 180. Chemistry shows sodium 140, potassium 2.9, chloride 101, carbon dioxide 14, anion gap of 16, BUN 28, creatinine 1.3, magnesium 1.5. BNP 3430. IMPRESSION: Multilobar pneumonia; alcoholic hepatitis; history of alcohol abuse; history of tobacco abuse; status post respiratory failure; septic shock; multiple vasopressors, on sedation; severe protein-calorie malnutrition, which was present on admission, was mild to moderate and now it is getting moderate to severe; hypokalemia; hypomagnesemia; hypotension secondary to septic shock, transferred from [facility] with flu. The patient's recent echo 08/28/2017 showed ejection fraction of 65%, trace aortic regurgitation, mild mitral regurgitation, mild tricuspid regurgitation, right ventricular systolic pressure of 46 mmHg, inferior vena cava collapsing more than 50%, no pericardial effusion, no vegetation, no thrombus noted. RECOMMENDATIONS: Continue broad-spectrum antibiotics, wean off vasopressor as tolerated. Continue IV albumin, supplement electrolytes aggressively, free fluid through the NG tube for hypokalemia. Overall, the patient's condition is critical, long-term prognosis is guarded, try to wean off vent and wean off vasopressors. We will give free fluid 300 mL every 6 hours. We will follow with you. We will follow with you multilobar pneumonia and sepsis. Armando Jennings MD [facility] # [id number]
--- NOTE | 2017-09-05 16:03 | CP.PCM.PN ---
Subjective - Date & Time of Evaluation Date of Evaluation: 09/05/17 Time of Evaluation: 15:59 - Subjective Subjective: I had lengthy discussion with the patients daughter Elif Valero/HCP, and her brothers, along with Suly schuler, OLMAN Palliative care. I explained to the family the patients clinical condition, along with options which includes aggresive routes including tracheostomy/PEG, or palliative approach. The daughter reported that she would like to discuss with her family. After discussing with her family, Elif Valero informed myself and team that she would like for the patient to be palliatively extubated, and made comfortable. Pt is DNR. Palliative care consult and assistance appreciated. Objective - Vital Signs/Intake and Output Vital Signs (last 24 hours): Temp Pulse Resp BP Pulse Ox 97.6 F 93 H 22 109/69 88 L 09/05/17 08:00 09/05/17 13:20 09/05/17 08:00 09/05/17 13:20 09/05/17 13:20 Intake and Output: 09/05/17 09/05/17 06:59 18:59 Intake Total 2394 402 Output Total 1000 Balance 1394 402 - Medications Medications: Current Medications Albumin Human (Albumin Human 25% (12.5 Gm/50 Ml)) 12.5 gm IV Q2H NORMA Last Admin: 09/05/17 14:35 Dose: 12.5 gm Albuterol/Ipratropium (Duoneb 3 Mg/0.5 Mg (3 Ml) Ud) 3 ml IH [id number] NORMA PRN Reason: Protocol Last Admin: 09/05/17 13:06 Dose: 3 ml Artificial Tears (Artificial Tears) 0 ml OU Q8 NORMA Last Admin: 09/05/17 13:46 Dose: 1 drop Fluoxetine HCl (Prozac) 40 mg PO DAILY NORMA Last Admin: 08/30/17 15:44 Dose: 40 mg Heparin Sodium (Porcine) (Heparin) 5,000 units SC Q8 NORMA PRN Reason: Protocol Last Admin: 09/05/17 13:45 Dose: 5,000 units Hydrocortisone Sodium Succinate (Solu-Cortef) 50 mg IVP Q6H NORMA Last Admin: 09/05/17 14:59 Dose: 50 mg Propofol (Diprivan) 1,000 mg in 100 mls @ 1.987 mls/hr IV .Q24H PRN; Protocol; 5 MCG/KG/MIN PRN Reason: TITRATE PER MD ORDER Last Titration: 08/31/17 08:47 Dose: 0 mcg/kg/min, 0 mls/hr NOREPINEPHRINE BIT/0.9 % NACL (Levophed 4 Mg/ 250 Ml Ns Premixed) 4 mg in 250 mls @ 15 mls/hr IV .[id number] PRN; Protocol; 4 MCG/MIN PRN Reason: TITRATE PER MD ORDER Last Titration: 09/05/17 15:00 Dose: 4 mcg/min, 15 mls/hr Doxycycline Hyclate 100 mg/ (Sodium Chloride) 100 mls @ 100 mls/hr IVPB Q12 NORMA PRN Reason: Protocol Stop: 09/12/17 22:01 Last Admin: 09/05/17 09:29 Dose: 100 mls/hr Sodium Bicarbonate 150 meq/ (Dextrose) 1,150 mls @ 150 mls/hr IV .Q7H40M NORMA Last Admin: 09/04/17 08:37 Dose: 150 mls/hr Vasopressin 20 units/ Dextrose 101 mls @ 12.12 mls/hr IV .Q8H20M NORMA; 0.04 U/ MIN PRN Reason: Protocol Last Admin: 09/05/17 09:00 Dose: 12.12 mls/hr Midazolam 100 mg/100ml in NS (Midazolam 100 Mg/100ml In Ns) 100 mg in 100 mls @ 1 mls/hr IV .Q24H PRN; Protocol; 1 MG/HR PRN Reason: Agitation Last Titration: 09/05/17 13:00 Dose: 7 mg/hr, 7 mls/hr Meropenem (Merrem Iv 1 Gm Premix) 50 mls @ 100 mls/hr IVPB Q12 NORMA PRN Reason: Protocol Stop: 09/11/17 22:01 Last Admin: 09/05/17 09:32 Dose: 100 mls/hr Fentanyl Citrate (Fentanyl Citrate/Sodium Chloride 1 Mg/100 Ml) 1,000 mcg in 100 mls @ 2 mls/hr IV .Q24H PRN; Protocol; 20 MCG/HR PRN Reason: TITRATE PER MD ORDER Last Titration: 09/05/17 14:25 Dose: 150 mcg/hr, 15 mls/hr Potassium Chloride (Potassium Chloride 10 Meq/100 Ml) 10 meq in 100 mls @ 50 mls/hr IVPB Q2H [facility] Stop: 09/05/17 16:29 Last Admin: 09/05/17 14:38 Dose: 50 mls/hr Lorazepam (Ativan) 1 mg IVP ONCE PRN; Protocol PRN Reason: Anxiety Last Admin: 08/30/17 21:13 Dose: 1 mg Metoprolol Tartrate (Lopressor) 25 mg PO BID [facility] Last Admin: 09/05/17 09:34 Dose: 25 mg Midazolam HCl (Versed Inj) 4 mg IVP Q2H PRN PRN Reason: Agitation Last Admin: 08/31/17 20:36 Dose: 4 mg Pantoprazole Sodium (Protonix Inj) 40 mg IVP DAILY [facility] Last Admin: 09/05/17 09:31 Dose: 40 mg Verapamil HCl (Verapamil Inj) 2.5 mg IVP Q6H PRN PRN Reason: for herat rate >130 - Labs Labs: 09/05/17 06:00 09/05/17 06:00 PT 31.1 SECONDS (9.4-12.5) H 09/05/17 06:00 INR 2.65 (0.93-1.08) H 09/05/17 06:00 APTT 61.5 Seconds (25.1-36.5) H 09/05/17 06:00
[2017-09-05] MEDS ORDERED: Morphine PCA 1 mg/ml (30ml) 30 ML IV PRN (16:25)
[2017-09-05] MEDS: Morphine 4 mg/ml ISec IVP STA ×2 (16:38→17:02)
[2017-09-05] MEDS ORDERED: Morphine 4 mg/ml ISec IVP STA (17:00)
--- NOTE | 2017-09-05 18:27 | CP.PCM.PRO ---
Pronouncement of Note - Clinical Findings Physical Exam: No Response Verbal/Painful Stimuli, Absent Peripheral Pulses{ Carotid & Femoral}, Absent Heart & Breath Sounds, No Pupillary Light Reflex, No Corneal Reflex, Pupils Fixed & Dilated, Absence of Vital Signs - Pronouncement Time Time of Pronouncement of : 17:20 - Notifications Pronouncement Notifications: Family Notified, Atending Notified Health Care Law Specialist Notified: No - Autopsy Autopsy Requested: No - [place] [id number]
[2017-09-05 19:02] VITALS: BP 90/51; PULSE 23; RESP 14; O2SAT 11
--- NOTE | 2017-09-05 21:56 | PN ---
DATE: 09/05/2017 SUBJECTIVE: The patient was seen early this morning in the ICU. The patient remains intubated on a ventilator, in critical condition. PHYSICAL EXAMINATION: VITAL SIGNS: Temperature is 98, blood pressure is 109/69, respiratory rate on the vent, heart rate of 93, saturation is 88%. HEENT: Reveals ET tube in place. NECK: Supple. LUNGS: Have decreased breath sounds. HEART: Normal S1 and S2. ABDOMEN: Soft, nontender. No rebound or guarding. LABORATORY DATA: Reveals a white count of 19,200, hemiglobin of 8, platelets of 180. BUN of 28, creatinine of 1.3. Last procalcitonin 1.13. Microbiology reveals the urine cultures are negative, blood cultures are negative. The nares MRSA screen is negative. Review of orders revealed the patient to be on doxycycline and meropenem. Tamiflu has been completed. Chest x-ray from this morning is reviewed. Diffuse bilateral pulmonary opacity. Dr. Earl Vinson's progress note is reviewed from this morning. Suly Lopez's consultation is appreciated. ASSESSMENT AND PLAN: This is a 56-year-old female who was seen early this morning in CCU, bed #4 with urosepsis, ventilatory-dependent respiratory failure due to healthcare-associated pneumonia on top of influenza A, alcoholic hepatitis, ethanol abuse, opioid dependence, history of cervical spondylitis with surgery. On meropenem, doxycycline day #6. Terminal extubation has been discussed. We will discontinue the antibiotics once the final conclusion is reached regarding palliative care and hospice setting. Oli Ken MD
--- NOTE | 2017-09-05 22:42 | PN ---
DATE: SUBJECTIVE: The patient is once again seen in the CCU, bed 4. She remains intubated. Eyes are closed. She remains on pressors. She is grossly edematous. She is on increasing doses of PEEP to obtain adequate oxygenation. She is also receiving Albumisol. MEDICATIONS: Medication list reviewed. The patient is on Albumisol, artificial tears, Ativan, Diprivan, doxycycline, DuoNeb, fentanyl, heparin, Levophed, metoprolol, meropenem, midazolam, potassium riders, Protonix, IV sodium bicarbonate pushes, magnesium supplements, Protonix, Solu-Cortef, Tamiflu, vasopressin, verapamil p.r.n. and Versed p.r.n. OBJECTIVE: INTAKE AND OUTPUT: Intake 5888, output 2000. VITAL SIGNS: Blood pressure is 90/50, temperature is 98.4, respiratory rate is 35, pulse is 87. HEENT: Eyes are closed. The patient is intubated. NECK: No neck vein distention. CHEST: Bilateral rhonchi and rales. CARDIOVASCULAR: S1 and S2 are normal. No audible murmurs, rubs or gallops noted. ABDOMEN: Obese, mildly distended, positive ascites. Decreased bowel sounds. EXTREMITIES: She had 2 to 3+ pitting edema of her lower extremities and 1+ pitting edema of her upper extremities. Positive presacral edema. NEUROLOGIC: Shows her to be sedated, on a ventilator. LABORATORY DATA AND IMAGING: Abdominal and pelvic CT scan showed bilateral infiltrates and ascites. Chest x-ray today showed bilateral infiltrates consistent with pneumonia/adult respiratory distress syndrome/pulmonary edema. Labs, CBC, white blood cell count today 19.2, hemoglobin 8.5, with a platelet count of 180,000. Coags, PT of 31.1, with a PTT of 61.5. Blood gas today, pH 7.35, improved. Bicarbonate 17, improved; pCO2 of 31 with a pO2 of 82. Chemistries today showed a low potassium level of 2.9, down from 3.1. The patient is receiving potassium supplements. CO2 is 14, anion gap is 16. BUN 28, was less than 10 on admission. Creatinine 1.3, was less than 0.5 on admission. Calcium is 6.9 with an albumin of 2.5, phosphorus 4.2, magnesium level 1.5. Elevated bilirubin of 3, mild elevation of AST at 58. Glucose is 140. Microbiology, all cultures are negative today. ASSESSMENT AND PLAN: 1. Acute renal failure, the patient remains nonoliguric, but BUN and creatinine are starting to increase. 2. Septic shock with adult respiratory distress syndrome/pulmonary edema/pneumonia. The patient remains on positive end-expiratory pressure. She is on a ventilator. She is sedated. She is on pressors for blood pressure support. 3. Severe metabolic acidosis, the patient is off bicarbonate drip. She is receiving bicarbonate pushes as necessary. 4. Hypokalemia with hypomagnesemia, these are being supplemented cautiously. 5. History of lactic acidosis secondary to sepsis. 6. History of alcoholic hepatitis. 7. History of anemia. PLAN: 1. Discussed with house staff and nurses in the CCU. Agree with potassium and magnesium supplements. 2. Agree with intermittent pushes of sodium bicarbonate. 3. Presently no nutrition as patient apparently is at high risk for aspiration. 4. Continue IV antibiotics as per Infectious Disease. 5. Continue blood pressure support with present agents. 6. Continue positive end-expiratory pressure to achieve adequate oxygenation. 7. Unfortunately, no plans for any extubation at this point in time. 8. From a renal standpoint, will need to monitor BUN and creatinine carefully as BUN and creatinine are starting to rise. 9. At this point in time, no role for renal replacement therapy. 10. Continue IV Lasix on an as needed basis to try and achieve fluid balance. Greater than 35 minutes spent in the care of this critically ill patient. Patel Simon MD
== END 2017-09-05 17:20 | DRG 870 ==
LOC: ED 11:44 → ERH 14:34 → 2RSO 20:49 → CCU 08-30 19:03
PROVIDERS: ADMIT Internal Medicine; ATTEND Internal Medicine
PROC: 5A1955Z Respiratory Ventilation, Greater than 96 Consecutive Hours (ICD-10-PCS; principal; 2017-08-30)
PROC: 0BH17EZ Insertion of Endotracheal Airway into Trachea, Via Natural or Artificial Opening (ICD-10-PCS; 2017-08-30)
PROC: 3E0F7GC Introduction of Other Therapeutic Substance into Respiratory Tract, Via Natural or Artificial Opening (ICD-10-PCS; 2017-08-30)
PROC: 02HV33Z Insertion of Infusion Device into Superior Vena Cava, Percutaneous Approach (ICD-10-PCS; 2017-08-31)
PROC: B548ZZA Ultrasonography of Superior Vena Cava, Guidance (ICD-10-PCS; 2017-08-31)
DX: A41.9 Sepsis, unspecified organism (principal); J10.00 Influenza due to other identified influenza virus with unspecified type of pneumonia; J96.01 Acute respiratory failure with hypoxia; R65.21 Severe sepsis with septic shock; E43 Unspecified severe protein-calorie malnutrition; F11.20 Opioid dependence, uncomplicated; N17.9 Acute kidney failure, unspecified; E87.4 Mixed disorder of acid-base balance; J44.0 Chronic obstructive pulmonary disease with (acute) lower respiratory infection; Z99.11 Dependence on respirator [ventilator] status; K70.11 Alcoholic hepatitis with ascites; K70.31 Alcoholic cirrhosis of liver with ascites; J20.9 Acute bronchitis, unspecified; F10.10 Alcohol abuse, uncomplicated; D64.9 Anemia, unspecified; B19.20 Unspecified viral hepatitis C without hepatic coma; M47.812 Spondylosis without myelopathy or radiculopathy, cervical region; N18.2 Chronic kidney disease, stage 2 (mild); I12.9 Hypertensive chronic kidney disease with stage 1 through stage 4 chronic kidney disease, or unspecified chronic kidney disease; G83.9 Paralytic syndrome, unspecified; E87.6 Hypokalemia; E83.42 Hypomagnesemia; F32.9 Major depressive disorder, single episode, unspecified; F41.9 Anxiety disorder, unspecified; Y95 Nosocomial condition; Z66 Do not resuscitate